=== PATIENT | female | born 1940 | race Hispanic/Latino ===

== ENCOUNTER 2019-07-12 15:09 | Inpatient (IN) | payer MEDICARE ==
[~2019-07-12] VITALS: Ht 157.5 cm; Wt 78.9 kg
--- NOTE | 2019-07-12 16:00 | NUR ---
RECIEVED PT TO ROOM 215 VIA WHEELCHAIR. PT IS A DIRECT ADMIT FROM DR. Joleen GRIJALVA OFFICE. PT AAO X 3. SPEAKS [facility] BUT PREFERS [facility]. AMBULATORY WITHOUT ANY ASSISTIVE DEVICE. VSS. NO SKIN BREAKDOWN. ORIENT TO SURROUNDINGS. ASSESSMENT DONE. BED IN LOW POSITION, SR UP X 2, CALL ORELLANA WITHIN REACH.
[2019-07-12 16:13] VITALS: BP 112/77
[2019-07-12 16:19] VITALS: BP 112/77
[2019-07-12 16:27] VITALS: BP 112/77
[2019-07-12] MEDS ORDERED: LASIX40 MG PO (16:29)
--- NOTE | 2019-07-12 16:30 | NUR ---
LAB WORK DONE BY TRAVEL REGISTERED NURSE NICU AT BEDSIDE.
[2019-07-12] MEDS ORDERED: AZELASTINE137 MCG/0. (16:31)
[2019-07-12] MEDS ORDERED: PRAZOSIN HCL5 MG PO (16:33)
[2019-07-12] MEDS ORDERED: FLUTICASONE (16:33)
[2019-07-12] MEDS ORDERED: HYDRALAZINE HCL25 MG PO (16:34)
[2019-07-12] MEDS ORDERED: CEFDINIR PEG (16:36)
[2019-07-12] MEDS ORDERED: LISINOPRIL10 MG PO (16:39)
[2019-07-12] MEDS ORDERED: ZOFRAN4 MG PO (16:39)
[2019-07-12] MEDS ORDERED: GLIPIZIDE5 MG PO (16:39)
[2019-07-12] MEDS ORDERED: NIFEDIPINE ER30 M1 PO (16:39)
[2019-07-12] MEDS ORDERED: PRAVASTATIN SOD20 MG PO (16:40)
[2019-07-12] MEDS ORDERED: ALBUTERAL INHALER INH (16:43)
[2019-07-12 17:14] LABS: BASOPHILS % 0.1 % (0.0-1.0); EOSINOPHILS # (AUTO) 0.3 (0.0-0.4); EOSINOPHILS % 3.6 % (0.0-6.0); HEMOGLOBIN 8.8 g/dL (12.0-16.0); LYMPHOCYTES # (AUTO) 0.9 (1.0-3.2); LYMPHOCYTES % 12.4 % (18.0-39.1); MEAN CORPUSCULAR HEMOGLOBIN 30.7 pg (28-32); MEAN CORPUSCULAR HGB CONC 32.6 g/dL (31-35); MEAN CORPUSCULAR VOLUME 94.1 fL (81-99); MONOCYTES # (AUTO) 0.6 (0.2-0.8); MONOCYTES % 8.2 % (4.4-11.3); NEUTROPHILS # (AUTO) 5.4 (2.1-6.9); NEUTROPHILS % 75.1 % (38.7-80.0); PLATELET COUNT 191 x10e3/uL (140-360); RED BLOOD COUNT 2.87 x10e6/uL (3.6-5.1)
--- NOTE | 2019-07-12 17:30 | NUR ---
PT ATE 100% INTAKE OF CARDIAC DIET.
[2019-07-12 17:31] LABS: ALBUMIN 3.2 g/dL (3.5-5.0); ALBUMIN/GLOBULIN RATIO 1.3 (0.8-2.0); ANION GAP 13.7 mmol/L (8-16); CALCIUM 8.6 mg/dL (8.4-10.2); CREATININE, SERUM 2.17 mg/dL (0.57-1.11); POTASSIUM 4.7 mmol/L (3.5-5.1)
[2019-07-12] MEDS ORDERED: FUROSEMIDE INJ 10 MG/ML 4 ML VIAL IV ONE (17:45)
--- NOTE | 2019-07-12 18:00 | NUR ---
PT TO XRAY DEPT FOR 2VIEW CXR VIA WC
[2019-07-12] MEDS: METHYLPREDNISOLONE SOD SUCC 125 MG/2ML VIAL IV SCH (18:02)
[2019-07-12 20:00] VITALS: BP 121/46
[2019-07-12 20:05] LABS: CLARITY,URINE SL CLOUDY (CLEAR); COLOR,URINE YELLOW (YELLOW); LEUKOCYTE ESTERASE ,URINE NEGATIVE (NEGATIVE); NITRITE,URINE NEGATIVE (NEGATIVE); PROTEIN,URINE DIPSTICK NEGATIVE (NEGATIVE)
[2019-07-12 20:06] LABS: BILIRUBIN,URINE NEGATIVE (NEGATIVE); KETONES,URINE NEGATIVE (NEGATIVE); URINE UROBILINOGEN 0.2 mg/dL (0.2 - 1)
[2019-07-12 20:15] LABS: EPITHELIAL CELLS,URINE FEW /LPF
[2019-07-12 21:00] VITALS: BP 121/46
[2019-07-12] MEDS ORDERED: ACETAMINOPHEN 325 MG TAB PO PRN (21:30)
[2019-07-12] MEDS ORDERED: HYDROCODONE/APAP 5MG-325MG TAB PO PRN (21:30)
[2019-07-12] MEDS: DOXYCYCLINE HYCLATE 100 MG in SODIUM CHLORIDE 0.9% 100 ML 100 ML IV SCH (21:30)
[2019-07-12] MEDS ORDERED: DEXTROSE 50% SYRINGE 50 ML IV PRN (21:30)
[2019-07-12] MEDS ORDERED: ONDANSETRON HCL INJ 2MG/ML 2ML 2 MG/ML VIAL IV PRN (22:00)
--- NOTE | 2019-07-12 22:19 | History and Physical ---
CHIEF COMPLAINT: Shortness of breath and wheezing. HISTORY OF PRESENT ILLNESS: This is a 78-year-old female, morbidly obese, very poor historian, history of hypertension, type 2 diabetes, hyperlipidemia, who presented as a direct admission from the Pulmonary Clinic due to underlying wheezing, shortness of breath, ongoing for the last 1-2 weeks. The patient has a known history of COPD as well as heart failure. The patient has significant lower extremity edema. She reports having some cough. No fever. No recent travel. No sick contacts at home. She has been at home for the last several weeks with her . Her is not sick at this time. Due to worsening shortness of breath and wheezing, she came in to be evaluated by the human performance consultant and sent here for direct admission. The patient is seen and evaluated at bedside on the medical floor. She is currently doing well with no other issues at this time. REVIEW OF SYSTEMS: Pertinent positives; shortness of breath, wheezing, cough, congestion. The rest of 14-point review of systems have been reviewed with the patient and are negative. ALLERGIES: NO KNOWN DRUG ALLERGIES. HOME MEDICATIONS: Hydralazine 25 mg p.o. b.i.d., nifedipine 30 mg extended release 1 tablet p.o. daily, pravastatin 20 mg daily, prazosin, lisinopril, glipizide, furosemide. PAST MEDICAL HISTORY: She has a history of heart failure, diabetes, hypertension, COPD, morbidly obese. PAST SURGICAL HISTORY: None. FAMILY HISTORY: Hypertension and diabetes. SOCIAL HISTORY: No drugs. No alcohol. Does not smoke. Good social support. PHYSICAL EXAMINATION: VITAL SIGNS: Temperature is 99.3, pulse 54, respiratory rate is 18, blood pressure is 112/77, pulse ox 95% on room air. GENERAL: No acute distress. Alert and oriented x3. Cooperative on examination. HEENT: Head is normocephalic and atraumatic. Eyes; pupils are equal, round, and reactive to light bilaterally. Extraocular movements are intact bilaterally. Throat, no evidence of erythema or exudates in the posterior pharynx. She has poor dentition. NECK: Supple. Good range motion. PULMONARY: She has expiratory wheezing appreciated. There are positive rales. Good inspiratory effort and expiratory effort. CARDIOVASCULAR: Positive S1 and S2. No murmurs, rubs, or gallops appreciated. ABDOMEN: Soft, nondistended, and nontender to palpation. Bowel sounds present. MUSCULOSKELETAL: Strength is 5/5 throughout. No evidence of any muscle deficits on examination. No weakness appreciated. NEUROLOGIC: Cranial nerves 2 thorough 12 grossly intact. No evidence of any neurological deficits on exam. SKIN: Intact. Warm to touch. Good cap refill. PSYCHIATRIC: Normal affect and mood. EXTREMITIES: She does have 1+ pedal edema in bilateral lower extremities. LABORATORY DATA: Labs show white count 7.1, hemoglobin 8.8, hematocrit 27.0, and platelets of 191. Chemistry; sodium 136, potassium 4.7, chloride 108, bicarb 19, anion gap of 13, BUN is 98, creatinine is 2.17, szmoq-ho-uwer glucose 159, calcium 8.6, total bilirubin is 0.3, AST 10, ALT 13, alkaline phosphatase 68. BNP 1110. Total protein 5.7, albumin 3.2. Urinalysis negative. MICROBIOLOGY: None. IMAGING STUDIES: Chest x-ray pending. IMPRESSION: 1. Acute exacerbation of chronic obstructive pulmonary disease. 2. Acute exacerbation of congestive heart failure, unknown dysfunction. 3. Type 2 diabetes. 4. Hypertension. 5. Anemia. 6. Chronic kidney disease stage 4. PLAN: At this time, the patient has been started on IV steroids by Pulmonary and also IV antibiotics as well as Xopenex as needed. Pulmonary has been consulted. As for her CHF, she is on IV diuretics, electrolyte replacement. Cardiology consultation. We will put on aspirin as well as she is already on oral pravastatin. As for her diabetes, we are going to put her on a sliding scale, get a hemoglobin A1c, lipid found, TSH. Her hemoglobin is stable. We will monitor that very closely. As for her renal function, I do not know her baseline, but she [place]. We will continue to monitor this very closely. There is no indication for renal replacement therapy at this time. Put on Lovenox for DVT prophylaxis. Put PT and OT evaluation. MD MINA Brooks/CASTILLO /[id number]
[2019-07-12] MEDS ORDERED: SODIUM CHLORIDE 0.9% 250ML 250 ML ONE (22:27)
[2019-07-13] VITALS: BP 133/72
[2019-07-13] MEDS: FUROSEMIDE INJ 10 MG/ML 4 ML VIAL IV SCH ×4 (00:13→17:12)
[2019-07-13] MEDS: HYDRALAZINE HCL 100 MG TABLET PO SCH (00:36)
[2019-07-13 04:00] VITALS: BP 176/74
[2019-07-13] MEDS: METHYLPREDNISOLONE SOD SUCC 125 MG/2ML VIAL IV SCH (05:45)
--- NOTE | 2019-07-13 05:47 | Diagnostic Imaging Report ---
EXAMINATION: CHEST 2 VIEWS INDICATION: Shortness of breath. COMPARISON: None. FINDINGS: TUBES and LINES: None. LUNGS: Mildly hyperinflated lungs. There are patchy opacities at the bilateral lung bases. No evidence of pulmonary edema. PLEURA: No pleural effusion or pneumothorax. HEART AND MEDIASTINUM: The cardiomediastinal silhouette is mildly enlarged. There are atherosclerotic calcifications within the aorta. BONES AND SOFT TISSUES: No acute osseous lesion. Soft tissues are unremarkable. UPPER ABDOMEN: No free air under the diaphragm. IMPRESSION: Patchy bibasilar opacities, which may represent atelectasis or pneumonia in the appropriate clinical setting. Signed by: Dr. Yusuf Jose MD on 07/13/2019 5:44 AM
--- NOTE | 2019-07-13 05:48 | Diagnostic Imaging Report ---
EXAMINATION: CHEST SINGLE (PORTABLE) INDICATION: Cough, SOB, COPD. COMPARISON: Chest radiograph 07/12/2019. FINDINGS: TUBES and LINES: None. LUNGS: Lungs are well inflated. There are patchy opacities at the bilateral lung bases. No evidence of pulmonary edema. PLEURA: No pleural effusion or pneumothorax. HEART AND MEDIASTINUM: The cardiomediastinal silhouette is unremarkable. There are atherosclerotic calcifications within the aorta. BONES AND SOFT TISSUES: No acute osseous lesion. Soft tissues are unremarkable. UPPER ABDOMEN: No free air under the diaphragm. IMPRESSION: Patchy bibasilar opacities, which may represent atelectasis or pneumonia in the appropriate clinical setting. Signed by: Dr. Yusuf Jose MD on 07/13/2019 5:45 AM
[2019-07-13 05:53] LABS: BASOPHILS % 0.2 % (0.0-1.0); HEMATOCRIT 28.9 % (34.2-44.1); HEMOGLOBIN 9.2 g/dL (12.0-16.0); LYMPHOCYTES # (AUTO) 0.5 (1.0-3.2); LYMPHOCYTES % 8.4 % (18.0-39.1); MEAN CORPUSCULAR HEMOGLOBIN 30.4 pg (28-32); MEAN CORPUSCULAR HGB CONC 31.8 g/dL (31-35); MEAN CORPUSCULAR VOLUME 95.4 fL (81-99); MONOCYTES # (AUTO) 0.1 (0.2-0.8); MONOCYTES % 1.3 % (4.4-11.3); NEUTROPHILS # (AUTO) 5.3 (2.1-6.9); NEUTROPHILS % 88.9 % (38.7-80.0); PLATELET COUNT 204 x10e3/uL (140-360); RED BLOOD COUNT 3.03 x10e6/uL (3.6-5.1); RED CELL DISTRIBUTION WIDTH 16.2 % (11.7-14.4)
[2019-07-13 06:39] LABS: ANION GAP 17.8 mmol/L (8-16); CALCIUM 8.5 mg/dL (8.4-10.2); CHOL/HDL RATIO 2.7 (3.0-3.6); CREATININE, SERUM 2.47 mg/dL (0.57-1.11); POTASSIUM 4.8 mmol/L (3.5-5.1)
[2019-07-13 06:59] LABS: THYROID STIMULATING HORMONE 2.423 uIU/mL (0.350-4.940)
[2019-07-13] MEDS: LEVALBUTEROL HCL SOLN NEBU 0.63 MG/3 ML NEB INH PRN ×5 (07:45→19:45)
[2019-07-13 08:20] VITALS: BP 182/75
[2019-07-13] MEDS ORDERED: GLIPIZIDE 5 MG TAB PO SCH (09:00)
[2019-07-13] MEDS ORDERED: NIFEDIPINE CR 30 MG TAB PO SCH (09:00)
[2019-07-13] MEDS ORDERED: LISINOPRIL 10 MG TAB PO SCH (09:00)
--- NOTE | 2019-07-13 09:05 | Consultation ---
DATE OF CONSULTATION: Pulmonary Critical Care Consultation HISTORY OF PRESENT ILLNESS: The patient is a 78-year-old woman. She has a history of chronic renal insufficiency as well as hypertension, diabetes, and COPD. She reports worsening dyspnea over several weeks. She received Solu-Medrol in the office as well as bronchodilators and antibiotics with no improvement. She continues to have congestion and cough. She also complains of leg swelling. She denies chest pain or fevers. PAST MEDICAL HISTORY: 1. Diabetes. 2. COPD. 3. Hypertension. 4. Chronic renal insufficiency. 5. Heart disease of unclear extent. PAST SURGICAL HISTORY: Noncontributory. FAMILY HISTORY: Diabetes and hypertension. ALLERGIES: NO KNOWN DRUG ALLERGIES. SOCIAL HISTORY: The patient is not an active smoker or drinker. REVIEW OF SYSTEMS: The patient denies headache. She is not having any fever. She has no neck pain. She is not having any chest pain. She does have some wheezing and cough. She has no abdominal pain. She has no nausea or vomiting. She does have 2+ leg edema bilaterally. She denies any focal neurological problems. PHYSICAL EXAMINATION: VITAL SIGNS: The patient is afebrile. The blood pressure is 176/74 and saturation is 97%. HEENT: Shows no facial swelling or erythema. Oropharynx is normal. LYMPHATIC: Shows no submandibular, cervical, or supraclavicular adenopathy. CARDIAC: Reveals regular rate and rhythm with normal S1 and S2. LUNGS: Auscultation of lungs reveal rhonchorous breath sounds bilaterally. There is no wheezing. ABDOMEN: Soft and nontender. There is no rebound or guarding. EXTREMITIES: Show 1 to 2+ ankle edema. NEUROLOGICAL: Shows no focal abnormalities. LABORATORY DATA: BUN to creatinine ratio is 99 to 2.47. The other electrolytes are within normal limits. The white blood cell count is 5.9, hemoglobin is 9.2, and the platelet count is 224. RADIOGRAPHIC DATA: Chest x-ray shows patchy bibasilar infiltrates. IMPRESSION: 1. Acute on chronic heart failure, unspecified. 2. Acute on chronic exacerbation of chronic obstructive pulmonary disease. 3. Diabetes. 4. Chronic renal failure, stage 4. 5. Hypertension. 6. Anemia. PLAN: 1. Continue diuretics. 2. Decrease Solu-Medrol. 3. Adjust insulin to control blood sugar. 4. Continue to monitor renal function. 5. Await echocardiogram and completion of Cardiology evaluation. MD ZACH Lewis/CASTILLO /[id number]
[2019-07-13] MEDS: AZELASTINE HCL 137 MCG NASAL SPRAY NS SCH ×2 (10:02→17:12)
[2019-07-13] MEDS: PRAVASTATIN 20 MG TAB PO SCH (10:03)
[2019-07-13] MEDS: DOXYCYCLINE HYCLATE 100 MG in SODIUM CHLORIDE 0.9% 100 ML 100 ML IV SCH ×2 (10:03→21:32)
[2019-07-13] MEDS: HYDRALAZINE HCL 25 MG TAB PO SCH ×2 (10:03→17:11)
[2019-07-13] MEDS ORDERED: DEXTROSE 50% SYRINGE 50 ML IV PRN (12:00)
[2019-07-13 12:06] VITALS: BP 212/84
[2019-07-13 16:24] VITALS: BP 213/85
[2019-07-13] MEDS ORDERED: ENOXAPARIN SOD INJ 40 MG/0.4 ML SYR SC SCH (17:00)
[2019-07-13] MEDS: ENOXAPARIN SOD INJ 40 MG/0.4 ML SYR SC SCH (17:11)
[2019-07-13] MEDS: INSULIN REGULAR, HUMAN 100 UNIT/1 ML 3ML VIAL SQ SCH ×2 (17:11→21:00)
[2019-07-13] MEDS: METHYLPREDNISOLONE SOD SUCC 40 MG/ML VIAL 1ML IV SCH (17:14)
[2019-07-13] MEDS ORDERED: ONDANSETRON HCL 4 MG ORAL DISINTEGRATING TAB PO PRN (19:15)
--- NOTE | 2019-07-13 19:44 | NUR ---
walking rounds complete. report handed to oncoming nurse.
--- NOTE | 2019-07-13 21:27 | Consultation ---
DATE OF CONSULTATION: 07/13/2019 Cardiology Consult Note REASON FOR CONSULTATION: Uncontrolled hypertension, shortness of breath, and chest pain. CHIEF COMPLAINT: Cough and shortness of breath. HISTORY OF PRESENT ILLNESS: This 78-year-old female with history of obesity, hypertension, diabetes, hyperlipidemia, was admitted from Pulmonary Clinic for COPD exacerbation, per the chart, she also has a history of CHF. The patient herself is a poor historian and does not quite remember all of her cardiac issues. Denies having had any ND, cath, or bypass surgery in the past. She has been getting worsening lower extremity edema for the past several weeks. Also reports productive cough. Denies any fevers or chills. REVIEW OF SYSTEMS: As per HPI, otherwise negative. PAST MEDICAL HISTORY: As described in HPI. FAMILY HISTORY: Noncontributory. SOCIAL HISTORY: She does not smoke, drink, or abuse drugs. PHYSICAL EXAMINATION: VITAL SIGNS: Temperature afebrile, pulse 80, respiratory rate 20, blood pressure 212/84, saturating 99% on nasal cannula. GENERAL: An elderly female, in no acute distress. CARDIOVASCULAR: Regular rate and rhythm. No murmurs, rubs, or gallops. LUNGS: Bilateral wheezes. ABDOMEN: Obese, soft, nontender, nondistended. NEURO AND PSYCH: Alert and oriented to person, place, and time. Normal affect. EXTREMITIES: 2+ pitting edema. INPATIENT MEDICATIONS: Reviewed. LABORATORY DATA: Reviewed, notable for creatinine 2.47, BUN of 99. Troponin is negative. BNP 1100. Hemoglobin 9.2. TELEMETRY DATA: Reviewed, shows normal sinus rhythm. IMAGING DATA: Chest x-ray reviewed, shows patchy bibasilar opacities, atelectasis versus pneumonia. ASSESSMENT AND PLAN: 1. Uncontrolled hypertension. 2. Shortness of breath. 3. Kpxzc-zd-hpddkic congestive heart failure exacerbation. 4. Chronic obstructive pulmonary disease exacerbation. 5. Gbsel-hw-xalhsqh renal failure. PLAN: We will stop lisinopril given renal failure and significantly elevated BUN. We will add hydralazine 100 mg t.i.d. as well as IV and oral labetalol. Management of NILES per Nephrology. Echocardiogram is pending. We will defer volume management to Nephrology as well given severe renal dysfunction, has been ruled out for acute ND with serial cardiac enzymes. Thank you for this consult. We will continue to follow. MD MICHAEL Sanchez/CASTILLO /[id number]
[2019-07-13] MEDS: NIFEDIPINE CR 30 MG TAB PO SCH (21:30)
[2019-07-13] MEDS: LABETALOL HCL 200 MG TAB PO SCH (21:32)
--- NOTE | 2019-07-13 22:12 | Progress Note ---
DATE: 07/13/2019 Medicine Progress Note SUBJECTIVE: The patient reports feeling much better and breathing much better today. She has been on steroids, neb treatments, and IV diuretics. PHYSICAL EXAMINATION: VITAL SIGNS: Temperature is 98.1, pulse 80, respiratory rate is 20, blood pressure last recorded is 213/85, pulse ox 96% on room air. I was not called on elevated blood pressure readings, which I will currently address. GENERAL: Not in acute distress. Alert and oriented x3. Cooperative on examination. HEENT: Head; normocephalic, atraumatic. Eyes; pupils are equal, round, and reactive to light bilaterally. Extraocular movements intact bilaterally. Throat; no evidence of erythema or exudates in the posterior pharynx. Has poor dentition. NECK: Supple. Good range of motion. PULMONARY: Clear to auscultation bilaterally. No wheezing, no rales, no rhonchi, no crackles appreciated. CARDIOVASCULAR: Positive S1 and S2. No murmurs, rubs, or gallops appreciated. ABDOMEN: Soft, nondistended, and nontender to palpation. Bowel sounds present. MUSCULOSKELETAL: Strength is 5/5 throughout. No evidence of any muscle deficits on examination. No weakness appreciated. NEUROLOGIC: Cranial nerve II through XII grossly intact. No evidence of any neurological deficits on exam. SKIN: Intact. Warm to touch. Good cap refill. PSYCHIATRIC: Normal affect and mood. EXTREMITIES: No edema. Good range of motion throughout. LABORATORY DATA: White count 5.9, hemoglobin 9.2, hematocrit is 28.9, platelets of 204. Chemistry; sodium 137, potassium 4.8, chloride 107, bicarb 17, anion gap of 17, BUN is 99, creatinine is 2.47, glucose is 221. Hemoglobin A1c 7.2, calcium 8.5. Troponins are all within normal range. TSH is 2.4. LDL was 113. Urinalysis was negative. MICROBIOLOGY: None. IMAGING STUDIES: Chest x-ray shows patchy bibasilar opacities, may represent atelectasis or pneumonia in appropriate clinical setting. IMPRESSION: 1. Acute exacerbation of chronic obstructive pulmonary disease. 2. Acute exacerbation of congestive heart failure. 3. Type 2 diabetes. 4. Hypertension. 5. Anemia. 6. Chronic kidney disease, stage 4. PLAN: At this time, the patient is breathing much better. Continue with steroids, neb treatments, and antibiotics. Pulmonary has been is consulted and following. As for CHF, continue with diuretics, electrolyte replacements, in which Cardiology has been consulted. We did hold her lisinopril. I did adjust her antihypertensive medications and we will add nifedipine XL 30 mg daily as well. As for her diabetes, continue with the sliding scale. Her A1c noted to be 7.2, in which glipizide should be held due to her underlying renal failure, which is contraindicated and CKD 5. Continue with sliding scale. There is no indication for renal replacement therapy at this time. She is on Lovenox for DVT prophylaxis. Work with PT and OT. Get a.m. labs. MD MINA Brooks/CASTILLO /[id number]
[2019-07-13] MEDS: LABETALOL HCL 5 MG/ML 20ML VIAL IV PRN (23:37)
[2019-07-14] VITALS (11 sets, daily range): BP systolic 146–195; BP diastolic 60–84
[2019-07-14] MEDS: HYDRALAZINE HCL 100 MG TABLET PO SCH ×4 (00:36→21:00)
--- NOTE | 2019-07-14 00:40 | NUR ---
Patient's BP elevated (200/84) with a HR of 74. Dr. Edilson yeh. Dr. Joleen Galvez (covering for Dr. Waggoner) notified of Nifedipine 30 mg HS and Hydralazine 100 mg TID . Order received to give Hydralazine 100 mg and give Labetalol 5 mg Q4H PRN (as scheduled in eMAR).
[2019-07-14] MEDS: MELATONIN 5 MG TABLET PO PRN (02:30)
--- NOTE | 2019-07-14 03:40 | NUR ---
Patient's BP elevated (206/83) with a HR of 72. Labetalol 5 mg IV administered per eMAR. Dr. Edy Galvez paged . Awaiting call back.
[2019-07-14] MEDS: METHYLPREDNISOLONE SOD SUCC 40 MG/ML VIAL 1ML IV SCH ×2 (05:56→16:56)
[2019-07-14 06:23] LABS: BASOPHILS % 0.1 % (0.0-1.0); HEMATOCRIT 27.1 % (34.2-44.1); HEMOGLOBIN 8.9 g/dL (12.0-16.0); LYMPHOCYTES # (AUTO) 0.7 (1.0-3.2); MEAN CORPUSCULAR HEMOGLOBIN 30.7 pg (28-32); MEAN CORPUSCULAR HGB CONC 32.8 g/dL (31-35); MEAN CORPUSCULAR VOLUME 93.4 fL (81-99); MONOCYTES # (AUTO) 0.6 (0.2-0.8); MONOCYTES % 7.3 % (4.4-11.3); NEUTROPHILS # (AUTO) 6.3 (2.1-6.9); NEUTROPHILS % 82.9 % (38.7-80.0); PLATELET COUNT 199 x10e3/uL (140-360); RED CELL DISTRIBUTION WIDTH 16.2 % (11.7-14.4)
[2019-07-14] MEDS: LEVALBUTEROL HCL SOLN NEBU 0.63 MG/3 ML NEB INH PRN ×4 (06:30→22:57)
[2019-07-14 06:58] LABS: ANION GAP 17.9 mmol/L (8-16); CALCIUM 8.5 mg/dL (8.4-10.2); CREATININE, SERUM 2.41 mg/dL (0.57-1.11); POTASSIUM 3.9 mmol/L (3.5-5.1)
[2019-07-14] MEDS: AZELASTINE HCL 137 MCG NASAL SPRAY NS SCH ×2 (09:00→16:19)
[2019-07-14] MEDS: PRAVASTATIN 20 MG TAB PO SCH (09:00)
[2019-07-14] MEDS: LABETALOL HCL 200 MG TAB PO SCH (09:17)
[2019-07-14] MEDS: DOXYCYCLINE HYCLATE 100 MG in SODIUM CHLORIDE 0.9% 100 ML 100 ML IV SCH ×2 (09:19→21:55)
[2019-07-14] MEDS: INSULIN REGULAR, HUMAN 100 UNIT/1 ML 3ML VIAL SQ SCH ×4 (11:30→21:00)
--- NOTE | 2019-07-14 14:25 | Progress Note ---
DATE: SUBJECTIVE: She has less wheezing and less dyspnea, but still has some cough. She reports difficulty sleeping last night. She is expressing concern about her blood pressure. Apparently, her blood pressure went up last night. She also expressed concern as to whether she is receiving her cholesterol medicine and her scheduled nose spray. PHYSICAL EXAMINATION: VITAL SIGNS: The blood pressure is 157/84, saturation is 95%. The pulse is 72, and the respiratory rate is 16. HEENT: Shows no facial swelling or erythema. The oropharynx is normal. LYMPHATIC: Shows no submandibular, cervical or supraclavicular adenopathy. CARDIAC: Reveals regular rate and rhythm with normal S1 and S2. There are no murmurs or rubs heard. LUNGS: Auscultation of lungs reveals few wheezes bilaterally. There is less congestion and less rhonchi. ABDOMEN: Soft and nontender. There is no rebound or guarding. EXTREMITIES: Show no leg edema or calf tenderness. There is no cyanosis or clubbing. LABORATORY DATA: BUN to creatinine ratio is 107-2.41 with an estimated GFR of 19. The carbon dioxide is 19 and glucose is 125. IMPRESSION: 1. Chronic obstructive pulmonary disease with acute exacerbation. 2. Congestive heart failure, unspecified. 3. Chronic renal failure stage 4. 4. Diabetes. 5. Hypertension. PLAN: 1. Continue Solu-Medrol 30 mg IV q.12. 2. Continue current antibiotics. 3. Await completion of Cardiology evaluation. 4. Continue current antihypertensive regimen as recommended by Dr. Moe. Amadou Deal MD [facility]/MODL /[id number]
--- NOTE | 2019-07-14 15:39 | NUR ---
Informed Dr. Moe that PT was recommending home health. He states he was fine with CM setting it up if pt agreeable. CM spoke to pt at bedside. Pt agreeable to home health with any company that takes her insurance. Choice letter signed for [facility]. Copy of choice letter given to pt. IMM letter discussed with pt. She verbalized understanding. Malay copy provided to pt. Signed choice letter and IMM placed in chart. Home health referral faxed to [facility] at [phone] / P [phone].
[2019-07-14] MEDS: PRAZOSIN HCL 1 MG CAP PO SCH (16:21)
[2019-07-14] MEDS: ENOXAPARIN SOD INJ 40 MG/0.4 ML SYR SC SCH (16:21)
[2019-07-14] MEDS ORDERED: PRAZOSIN HCL PO SCH (17:00)
[2019-07-14] MEDS ORDERED: FLUTICASONE 50 MCG SCH (17:00)
[2019-07-14] MEDS: FLUTICASONE PROPIONATE NASAL SPRAY NS SCH (17:09)
[2019-07-14] MEDS ORDERED: ZOLPIDEM TARTRATE 5 MG TAB PO SCH (21:00)
[2019-07-14] MEDS ORDERED: ZOLPIDEM TARTRATE 10 MG TAB PO SCH (21:00)
[2019-07-14] MEDS: NIFEDIPINE CR 30 MG TAB PO SCH (21:00)
[2019-07-14] MEDS ORDERED: ZOLPIDEM TARTRATE 5 MG TAB PO PRN (21:45)
--- NOTE | 2019-07-14 22:09 | Progress Note ---
DATE: 07/14/2019 Medicine Progress Note SUBJECTIVE: The patient reports that she is still short of breath, has some wheezing on examination. She reports she is not ready today to go home. She still complains of shortness of breath. Antihypertensive medications were adjusted accordingly. LABORATORY DATA: Labs show white count 7.6, hemoglobin 8.9, hematocrit 27, platelets of 199. Chemistry, sodium 139, potassium 3.9, chloride 106, bicarb 19, anion gap is 17. BUN is 107, her creatinine is 2.41, glucose is 125, and calcium is 8.5. Troponins were negative. Urinalysis negative. IMAGING STUDIES: None. PHYSICAL EXAMINATION: VITAL SIGNS: Temperature is 96, pulse 56, respiratory rate is 21, blood pressure 170/61 pulse ox 97% on 2 L nasal cannula. GENERAL: Not in acute distress. Alert and oriented x3. Cooperative on examination. HEENT: Head; normocephalic, atraumatic. Eyes; pupils are equal, round, and reactive to light bilaterally. Extraocular movements intact bilaterally. Throat; no evidence of erythema or exudates in the posterior pharynx. Has poor dentition. NECK: Supple. Good range of motion. PULMONARY: She does have some mild expiratory wheezing appreciated. No crackles. No rales. CARDIOVASCULAR: Positive S1 and S2. No murmurs, rubs, or gallops appreciated. ABDOMEN: Soft, nondistended, and nontender to palpation. Bowel sounds present. MUSCULOSKELETAL: Strength is 5/5 throughout. No evidence of any muscle deficits on examination. No weakness appreciated. NEUROLOGIC: Cranial nerve 2 through 12 grossly intact. No evidence of any neurological deficits on exam. SKIN: Intact. Warm to touch. Good cap refill. PSYCHIATRIC: Normal affect and mood. EXTREMITIES: No edema. Good range of motion throughout. IMPRESSION: 1. Acute exacerbation of chronic obstructive pulmonary disease. 2. Acute exacerbation of congestive heart failure. 3. Type 2 diabetes. 4. Hypertension. 5. Anemia. 6. Chronic kidney disease stage 4 at baseline. PLAN: At this time, she reports she is breathing better, but still has some shortness of breath and wheezing on exam. Continue with steroids at a lower dose, neb treatments, antibiotics. Pulmonary is following very closely. As for her CHF, she is on diuretics, electrolyte replacements, cardioprotective medications. Cardiology is following. Antihypertensive medications were adjusted accordingly with much improvement in her blood pressure, but we will monitor very closely. As for her diabetes, we will continue with glipizide. Continue with sliding scale. There is no indication for renal replacement therapy at this time. Lovenox for DVT prophylaxis. Work with PT/OT. Get morning labs. CONSULTANTS: Pulmonary and Cardiology. MD MINA Brooks/[facility] /[id number]
[2019-07-15] VITALS (9 sets, daily range): BP systolic 136–185; BP diastolic 55–77
[2019-07-15] MEDS: LEVALBUTEROL HCL SOLN NEBU 0.63 MG/3 ML NEB INH PRN ×4 (03:21→19:25)
[2019-07-15] MEDS: METHYLPREDNISOLONE SOD SUCC 40 MG/ML VIAL 1ML IV SCH ×2 (05:40→16:31)
[2019-07-15 05:43] LABS: HEMOGLOBIN 8.8 g/dL (12.0-16.0); LYMPHOCYTES # (AUTO) 0.7 (1.0-3.2); LYMPHOCYTES % 9.1 % (18.0-39.1); MEAN CORPUSCULAR HGB CONC 32.6 g/dL (31-35); MEAN CORPUSCULAR VOLUME 95.1 fL (81-99); MONOCYTES # (AUTO) 0.5 (0.2-0.8); MONOCYTES % 7.2 % (4.4-11.3); NEUTROPHILS % 82.9 % (38.7-80.0); PLATELET COUNT 198 x10e3/uL (140-360); RED BLOOD COUNT 2.84 x10e6/uL (3.6-5.1); RED CELL DISTRIBUTION WIDTH 16.5 % (11.7-14.4)
[2019-07-15 06:09] LABS: ANION GAP 13.9 mmol/L (8-16); CREATININE, SERUM 2.23 mg/dL (0.57-1.11); POTASSIUM 3.9 mmol/L (3.5-5.1)
[2019-07-15] MEDS: HYDRALAZINE HCL 100 MG TABLET PO SCH ×3 (08:13→22:04)
[2019-07-15] MEDS: FLUTICASONE PROPIONATE NASAL SPRAY NS SCH ×2 (08:13→16:31)
[2019-07-15] MEDS: DOXYCYCLINE HYCLATE 100 MG in SODIUM CHLORIDE 0.9% 100 ML 100 ML IV SCH ×2 (08:13→22:04)
[2019-07-15] MEDS: AZELASTINE HCL 137 MCG NASAL SPRAY NS SCH ×2 (08:13→16:31)
[2019-07-15] MEDS: PRAZOSIN HCL 1 MG CAP PO SCH ×2 (08:13→16:31)
[2019-07-15] MEDS: PRAVASTATIN 20 MG TAB PO SCH (09:00)
[2019-07-15] MEDS: INSULIN REGULAR, HUMAN 100 UNIT/1 ML 3ML VIAL SQ SCH ×4 (10:23→21:00)
--- NOTE | 2019-07-15 13:00 | Progress Note ---
DATE: SUBJECTIVE: The patient feels better. She has less wheezing. Her blood pressure was better controlled last night. She slept well. PHYSICAL EXAMINATION: VITAL SIGNS: The patient is afebrile. The blood pressure is 171/67, saturation is 97%. The pulse is 62. HEENT: Shows no facial swelling or erythema. CARDIAC: Reveals regular rate and rhythm with normal S1 and S2. LUNGS: Auscultation of lungs reveals rhonchorous breath sounds bilaterally. There is no wheezing. ABDOMEN: Soft, nontender. There is no rebound or guarding. EXTREMITIES: Show no leg edema or calf tenderness. There is no cyanosis or clubbing. SKIN: Shows no rashes. IMPRESSION: 1. Chronic obstructive pulmonary disease with acute exacerbation. 2. Chronic renal failure stage 4. 3. Diabetes. 4. Hypertension. PLAN: 1. Wean corticosteroids. 2. Complete cardiology evaluation. 3. Monitor blood pressure. 4. Probable discharge home tomorrow. MD ZACH Lewis/CASTILLO /[id number]
[2019-07-15] MEDS: ENOXAPARIN SOD INJ 40 MG/0.4 ML SYR SC SCH (16:31)
--- NOTE | 2019-07-15 22:33 | Progress Note ---
DATE: 07/15/2019 Medicine Progress Note SUBJECTIVE: The patient is breathing much better today with no issues. OBJECTIVE: VITAL SIGNS: Temperature is 96.2, pulse 60, respiratory rate is 15, blood pressure is still elevated at 185/77, pulse ox 95% on room air. GENERAL: No acute distress alert and oriented x3. Cooperative on examination. HEENT: Head is normocephalic and atraumatic. Eyes; pupils are equal, round, and reactive to light bilaterally. Extraocular movements intact bilaterally. Throat; no evidence of erythema or exudates in the posterior pharynx. She has poor dentition. NECK: Supple. Good range of motion. PULMONARY: Clear to auscultation bilaterally. No wheezing, rales, or rhonchi. No crackles appreciated. CARDIOVASCULAR: Positive S1 and S2. No murmurs, rubs, or gallops appreciated. ABDOMEN: Soft, nondistended, and nontender to palpation. Bowel sounds present. MUSCULOSKELETAL: Strength is 5/5 throughout. No evidence of any muscle deficits on examination. No weakness appreciated. NEUROLOGIC: No evidence of any neurological deficits on exam. SKIN: Intact. Warm to touch. Good cap refill. PSYCHIATRIC: Normal affect and mood. EXTREMITIES: No edema. Good range of motion throughout. LABORATORY FINDINGS: Show white count 7.2, hemoglobin 8.8, hematocrit 27, and platelets of 198. Chemistry; sodium 143, potassium 3.9, chloride 113, bicarb 20, anion gap of 13, BUN is 106, creatinine is 2.2, glucose is 190, calcium is 8. MICROBIOLOGY: None. IMAGING STUDIES: None. IMPRESSION: 1. Acute exacerbation of chronic obstructive pulmonary disease. 2. Acute exacerbation of congestive heart failure. 3. Type 2 diabetes. 4. Hypertension, uncontrolled. 5. Anemia. 6. Chronic kidney disease stage 4, at baseline. PLAN: At this time she is breathing much better. Continue with steroids, neb treatments, and antibiotics. Pulmonary is following very closely. As far her heart failure, continue with diuretics, electrolyte replacements, and cardioprotective medications, and Cardiology is following. Her blood pressure is still elevated. She is already maxed out on hydralazine. She is already on prazosin. We will go ahead and increase the nifedipine XL to 30 mg twice daily to simplify her medication regimen. I would rather use the medications that she is currently on, then add more new medications as the patient is very noncompliant and very confused with her medication regimen. We will monitor her blood pressure very closely. If she is stable, we will discharge home tomorrow. Continue with the sliding scale. Monitor glucose levels very closely. Lovenox for DVT prophylaxis. Continue with PT and OT. Consultants; Pulmonary and Cardiology. MD MINA Brooks/CASTILLO /[id number]
[2019-07-16] VITALS (8 sets, daily range): BP systolic 135–189; BP diastolic 45–91
--- NOTE | 2019-07-16 01:00 | NUR ---
Patient informed of upcoming medical procedure---ERCP and NPO status. Patient verbalized understanding and voluntarily signed "Disclosure and Consent" form.
--- NOTE | 2019-07-16 01:20 | NUR ---
IV on right arm infiltrated. Old IV removed with tip intact. New IV inserted in left FA 20G. Patient tolerated well.
[2019-07-16] MEDS: MELATONIN 5 MG TABLET PO PRN (01:35)
[2019-07-16] MEDS: LABETALOL HCL 5 MG/ML 20ML VIAL IV PRN (01:48)
[2019-07-16] MEDS: LEVALBUTEROL HCL SOLN NEBU 0.63 MG/3 ML NEB INH PRN ×4 (03:07→19:35)
[2019-07-16] MEDS: METHYLPREDNISOLONE SOD SUCC 40 MG/ML VIAL 1ML IV SCH ×2 (06:03→17:00)
[2019-07-16 06:05] LABS: EOSINOPHILS % 0.1 % (0.0-6.0); HEMATOCRIT 28.1 % (34.2-44.1); HEMOGLOBIN 8.7 g/dL (12.0-16.0); LYMPHOCYTES # (AUTO) 0.9 (1.0-3.2); LYMPHOCYTES % 11.2 % (18.0-39.1); MEAN CORPUSCULAR VOLUME 96.9 fL (81-99); MONOCYTES # (AUTO) 0.7 (0.2-0.8); MONOCYTES % 9.7 % (4.4-11.3); NEUTROPHILS # (AUTO) 5.9 (2.1-6.9); NEUTROPHILS % 77.7 % (38.7-80.0); PLATELET COUNT 195 x10e3/uL (140-360); RED CELL DISTRIBUTION WIDTH 16.8 % (11.7-14.4)
[2019-07-16 06:22] LABS: ANION GAP 11.9 mmol/L (8-16); CALCIUM 7.8 mg/dL (8.4-10.2); CREATININE, SERUM 2.05 mg/dL (0.57-1.11); POTASSIUM 3.9 mmol/L (3.5-5.1)
--- NOTE | 2019-07-16 07:00 | NUR ---
Patient resting comfortably. Bed-side report given to oncoming nurse.
[2019-07-16] MEDS: INSULIN REGULAR, HUMAN 100 UNIT/1 ML 3ML VIAL SQ SCH ×4 (08:26→21:00)
[2019-07-16] MEDS: FLUTICASONE PROPIONATE NASAL SPRAY NS SCH ×2 (08:26→17:00)
[2019-07-16] MEDS: NIFEDIPINE CR 30 MG TAB PO SCH ×2 (08:26→17:00)
[2019-07-16] MEDS: PRAVASTATIN 20 MG TAB PO SCH (08:26)
[2019-07-16] MEDS: DOXYCYCLINE HYCLATE 100 MG in SODIUM CHLORIDE 0.9% 100 ML 100 ML IV SCH ×2 (08:26→21:29)
[2019-07-16] MEDS: HYDRALAZINE HCL 100 MG TABLET PO SCH ×3 (08:26→21:29)
[2019-07-16] MEDS: PRAZOSIN HCL 1 MG CAP PO SCH ×2 (08:26→17:00)
[2019-07-16] MEDS: AZELASTINE HCL 137 MCG NASAL SPRAY NS SCH ×2 (08:26→17:00)
--- NOTE | 2019-07-16 10:35 | NUR ---
Pt. expressed no spiritual or emotional concerns at this time. Log Check Scaler provided hospitality and information on how to reach cut out press operator, if needed. No need to follow at this time. TERESA SEAY Log Check Scaler Spiritual Care Department O: [phone]
[2019-07-16] MEDS ORDERED: GUAIFENESIN/CODEINE 10 ML CUP PO PRN (13:15)
--- NOTE | 2019-07-16 14:30 | Progress Note ---
DATE: SUBJECTIVE: The patient had some coughing last night, but is not coughing now. She is not wheezing. She has less dyspnea. PHYSICAL EXAMINATION: VITAL SIGNS: The patient is afebrile. The blood pressure is 160/62. Saturation is 99% on room air. The pulse is 65. HEENT: Shows no facial swelling or erythema. CARDIAC: Reveals a rate and regular rate and rhythm with normal S1 and S2. LUNGS: Auscultation of lungs shows clear breath sounds bilaterally. There is no wheezing. ABDOMEN: Soft, nontender. EXTREMITIES: There is no leg edema. LABORATORY DATA: Hemoglobin is 8.7 and platelet count is 195. The white blood cell count is 7.5. The BUN to creatinine ratio is a 98 to 2.05. The blood sugar is 249. IMPRESSION: 1. Chronic obstructive pulmonary disease with acute exacerbation. 2. Chronic renal failure stage 4. 3. Diabetes. 4. Hypertension. PLAN: 1. The patient is okay for discharge. She can complete a steroid taper at home as well as finish a course of antibiotics. 2. Follow up in the office in 4 to 5 days. 3. Continue to monitor blood pressure. 4. Continue to monitor blood sugars. MD ZACH Lewis/CASTILLO /[id number]
--- NOTE | 2019-07-16 16:44 | NUR ---
EDSON called and spoke with Mariely with scheduling at [facility]. She said pt is good to go and that she has already reached out to pt's family. EDSON informed her of anticipated dc for tomorrow. Home health information was printed and given to pt. P [phone] Reminded pt of medicare rights. pt signed IMM letter. Turkmen copy provided to pt. Signed copy placed in chart.
[2019-07-16] MEDS: ENOXAPARIN SOD INJ 40 MG/0.4 ML SYR SC SCH (17:00)
--- NOTE | 2019-07-16 18:57 | NUR ---
Report given to oncoming nurse of patient's status. Resting in bed. No s/s of acute distress noted. Side rails upx2, call light within reach.
--- NOTE | 2019-07-16 19:38 | NUR ---
Patient received lying in bed. AAO x 3. No acute distress noted. Fall precautions implemented. Call light within reach.
--- NOTE | 2019-07-16 21:11 | Progress Note ---
DATE: 07/16/2019 Medicine Progress Note SUBJECTIVE: The patient is breathing much better today. She was sitting in a chair with no complaints. Her blood pressure was still elevated this morning. PHYSICAL EXAMINATION: VITAL SIGNS: Temperature 96.1, pulse 67, respiratory rate is 18, blood pressure is 151/66, pulse ox 96% on room air. GENERAL: No acute distress. Alert and oriented x3. Cooperative on exam. HEENT: Head is normocephalic and atraumatic. Eyes; pupils are equal, round, and reactive to light bilaterally. Extraocular movements intact bilaterally. Throat; no evidence of erythema or exudates in the posterior pharynx. She has poor dentition. NECK: Supple. Good range of motion. PULMONARY: Clear to auscultation bilaterally. No wheezing, rales, or rhonchi. No crackles appreciated. CARDIOVASCULAR: Positive S1 and S2. No murmurs, rubs, or gallops appreciated. ABDOMEN: Soft, nondistended, and nontender to palpation. Bowel sounds are present. MUSCULOSKELETAL: Strength is 5/5 throughout. No evidence of any muscle deficits on examination. No weakness appreciated. NEUROLOGIC: Cranial nerves II through XII grossly intact. No evidence of any neurological deficits on exam. SKIN: Intact. Warm to touch. Good cap refill. PSYCHIATRIC: Normal affect and mood. EXTREMITIES: No edema. Good range of motion throughout. LABORATORY DATA: Showed white count 7.5, hemoglobin 8.7, hematocrit 28.1, and platelets of 195. Her chemistry; sodium 142, potassium 3.9, chloride 114, bicarb is 21, anion gap of 11, BUN is 98, creatinine is 2.05, glucose is 174, calcium is 7.8. IMAGING STUDIES: None. IMPRESSION: 1. Acute exacerbation of chronic obstructive pulmonary disease. 2. Acute exacerbation of congestive heart failure. 3. Type 2 diabetes. 4. Hypertension, uncontrolled. 5. Anemia. 6. Chronic kidney disease stage 4 at baseline. PLAN: At this time, she is breathing much better. We will continue with low-dose steroids, neb treatments, and antibiotics and Pulmonary is following. She also will continue with diuretics, electrolyte replacements, and cardioprotective medications as per Cardiology. Blood pressure is much improved after I increased the nifedipine to twice daily. We will monitor the patient overnight. If her blood pressure is stable, she is good to go home tomorrow. Lovenox for DVT prophylaxis. Consultants; Pulmonary and Cardiology. MD MINA Brooks/CASTILLO /[id number]
--- NOTE | 2019-07-16 23:00 | NUR ---
DR. Edy Galvez paged regarding patient's cardiac rhythm----5 beats of V-Tach . Awaiting call back.
--- NOTE | 2019-07-16 23:15 | NUR ---
Dr. Edy Galvez called back. No new orders received.
[2019-07-17 00:20] VITALS: BP 157/70
[2019-07-17] MEDS: LEVALBUTEROL HCL SOLN NEBU 0.63 MG/3 ML NEB INH PRN ×2 (01:15→13:15)
[2019-07-17 06:37] LABS: ANION GAP 10.3 mmol/L (8-16); CALCIUM 7.8 mg/dL (8.4-10.2); CREATININE, SERUM 1.84 mg/dL (0.57-1.11); POTASSIUM 4.3 mmol/L (3.5-5.1)
[2019-07-17] MEDS: METHYLPREDNISOLONE SOD SUCC 40 MG/ML VIAL 1ML IV SCH (06:45)
--- NOTE | 2019-07-17 07:04 | NUR ---
Patient resting comfortably, Walking rounds done. Shift report given to oncoming nurse regarding patient's status.
[2019-07-17] MEDS: INSULIN REGULAR, HUMAN 100 UNIT/1 ML 3ML VIAL SQ SCH ×3 (07:53→16:49)
[2019-07-17 08:10] VITALS: BP 169/90
[2019-07-17 08:28] VITALS: BP 169/90
[2019-07-17] MEDS: PRAVASTATIN 20 MG TAB PO SCH (09:19)
[2019-07-17] MEDS: FLUTICASONE PROPIONATE NASAL SPRAY NS SCH ×2 (09:19→16:49)
[2019-07-17] MEDS: HYDRALAZINE HCL 100 MG TABLET PO SCH ×2 (09:19→14:31)
[2019-07-17] MEDS: AZELASTINE HCL 137 MCG NASAL SPRAY NS SCH ×2 (09:19→16:49)
[2019-07-17] MEDS: PRAZOSIN HCL 1 MG CAP PO SCH ×2 (09:19→16:49)
[2019-07-17] MEDS: DOXYCYCLINE HYCLATE 100 MG in SODIUM CHLORIDE 0.9% 100 ML 100 ML IV SCH (09:19)
[2019-07-17] MEDS: NIFEDIPINE CR 30 MG TAB PO SCH ×2 (09:20→16:49)
[2019-07-17 11:30] VITALS: BP 166/72
[2019-07-17 15:38] VITALS: BP 159/70
[2019-07-17] MEDS ORDERED: DOXYCYCLINE HY100 MG PO (15:42)
[2019-07-17] MEDS ORDERED: PREDNISONE5 MG (15:43)
[2019-07-17] MEDS ORDERED: HYDRALAZINE HCL25 MG PO (15:43)
[2019-07-17] MEDS ORDERED: PREDNISONE20 MG PO (15:43)
--- NOTE | 2019-07-17 16:15 | NUR ---
Discharge instructions and prescriptions were given to the patient. She verbalized understanding. IV to the left forearm was removed with tip intact. Family member was notified that she is discharging home
--- NOTE | 2019-07-17 20:46 | Discharge Summary ---
FINAL DISCHARGE DIAGNOSES: 1. Acute exacerbation of chronic obstructive pulmonary disease. 2. Acute exacerbation of congestive heart failure. 3. Type 2 diabetes. 4. Hypertension, uncontrolled. 5. Anemia. 6. Chronic kidney disease stage 4, at baseline. CONSULTANTS: Cardiology and Pulmonary. VITAL SIGNS: Temperature is 97.9, pulse 71, respiratory rate 20, blood pressure is 166/72, pulse ox 96% on room air. LABORATORY DATA: Labs show white count 7.5, hemoglobin 8.7, hematocrit 28.1, and platelets of 195. Chemistry; sodium 143, potassium 4.3, chloride 116, bicarbonate 21, anion gap of 10, BUN is 96, creatinine is 1.84, glucose 185, calcium is 7.8, [id number] glucose is 193, total bilirubin is 0.3, AST is 10, ALT is 13, alkaline phosphatase 68. Troponins were all negative. Albumin is 3.2. LDL was 113, triglycerides 52, HDL 74, TSH is 2.42. Urinalysis negative. MICROBIOLOGY: None. IMAGING STUDIES: Chest x-ray shows patchy bibasilar opacities, which may represent atelectasis or pneumonia in the appropriate clinical setting. HOSPITAL COURSE: This is a 78-year-old female, came into the ED with underlying shortness of breath, cough, congestion, and wheezing. The patient was admitted for further evaluation and management. The patient was treated for underlying acute exacerbation of COPD with Pulmonary was consulted. The patient was on steroids, neb treatments, and antibiotics. The patient improved in terms of her wheezing throughout the hospital course. She was cleared for discharge by Pulmonary. The patient had also underlying acute exacerbation of CHF with an echo that shows 45% to 49%. It was felt the patient likely has diastolic dysfunction. She was on IV diuretics as well as cardioprotective medications with much improvement. She did have some lower extremity edema, which improved throughout the hospital course. The patient was breathing much better, back to normal baseline with no complaints. She does have stage 4 CKD at baseline. Her blood pressure was uncontrolled, but medications were adjusted accordingly while here in the hospital with much improvement prior to being discharged home. The patient has been cleared for discharge by all consultants. The patient's breathing much better, back to normal baseline. On the day of discharge, vital signs were stable. Labs reviewed and stable. The patient is seen and evaluated and examined thoroughly on the day of discharge with no other complaints. The patient verbalized understanding and agrees to plan of care to follow up as an outpatient with primary care physician in 1 week and Pulmonary, Cardiology, and her environmental health specialist in 2 weeks' time. MEDICATIONS: See med reconciliation form. DISPOSITION: Home. CONDITION: Stable. DIET: Heart healthy. In the event of worsening symptoms, the patient was advised to come back to the ED for further evaluation. Discharge summary took greater than 35 minutes. MD MINA Brooks/MODL /[id number]
== END 2019-07-17 17:03 | disposition home health service (06) | DRG 291 ==
LOC: MED/SURG2 15:21 → OBSVTOIN 07-14 14:17
PROVIDERS: ADMIT Internal Medicine; ATTEND Internal Medicine
DX: I13.0 Hypertensive heart and chronic kidney disease with heart failure and stage 1 through stage 4 chronic kidney disease, or unspecified chronic kidney disease (principal); I50.33 Acute on chronic diastolic (congestive) heart failure; J44.1 Chronic obstructive pulmonary disease with (acute) exacerbation; N18.4 Chronic kidney disease, stage 4 (severe); N17.9 Acute kidney failure, unspecified; D64.9 Anemia, unspecified; E66.01 Morbid (severe) obesity due to excess calories; E78.5 Hyperlipidemia, unspecified; E11.22 Type 2 diabetes mellitus with diabetic chronic kidney disease; Z83.3 Family history of diabetes mellitus; Z82.49 Family history of ischemic heart disease and other diseases of the circulatory system; Z68.31 Body mass index [BMI] 31.0-31.9, adult; Z79.84 Long term (current) use of oral hypoglycemic drugs
CPT/HCPCS: 36415; 71045; 71046; 80048; 80053; 80061; 81001; 82948; 83036; 83880; 84443; 84484; 85025; 93005; 93306; 94640; 96372; 97139; G0378; J1650; J1940; J2920; J2930; J7050

== ENCOUNTER 2019-08-13 11:39 | Inpatient (IN) | payer MEDICARE, OTHER ==
[~2019-08-13] VITALS: Ht 157.5 cm; Wt 72.2 kg
[~2019-08-13 11:39] MED LIST: ALBUTERAL INHALER INH; AZELASTINE137 MCG/0.; CEFDINIR PEG; DOXYCYCLINE HY100 MG PO; FLUTICASONE; GLIPIZIDE5 MG PO; HYDRALAZINE HCL25 MG PO; LASIX40 MG PO; LISINOPRIL10 MG PO; NIFEDIPINE ER30 M1 PO; PRAVASTATIN SOD20 MG PO; PRAZOSIN HCL5 MG PO; PREDNISONE20 MG PO; PREDNISONE5 MG; ZOFRAN4 MG PO
[2019-08-13] MEDS ORDERED: ASPIRIN 81 MG CHEW TAB PO ONE (12:00)
[2019-08-13] MEDS: CEFTRIAXONE SOD 1 GM/NS 50 ML 50 ML IV SCH (13:51)
[2019-08-13] MEDS ORDERED: ACETAMINOPHEN/CODEINE ELIX 120-12 MG/5 ML UDC PO ONE (14:00)
[2019-08-13 14:11] LABS: BASOPHILS % 0.2 % (0.0-1.0); EOSINOPHILS # (AUTO) 0.1 (0.0-0.4); EOSINOPHILS % 1.4 % (0.0-6.0); HEMATOCRIT 27.6 % (34.2-44.1); LYMPHOCYTES # (AUTO) 1.8 (1.0-3.2); LYMPHOCYTES % 20.3 % (18.0-39.1); MEAN CORPUSCULAR HEMOGLOBIN 30.2 pg (28-32); MEAN CORPUSCULAR HGB CONC 32.6 g/dL (31-35); MEAN CORPUSCULAR VOLUME 92.6 fL (81-99); MONOCYTES # (AUTO) 0.9 (0.2-0.8); MONOCYTES % 9.5 % (4.4-11.3); NEUTROPHILS % 67.2 % (38.7-80.0); PLATELET COUNT 356 x10e3/uL (140-360); RED BLOOD COUNT 2.98 x10e6/uL (3.6-5.1); RED CELL DISTRIBUTION WIDTH 16.2 % (11.7-14.4)
[2019-08-13 14:21] LABS: INR 0.85; PROTHROMBIN TIME 12.1 seconds (11.9-14.5)
[2019-08-13 14:22] LABS: PARTIAL THROMBOPLASTIN TIME 20.7 seconds (23.8-35.5)
[2019-08-13] MEDS: AZITHROMYCIN 500MG/NS 250 ML 250 ML IV SCH (14:24)
[2019-08-13 14:33] LABS: ALBUMIN 3.4 g/dL (3.5-5.0); ANION GAP 17.2 mmol/L (8-16); CALCIUM 9.3 mg/dL (8.4-10.2); CREATININE, SERUM 1.94 mg/dL (0.57-1.11); MAGNESIUM 1.9 MG/DL (1.3-2.1); POTASSIUM 3.2 mmol/L (3.5-5.1)
[2019-08-13 14:39] LABS: CREATINE KINASE MB 1.5 ng/mL (0-5.0)
[2019-08-13] MEDS: ALBUTEROL SULFATE HFA 8GM INHALATION AEROSOL INH PRN ×2 (14:40→22:22)
--- NOTE | 2019-08-13 16:01 | Diagnostic Imaging Report ---
X-ray chest AP upright Comparison: 07/13/2019 History: Chest pain, cough, shortness of breath Findings: Central airways unremarkable. Apparent cardiomegaly. Atherosclerotic aorta. Left hemidiaphragm is not visualized raising the possibility of a left lower lobe atelectasis and/or pneumonia. Right lung is unremarkable. The remainder of the left lung is unremarkable. There is no definite pleural effusion. There is no pneumothorax. Visualized skeleton shows no significant acute abnormality. Upper abdomen is not well-visualized. Impression: Possible left lower lobe atelectasis and/or pneumonia. Signed by: Sameer Hensley MD on 08/13/2019 3:57 PM
[2019-08-13] MEDS ORDERED: METHYLPREDNISOLONE SOD SUCC 125 MG/2ML VIAL IV STA (16:04)
[2019-08-13] MEDS ORDERED: ONDANSETRON HCL INJ 2MG/ML 2ML 2 MG/ML VIAL IV PRN (16:30)
[2019-08-13] MEDS ORDERED: NITROGLYCERIN 0.4 MG SUBL SL PRN (16:30)
--- OUTSIDE RECORDS SUMMARY | 2019-08-13 16:50 | XMS REPORT ---
Author Author [facility] t Organization [facility] Address Unknown Phone Unavailable Care Team Providers Care Bareback Rider Name Role Phone NO, PCP PP Unavailable Vicente QUIROZ LAIANTONIO Unavailable Unavailable Be GUIDRY Unavailable Unavailable Payers Payer Name Policy Type Policy Number Effective Date Expiration D ate Problems This patient has no known problems. Allergies, Adverse Reactions, Alerts Allergy Name Allergy Type Status Severity Reaction(s) Onset Date Inacti ve Date Treating Clinician Comments No Known Allergies DA Active U 2019-03-15 00:00:00 No Known Allergies DA Active U 2018-09-13 00:00:00 No Known Allergies DA Active U 2017-08-01 00:00:00 Medications Ordered Medication Name Filled Medication Name Start Date Stop Da te Current Medication? Ordering Clinician Indication Dosage Frequency Signature (SIG) Comments Components Albuteral Inhaler Albuteral Inhaler Yes 1 Four Times Daily as needed for Prn Azelastine Hcl 137 Mcg/0.137 Ml Mikana.pump Azelastine Hcl 137 Mcg/0.137 Ml Mikana.pump Yes 1 Twice A Day Doxycycline Hyclate 100 Mg Capsule Doxycycline Hyclate 100 Mg Capsule Yes 100 Twice A Day Fluticasone Fluticasone Yes 50 Twice A Day Furosemide (Lasix) 40 Mg Tablet Furosemide (Lasix) 40 Mg Tablet Yes 40 Daily Glipizide 5 Mg Tablet Glipizide 5 Mg Tablet Yes 5 Twice A Day Hydralazine Hcl 25 Mg Tab Hydralazine Hcl 25 Mg Tab Yes 25 Every 8 Hours Nifedipine (Nifedipine Er) 30 Mg Tab.er.24 Nifedipine (Nifedipine Er) 30 Mg Tab.er.24 Yes 1 Every 12 Hours Ondansetron Hcl (Zofran*) 4 Mg Tablet Ondansetron Hcl (Zofran*) 4 M g Tablet Yes 4 Three Times A Day as needed fo r Prn Pravastatin Sodium 20 Mg Tablet Pravastatin Sodium 20 Mg Tablet Yes 20 Daily Prazosin Hcl 5 Mg Capsule Prazosin Hcl 5 Mg Capsule Yes 1 Twice A Day Prednisone 5 Mg Tablet Prednisone 5 Mg Tablet Yes Prednisone 20 Mg Tab Prednisone 20 Mg Tab Yes 20 Daily Cefdinir , 300 Mg Peg Tube Cefdinir , 300 Mg Peg Tube 2019 00:00:00 No 300 Twice A Day Hydralazine Hcl 25 Mg Tab, 25 Mg Oral Hydralazine Hcl 25 Mg Tab, 25 Mg Oral 2019-07-17 00:00:00 No 25 Twice A Day Lisinopril 10 Mg Tablet, 20 Mg Oral Lisinopril 10 Mg Tablet, 20 Mg Oral 2019-07-17 00:00:00 No 20 Twice A Day Procedures and Interventions Procedure Date / Time Performed Performing Clinici an X-ray of chest, two views 2019-07-12 00:00:00 MINH GRIJALVA Encounters Start Date/Time End Date/Time Encounter Type Admission Type Attendi [facility] Care Department Encounter ID 2019-07-14 14:17:00 2019-07-17 17:03:00 Discharged Inpatient 2 TAL GUIDRY [facility] [id number] Results Test Description Test Time Test Comments Text Results Atomic Results Result Comments CHEST SINGLE (PORTABLE) 2019-08-13 15:55:00 [place] [address] Patient Name: EL MEDINA MR #: [id number] : 1940 Age/Sex: 78/F Req #: [id number] Adm Physician: Ordered by: VANIA QUIROZ MD Report #: [id number] Location: ER Room/Bed: Procedure: [id number] DX/CHEST SINGLE (PORTABLE) Exam Date: 08/13/19 Exam Time: 1515 REPORT STATUS: Signed X-ray chest AP upright Comparison: 07/13/2019 History: Chest pain, cough, shortness of breath Findings: Central airways unremarkable. Apparent cardiomegaly. Atherosclerotic aorta. Left hemidiaphragm is not visualized raising the possibility of a left lower lobe atelectasis and/or pneumonia. Right lung is unremarkable. The remainder of the left lung is unremarkable. There is no definite pleural effusion. There is no pneumothorax. Visualized skeleton shows no significant acute abnormality. Upper abdomen is not well-visualized. Impression: Possible left lower lobe atelectasis and/or pneumonia. Signed by: Sameer Huff MD on 08/13/2019 3:57 PM Dictated By: SAMEER HUFF MD 56 Transcribed By: LEX on 08/13/191556 COPY TO: VANIA QUIROZ MD Bedside Glucose 2019-07-17 15:20:00 Bedside Glucose (test code = 59632-4) 258 70-120 Meter ID: [id number] Bqwkz8893-28-17 06:46:00* Test Item Value Reference Range Comments Sodium Level (test code = 2951-2) 143 136-145 Potassium Pcocs5166-61-24 06:46:00* Test Item Value Reference Range Comments Potassium Level (test code = 2823-3) 4.3 3.5-5.1 Chloride Akdbo8702-73-15 06:46:00* Test Item Value Reference Range Comments Chloride Level (test code = 2075-0) 116 98-107 Carbon Dioxide Eqaxg3332-12-32 06:46:00* Test Item Value Reference Range Comments Carbon Dioxide Level (test code = 2028-9) 21 22-29 Anion Guq7899-79-09 06:46:00* Test Item Value Reference Range Comments Anion Gap (test code = 77379-7) 10.3 8-16 Blood Urea Dejmirbd3284-15-82 06:46:00* Test Item Value Reference Range Comments Blood Urea Nitrogen (test code = 3094-0) 96 7-26 Abidmwzykn7917-87-10 06:46:00* Test Item Value Reference Range Comments Creatinine (test code = 2160-0) 1.84 0.57-1.11 BUN/Creatinine Jerxk1147-00-14 06:46:00* Test Item Value Reference Range Comments BUN/Creatinine Ratio (test code = 3097-3) 52 6-25 Estimat Glomerular Filtration Cnfi7343-62-61 06:46:00* Test Item Value Reference Range Comments Estimat Glomerular Filtration Rate (test code = 427773539) 26 >60 Ranges were taken from the National Kidney Disease Education Program and the [facility] literature.Reference ranges:60 or greater: Trzxev46-04 ( for 3 consecutive months): Chronic kidney disease 15 or less: Kidney failure Glucose Zciyx3830-48-45 06:46:00* Test Item Value Reference Range Comments Glucose Level (test code = XHI0053) 185 74-118 Calcium Cdzdx3922-08-88 06:46:00* Test Item Value Reference Range Comments Calcium Level (test code = 48231-1) 7.8 8.4-10.2 White Blood Ettrn8892-02-02 06:13:00* Test Item Value Reference Range Comments White Blood Count (test code = 6690-2) 7.56 4.8-10.8 Red Blood Vycop1010-57-87 06:13:00* Test Item Value Reference Range Comments Red Blood Count (test code = 789-8) 2.90 3.6-5.1 Xracitbbfn4306-73-83 06:13:00* Test Item Value Reference Range Comments Hemoglobin (test code = 00351-0) 8.7 12.0-16.0 Rdlmyaelvp9972-66-45 06:13:00* Test Item Value Reference Range Comments Hematocrit (test code = 4544-3) 28.1 34.2-44.1 Mean Corpuscular Yiljpm0558-94-89 06:13:00* Test Item Value Reference Range Comments Mean Corpuscular Volume (test code = 787-2) 96.9 81-9 9 Mean Corpuscular Cyuuhxftdz5762-05-90 06:13:00* Test Item Value Reference Range Comments Mean Corpuscular Hemoglobin (test code = 785-6) 30.0 28-32 Mean Corpuscular Hemoglobin Mtnjjdn0379-86-38 06:13:00* Test Item Value Reference Range Comments Mean Corpuscular Hemoglobin Concent (test code = 786-4) 31.0 31-35 Red Cell Distribution Dkban8270-88-94 06:13:00* Test Item Value Reference Range Comments Red Cell Distribution Width (test code = 30183-5) 16.8 11.7-14.4 Platelet Vpnrh3436-65-17 06:13:00* Test Item Value Reference Range Comments Platelet Count (test code = 777-3) 195 140-360 Neutrophils (%) (Auto)2019-07-16 06:13:00* Test Item Value Reference Range Comments Neutrophils (%) (Auto) (test code = 88421-9) 77.7 38. 7-80.0 Lymphocytes (%) (Auto)2019-07-16 06:13:00* Test Item Value Reference Range Comments Lymphocytes (%) (Auto) (test code = 736-9) 11.2 18.0- 39.1 Monocytes (%) (Auto)2019-07-16 06:13:00* Test Item Value Reference Range Comments Monocytes (%) (Auto) (test code = 5905-5) 9.7 4.4-11 .3 Eosinophils (%) (Auto)2019-07-16 06:13:00* Test Item Value Reference Range Comments Eosinophils (%) (Auto) (test code = 713-8) 0.1 0.0-6 .0 Basophils (%) (Auto)2019-07-16 06:13:00* Test Item Value Reference Range Comments Basophils (%) (Auto) (test code = 706-2) 0.0 0.0-1.0 IM GRANULOCYTES %2019-07-16 06:13:00* Test Item Value Reference Range Comments IM GRANULOCYTES % (test code = IM GRANULOCYTES %) 1.3 0.0-1.0 Neutrophils # (Auto)2019-07-16 06:13:00* Test Item Value Reference Range Comments Neutrophils # (Auto) (test code = 751-8) 5.9 2.1-6.9 Lymphocytes # (Auto)2019-07-16 06:13:00* Test Item Value Reference Range Comments Lymphocytes # (Auto) (test code = 26776-2) 0.9 1.0-3 .2 Monocytes # (Auto)2019-07-16 06:13:00* Test Item Value Reference Range Comments Monocytes # (Auto) (test code = 742-7) 0.7 0.2-0.8 Eosinophils # (Auto)2019-07-16 06:13:00* Test Item Value Reference Range Comments Eosinophils # (Auto) (test code = 711-2) 0.0 0.0-0.4 Basophils # (Auto)2019-07-16 06:13:00* Test Item Value Reference Range Comments Basophils # (Auto) (test code = 704-7) 0.0 0.0-0.1 Absolute Immature Granulocyte (kuhd2207-26-03 06:13:00* Test Item Value Reference Range Comments Absolute Immature Granulocyte (auto (lornea t code = Absolute Immature Granulocyte (auto) 0.10 0-0.1 Troponin E7020-48-22 14:13:00* Test Item Value Reference Range Comments Troponin I (test code = 27357-6) 0.021 0-0.300 Hemoglobin A1c Idhaeul9813-13-75 07:21:00* Test Item Value Reference Range Comments Hemoglobin A1c Percent (test code = Hemoglobin A1c Percent) 7.2 4.0-7.0 Thyroid Stimulating Hormone (TSH)2019-07-13 07:21:00* Test Item Value Reference Range Comments Thyroid Stimulating Hormone (TSH) (test code = 02138-0) 2.423 0.350-4.940 Triglycerides Hdsgz1416-62-35 06:43:00* Test Item Value Reference Range Comments Triglycerides Level (test code = 2571-8) 52 0-149 Cholesterol Ffdxf2213-57-92 06:43:00* Test Item Value Reference Range Comments Cholesterol Level (test code = 2093-3) 197 0-199 Less than 200 mg/dL Low Jcoh738 - 239 mg/dL Borderline Vjff625 m g/dl and greater High Risk LDL Rhuwbdokotp2215-81-68 06:43:00* Test Item Value Reference Range Comments LDL Cholesterol (test code = 2089-1) 113 60-130 HDL Ydvkoishjog5058-39-47 06:43:00* Test Item Value Reference Range Comments HDL Cholesterol (test code = 2085-9) 74 40-60 Cholesterol/HDL Ylmpv5969-24-98 06:43:00* Test Item Value Reference Range Comments Cholesterol/HDL Ratio (test code = 9830-1) 2.7 3.0-3 .6 CHEST 2 JUOJH0313-69-80 05:43:00 [place] [address] Patient Name: EL MEDINA MR #: [id number] : 1940 Age/Sex: 78/F Req #: [id number] Adm Physician: TAL GUIDRY MD Ordered by: MINH GRIJALVA MD Report #: [id number] Location: MED/SURG2 Room/Bed: [facility] Procedure: [id number] DX/C HEST 2 VIEWS Exam Date: 07/12/19 Exam Time: 1746 REPORT STATUS: Signed EXAMINATION: CHEST 2 VIEWS INDICATION: Shortness of breath. COMPARISON: None. FINDINGS: TUBES and LINES: None. LUNGS: Mildly hyperinflated lungs. There are patchy opacities at the bilateral lung bases. No evidence of pulmonary edema. PLEURA: No pleural effusion or pneumothorax. HEART AND MEDIASTINUM: The cardiomediastinal silhouette is mildly enlarged. There a re atherosclerotic calcifications within the aorta. BONES AND SOFT TISSUES: No acute osseous lesion. Soft tissues are unremarkable. UPPER ABDOMEN: No free air under the diaphragm. IMPRESSION: Patchy bibasilar opaci ties, which may represent atelectasis or pneumonia in the appropriate clinical setting. Signed by: Dr. Luis Alfredo Freeman MD on 07/13/2019 5:44 AM Dictated By: LUIS ALFREDO FREEMAN MD 0544 Tr anscribed By: LEX on 07/13/1944 COPY TO: MINH GRIJALVA MD CHEST SINGLE (PORTABLE)2019-07-13 05:42:00 [place] [address] Patient Name: EL MEDINA MR #: [id number] : 1940 Age/Sex: 78/F Req #: [id number] Adm Physician: TAL GUIDRY MD Ordered by: TAL GUIDRY MD Report #: [id number] Location: MED/SURG2 Room/Bed: [facility] Procedure: [id number] DX /CHEST SINGLE (PORTABLE) Exam Date: 07/13/19 Exam Ti me: 0525 REPORT STATUS: Signed E XAMINATION: CHEST SINGLE (PORTABLE) INDICATION: Cough, SOB, COPD. COMPARISON: Chest radiograph 07/12/2019. FINDINGS: TUBES and LINES: None. LUNGS: Lungs are well inflated. There are patchy opacities at the b ilateral lung bases. No evidence of pulmonary edema. PLEURA: No pleural effusion or pneumothorax. HEART AND MEDIASTINUM: The cardiomediastinal si lhouette is unremarkable. There are atherosclerotic calcifications within the aorta. BONES AND SOFT TISSUES: No acute osseous lesion. Soft tissues are unremarkable. UPPER ABDOMEN: No free air under the diaphragm. IM PRESSION: Patchy bibasilar opacities, which may represent atelectasis or pneu monia in the appropriate clinical setting. Signed by: Dr. Luis Alfredo Freeman MD on 07/13/2019 5:45 AM Dictated By: LUIS ALFREDO FREEMAN MD 4 Transcribed By: LEX on 07/13/19544 COPY TO: TAL GUIDRY MD Urine CHV5681-80-24 20:15:00* Test Item Value Reference Range Comments Urine WBC (test code = 5821-4) NONE 0-5 Urine TXZ3144-87-00 20:15:00* Test Item Value Reference Range Comments Urine RBC (test code = 13812-5) NONE 0-5 Urine Tsoghvwn7310-10-71 20:15:00* Test Item Value Reference Range Comments Urine Bacteria (test code = 38130-7) NONE NONE Urine Epithelial Cmbgl9132-81-22 20:15:00* Test Item Value Reference Range Comments Urine Epithelial Cells (test code = 34460-9) FEW NON E Urine Coarse Granular Ggvnk5666-94-36 20:15:00* Test Item Value Reference Range Comments Urine Coarse Granular Casts (test code = 09209-8) 1-5 >0 Urine Ozvmh8159-90-78 20:06:00* Test Item Value Reference Range Comments Urine Color (test code = 5778-6) YELLOW YELLOW Urine Kwbwyny9791-74-48 20:06:00* Test Item Value Reference Range Comments Urine Clarity (test code = 23900-2) SL CLOUDY CLEAR Urine Specific Shhvunp0590-83-88 20:06:00* Test Item Value Reference Range Comments Urine Specific [place] (test code = 5811-5) 1.025 1.01 0-1.025 Urine vH5960-91-32 20:06:00* Test Item Value Reference Range Comments Urine pH (test code = 83895-7) 5.5 5-7 Urine Leukocyte Ciobuaxb3169-98-10 20:06:00* Test Item Value Reference Range Comments Urine Leukocyte Esterase (test code = 5799-2) NEGATIVE NE GATIVE Urine Buhsscb3590-14-76 20:06:00* Test Item Value Reference Range Comments Urine Nitrite (test code = 53369-7) NEGATIVE NEGATIVE Urine Warvjgj7118-27-39 20:06:00* Test Item Value Reference Range Comments Urine Protein (test code = 5804-0) NEGATIVE NEGATIVE Urine Glucose (UA)2019-07-12 20:06:00* Test Item Value Reference Range Comments Urine Glucose (UA) (test code = 2349-9) NEGATIVE NEGATIVE Urine Xyhbgkv9747-11-92 20:06:00* Test Item Value Reference Range Comments Urine Ketones (test code = 73645-9) NEGATIVE NEGATIVE Urine Efrhlimylvpt2590-59-67 20:06:00* Test Item Value Reference Range Comments Urine Urobilinogen (test code = 22816-8) 0.2 0.2-1 Urine Bscfeppnw3362-15-23 20:06:00* Test Item Value Reference Range Comments Urine Bilirubin (test code = 1978-6) NEGATIVE NEGATIVE Urine Lywtj8468-40-38 20:06:00* Test Item Value Reference Range Comments Urine Blood (test code = 87163-4) NEGATIVE NEGATIVE B-Type Natriuretic Xeulsbe9347-68-25 17:40:00* Test Item Value Reference Range Comments B-Type Natriuretic Peptide (test code = 62426-6) 1110.7 0-100 Total Zkwqdldnc0229-18-64 17:33:00* Test Item Value Reference Range Comments Total Bilirubin (test code = 1975-2) 0.3 0.2-1.2 Aspartate Amino Transf (AST/SGOT)2019-07-12 17:33:00* Test Item Value Reference Range Comments Aspartate Amino Transf (AST/SGOT) (test code = Aspartate Amino Transf (AST/SGOT)) 10 5-34 Alanine Aminotransferase (ALT/SGPT)2019-07-12 17:33:00* Test Item Value Reference Range Comments Alanine Aminotransferase (ALT/SGPT) (test code = 1742-6) 13 0-55 Total Cootcpm9001-39-66 17:33:00* Test Item Value Reference Range Comments Total Protein (test code = 2885-2) 5.7 6.5-8.1 Ycwikbq2010-58-61 17:33:00* Test Item Value Reference Range Comments Albumin (test code = 1751-7) 3.2 3.5-5.0 Ykpzaofz6737-55-71 17:33:00* Test Item Value Reference Range Comments Globulin (test code = 06181-9) 2.5 2.3-3.5 Albumin/Globulin Bfxlg4477-23-67 17:33:00* Test Item Value Reference Range Comments Albumin/Globulin Ratio (test code = 1759-0) 1.3 0.8- 2.0 Alkaline Ixtwkbdshky0709-43-69 17:33:00* Test Item Value Reference Range Comments Alkaline Phosphatase (test code = 6768-6) 68 40-150 - NM LUNG V/Q VENT/EQMZ1401-73-35 12:26:00 FAX: Kary Harris MD [phone] [place]: St: REG Name: EL MALAVE [facility] : [birth year] Age/S: 78/F [address] [facility] Unit #: [id number] Loc: [place] [address] Phys: Kary Yang MD Acct: [id number] Dis Date: Status: REG CLI PHONE #: [phone] Exam Date: 05/17/2019 1110 FAX #: [phone] Reason: R06.02 EXAMS: CPT CODE: [id number] NM LUNG V/Q VENT/PERF 23180 HISTORY: Shortness of breath. COMPARISON: Chest x-ray from same day. Location: [facility]. VQ scan: 9.3 mCi of xenon-133 gas and 4.3 mCi of technetium 99m MAA. Ventilation examination: Good wash in and good washout. No retention. Perfusion exam: No segmental or subsegmental defects. IMPRESSION: FINDINGS suggest low probability for pulmonary embolism. at 1226 Reported and signed by: Bennett Lewis M.D. CC: Kary Yang MD Technologist: Glenda Daniels RT(N) Trnscrd Date/Time/By: 05/17/2019 (6310) : By: [email or web address] Orig Print D/T: S: (0280) PAGE 1 Signed Rep ort - XR CHEST 2 P5593-04-16 10:53:00 FAX: Kary Harris MD [phone] [place]: O St: REG Name: EL MALAVE [facility] : [birth year] Age/S: 78/F [address] [facility] Unit #: [id number] Loc: [place] [address] Phys: Kary Yang MD Acct: [id number] Dis Date: Status: REG CLI PHONE #: [phone] Exam Date: 05/17/2019 1002 FAX #: [phone] Reason: R06.02 EXAMS: CPT CODE: [id number] XR CHEST 2 V 18816 HISTORY: R06.02. COM PARISON: September 16, 2018. Location: [facility]. AP and latera l view of the chest: No acute infiltrates, effusion or congestion. Cardiac silhouette is mildly enlarged. IMPRESSION: No acute infiltrates, effusion or congestion. Electronic ally Signed by Luiz Lewis on 05/17/2019 at 1053 R eported and signed by: Bennett Lewis M.D. CC: Richa Yang MD Technologist: RT Nikki (R) Trnscantonio Date/Time/By: 05/17/2019 (2843) : By : [email or web address] Orig Print D/T: S: 05/17/2019 (0285) PAGE 1 Signed Report BASIC METABOLIC [id number] 11:03:00* Test Item Value Reference Range Comments SODIUM (test code = NA) 144 mmol/L 136-145 POTASSIUM (test code = K) 4.0 mmol/L 3.5-5.1 CHLORIDE (test code = CL) 116.0 mmol/L 98-107 CARBON DIOXIDE (test code = CO2) 22.0 mmol/L 21-32 ANION GAP (test code = GAP) 10.0 10-20 GLUCOSE (test code = GLU) 167 mg/dL 74-106 BLOOD UREA NITROGEN (test code = BUN) 33 mg/dL 7-18 GLOMERULAR FILTRATION RATE (test code = GFR) 33 mL/min >=6 0 Estimated GFR by using Modified MDRD formula.Chronic kidney disease is defined as either kidney damageor GFR <60 mL/min/1.73 m2 for >3 months. CREATININE (test code = CREAT) 1.50 mg/dL 0.55-1.02 * *Note change in reference range due to change in reagent. BUN/CREATININE RATIO (test code = BUN/CREA) 21.7 10-2 0 CALCIUM (test code = CA) 8.0 mg/dL 8.5-10.1 BASIC METABOLIC MUVMS5292-15-30 11:01:00* Test Item Value Reference Range Comments SODIUM (test code = NA) 144 mmol/L 136-145 POTASSIUM (test code = K) 4.0 mmol/L 3.5-5.1 CHLORIDE (test code = CL) 116.0 mmol/L 98-107 CARBON DIOXIDE (test code = CO2) mmol/L 21-32 ANION GAP (test code = GAP) 10-20 GLUCOSE (test code = GLU) mg/dL 74-106 BLOOD UREA NITROGEN (test code = BUN) mg/dL 7-18 GLOMERULAR FILTRATION RATE (test code = GFR) mL/min >=6 0 CREATININE (test code = CREAT) mg/dL 0.55-1.02 BUN/CREATININE RATIO (test code = BUN/CREA) 10-2 0 CALCIUM (test code = CA) mg/dL 8.5-10.1 CBC W/AUTO WMCG6042-24-56 10:20:00* Test Item Value Reference Range Comments WHITE BLOOD CELL (test code = WBC) 8.3 K/mm3 4.5-12.5 RED BLOOD CELL (test code = RBC) 2.63 mill/mm3 3.7-5.2 HEMOGLOBIN (test code = HGB) 7.7 gram/dL 11.5-15.5 HEMATOCRIT (test code = HCT) 25.0 % 36.0-46.0 MEAN CELL VOLUME (test code = MCV) 95.1 fL 80-98 MEAN CELL HGB (test code = MCH) 29.3 picogram 27.0-33.0 MEAN CELL HGB CONCETRATION (test code = MCHC) 30.8 gram/dL 33 .0-36.0 RED CELL DISTRIBUTION WIDTH (test code = RDW) 17.0 % 11 .6-16.2 RED CELL DISTRIBUTION WIDTH SD (test code = RDW-SD) 58.8 fL 37.0-51.0 PLATELET COUNT (test code = PLT) 222 K/mm3 150-450 MEAN PLATELET VOLUME (test code = MPV) 10.0 fL 6.7-11.0 NEUTROPHIL % (test code = NT%) 77.8 % 39.0-69.0 IMMATURE GRANULOCYTE % (test code = IG%) 0.5 % 0.0-5.0 LYMPHOCYTE % (test code = LY%) 10.8 % 25.0-55.0 MONOCYTE % (test code = MO%) 8.8 % 0.0-10.0 EOSINOPHIL % (test code = EO%) 1.9 % 0.0-5.0 BASOPHIL % (test code = BA%) 0.2 % 0.0-1.0 NUCLEATED RBC % (test code = NRBC%) 0.0 % 0-0 NEUTROPHIL # (test code = NT#) 6.46 K/mm3 1.8-7.7 IMMATURE GRANULOCYTE # (test code = IG#) 0.04 x10 3/uL 0-0.03 LYMPHOCYTE # (test code = LY#) 0.90 K/mm3 1.0-5.0 MONOCYTE # (test code = MO#) 0.73 K/mm3 0-0.8 EOSINOPHIL # (test code = EO#) 0.16 K/mm3 0.0-0.5 BASOPHIL # (test code = BA#) 0.02 K/mm3 0.0-0.2 NUCLEATED RBC # (test code = NRBC#) 0.00 K/mm3 0.0-0.1 MANUAL DIFF REQUIRED (test code = MDIFF) NO YWXCQBRE-P9526-05-10 03:08:00* Test Item Value Reference Range Comments TROPONIN-I (test code = TROPI) 0.069 ng/mL 0-0.045 COMMENTS TO ASSOCIATE PROFESSOR OF HISTORY: COLLECT 3 HOURS AFTER PREVIOUS CNCBMMZPLNTTFI-[id number] 00:49:00* Test Item Value Reference Range Comments TROPONIN-I (test code = TROPI) 0.067 ng/mL 0-0.045 COMMENTS TO ASSOCIATE PROFESSOR OF HISTORY: COLLECT 3 HOURS AFTER PREVIOUS SOKSAYVQYLRKAE-H0060-38-09 16:53:00* Test Item Value Reference Range Comments TROPONIN-I (test code = TROPI) 0.071 ng/mL 0-0.045 R esults called to by [employer]PR 03/15/19 1653Critical results verified and read back by Nurse? Y BASIC METABOLIC [id number] 14:13:00* Test Item Value Reference Range Comments SODIUM (test code = NA) 142 mmol/L 136-145 POTASSIUM (test code = K) 4.2 mmol/L 3.5-5.1 CHLORIDE (test code = CL) 113.0 mmol/L 98-107 CARBON DIOXIDE (test code = CO2) 21.0 mmol/L 21-32 ANION GAP (test code = GAP) 12.2 10-20 GLUCOSE (test code = GLU) 169 mg/dL 74-106 BLOOD UREA NITROGEN (test code = BUN) 37 mg/dL 7-18 GLOMERULAR FILTRATION RATE (test code = GFR) 31 mL/min >=6 0 Estimated GFR by using Modified MDRD formula.Chronic kidney disease is defined as either kidney damageor GFR <60 mL/min/1.73 m2 for >3 months. CREATININE (test code = CREAT) 1.60 mg/dL 0.55-1.02 * *Note change in reference range due to change in reagent. BUN/CREATININE RATIO (test code = BUN/CREA) 23.0 10-2 0 CALCIUM (test code = CA) 8.0 mg/dL 8.5-10.1 BASIC METABOLIC [id number] 14:09:00* Test Item Value Reference Range Comments SODIUM (test code = NA) 142 mmol/L 136-145 POTASSIUM (test code = K) 4.2 mmol/L 3.5-5.1 CHLORIDE (test code = CL) 113.0 mmol/L 98-107 CARBON DIOXIDE (test code = CO2) mmol/L 21-32 ANION GAP (test code = GAP) 10-20 GLUCOSE (test code = GLU) mg/dL 74-106 BLOOD UREA NITROGEN (test code = BUN) mg/dL 7-18 GLOMERULAR FILTRATION RATE (test code = GFR) mL/min >=6 0 CREATININE (test code = CREAT) mg/dL 0.55-1.02 BUN/CREATININE RATIO (test code = BUN/CREA) 10-2 0 CALCIUM (test code = CA) mg/dL 8.5-10.1 - XR CHEST 2 [id number] 13:59:00 FAX: Bc Valverde NP [phone] [place]: St: REG Name: EL MALAVE [facility] : [birth year] Age/S: 78/F [address] [facility] Unit #: [id number] Loc: [place] [address] Phys: Bc Valverde NP Acct: [id number] Dis Date: Status: REG ER PHONE #: [phone] Exam Date: 03/15/2019 1328 FAX #: [phone] Reason: SEND BY PCP TO R/O PNEUMONIA EXAMS: CPT CODE: [id number] XR CHEST 2 V 58485 REASON FOR EXAM: SEND BY PCP TO R/O PNEUMONIA Exam Order Date: 03/15/2019 12:55 PM Ordering M.DWeston: Bc Valverde NP PROCEDURE: - XR CHEST 2 V COMPARISON: None FINDINGS: The lungs are clear. There is no pleural effusion or pneumothorax. Pulmonary vascularity is within normal limits. Cardiomediastinal silhouette is enlarged. Atherosclerotic plaques are scattered throughout the thoracic aorta. Degenerative changes are present in the spine and bilateral acrom ioclavicular joints. The visualized upper abdomen is within normal limits. IMPRESSION: Cardiac megaly. The lungs are clear. Location: [facility] Electronically Sig carson by Baron Calderón MD on 03/15/2019 at 1359 Reported and signed by: Baron Calderón MD CC: Bc Valverde NP Technologist: Herlinda Gordon RT(R); MONROE HUFF RT(R) Trnscrd Date/Time/By: 03/15/2019 (4722) : By: [email or web address] Orig Print D/T: S: 03/15/2019 (4038) PAGE 1 Signed Report CBC W/AUTO [id number] 13:32:00* Test Item Value Reference Range Comments WHITE BLOOD CELL (test code = WBC) 8.5 K/mm3 4.5-12.5 RED BLOOD CELL (test code = RBC) 2.72 mill/mm3 3.7-5.2 HEMOGLOBIN (test code = HGB) 8.1 gram/dL 11.5-15.5 HEMATOCRIT (test code = HCT) 25.4 % 36.0-46.0 MEAN CELL VOLUME (test code = MCV) 93.4 fL 80-98 MEAN CELL HGB (test code = MCH) 29.8 picogram 27.0-33.0 MEAN CELL HGB CONCETRATION (test code = MCHC) 31.9 gram/dL 33 .0-36.0 RED CELL DISTRIBUTION WIDTH (test code = RDW) 17.2 % 11 .6-16.2 RED CELL DISTRIBUTION WIDTH SD (test code = RDW-SD) 57.5 fL 37.0-51.0 PLATELET COUNT (test code = PLT) 230 K/mm3 150-450 MEAN PLATELET VOLUME (test code = MPV) 10.6 fL 6.7-11.0 NEUTROPHIL % (test code = NT%) 77.4 % 39.0-69.0 IMMATURE GRANULOCYTE % (test code = IG%) 0.4 % 0.0-5.0 LYMPHOCYTE % (test code = LY%) 12.3 % 25.0-55.0 MONOCYTE % (test code = MO%) 8.3 % 0.0-10.0 EOSINOPHIL % (test code = EO%) 1.4 % 0.0-5.0 BASOPHIL % (test code = BA%) 0.2 % 0.0-1.0 NUCLEATED RBC % (test code = NRBC%) 0.0 % 0-0 NEUTROPHIL # (test code = NT#) 6.57 K/mm3 1.8-7.7 IMMATURE GRANULOCYTE # (test code = IG#) 0.03 x10 3/uL 0-0.03 LYMPHOCYTE # (test code = LY#) 1.04 K/mm3 1.0-5.0 MONOCYTE # (test code = MO#) 0.70 K/mm3 0-0.8 EOSINOPHIL # (test code = EO#) 0.12 K/mm3 0.0-0.5 BASOPHIL # (test code = BA#) 0.02 K/mm3 0.0-0.2 NUCLEATED RBC # (test code = NRBC#) 0.00 K/mm3 0.0-0.1 UR MICROALBUMIN/CREAT [id number] 16:09:00* Test Item Value Reference Range Comments UR CREATININE RANDOM-NON REPRT (test code = CREATUT) 45.6 mg/dL Not Estab. UR MICROALBUMIN QUANT (test code = MICALB) 963.4 ug/mL Not E stab. Results confirmed ondilution. UR MICROALB/CREAT RATIO (test code = MICALB:CRE) 2112.7 0.0-30.0 INFCE Result Units: mg/g creat Normal: 0.0 - 30.0 Albuminuria: 31.0 - 300.0 Clinical albuminuria: >300.0Performed At: [facility] [address] [id number] Aleksandr Ferris MD Ph:[phone] [id number] 12:14:00* Test Item Value Reference Range Comments GLUBED (test code = GLUBED) 191 mg/dL 74-106 Perf ormed by certified cyber operator at [facility] [id number] 10:23:00* Test Item Value Reference Range Comments GLUBED (test code = GLUBED) 170 mg/dL 74-106 Perf ormed by certified cyber operator at [facility] [id number] 08:34:00* Test Item Value Reference Range Comments GLUBED (test code = GLUBED) 49 mg/dL 74-106 [facility]~ COMPREHENSIVE METABOLIC [id number] 05:49:00* Test Item Value Reference Range Comments SODIUM (test code = NA) 143 mmol/L 136-145 POTASSIUM (test code = K) 4.6 mmol/L 3.5-5.1 CHLORIDE (test code = CL) 112.0 mmol/L 98-107 CARBON DIOXIDE (test code = CO2) 25.0 mmol/L 21-32 ANION GAP (test code = GAP) 10.6 10-20 GLUCOSE (test code = GLU) 53 mg/dL 74-106 BLOOD UREA NITROGEN (test code = BUN) 70 mg/dL 7-18 GLOMERULAR FILTRATION RATE (test code = GFR) 36 mL/min >=6 0 Estimated GFR by using Modified MDRD formula.Chronic kidney disease is defined as either kidney damageor GFR <60 mL/min/1.73 m2 for >3 months. CREATININE (test code = CREAT) 1.40 mg/dL 0.55-1.02 * *Note change in reference range due to change in reagent. BUN/CREATININE RATIO (test code = BUN/CREA) 50.0 10-2 0 TOTAL PROTEIN (test code = PROT) 5.5 gram/dL 6.4-8.2 ALBUMIN (test code = ALB) 2.6 g/dL 3.4-5.0 GLOBULIN (test code = GLOB) 2.9 gram/dL 2.7-4.2 ALBUMIN/GLOBULIN RATIO (test code = A/G) 0.9 0.75-1. 50 CALCIUM (test code = CA) 8.3 mg/dL 8.5-10.1 BILIRUBIN TOTAL (test code = BILT) 0.10 mg/dL 0.0-1.0 SGOT/AST (test code = AST) 40 IUnit/L 15-37 SGPT/ALT (test code = ALT) 58 IUnit/L 12-78 ALKALINE PHOSPHATASE TOTAL (test code = ALKP) 63 IUnit/L 45 -117 Note change in reference range due to change in reagent. COMPREHENSIVE METABOLIC [id number] 05:36:00* Test Item Value Reference Range Comments SODIUM (test code = NA) 143 mmol/L 136-145 POTASSIUM (test code = K) 4.6 mmol/L 3.5-5.1 CHLORIDE (test code = CL) 112.0 mmol/L 98-107 CARBON DIOXIDE (test code = CO2) mmol/L 21-32 ANION GAP (test code = GAP) 10-20 GLUCOSE (test code = GLU) mg/dL 74-106 BLOOD UREA NITROGEN (test code = BUN) mg/dL 7-18 GLOMERULAR FILTRATION RATE (test code = GFR) mL/min >=6 0 CREATININE (test code = CREAT) mg/dL 0.55-1.02 BUN/CREATININE RATIO (test code = BUN/CREA) 10-2 0 TOTAL PROTEIN (test code = PROT) gram/dL 6.4-8.2 ALBUMIN (test code = ALB) g/dL 3.4-5.0 GLOBULIN (test code = GLOB) gram/dL 2.7-4.2 ALBUMIN/GLOBULIN RATIO (test code = A/G) 0.75-1. 50 CALCIUM (test code = CA) mg/dL 8.5-10.1 BILIRUBIN TOTAL (test code = BILT) mg/dL 0.0-1.0 SGOT/AST (test code = AST) IUnit/L 15-37 SGPT/ALT (test code = ALT) IUnit/L 12-78 ALKALINE PHOSPHATASE TOTAL (test code = ALKP) IUnit/L 45 -117 CBC W/AUTO [id number] 05:11:00* Test Item Value Reference Range Comments WHITE BLOOD CELL (test code = WBC) 7.1 K/mm3 4.5-12.5 RED BLOOD CELL (test code = RBC) 2.53 mill/mm3 3.7-5.2 HEMOGLOBIN (test code = HGB) 7.4 gram/dL 11.5-15.5 HEMATOCRIT (test code = HCT) 22.7 % 36.0-46.0 MEAN CELL VOLUME (test code = MCV) 89.7 fL 80-98 MEAN CELL HGB (test code = MCH) 29.2 picogram 27.0-33.0 MEAN CELL HGB CONCETRATION (test code = MCHC) 32.6 gram/dL 33 .0-36.0 RED CELL DISTRIBUTION WIDTH (test code = RDW) 15.8 % 11 .6-16.2 RED CELL DISTRIBUTION WIDTH SD (test code = RDW-SD) 51.4 fL 37.0-51.0 PLATELET COUNT (test code = PLT) 239 K/mm3 150-450 MEAN PLATELET VOLUME (test code = MPV) 11.0 fL 6.7-11.0 NEUTROPHIL % (test code = NT%) 67.7 % 39.0-69.0 IMMATURE GRANULOCYTE % (test code = IG%) 1.1 % 0.0-5.0 LYMPHOCYTE % (test code = LY%) 19.3 % 25.0-55.0 MONOCYTE % (test code = MO%) 8.9 % 0.0-10.0 EOSINOPHIL % (test code = EO%) 3.0 % 0.0-5.0 BASOPHIL % (test code = BA%) 0.0 % 0.0-1.0 NUCLEATED RBC % (test code = NRBC%) 0.0 % 0-0 NEUTROPHIL # (test code = NT#) 4.82 K/mm3 1.8-7.7 IMMATURE GRANULOCYTE # (test code = IG#) 0.08 x10 3/uL 0-0.03 LYMPHOCYTE # (test code = LY#) 1.37 K/mm3 1.0-5.0 MONOCYTE # (test code = MO#) 0.63 K/mm3 0-0.8 EOSINOPHIL # (test code = EO#) 0.21 K/mm3 0.0-0.5 BASOPHIL # (test code = BA#) 0.00 K/mm3 0.0-0.2 NUCLEATED RBC # (test code = NRBC#) 0.00 K/mm3 0.0-0.1 MANUAL DIFF REQUIRED (test code = MDIFF) NO UR SMEAR EOSINOPHIL [id number] 23:10:00* Test Item Value Reference Range Comments UR SMEAR EOSINOPHIL COUNT (test code = EOSCTU) NONE SEEN per HPF NONE SEEN UR NA,[id number] 23:10:00* Test Item Value Reference Range Comments UR NA,RANDOM (test code = TERRI) 49 mmol/L 20-110 UR CHLORIDE [id number] 23:10:00* Test Item Value Reference Range Comments UR CHLORIDE RANDOM (test code = CLU) 42 mEq/L UR PROTEIN/CREATININE [id number] 23:10:00* Test Item Value Reference Range Comments UR PROTEIN RANDOM (test code = PROTU) 143.4 mg/dL 0.0-11.9 Protein levels may be falsely elevated in patients withelevated level of aminoglycoside antibiotics in CSF and inhighly concentrated urine specimens. If false elevation issuspected, contact lab for alternated testing technique. UR CREATININE RANDOM (test code = CREATU) 51.0 mg/dL 30-125 PROTEIN/CREATININE RATIO (test code = P/CRATIO) 2.81 RATIO 0.0-0.20 UR SMEAR EOSINOPHIL [id number] 21:36:00* Test Item Value Reference Range Comments UR SMEAR EOSINOPHIL COUNT (test code = EOSCTU) per HPF N ONE SEEN UR NA,[id number] 21:36:00* Test Item Value Reference Range Comments UR NA,RANDOM (test code = TERRI) 49 mmol/L 20-110 UR CHLORIDE [id number] 21:36:00* Test Item Value Reference Range Comments UR CHLORIDE RANDOM (test code = CLU) 42 mEq/L UR PROTEIN/CREATININE [id number] 21:36:00* Test Item Value Reference Range Comments UR PROTEIN RANDOM (test code = PROTU) 143.4 mg/dL 0.0-11.9 Protein levels may be falsely elevated in patients withelevated level of aminoglycoside antibiotics in CSF and inhighly concentrated urine specimens. If false elevation issuspected, contact lab for alternated testing technique. UR CREATININE RANDOM (test code = CREATU) 51.0 mg/dL 30-125 PROTEIN/CREATININE RATIO (test code = P/CRATIO) 2.81 RATIO 0.0-0.20 UR SMEAR EOSINOPHIL [id number] 21:21:00* Test Item Value Reference Range Comments UR SMEAR EOSINOPHIL COUNT (test code = EOSCTU) per HPF N ONE SEEN UR NA,[id number] 21:21:00* Test Item Value Reference Range Comments UR NA,RANDOM (test code = TERRI) 49 mmol/L 20-110 UR CHLORIDE [id number] 21:21:00* Test Item Value Reference Range Comments UR CHLORIDE RANDOM (test code = CLU) 42 mEq/L UR PROTEIN/CREATININE [id number] 21:21:00* Test Item Value Reference Range Comments UR PROTEIN RANDOM (test code = PROTU) mg/dL 0.0-11.9 UR CREATININE RANDOM (test code = CREATU) mg/dL 30-125 PROTEIN/CREATININE RATIO (test code = P/CRATIO) RATIO 0.0-0.20 [id number] 20:18:00* Test Item Value Reference Range Comments GLUBED (test code = GLUBED) 220 mg/dL 74-106 Perf ormed by certified cyber operator at [facility] [id number] 16:14:00* Test Item Value Reference Range Comments GLUBED (test code = GLUBED) 279 mg/dL 74-106 Perf ormed by certified cyber operator at [facility] COMPREHENSIVE METABOLIC [id number] 14:11:00* Test Item Value Reference Range Comments SODIUM (test code = NA) 139 mmol/L 136-145 POTASSIUM (test code = K) 4.8 mmol/L 3.5-5.1 CHLORIDE (test code = CL) 108.0 mmol/L 98-107 CARBON DIOXIDE (test code = CO2) 21.0 mmol/L 21-32 ANION GAP (test code = GAP) 14.8 10-20 GLUCOSE (test code = GLU) 206 mg/dL 74-106 BLOOD UREA NITROGEN (test code = BUN) 78 mg/dL 7-18 GLOMERULAR FILTRATION RATE (test code = GFR) 27 mL/min >=6 0 Estimated GFR by using Modified MDRD formula.Chronic kidney disease is defined as either kidney damageor GFR <60 mL/min/1.73 m2 for >3 months. CREATININE (test code = CREAT) 1.80 mg/dL 0.55-1.02 * *Note change in reference range due to change in reagent. BUN/CREATININE RATIO (test code = BUN/CREA) 43.3 10-2 0 TOTAL PROTEIN (test code = PROT) 5.6 gram/dL 6.4-8.2 ALBUMIN (test code = ALB) 2.9 g/dL 3.4-5.0 GLOBULIN (test code = GLOB) 2.7 gram/dL 2.7-4.2 ALBUMIN/GLOBULIN RATIO (test code = A/G) 1.1 0.75-1. 50 CALCIUM (test code = CA) 8.5 mg/dL 8.5-10.1 BILIRUBIN TOTAL (test code = BILT) 0.20 mg/dL 0.0-1.0 SGOT/AST (test code = AST) 34 IUnit/L 15-37 SGPT/ALT (test code = ALT) 53 IUnit/L 12-78 ALKALINE PHOSPHATASE TOTAL (test code = ALKP) 67 IUnit/L 45 -117 Note change in reference range due to change in reagent. COMPREHENSIVE METABOLIC [id number] 14:01:00* Test Item Value Reference Range Comments SODIUM (test code = NA) 139 mmol/L 136-145 POTASSIUM (test code = K) 4.8 mmol/L 3.5-5.1 CHLORIDE (test code = CL) 108.0 mmol/L 98-107 CARBON DIOXIDE (test code = CO2) mmol/L 21-32 ANION GAP (test code = GAP) 10-20 GLUCOSE (test code = GLU) mg/dL 74-106 BLOOD UREA NITROGEN (test code = BUN) mg/dL 7-18 GLOMERULAR FILTRATION RATE (test code = GFR) mL/min >=6 0 CREATININE (test code = CREAT) mg/dL 0.55-1.02 BUN/CREATININE RATIO (test code = BUN/CREA) 10-2 0 TOTAL PROTEIN (test code = PROT) gram/dL 6.4-8.2 ALBUMIN (test code = ALB) g/dL 3.4-5.0 GLOBULIN (test code = GLOB) gram/dL 2.7-4.2 ALBUMIN/GLOBULIN RATIO (test code = A/G) 0.75-1. 50 CALCIUM (test code = CA) mg/dL 8.5-10.1 BILIRUBIN TOTAL (test code = BILT) mg/dL 0.0-1.0 SGOT/AST (test code = AST) IUnit/L 15-37 SGPT/ALT (test code = ALT) IUnit/L 12-78 ALKALINE PHOSPHATASE TOTAL (test code = ALKP) IUnit/L 45 -117 CBC W/AUTO [id number] 13:24:00* Test Item Value Reference Range Comments WHITE BLOOD CELL (test code = WBC) 11.5 K/mm3 4.5-12.5 RED BLOOD CELL (test code = RBC) 2.90 mill/mm3 3.7-5.2 HEMOGLOBIN (test code = HGB) 8.4 gram/dL 11.5-15.5 HEMATOCRIT (test code = HCT) 26.1 % 36.0-46.0 MEAN CELL VOLUME (test code = MCV) 90.0 fL 80-98 MEAN CELL HGB (test code = MCH) 29.0 picogram 27.0-33.0 MEAN CELL HGB CONCETRATION (test code = MCHC) 32.2 gram/dL 33 .0-36.0 RED CELL DISTRIBUTION WIDTH (test code = RDW) 15.8 % 11 .6-16.2 RED CELL DISTRIBUTION WIDTH SD (test code = RDW-SD) 51.5 fL 37.0-51.0 PLATELET COUNT (test code = PLT) 262 K/mm3 150-450 MEAN PLATELET VOLUME (test code = MPV) 10.8 fL 6.7-11.0 NEUTROPHIL % (test code = NT%) 87.3 % 39.0-69.0 IMMATURE GRANULOCYTE % (test code = IG%) 0.9 % 0.0-5.0 LYMPHOCYTE % (test code = LY%) 6.9 % 25.0-55.0 MONOCYTE % (test code = MO%) 3.6 % 0.0-10.0 EOSINOPHIL % (test code = EO%) 1.2 % 0.0-5.0 BASOPHIL % (test code = BA%) 0.1 % 0.0-1.0 NUCLEATED RBC % (test code = NRBC%) 0.0 % 0-0 NEUTROPHIL # (test code = NT#) 10.06 K/mm3 1.8-7.7 IMMATURE GRANULOCYTE # (test code = IG#) 0.10 x10 3/uL 0-0.03 LYMPHOCYTE # (test code = LY#) 0.79 K/mm3 1.0-5.0 MONOCYTE # (test code = MO#) 0.42 K/mm3 0-0.8 EOSINOPHIL # (test code = EO#) 0.14 K/mm3 0.0-0.5 BASOPHIL # (test code = BA#) 0.01 K/mm3 0.0-0.2 NUCLEATED RBC # (test code = NRBC#) 0.00 K/mm3 0.0-0.1 MANUAL DIFF REQUIRED (test code = MDIFF) NO [id number] 11:53:00* Test Item Value Reference Range Comments GLUBED (test code = GLUBED) 197 mg/dL 74-106 Perf ormed by certified cyber operator at [facility] [id number] 08:17:00* Test Item Value Reference Range Comments GLUBED (test code = GLUBED) 76 mg/dL 74-106 Perf ormed by certified cyber operator at [facility] [id number] 21:27:00* Test Item Value Reference Range Comments GLUBED (test code = GLUBED) 218 mg/dL 74-106 Perf ormed by certified cyber operator at [facility] [id number] 16:46:00* Test Item Value Reference Range Comments GLUBED (test code = GLUBED) 182 mg/dL 74-106 [facility]~ - US RETRO [id number] 12:32:00 Name: EL MEDINA [facility] : 1940 Age/S: 78 / F [address] Unit #: [id number] Loc: [place] [address] Phys: Tal Guidry MD Acct: [id number] Dis Date: Status: ADM IN PHONE #: [phone] Exam Date: 09/27/2018 1150 FAX #: [phone] Reason: NILES EXAMS: CPT CODE: [id number] US RETRO LTD [id number] REASON FOR EXAM: NILES EXAM ORDER DATE: 09/27/2018 10:37 AM Attending MLaura: Tal Guidry MD PROCEDURE: - US RETRO LTD FINDINGS: The right kidney measures 10.2 x 4.1 cm. The cross-sectional thickness of the right renal cortex measured 1 cm. The left kidney measures 11.2 x 4.4 cm. The cross-sectional thickness of the left renal cortex measured 1.5 cm. There is no evidence of hydronephrosis. There is no evidence of nephrolithiasis. The urinary bladder is contracted IMPRESSION: 2 cm right renal cyst. at 1232 Reported and signed by: Kyle Elizabeth M.D. CC: Solo Patrick; Tal Guidry MD Technologist: FRANKIE LORENZO RT(R),RDMS Trnscb Date/Time: 09/27/2018 (2262) t.SDR.VTL Orig Print D/T: S: 09/27/2018 ([id number]) Probe: PAGE 1 Signed Report [id number] 12:10:00* Test Item Value Reference Range Comments GLUBED (test code = GLUBED) 225 mg/dL 74-106 [facility] [id number] 12:10:00* Test Item Value Reference Range Comments GLUBED (test code = GLUBED) 112 mg/dL 74-106 [facility] COMPREHENSIVE METABOLIC [id number] 07:10:00* Test Item Value Reference Range Comments SODIUM (test code = NA) 138 mmol/L 136-145 POTASSIUM (test code = K) 4.6 mmol/L 3.5-5.1 CHLORIDE (test code = CL) 108.0 mmol/L 98-107 CARBON DIOXIDE (test code = CO2) 22.0 mmol/L 21-32 ANION GAP (test code = GAP) 12.6 10-20 GLUCOSE (test code = GLU) 130 mg/dL 74-106 BLOOD UREA NITROGEN (test code = BUN) 111 mg/dL 7-18 GLOMERULAR FILTRATION RATE (test code = GFR) 22 mL/min >=6 0 Estimated GFR by using Modified MDRD formula.Chronic kidney disease is defined as either kidney damageor GFR <60 mL/min/1.73 m2 for >3 months. CREATININE (test code = CREAT) 2.20 mg/dL 0.55-1.02 * *Note change in reference range due to change in reagent. BUN/CREATININE RATIO (test code = BUN/CREA) 50.5 10-2 0 TOTAL PROTEIN (test code = PROT) 5.6 gram/dL 6.4-8.2 ALBUMIN (test code = ALB) 2.7 g/dL 3.4-5.0 GLOBULIN (test code = GLOB) 2.9 gram/dL 2.7-4.2 ALBUMIN/GLOBULIN RATIO (test code = A/G) 0.9 0.75-1. 50 CALCIUM (test code = CA) 8.1 mg/dL 8.5-10.1 BILIRUBIN TOTAL (test code = BILT) 0.30 mg/dL 0.0-1.0 SGOT/AST (test code = AST) 25 IUnit/L 15-37 SGPT/ALT (test code = ALT) 37 IUnit/L 12-78 ALKALINE PHOSPHATASE TOTAL (test code = ALKP) 63 IUnit/L 45 -117 Note change in reference range due to change in reagent. COMPREHENSIVE METABOLIC [id number] 06:52:00* Test Item Value Reference Range Comments SODIUM (test code = NA) 138 mmol/L 136-145 POTASSIUM (test code = K) 4.6 mmol/L 3.5-5.1 CHLORIDE (test code = CL) 108.0 mmol/L 98-107 CARBON DIOXIDE (test code = CO2) mmol/L 21-32 ANION GAP (test code = GAP) 10-20 GLUCOSE (test code = GLU) mg/dL 74-106 BLOOD UREA NITROGEN (test code = BUN) mg/dL 7-18 GLOMERULAR FILTRATION RATE (test code = GFR) mL/min >=6 0 CREATININE (test code = CREAT) mg/dL 0.55-1.02 BUN/CREATININE RATIO (test code = BUN/CREA) 10-2 0 TOTAL PROTEIN (test code = PROT) gram/dL 6.4-8.2 ALBUMIN (test code = ALB) g/dL 3.4-5.0 GLOBULIN (test code = GLOB) gram/dL 2.7-4.2 ALBUMIN/GLOBULIN RATIO (test code = A/G) 0.75-1. 50 CALCIUM (test code = CA) mg/dL 8.5-10.1 BILIRUBIN TOTAL (test code = BILT) mg/dL 0.0-1.0 SGOT/AST (test code = AST) IUnit/L 15-37 SGPT/ALT (test code = ALT) IUnit/L 12-78 ALKALINE PHOSPHATASE TOTAL (test code = ALKP) IUnit/L 45 -117 CBC W/AUTO [id number] 06:39:00* Test Item Value Reference Range Comments WHITE BLOOD CELL (test code = WBC) 8.1 K/mm3 4.5-12.5 RED BLOOD CELL (test code = RBC) 2.75 mill/mm3 3.7-5.2 HEMOGLOBIN (test code = HGB) 8.1 gram/dL 11.5-15.5 HEMATOCRIT (test code = HCT) 24.5 % 36.0-46.0 MEAN CELL VOLUME (test code = MCV) 89.1 fL 80-98 MEAN CELL HGB (test code = MCH) 29.5 picogram 27.0-33.0 MEAN CELL HGB CONCETRATION (test code = MCHC) 33.1 gram/dL 33 .0-36.0 RED CELL DISTRIBUTION WIDTH (test code = RDW) 15.6 % 11 .6-16.2 RED CELL DISTRIBUTION WIDTH SD (test code = RDW-SD) 49.5 fL 37.0-51.0 PLATELET COUNT (test code = PLT) 257 K/mm3 150-450 MEAN PLATELET VOLUME (test code = MPV) 11.7 fL 6.7-11.0 NEUTROPHIL % (test code = NT%) 69.3 % 39.0-69.0 IMMATURE GRANULOCYTE % (test code = IG%) 1.2 % 0.0-5.0 LYMPHOCYTE % (test code = LY%) 20.3 % 25.0-55.0 MONOCYTE % (test code = MO%) 6.8 % 0.0-10.0 EOSINOPHIL % (test code = EO%) 2.3 % 0.0-5.0 BASOPHIL % (test code = BA%) 0.1 % 0.0-1.0 NUCLEATED RBC % (test code = NRBC%) 0.0 % 0-0 NEUTROPHIL # (test code = NT#) 5.64 K/mm3 1.8-7.7 IMMATURE GRANULOCYTE # (test code = IG#) 0.10 x10 3/uL 0-0.03 LYMPHOCYTE # (test code = LY#) 1.65 K/mm3 1.0-5.0 MONOCYTE # (test code = MO#) 0.55 K/mm3 0-0.8 EOSINOPHIL # (test code = EO#) 0.19 K/mm3 0.0-0.5 BASOPHIL # (test code = BA#) 0.01 K/mm3 0.0-0.2 NUCLEATED RBC # (test code = NRBC#) 0.00 K/mm3 0.0-0.1 MANUAL DIFF REQUIRED (test code = MDIFF) NO [id number] 20:56:00* Test Item Value Reference Range Comments GLUBED (test code = GLUBED) 232 mg/dL 74-106 Perf ormed by certified cyber operator at [facility] [id number] 18:45:00* Test Item Value Reference Range Comments GLUBED (test code = GLUBED) 172 mg/dL 74-106 [facility]~ [id number] 12:19:00* Test Item Value Reference Range Comments GLUBED (test code = GLUBED) 232 mg/dL 74-106 [facility]~ COMPREHENSIVE METABOLIC [id number] 11:57:00* Test Item Value Reference Range Comments SODIUM (test code = NA) 139 mmol/L 136-145 POTASSIUM (test code = K) 4.3 mmol/L 3.5-5.1 CHLORIDE (test code = CL) 106.0 mmol/L 98-107 CARBON DIOXIDE (test code = CO2) 22.0 mmol/L 21-32 ANION GAP (test code = GAP) 15.3 10-20 GLUCOSE (test code = GLU) 224 mg/dL 74-106 BLOOD UREA NITROGEN (test code = BUN) 106 mg/dL 7-18 GLOMERULAR FILTRATION RATE (test code = GFR) 24 mL/min >=6 0 Estimated GFR by using Modified MDRD formula.Chronic kidney disease is defined as either kidney damageor GFR <60 mL/min/1.73 m2 for >3 months. CREATININE (test code = CREAT) 2.00 mg/dL 0.55-1.02 * *Note change in reference range due to change in reagent. BUN/CREATININE RATIO (test code = BUN/CREA) 53.0 10-2 0 TOTAL PROTEIN (test code = PROT) 5.3 gram/dL 6.4-8.2 ALBUMIN (test code = ALB) 2.7 g/dL 3.4-5.0 GLOBULIN (test code = GLOB) 2.6 gram/dL 2.7-4.2 ALBUMIN/GLOBULIN RATIO (test code = A/G) 1.0 0.75-1. 50 CALCIUM (test code = CA) 8.0 mg/dL 8.5-10.1 BILIRUBIN TOTAL (test code = BILT) 0.20 mg/dL 0.0-1.0 SGOT/AST (test code = AST) 16 IUnit/L 15-37 SGPT/ALT (test code = ALT) 25 IUnit/L 12-78 ALKALINE PHOSPHATASE TOTAL (test code = ALKP) 62 IUnit/L 45 -117 Note change in reference range due to change in reagent. COMPREHENSIVE METABOLIC [id number] 11:18:00* Test Item Value Reference Range Comments SODIUM (test code = NA) 139 mmol/L 136-145 POTASSIUM (test code = K) 4.3 mmol/L 3.5-5.1 CHLORIDE (test code = CL) 106.0 mmol/L 98-107 CARBON DIOXIDE (test code = CO2) mmol/L 21-32 ANION GAP (test code = GAP) 10-20 GLUCOSE (test code = GLU) mg/dL 74-106 BLOOD UREA NITROGEN (test code = BUN) mg/dL 7-18 GLOMERULAR FILTRATION RATE (test code = GFR) mL/min >=6 0 CREATININE (test code = CREAT) mg/dL 0.55-1.02 BUN/CREATININE RATIO (test code = BUN/CREA) 10-2 0 TOTAL PROTEIN (test code = PROT) gram/dL 6.4-8.2 ALBUMIN (test code = ALB) g/dL 3.4-5.0 GLOBULIN (test code = GLOB) gram/dL 2.7-4.2 ALBUMIN/GLOBULIN RATIO (test code = A/G) 0.75-1. 50 CALCIUM (test code = CA) mg/dL 8.5-10.1 BILIRUBIN TOTAL (test code = BILT) mg/dL 0.0-1.0 SGOT/AST (test code = AST) IUnit/L 15-37 SGPT/ALT (test code = ALT) IUnit/L 12-78 ALKALINE PHOSPHATASE TOTAL (test code = ALKP) IUnit/L 45 -117 [id number] 08:36:00* Test Item Value Reference Range Comments GLUBED (test code = GLUBED) 125 mg/dL 74-106 [facility] [id number] 21:09:00* Test Item Value Reference Range Comments GLUBED (test code = GLUBED) 172 mg/dL 74-106 Perf ormed by certified cyber operator at [facility] [id number] 17:01:00* Test Item Value Reference Range Comments GLUBED (test code = GLUBED) 253 mg/dL 74-106 [facility] [id number] 11:59:00* Test Item Value Reference Range Comments GLUBED (test code = GLUBED) 217 mg/dL 74-106 [facility] [id number] 08:26:00* Test Item Value Reference Range Comments GLUBED (test code = GLUBED) 150 mg/dL 74-106 [facility] [id number] 20:21:00* Test Item Value Reference Range Comments GLUBED (test code = GLUBED) 347 mg/dL 74-106 Perf ormed by certified cyber operator at [facility] [id number] 20:17:00* Test Item Value Reference Range Comments GLUBED (test code = GLUBED) 360 mg/dL 74-106 Perf ormed by certified cyber operator at [facility] [id number] 17:28:00* Test Item Value Reference Range Comments GLUBED (test code = GLUBED) 239 mg/dL 74-106 [facility] [id number] 13:18:00* Test Item Value Reference Range Comments GLUBED (test code = GLUBED) 382 mg/dL 74-106 [facility] [id number] 09:18:00* Test Item Value Reference Range Comments GLUBED (test code = GLUBED) 207 mg/dL 74-106 [facility] B-TYPE NATRIURETIC [id number] 05:58:00* Test Item Value Reference Range Comments B-TYPE NATRIURETIC PEPTIDE (test code = BNP) 50.60 pgram/mL 0-1 00 BASIC METABOLIC [id number] 05:57:00* Test Item Value Reference Range Comments SODIUM (test code = NA) 139 mmol/L 136-145 POTASSIUM (test code = K) 4.5 mmol/L 3.5-5.1 CHLORIDE (test code = CL) 106.0 mmol/L 98-107 CARBON DIOXIDE (test code = CO2) 23.0 mmol/L 21-32 ANION GAP (test code = GAP) 14.5 10-20 GLUCOSE (test code = GLU) 123 mg/dL 74-106 BLOOD UREA NITROGEN (test code = BUN) 128 mg/dL 7-18 GLOMERULAR FILTRATION RATE (test code = GFR) 23 mL/min >=6 0 Estimated GFR by using Modified MDRD formula.Chronic kidney disease is defined as either kidney damageor GFR <60 mL/min/1.73 m2 for >3 months. CREATININE (test code = CREAT) 2.10 mg/dL 0.55-1.02 * *Note change in reference range due to change in reagent. BUN/CREATININE RATIO (test code = BUN/CREA) 61.0 10-2 0 CALCIUM (test code = CA) 8.4 mg/dL 8.5-10.1 BASIC METABOLIC [id number] 05:46:00* Test Item Value Reference Range Comments SODIUM (test code = NA) 139 mmol/L 136-145 POTASSIUM (test code = K) 4.5 mmol/L 3.5-5.1 CHLORIDE (test code = CL) 106.0 mmol/L 98-107 CARBON DIOXIDE (test code = CO2) mmol/L 21-32 ANION GAP (test code = GAP) 10-20 GLUCOSE (test code = GLU) mg/dL 74-106 BLOOD UREA NITROGEN (test code = BUN) mg/dL 7-18 GLOMERULAR FILTRATION RATE (test code = GFR) mL/min >=6 0 CREATININE (test code = CREAT) mg/dL 0.55-1.02 BUN/CREATININE RATIO (test code = BUN/CREA) 10-2 0 CALCIUM (test code = CA) mg/dL 8.5-10.1 [id number] 20:34:00* Test Item Value Reference Range Comments GLUBED (test code = GLUBED) 358 mg/dL 74-106 [facility] [id number] 16:20:00* Test Item Value Reference Range Comments GLUBED (test code = GLUBED) 358 mg/dL 74-106 [facility] [id number] 11:53:00* Test Item Value Reference Range Comments GLUBED (test code = GLUBED) 186 mg/dL 74-106 Perf ormed by certified cyber operator at [facility] [id number] 08:21:00* Test Item Value Reference Range Comments GLUBED (test code = GLUBED) 153 mg/dL 74-106 Perf ormed by certified cyber operator at [facility] BASIC METABOLIC [id number] 06:42:00* Test Item Value Reference Range Comments SODIUM (test code = NA) 135 mmol/L 136-145 POTASSIUM (test code = K) 4.2 mmol/L 3.5-5.1 CHLORIDE (test code = CL) 100.0 mmol/L 98-107 CARBON DIOXIDE (test code = CO2) 25.0 mmol/L 21-32 ANION GAP (test code = GAP) 14.2 10-20 GLUCOSE (test code = GLU) 150 mg/dL 74-106 BLOOD UREA NITROGEN (test code = BUN) 141 mg/dL 7-18 GLOMERULAR FILTRATION RATE (test code = GFR) 24 mL/min >=6 0 Estimated GFR by using Modified MDRD formula.Chronic kidney disease is defined as either kidney damageor GFR <60 mL/min/1.73 m2 for >3 months. CREATININE (test code = CREAT) 2.00 mg/dL 0.55-1.02 * *Note change in reference range due to change in reagent. BUN/CREATININE RATIO (test code = BUN/CREA) 70.5 10-2 0 CALCIUM (test code = CA) 8.9 mg/dL 8.5-10.1 BASIC METABOLIC [id number] 06:34:00* Test Item Value Reference Range Comments SODIUM (test code = NA) 135 mmol/L 136-145 POTASSIUM (test code = K) 4.2 mmol/L 3.5-5.1 CHLORIDE (test code = CL) 100.0 mmol/L 98-107 CARBON DIOXIDE (test code = CO2) mmol/L 21-32 ANION GAP (test code = GAP) 10-20 GLUCOSE (test code = GLU) mg/dL 74-106 BLOOD UREA NITROGEN (test code = BUN) mg/dL 7-18 GLOMERULAR FILTRATION RATE (test code = GFR) mL/min >=6 0 CREATININE (test code = CREAT) mg/dL 0.55-1.02 BUN/CREATININE RATIO (test code = BUN/CREA) 10-2 0 CALCIUM (test code = CA) mg/dL 8.5-10.1 [id number] 21:34:00* Test Item Value Reference Range Comments GLUBED (test code = GLUBED) 318 mg/dL 74-106 Perf ormed by certified cyber operator at [facility] [id number] 19:50:00* Test Item Value Reference Range Comments GLUBED (test code = GLUBED) 285 mg/dL 74-106 Perf ormed by certified cyber operator at [facility] [id number] 19:50:00* Test Item Value Reference Range Comments GLUBED (test code = GLUBED) 336 mg/dL 74-106 Perf ormed by certified cyber operator at [facility] [id number] 16:33:00* Test Item Value Reference Range Comments GLUBED (test code = GLUBED) 270 mg/dL 74-106 Perf ormed by certified cyber operator at [facility] B-TYPE NATRIURETIC [id number] 09:42:00* Test Item Value Reference Range Comments B-TYPE NATRIURETIC PEPTIDE (test code = BNP) 62.91 pgram/mL 0-1 00 HARD STICK CS 0650 CHANEL PALOMO ([id number]) IS AWARE V.LAB. 0728BASIC METABOLIC [id number] 09:13:00* Test Item Value Reference Range Comments SODIUM (test code = NA) 132 mmol/L 136-145 POTASSIUM (test code = K) 4.5 mmol/L 3.5-5.1 CHLORIDE (test code = CL) 96.0 mmol/L 98-107 CARBON DIOXIDE (test code = CO2) 26.0 mmol/L 21-32 ANION GAP (test code = GAP) 14.5 10-20 GLUCOSE (test code = GLU) 326 mg/dL 74-106 BLOOD UREA NITROGEN (test code = BUN) 136 mg/dL 7-18 GLOMERULAR FILTRATION RATE (test code = GFR) 19 mL/min >=6 0 Estimated GFR by using Modified MDRD formula.Chronic kidney disease is defined as either kidney damageor GFR <60 mL/min/1.73 m2 for >3 months. CREATININE (test code = CREAT) 2.50 mg/dL 0.55-1.02 * *Note change in reference range due to change in reagent. BUN/CREATININE RATIO (test code = BUN/CREA) 54.4 10-2 0 CALCIUM (test code = CA) 9.0 mg/dL 8.5-10.1 HARD STICK CS 0650 CHANEL PALOMO ([id number]) IS AWARE V.LAB. 0728BASIC METABOLIC [id number] 09:10:00* Test Item Value Reference Range Comments SODIUM (test code = NA) 132 mmol/L 136-145 POTASSIUM (test code = K) 4.5 mmol/L 3.5-5.1 CHLORIDE (test code = CL) 96.0 mmol/L 98-107 CARBON DIOXIDE (test code = CO2) mmol/L 21-32 ANION GAP (test code = GAP) 10-20 GLUCOSE (test code = GLU) mg/dL 74-106 BLOOD UREA NITROGEN (test code = BUN) mg/dL 7-18 GLOMERULAR FILTRATION RATE (test code = GFR) mL/min >=6 0 CREATININE (test code = CREAT) mg/dL 0.55-1.02 BUN/CREATININE RATIO (test code = BUN/CREA) 10-2 0 CALCIUM (test code = CA) mg/dL 8.5-10.1 HARD STICK CS 0650 CHANEL PALOMO ([id number]) IS AWARE V.LAB. 0728HEMOGLOBIN 2018-09-22 08:44:00* Test Item Value Reference Range Comments HEMOGLOBIN (test code = HGB) 10.4 gram/dL 11.5-15.5 HARD STICK CS 0650 CHANEL PALOMO ([id number]) IS AWARE V.LAB. 0729PLATELET [id number] 08:44:00* Test Item Value Reference Range Comments PLATELET COUNT (test code = PLT) 358 K/mm3 150-450 HARD STICK CS 0650 CHANEL PALOMO ([id number]) IS AWARE V.LAB. 0729GLUBED 2018-09-22 07:20:00* Test Item Value Reference Range Comments GLUBED (test code = GLUBED) 338 mg/dL 74-106 [facility] [id number] 20:33:00* Test Item Value Reference Range Comments GLUBED (test code = GLUBED) 371 mg/dL 74-106 [facility] - CT MAXIFAC W/O [id number] 19:07:00 Name: EL MEDINA [facility] : 1940 Age/S: 78 / F [address] Unit #: [id number] Loc: [place] [address] Phys: Tremayne Pagan MD Acct: [id number] Dis Date: Status: ADM IN PHONE #: [phone] Exam Date: 09/21/2018 1830 FAX #: [phone] Reason: frontal sinus pain/ headachy EXAMS: CPT CODE: [id number] [place] MAXIFAC [place] [address] REASON FOR EXAM: frontal sinus pain/ headachy EXAM ORDER DATE: 09/21/2018 3:50 PM Ordering M.D.: Tremayne Pagan MD PROCEDURE: - CT MAXIFAC W/O CNT FINDINGS: CT images of the face were obtained without IV contrast at 2.5 mm thickness. Dose modulation, iterative reconstruction, and/or weight based adjustment of the MA/KV was utilized to reduce the radiation dose to as low as reasonably achievable. The globes are intact. The orbital elam are unremarkable. The nasal bone is unremarkable. The mandibles are within normal limits. No evidence of facial fracture Mild obstruction to bilateral ethmoid sinuses. Moderate obstruction to the left maxillary sinus. Bilateral ostiomeatal complexes are obstructed. A subcentimeter right ileana bullosa noted. Minimal mucosal thickening of the floor of the right maxillary sinus. Minimal obstruction to bilateral frontal sinuses slightly more pronounced on the left. IMPRESSION: Avila paranasal sinusitis more pronounced on the left with obstruction of bilateral ostiomeatal complexes at 1907 Reported and sig carson by: Kyle Elizabeth M.D. CC: Solo Patrick; Tremayne Pagan MD Technologist:Silvina Veloz RT(R) CTDI: DLP: Trnscb Date/Time: 09/21/2018 (1906) t.SDR.VTL Orig P rint D/T: S: 09/21/2018 (1909) PAGE 1 Signed Report [id number] 15:21:00* Test Item Value Reference Range Comments GLUBED (test code = GLUBED) 296 mg/dL 74-106 Perf ormed by certified cyber operator at [facility] [id number] 12:02:00* Test Item Value Reference Range Comments GLUBED (test code = GLUBED) 196 mg/dL 74-106 Perf ormed by certified cyber operator at [facility] [id number] 07:40:00* Test Item Value Reference Range Comments GLUBED (test code = GLUBED) 273 mg/dL 74-106 Perf ormed by certified cyber operator at [facility] RESPIRATORY VIRUS PANEL [id number] 23:06:00* Test Item Value Reference Range Comments RSV A PCR (test code = RSV A) Negative Negative RSV B PCR (test code = RSV B) Negative Negative INFLUENZA A PCR (test code = FLUAPCR) Negative Negative INFLUENZA B PCR (test code = FLUBPCR) Negative Negative PARAINFLUENZA TYPE 1 PCR (test code = PIF1) Negative Nega tive PARAINFLUENZA TYPE 2 PCR (test code = PIF2) Negative Nega tive PARAINFLUENZA TYPE 3 PCR (test code = PIF3) Negative Nega tive RHINOVIRUS PCR (test code = RHINO) Negative Negative METAPNEUMOVIRUS PCR (test code = METAPNEU) Negative Negat dionte ADENOVIRUS PCR (test code = ADENOPCR) Negative Negative Performed At: [address] [id number] Gallegos MD Ph:[phone] [id number] 20:43:00* Test Item Value Reference Range Comments GLUBED (test code = GLUBED) 341 mg/dL 74-106 Perf ormed by certified cyber operator at [facility] [id number] 16:21:00* Test Item Value Reference Range Comments GLUBED (test code = GLUBED) 301 mg/dL 74-106 [facility] IMMUNOGLOBULIN [id number] 16:07:00* Test Item Value Reference Range Comments IMMUNOGLOBULIN E (test code = IGE) 95 IU/mL 6-495 Performed At: [address] [id number] Sanjai MD Ph:[phone] [id number] 12:49:00* Test Item Value Reference Range Comments GLUBED (test code = GLUBED) 338 mg/dL 74-106 [facility] [id number] 08:51:00* Test Item Value Reference Range Comments GLUBED (test code = GLUBED) 152 mg/dL 74-106 Perf ormed by certified cyber operator at [facility] [id number] 20:54:00* Test Item Value Reference Range Comments GLUBED (test code = GLUBED) 378 mg/dL 74-106 Perf ormed by certified cyber operator at [facility] [id number] 20:54:00* Test Item Value Reference Range Comments GLUBED (test code = GLUBED) 206 mg/dL 74-106 Perf ormed by certified cyber operator at [facility] [id number] 11:47:00* Test Item Value Reference Range Comments GLUBED (test code = GLUBED) 400 mg/dL 74-106 Perf ormed by certified cyber operator at [facility] [id number] 08:30:00* Test Item Value Reference Range Comments GLUBED (test code = GLUBED) 340 mg/dL 74-106 Perf ormed by certified cyber operator at [facility] [id number] 20:48:00* Test Item Value Reference Range Comments GLUBED (test code = GLUBED) 272 mg/dL 74-106 Perf ormed by certified cyber operator at [facility] [id number] 15:49:00* Test Item Value Reference Range Comments GLUBED (test code = GLUBED) 288 mg/dL 74-106 Perf ormed by certified cyber operator at [facility] [id number] 12:08:00* Test Item Value Reference Range Comments GLUBED (test code = GLUBED) 479 mg/dL 74-106 Perf ormed by certified cyber operator at [facility] [id number] 08:40:00* Test Item Value Reference Range Comments GLUBED (test code = GLUBED) 319 mg/dL 74-106 Perf ormed by certified cyber operator at [facility] [id number] 21:15:00* Test Item Value Reference Range Comments GLUBED (test code = GLUBED) 381 mg/dL 74-106 [facility] [id number] 16:13:00* Test Item Value Reference Range Comments GLUBED (test code = GLUBED) 181 mg/dL 74-106 Perf ormed by certified cyber operator at [facility] [id number] 12:05:00* Test Item Value Reference Range Comments GLUBED (test code = GLUBED) 272 mg/dL 74-106 Perf ormed by certified cyber operator at [facility] [id number] 08:10:00* Test Item Value Reference Range Comments GLUBED (test code = GLUBED) 274 mg/dL 74-106 Perf ormed by certified cyber operator at [facility] [id number] 21:16:00* Test Item Value Reference Range Comments GLUBED (test code = GLUBED) 325 mg/dL 74-106 [facility]med [facility] certified [facility] - XR C-SPINE 2-3 [id number] 17:41:00 FAX: Bala Palm [phone] [place]: B St: ADM FAX: Solo Davidson [phone] Name: EL MEDINA [facility] : 1940 Age/S: 78/F [address] Unit #: [id number] Loc: V.4032 [facility] [place] [address] Phys: Bala Jaramillo MD Acct: [id number] Dis Date: Status: ADM IN PHONE #: [phone] Exam Date: 09/16/2018 1725 FAX #: [phone] Reason: BACK PAIN EXAMS: CPT CODE: [id number] XR C-SPINE 2-3 VIEWS 43013 REASON FOR EXAM: BACK PAIN EXAM ORDER DATE: 09/16/2018 12:00 AM Ordering Luiz: Bala gutierrez MD PROCEDURE: - XR C-SPINE 2-3 VIEWS FINDIN GS: 3 views of the cervical spine were obtained including odontoid view. The osseous structures are unremarkable in size and shape, size from anter ior anterior osteophytes at C4-C6. Minimal narrowing of C4-5 disc space. N o evidence of fracture. IMPRESSION: Minimal degenerative changes at C4-C6 at 1741 Reported and signed by: Kyle Elizabeth M.D. CC: Bala Jaramillo MD; Solo Patrick Technologist: NICHOL Mcguiremtantonio Date/Time/By: 09/05 (7043) : By: BlakeVTL Orig Print D/T: S: 09/16/2018 (6184) PAGE 1 Signed Report - XR T-SPINE 3 [id number] 17:39:00 FAX: Bala Palm [phone] [place]: St: [facility] FAX: Solo Davidson [phone] Name: EL MEDINA [facility] : 1940 Age/S: 78/F Ike Yostncer [facility] Unit #: [id number] Loc: V.[address] [place] [address] Phys: Bala Jaramillo MD Acct: [id number] Dis Date: Status: ADM IN PHONE #: [phone] Exam Date: 09/16/2018 1725 FAX #: [phone] Reason: BACK PAIN EXAMS: CPT CODE: [id number] XR T-SPINE 3 VIEWS 45382 REASON FOR EXAM: BACK PAIN EXAM ORDER DATE: 09/16/2018 12:00 AM Ordering Luiz: Bala gutierrez MD PROCEDURE: - XR T-SPINE 3 VIEWS FINDINGS : 3 views of the thoracic spine were obtained. There is normal alignment of the thoracic spine. The vertebral bodies are unremarkable in size and shape, size from anterior osteophytes in the midthoracic spine. The disc spaces are maintained. No evidence of fracture. IMPRESSI ON: No acute osseous abnormality at 2224 Reported and signed by: Kyle Elizabeth M.D. CC: Bala Jaramillo MD; Solo Patrick Technologist: NICHOL SANCHEZ [facility] crd Date/Time/By: 09/16/2018 (2572) : By: GarethL Orig Print D/T: S: 09/16/2018 (1026) PAGE 1 Signed Report - XR L-SPINE 2/3 [id number] 17:38:00 FAX: Bala Palm [phone] [place]: St: [facility] FAX: Solo Davidson [phone] Name: EL MEDINA [facility] : 1940 Age/S: 78/F [address] Unit #: [id number] Loc: V.4032 [place] [address] Phys: Bala Jaramillo MD Acct: [id number] Dis Date: Status: ADM IN PHONE #: [phone] Exam Date: 09/16/2018 1725 FAX #: [phone] Reason: BACK PAIN EXAMS: CPT CODE: [id number] XR L-SPINE 2/3 VIEWS 58232 REASON FOR EXAM: BACK PAIN EXAM ORDER DATE: 09/16/2018 12:00 AM Ordering Luiz: Bala gutierrez MD PROCEDURE: - XR L-SPINE 2/3 VIEWS FINDIN GS: 3 views of the lumbar spine were obtained. There is normal alignment of the lumbar spine. The vertebral bodies are unremarkable in size and sh ape. Mild narrowing of L4-5 disc space. No evidence of fracture. 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 No evidence of compression fracture at 6239 Reported and signed by: Kyle Elizabeth M.D. CC: Bala Villanueva MD; Solo Patrick Technologist: NICHOL LITTLEJOHN Trnscrd Date/Time/By: 09/16/2018 (70 31) : By: BlakeVTL Orig Print D/T: S: 09/16/2018 (7232) PAGE 1 Signed Report - XR CHEST 2 [id number] 17:36:00 FAX: Bala Palm [phone] [place]: St: [facility] FAX: Solo Davidson [phone] Name: EL MEDINA [facility] : 1940 Age/S: 78/F [address] [facility] Unit #: [id number] Loc: V.4032 [place] [address] Phys: Bala Jaramillo MD Acct: [id number] Dis Date: Status: ADM IN PHONE #: [phone] Exam Date: 09/16/2018 1725 FAX #: [phone] Reason: BACK PAIN EXAMS: CPT CODE: [id number] XR CHEST 2 V 30389 REASON FOR EXAM: BACK PAIN Exam Order Date: 09/16/2018 12:00 AM Ordering Luiz: Bala Jaramillo MD PROCEDURE: - XR CHEST 2 V COMPARISON: 09/15/2018 FINDINGS: PA and lateral views of the chest show patchy opacity at the left base. The heart size is minimally enlarged. Pulmonary vasculatures are unremarkable. The osseous structures are grossly intact. IMPRESSION: Patchy atelectasis at the left base with a small left pl eural effusion a t 1736 Reported and signed by: Kyle Elizabeth M.D. CC: Bala Jaramillo MD; Solo Patrick Technologist: NICHOL SANCHEZ Trnmtrd Date/Time/By: 09/16/2018 (6168) : By: GarethL Orig Print D/T: S: 09/16/2018 (1075) PAGE 1 Signed Report - CT CHEST W/O [id number] 17:13:00 Name: EL MEDINA [facility] : 1940 Age/S: 78 / F [address] [facility] Unit #: [id number] Loc: [place] [address] Phys: Bala Jaramillo MD Acct: [id number] Dis Date: Status: ADM IN PHONE #: [phone] Exam Date: 09/16/2018 1652 FAX #: [phone] Reason: soa pna EXAMS: CPT CODE: [id number] CT CHEST W/O CONTRAST 30106 REASON FOR EXAM: soa pna EXAM ORDER DATE: 09/16/2018 4:21 PM Ordering Luiz: Bala Jaramillo MD PROCEDURE: - CT CHEST W/O CONTRAST FINDINGS: CT images of the chest were obtained without IV contrast. Reconstructed sagittal and coronal images of the chest were provided for interpretation. Dose modulation, iterative reconstruction, and/or weight based adjustment of the MA/KV was utilized to reduce the radiation dose to as low as reasonably achievable. The heart size is minimally enlarged. Minimal thickening of the pericardial lining The thoracic aorta is aorta is unremarkable. No evidence of mediastinal or hilar adenopathy. The lungs are clear. No evidence of pleural effusion. IMPRESSION: 1. Probable 2.5 cm right breast mass in the outer quadran ts. Recommend additional correlation with ultrasound and mammogram. 2. Minimal cardiomegaly and atelectasis of the left base. Probable noncalcified granuloma in the anterior basal segment of the left lower lobe. at 1713 Reported and signed by: Kyle Elizabeth M.D. CC: Bala Avery MD; Solo Patrick Technologist:Silvina Veloz RT(R); Klaudia Soto CTDI: DLP: Trnscb Date/Time: 09/16/2018 (1712) t ALFREDOL Orig Print D/T: S: 09/16/2018 (0113) PAGE 1 Signed Report GLUBED 2018-09-16 15:34:00* Test Item Value Reference Range Comments GLUBED (test code = GLUBED) 209 mg/dL 74-106 Perf ormed by certified cyber operator at [facility] [id number] 11:22:00* Test Item Value Reference Range Comments GLUBED (test code = GLUBED) 323 mg/dL 74-106 Perf ormed by certified cyber operator at [facility] B-TYPE NATRIURETIC [id number] 09:01:00* Test Item Value Reference Range Comments B-TYPE NATRIURETIC PEPTIDE (test code = BNP) 310.40 pgram/mL 0-1 00 BASIC METABOLIC [id number] 08:39:00* Test Item Value Reference Range Comments SODIUM (test code = NA) 138 mmol/L 136-145 POTASSIUM (test code = K) 3.2 mmol/L 3.5-5.1 CHLORIDE (test code = CL) 98.0 mmol/L 98-107 CARBON DIOXIDE (test code = CO2) 27.0 mmol/L 21-32 ANION GAP (test code = GAP) 16.2 10-20 GLUCOSE (test code = GLU) 361 mg/dL 74-106 BLOOD UREA NITROGEN (test code = BUN) 68 mg/dL 7-18 GLOMERULAR FILTRATION RATE (test code = GFR) 27 mL/min >=6 0 Estimated GFR by using Modified MDRD formula.Chronic kidney disease is defined as either kidney damageor GFR <60 mL/min/1.73 m2 for >3 months. CREATININE (test code = CREAT) 1.80 mg/dL 0.55-1.02 * *Note change in reference range due to change in reagent. BUN/CREATININE RATIO (test code = BUN/CREA) 37.8 10-2 0 CALCIUM (test code = CA) 8.7 mg/dL 8.5-10.1 BASIC METABOLIC [id number] 08:31:00* Test Item Value Reference Range Comments SODIUM (test code = NA) 138 mmol/L 136-145 POTASSIUM (test code = K) 3.2 mmol/L 3.5-5.1 CHLORIDE (test code = CL) 98.0 mmol/L 98-107 CARBON DIOXIDE (test code = CO2) mmol/L 21-32 ANION GAP (test code = GAP) 10-20 GLUCOSE (test code = GLU) mg/dL 74-106 BLOOD UREA NITROGEN (test code = BUN) mg/dL 7-18 GLOMERULAR FILTRATION RATE (test code = GFR) mL/min >=6 0 CREATININE (test code = CREAT) mg/dL 0.55-1.02 BUN/CREATININE RATIO (test code = BUN/CREA) 10-2 0 CALCIUM (test code = CA) mg/dL 8.5-10.1 [id number] 07:46:00* Test Item Value Reference Range Comments GLUBED (test code = GLUBED) 357 mg/dL 74-106 Perf ormed by certified cyber operator at [facility] - XR CHEST 2 [id number] 21:59:00 FAX: Solo Davidson [phone] [place]: B St: ADM FAX: Tremayne Glass MD [phone] Name: EL MEDINA [facility] : 1940 Age/S: 78/F Ike Vu Unit #: [id number] Loc: V.4032 [place], [place] [address] Phys: Tremayne Pagan MD Acct: [id number] Dis Date: Status: ADM IN PHONE #: [phone] Exam Date: 09/15/20182149 FAX #: [phone] Reason: chf EXAMS: CPT CODE: [id number] XR CHEST 2 V 88688 REASON FOR EXAM: chf Exam Order Date: 09/15/2018 12:00 AM Ordering M.D.: Tremayne Pagan MD PROCEDURE: - XR CHEST 2 V COMPARISON: 09/13/2018 FINDINGS: PA and lateral views of the chest show clear lungs without evidence of consolidation. No evidence of effusion. The heart size is minimally enlarged. Pulmonary vasculatures are unremarkable. The osseous structures are grossly intact. IMPRESSION: Interval resolution of the congestive heart failure and pulmonary edema. Persistent minimal cardiomegaly at 2159 Reported and signed by: Kyle Elizabeth M.D. CC: Solo Patrick; Tremayne Pagan MD Technologist: GERALD ScottR Trnscrd Date/Time/By: 09/15/2018 (2158) : By: BlakeVTL Orig Print D/T: S: 09/15/2018 (2201) PAGE 1 Signed Report [id number] 21:21:00* Test Item Value Reference Range Comments GLUBED (test code = GLUBED) 300 mg/dL 74-106 [facility] [id number] 15:38:00* Test Item Value Reference Range Comments GLUBED (test code = GLUBED) 240 mg/dL 74-106 Perf ormed by certified cyber operator at [facility] [id number] 12:01:00* Test Item Value Reference Range Comments GLUBED (test code = GLUBED) 185 mg/dL 74-106 Perf ormed by certified cyber operator at [facility] [id number] 07:53:00* Test Item Value Reference Range Comments GLUBED (test code = GLUBED) 149 mg/dL 74-106 Perf ormed by certified cyber operator at [facility] [id number] 21:48:00* Test Item Value Reference Range Comments GLUBED (test code = GLUBED) 170 mg/dL 74-106 Perf ormed by certified cyber operator at [facility] [id number] 16:00:00* Test Item Value Reference Range Comments GLUBED (test code = GLUBED) 181 mg/dL 74-106 Perf ormed by certified cyber operator at [facility] [id number] 12:37:00* Test Item Value Reference Range Comments GLUBED (test code = GLUBED) 155 mg/dL 74-106 Perf ormed by certified cyber operator at [facility] [id number] 08:16:00* Test Item Value Reference Range Comments GLUBED (test code = GLUBED) 116 mg/dL 74-106 Perf ormed by certified cyber operator at [facility] [id number] 00:19:00* Test Item Value Reference Range Comments GLUBED (test code = GLUBED) 145 mg/dL 74-106 [facility]~ B-TYPE NATRIURETIC [id number] 22:37:00* Test Item Value Reference Range Comments B-TYPE NATRIURETIC PEPTIDE (test code = BNP) 1294.07 pgram/mL 0- 100 BASIC METABOLIC [id number] 20:55:00* Test Item Value Reference Range Comments SODIUM (test code = NA) 139 mmol/L 136-145 POTASSIUM (test code = K) 4.1 mmol/L 3.5-5.1 CHLORIDE (test code = CL) 108.0 mmol/L 98-107 CARBON DIOXIDE (test code = CO2) 22.0 mmol/L 21-32 ANION GAP (test code = GAP) 13.1 10-20 GLUCOSE (test code = GLU) 136 mg/dL 74-106 BLOOD UREA NITROGEN (test code = BUN) 44 mg/dL 7-18 GLOMERULAR FILTRATION RATE (test code = GFR) 38 mL/min >=6 0 Estimated GFR by using Modified MDRD formula.Chronic kidney disease is defined as either kidney damageor GFR <60 mL/min/1.73 m2 for >3 months. CREATININE (test code = CREAT) 1.33 mg/dL 0.55-1.02 * *Note change in reference range due to change in reagent. BUN/CREATININE RATIO (test code = BUN/CREA) 33.1 10-2 0 CALCIUM (test code = CA) 8.1 mg/dL 8.5-10.1 [id number] 20:55:00* Test Item Value Reference Range Comments TROPONIN-I (test code = TROPI) 0.099 ng/mL 0-0.045 0 09/13/182054 CBC W/O [id number] 19:41:00* Test Item Value Reference Range Comments WHITE BLOOD CELL (test code = WBC) 9.3 K/mm3 4.5-12.5 RED BLOOD CELL (test code = RBC) 3.04 mill/mm3 3.7-5.2 HEMOGLOBIN (test code = HGB) 8.8 gram/dL 11.5-15.5 HEMATOCRIT (test code = HCT) 27.6 % 36.0-46.0 MEAN CELL VOLUME (test code = MCV) 90.8 fL 80-98 MEAN CELL HGB (test code = MCH) 28.9 picogram 27.0-33.0 MEAN CELL HGB CONCETRATION (test code = MCHC) 31.9 gram/dL 33 .0-36.0 RED CELL DISTRIBUTION WIDTH (test code = RDW) 14.8 % 11 .6-16.2 PLATELET COUNT (test code = PLT) 303 K/mm3 150-450 MEAN PLATELET VOLUME (test code = MPV) 10.8 fL 6.7-11.0 - XR CHEST 1 [id number] 18:55:00 FAX: Donovan Godwin DO Newell: B St: REG Name: [facility] : 09/11/18 40 Age/S: 78/F [address] [facility] Unit #: [id number] Loc: [place] [address] Phys: Donovan Godwin DO Acct: [id number] Dis Date: Status: REG ER PHONE #: [phone] Exam Date: 09/13/2018 1534 FAX #: [phone] Reason: Shortness of Breath EXAMS: CPT CODE: [id number] XR CHEST 1 V 87812 REASON FOR EXAM: Shortness of Breath Exam Order Date: 09/13/2018 3:17 PM Ordering MLaura: Donovan Godwin DO PROCEDURE: - XR CHEST 1 V COMPARISON: September 09, 2018. FINDINGS: The cardiac silhouette is enlarged and stable. There is stable bilateral perihilar congestion. 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 Atherosclerotic ossifications are again seen in the aortic arch. Th e trachea is in midline. The regional bones and the visualized upper abdom en are unchanged. IMPRESSION: Stable findings of enlarged cardiac silhouette and perihilar vascular congestion. 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 at 1855 Reported and signed by: Pamela Fish M.D. CC: Donovan Godwin DO Technologist: Miladys Murray Trnscrd Date/Time/By: 09/13/2018 (1854) : By: Mk [id number] Orig Print D/T: S: 09/13/2018 (1857) PAG E 1 Signed Report GLUBED 2018-09-11 16:31:00* Test Item Value Reference Range Comments GLUBED (test code = GLUBED) 130 mg/dL 74-106 Perf ormed by certified cyber operator at [facility] BLOOD UREA [id number] 11:58:00* Test Item Value Reference Range Comments BLOOD UREA NITROGEN (test code = BUN) 30 mg/dL 7-18 [id number] 11:58:00* Test Item Value Reference Range Comments CREATININE (test code = CREAT) 1.40 mg/dL 0.55-1.02 * *Note change in reference range due to change in reagent. [id number] 11:02:00* Test Item Value Reference Range Comments GLUBED (test code = GLUBED) 196 mg/dL 74-106 Perf ormed by certified cyber operator at [facility] [id number] 21:17:00* Test Item Value Reference Range Comments GLUBED (test code = GLUBED) 186 mg/dL 74-106 Perf ormed by certified cyber operator at [facility] [id number] 16:15:00* Test Item Value Reference Range Comments GLUBED (test code = GLUBED) 111 mg/dL 74-106 Perf ormed by certified cyber operator at [facility] [id number] 11:54:00* Test Item Value Reference Range Comments GLUBED (test code = GLUBED) 156 mg/dL 74-106 Perf ormed by certified cyber operator at [facility] [id number] 07:37:00* Test Item Value Reference Range Comments GLUBED (test code = GLUBED) 126 mg/dL 74-106 Perf ormed by certified cyber operator at [facility] [id number] 04:03:00* Test Item Value Reference Range Comments GLUBED (test code = GLUBED) 172 mg/dL 74-106 Perf ormed by certified cyber operator at [facility] [id number] 18:44:00* Test Item Value Reference Range Comments TROPONIN-I (test code = TROPI) 0.528 ng/mL 0-0.045 COMMENTS TO ASSOCIATE PROFESSOR OF HISTORY: COLLECT 3 HOURS AFTER PREVIOUS [id number] 16:31:00* Test Item Value Reference Range Comments TROPONIN-I (test code = TROPI) 0.557 ng/mL 0-0.045 COMMENTS TO ASSOCIATE PROFESSOR OF HISTORY: COLLECT 3 HOURS AFTER PREVIOUS [id number] 16:18:00* Test Item Value Reference Range Comments GLUBED (test code = GLUBED) 162 mg/dL 74-106 Perf ormed by certified cyber operator at [facility] B-TYPE NATRIURETIC [id number] 09:22:00* Test Item Value Reference Range Comments B-TYPE NATRIURETIC PEPTIDE (test code = BNP) 550 pg/mL 0-1 00 BASIC METABOLIC [id number] 09:16:00* Test Item Value Reference Range Comments SODIUM (test code = NA) 140 mmol/L 136-145 POTASSIUM (test code = K) 3.5 mmol/L 3.5-5.1 CHLORIDE (test code = CL) 111.0 mmol/L 98-107 CARBON DIOXIDE (test code = CO2) 21.0 mmol/L 21-32 ANION GAP (test code = GAP) 11.5 10-20 GLUCOSE (test code = GLU) 168 mg/dL 74-106 BLOOD UREA NITROGEN (test code = BUN) 24 mg/dL 7-18 GLOMERULAR FILTRATION RATE (test code = GFR) 36 mL/min >=6 0 Estimated GFR by using Modified MDRD formula.Chronic kidney disease is defined as either kidney damageor GFR <60 mL/min/1.73 m2 for >3 months. CREATININE (test code = CREAT) 1.40 mg/dL 0.55-1.02 * *Note change in reference range due to change in reagent. BUN/CREATININE RATIO (test code = BUN/CREA) 17.1 10-2 0 CALCIUM (test code = CA) 8.1 mg/dL 8.5-10.1 HEPATIC FUNCTION [id number] 09:16:00* Test Item Value Reference Range Comments TOTAL PROTEIN (test code = PROT) 6.7 gram/dL 6.4-8.2 ALBUMIN (test code = ALB) 3.0 g/dL 3.4-5.0 GLOBULIN (test code = GLOB) 3.7 gram/dL 2.7-4.2 ALBUMIN/GLOBULIN RATIO (test code = A/G) 0.8 0.75-1. 50 BILIRUBIN TOTAL (test code = BILT) 0.20 mg/dL 0.0-1.0 BILIRUBIN DIRECT (test code = BILD) 0.11 mg/dL 0.0-0.20 SGOT/AST (test code = AST) 15 IUnit/L 15-37 SGPT/ALT (test code = ALT) 32 IUnit/L 12-78 ALKALINE PHOSPHATASE TOTAL (test code = ALKP) 89 IUnit/L 45 -117 Note change in reference range due to change in reagent. [id number] 09:16:00* Test Item Value Reference Range Comments TROPONIN-I (test code = TROPI) 0.578 ng/mL 0-0.045 R esults called to [id number] by NAHED 09/09/18 0916Critical results verified and read back by Nurse? Y PROCALCITONIN (PCT)2018-09-09 09:12:00* Test Item Value Reference Range Comments PROCALCITONIN (PCT) (test code = PROCAL) 0.09 ng/ml Concentration Interpretation (ng/mL) <0.51 Sepsis is not likely. Local bacterial infection is possible. (LOW RISK for progression to Sepsis) 0.51 - 2.00 Sepsis is possible, but other conditions are known to elevate PCT as well. (MODERATE RISK for progression to Sepsis) > 2.00 Sepsis is likely, unless other causes are known. (HIGH RISK for progression to Severe Sepsis or Septic Shock) 10.00 High likelihood of Severe Sepsis or Septic or higher Shock. *Increased PCT levels may not always be related to systemic bacterial infection.*Low PCT levels do not automatically exclude the presence of bacterial infection.*All results should be interpreted taking into account the patients history. LACTIC [id number] 09:04:00* Test Item Value Reference Range Comments LACTIC ACID (test code = LACT) 1.1 mmol/L 0.4-1.9 CBC W/AUTO [id number] 08:55:00* Test Item Value Reference Range Comments WHITE BLOOD CELL (test code = WBC) 6.3 K/mm3 4.5-12.5 RED BLOOD CELL (test code = RBC) 3.17 mill/mm3 3.7-5.2 HEMOGLOBIN (test code = HGB) 9.3 gram/dL 11.5-15.5 HEMATOCRIT (test code = HCT) 28.6 % 36.0-46.0 MEAN CELL VOLUME (test code = MCV) 90.2 fL 80-98 MEAN CELL HGB (test code = MCH) 29.3 picogram 27.0-33.0 MEAN CELL HGB CONCETRATION (test code = MCHC) 32.5 gram/dL 33 .0-36.0 RED CELL DISTRIBUTION WIDTH (test code = RDW) 15.1 % 11 .6-16.2 RED CELL DISTRIBUTION WIDTH SD (test code = RDW-SD) 49.7 fL 37.0-51.0 PLATELET COUNT (test code = PLT) 241 K/mm3 150-450 MEAN PLATELET VOLUME (test code = MPV) 10.6 fL 6.7-11.0 NEUTROPHIL % (test code = NT%) 75.4 % 39.0-69.0 IMMATURE GRANULOCYTE % (test code = IG%) 0.6 % 0.0-5.0 LYMPHOCYTE % (test code = LY%) 13.4 % 25.0-55.0 MONOCYTE % (test code = MO%) 7.4 % 0.0-10.0 EOSINOPHIL % (test code = EO%) 3.0 % 0.0-5.0 BASOPHIL % (test code = BA%) 0.2 % 0.0-1.0 NUCLEATED RBC % (test code = NRBC%) 0.0 % 0-0 NEUTROPHIL # (test code = NT#) 4.77 K/mm3 1.8-7.7 IMMATURE GRANULOCYTE # (test code = IG#) 0.04 x10 3/uL 0-0.03 LYMPHOCYTE # (test code = LY#) 0.85 K/mm3 1.0-5.0 MONOCYTE # (test code = MO#) 0.47 K/mm3 0-0.8 EOSINOPHIL # (test code = EO#) 0.19 K/mm3 0.0-0.5 BASOPHIL # (test code = BA#) 0.01 K/mm3 0.0-0.2 NUCLEATED RBC # (test code = NRBC#) 0.00 K/mm3 0.0-0.1 BASIC METABOLIC [id number] 08:55:00* Test Item Value Reference Range Comments SODIUM (test code = NA) 140 mmol/L 136-145 POTASSIUM (test code = K) 3.5 mmol/L 3.5-5.1 CHLORIDE (test code = CL) 111.0 mmol/L 98-107 CARBON DIOXIDE (test code = CO2) mmol/L 21-32 ANION GAP (test code = GAP) 10-20 GLUCOSE (test code = GLU) mg/dL 74-106 BLOOD UREA NITROGEN (test code = BUN) mg/dL 7-18 GLOMERULAR FILTRATION RATE (test code = GFR) mL/min >=6 0 CREATININE (test code = CREAT) mg/dL 0.55-1.02 BUN/CREATININE RATIO (test code = BUN/CREA) 10-2 0 CALCIUM (test code = CA) mg/dL 8.5-10.1 HEPATIC FUNCTION [id number] 08:55:00* Test Item Value Reference Range Comments TOTAL PROTEIN (test code = PROT) gram/dL 6.4-8.2 ALBUMIN (test code = ALB) g/dL 3.4-5.0 GLOBULIN (test code = GLOB) gram/dL 2.7-4.2 ALBUMIN/GLOBULIN RATIO (test code = A/G) 0.75-1. 50 BILIRUBIN TOTAL (test code = BILT) mg/dL 0.0-1.0 BILIRUBIN DIRECT (test code = BILD) mg/dL 0.0-0.20 SGOT/AST (test code = AST) IUnit/L 15-37 SGPT/ALT (test code = ALT) IUnit/L 12-78 ALKALINE PHOSPHATASE TOTAL (test code = ALKP) IUnit/L 45 -117 [id number] 08:55:00* Test Item Value Reference Range Comments TROPONIN-I (test code = TROPI) ng/mL 0-0.045 - XR CHEST 1 [id number] 08:30:00 FAX: Scott Gomez [place]: B St: REG Name: [facility] : 09/11/18 39 Age/S: 77/F [address] [facility] Unit #: [id number] Loc: [place] [address] Phys: Scott Gomez MD Acct: [id number] Dis Date: Status: REG ER PHONE #: [phone] Exam Date: 09/09/2018 0805 FAX #: [phone] Reason: CODE SEPSIS EXAMS: CPT CODE: [id number] XR CHEST 1 V 46367 HISTORY: Sepsis. COM PARISON: August 06, 2017. Interstitial edema or infiltrate. No effusio n. Dependent changes. Cardiomegaly. IMPRESSION: Interstitial infiltrates and/or edema. Dependent changes. El ectronically Signed by Luiz Lewis on 09/09/2018 at 0830 Reported and signed by: Luiz Frias C: Scott Gomez MD Technologist: ALEJO REED RT(R) Trnscrd Date/Time/By: 09/09/2018 (829) : By: [email or web address] Orig Print D/T: S: 09/09/2018 (33) PAGE 1 Signed Report POC LACTIC [id number] 08:26:00* Test Item Value Reference Range Comments POC LACTIC ACID (test code = POCLAC) 0.88 MMOL/L 0.4-2.2
--- NOTE | 2019-08-13 18:34 | NUR ---
PATIENT ARRIVED TO UNIT AT APPROXIMATELY 1815. AAOX3. ACYANOTIC. NO DISTRESS NOTED. RESTING IN BED WATCHING TELEVISION. CALL LIGHT IN REACH. BED LOW. SIDE RAILS UP X2.
[2019-08-13] MEDS ORDERED: DEXTROSE 50% SYRINGE 50 ML IV PRN (19:00)
[2019-08-13] MEDS ORDERED: FUROSEMIDE INJ 10 MG/ML 4 ML VIAL IV ONE (19:30)
[2019-08-13] MEDS: NIFEDIPINE CR 30 MG TAB PO SCH (19:57)
[2019-08-13] MEDS: INSULIN REGULAR, HUMAN 100 UNIT/1 ML 3ML VIAL SQ SCH (19:58)
[2019-08-13 20:00] VITALS: BP 162/72
--- NOTE | 2019-08-13 20:04 | Consultation ---
DATE OF CONSULTATION: Pulmonary Critical Care Consultation. CHIEF COMPLAINT: Cough, wheezing and congestion. HISTORY OF PRESENT ILLNESS: The patient is a 78-year-old woman. She has a history of chronic renal insufficiency, hypertension, diabetes, and COPD. She was recently hospitalized at [facility] last month for COPD exacerbation and renal insufficiency. She also had a mildly decreased ejection fraction and some congestive heart failure at that time. She now complains of worsening swelling in her hands and her legs. She is very concerned about her cough. She coughs more at night. She hears wheezing at night. When she coughs she brings up some phlegm. She denies fevers. PAST SURGICAL HISTORY: Status post cholecystectomy. PAST MEDICAL HISTORY: 1. Diabetes. 2. Chronic obstructive pulmonary disease. 3. Chronic renal insufficiency. 4. Hypertension. 5. Diastolic heart failure. FAMILY HISTORY: Family history is significant for diabetes and hypertension. ALLERGIES: THERE ARE NO KNOWN DRUG ALLERGIES. SOCIAL HISTORY: The patient is not an active smoker or drinker. REVIEW OF SYSTEMS: She denies fever, headache. She is not having any neck pain. She denies any chest pain. She does note cough and congestion. She has some wheezing that is worsen at night. She has no abdominal pain. She has no nausea or vomiting. She has no leg edema. She does have some leg edema and some hand swelling. She has no neurological complaints. PHYSICAL EXAMINATION: VITAL SIGNS: The blood pressure is 127/57, saturation is 100% and the pulse is 81. HEENT: No facial swelling or erythema. CARDIAC: Regular rate and rhythm with normal S1, S2. LUNGS: Auscultation of lungs reveals rhonchorous breath sounds bilaterally. There is a prolonged expiratory phase. ABDOMEN: Soft, nontender. There is no rebound or guarding. EXTREMITIES: Examination of the extremities shows 1 to 2+ leg edema. NEUROLOGICAL: No focal abnormalities. LABORATORY DATA: White blood cell count is 8.9 and hemoglobin is 9. The platelet count is 356,000. BUN to creatinine ratio is 64 to 1.98. The blood sugar is 259 and the sodium is 133. Potassium is 3.2 and the BNP is 561.7. RADIOGRAPHIC DATA: Chest x-ray shows possible atelectasis in the left lower lobe. IMPRESSION: 1. Chronic obstructive pulmonary disease with acute exacerbation. 2. Acute on chronic diastolic heart failure. 3. Chronic renal failure, stage 4. 4. Diabetes. PLAN: 1. Continue Solu-Medrol along with bronchodilators. 2. Lasix x1 dose. 3. Antibiotics. 4. Cough suppressants. 5. Monitor renal function. 6. Monitor and control blood sugars. MD ZACH Lewis/MODL /[id number]
[2019-08-13] MEDS: GUAIFENESIN/CODEINE 10 ML CUP PO PRN (20:12)
[2019-08-13] MEDS ORDERED: HYDRALAZINE HC100 MG PO (20:17)
[2019-08-13] MEDS ORDERED: ALLOPURINOL100 MG PO (20:18)
[2019-08-13 20:28] LABS: CREATINE KINASE MB 1.4 ng/mL (0-5.0)
--- NOTE | 2019-08-13 20:31 | NUR ---
Patient currently awake and resting in bed, no s/s of distress or c/o pain. Assisted patient to restroom and back to bed, and provided walker. Bed locked and in low position, call light placed within reach. Patient instructed to call for assistance if needed, verbalized understanding. Negative for COVID per lab. All safety measures in place. Will continue to monitor.
[2019-08-13 20:32] VITALS: BP 162/72
[2019-08-13 20:39] VITALS: BP 162/72
[2019-08-13] MEDS ORDERED: ZOLPIDEM TARTRATE 5 MG TAB PO PRN (21:00)
[2019-08-14] VITALS (8 sets, daily range): BP systolic 127–164; BP diastolic 62–101
[2019-08-14] MEDS: GUAIFENESIN/CODEINE 10 ML CUP PO PRN ×4 (00:12→21:11)
[2019-08-14 01:01] LABS: CREATINE KINASE MB 1.4 ng/mL (0-5.0)
[2019-08-14 05:38] LABS: BASOPHILS % 0.1 % (0.0-1.0); HEMATOCRIT 27.4 % (34.2-44.1); HEMOGLOBIN 8.8 g/dL (12.0-16.0); LYMPHOCYTES # (AUTO) 0.8 (1.0-3.2); LYMPHOCYTES % 11.2 % (18.0-39.1); MEAN CORPUSCULAR HEMOGLOBIN 30.7 pg (28-32); MEAN CORPUSCULAR HGB CONC 32.1 g/dL (31-35); MEAN CORPUSCULAR VOLUME 95.5 fL (81-99); MONOCYTES # (AUTO) 0.1 (0.2-0.8); MONOCYTES % 1.9 % (4.4-11.3); NEUTROPHILS # (AUTO) 5.7 (2.1-6.9); NEUTROPHILS % 85.8 % (38.7-80.0); PLATELET COUNT 330 x10e3/uL (140-360); RED BLOOD COUNT 2.87 x10e6/uL (3.6-5.1); RED CELL DISTRIBUTION WIDTH 15.9 % (11.7-14.4)
[2019-08-14 06:04] LABS: ALBUMIN 2.9 g/dL (3.5-5.0); ALBUMIN/GLOBULIN RATIO 0.9 (0.8-2.0); ANION GAP 16.2 mmol/L (8-16); CALCIUM 8.7 mg/dL (8.4-10.2); POTASSIUM 4.2 mmol/L (3.5-5.1)
[2019-08-14 06:28] LABS: CREATINE KINASE MB 1.3 ng/mL (0-5.0)
[2019-08-14] MEDS ORDERED: GLIPIZIDE 5 MG TAB PO SCH (07:30)
[2019-08-14] MEDS: INSULIN REGULAR, HUMAN 100 UNIT/1 ML 3ML VIAL SQ SCH ×4 (07:30→20:57)
--- NOTE | 2019-08-14 07:30 | NUR ---
BEDSIDE REPORT RECEIVED PT IN STABLE CONDITION, DENIES PAIN AT THIS TIME, UPDATED ON POC VOICED UNDERSTANDING, CALL LIGHT IN REACH WILL CONTINUE TO MONITOR
[2019-08-14] MEDS: PRAVASTATIN 20 MG TAB PO SCH (08:25)
[2019-08-14] MEDS: ASPIRIN 81 MG ENTERIC COATED PO SCH (08:25)
[2019-08-14] MEDS: PREDNISONE 20 MG TAB PO SCH (08:26)
[2019-08-14] MEDS: NIFEDIPINE CR 30 MG TAB PO SCH ×2 (08:26→21:00)
--- NOTE | 2019-08-14 10:38 | NUR ---
H&P cc: sob/cp HPI: 78yoF, PCP ??. developed SOB for 2 days; no dizzness. Mild cough; no chest pain. 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 affect a&ox3; labs/meds revd A/P: 78yoF AECOPD- ceftraixone/azithromycin; add antitussives; O2 prn; nebs PRN; prednisone. 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
[2019-08-14 10:54] LABS: CHOL/HDL RATIO 3.2 (3.0-3.6)
[2019-08-14] MEDS: CEFTRIAXONE SOD 1 GM/NS 50 ML 50 ML IV SCH (11:45)
[2019-08-14] MEDS ORDERED: SODIUM CHLORIDE 0.9% 250ML 250 ML ONE (11:55)
[2019-08-14] MEDS: HYDRALAZINE HCL 100 MG TABLET PO SCH ×2 (13:42→21:01)
[2019-08-14] MEDS: AZITHROMYCIN 500MG/NS 250 ML 250 ML IV SCH (14:24)
[2019-08-14] MEDS: BENZONATATE 100 MG CAP PO SCH ×2 (14:53→21:00)
--- NOTE | 2019-08-14 15:32 | Progress Note ---
DATE: SUBJECTIVE: The patient is improved, but still has some coughing and wheezing. She is very concerned about going home without resolution of problems. Her bates virus testing is negative. PHYSICAL EXAMINATION: VITAL SIGNS: The blood pressure is 134/75, saturation is 95%, pulse is 75. HEENT: Shows no facial swelling or erythema. CARDIAC: Reveals regular rate and rhythm with normal S1, S2. LUNGS: Auscultation of lungs shows decreased breath sounds at the bases. There is no wheezing. ABDOMEN: Soft, nontender. There is no rebound or guarding. EXTREMITIES: Show no leg edema or calf tenderness. There is no cyanosis, clubbing. SKIN: Shows no rashes. LABORATORY DATA: Hemoglobin is 8.8 and white blood cell count is 6.7. The platelet count is 330. The blood sugar is 118. The BUN to creatinine ratio is 68:2. Other electrolytes within normal limits. IMPRESSION: 1. Chronic obstructive pulmonary disease with acute exacerbation. 2. Acute on chronic diastolic heart failure. 3. Diabetes. 4. Chronic renal failure stage 4. PLAN: 1. Continue low-dose steroids. 2. Continue bronchodilators. 3. Cough suppressants. 4. Continue to monitor and control blood sugars. 5. Continue to adjust antihypertensive regimen. Amadou Deal MD Tiago/CASTILLO /[id number]
--- NOTE | 2019-08-14 16:20 | NUR ---
report given to receiving nurse pt will transfer to rm 284 after dinner
[2019-08-14] MEDS: FAMOTIDINE 20 MG TAB PO SCH (16:31)
--- NOTE | 2019-08-14 17:37 | NUR ---
pt transferred to rm 284 with all belongings, pt left in stable condition.
--- NOTE | 2019-08-14 18:07 | NUR ---
patient arrived to room 284. all questions answered. no needs expressed at this time. wctm.
--- NOTE | 2019-08-14 18:32 | Consultation ---
DATE OF CONSULTATION: HISTORY OF PRESENT ILLNESS: Ms. Dorman is a very pleasant 78-year-old female with history of obesity, hypertension, diabetes mellitus, chronic kidney disease, COPD. [facility], renal insufficiency. She comes in with abdominal discomfort, right upper quadrant and not feeling well. She had also some cough and feeling feverish. The patient was admitted, started on antibiotic. She is currently feeling better today. PAST MEDICAL HISTORY: Cholecystectomy, IV access for dialysis. PAST SURGICAL HISTORY: As above. PAST MEDICAL HISTORY: Diabetes mellitus, neuropathy, obesity, COPD, renal insufficiency, diastolic congestive heart failure. FAMILY HISTORY: Diabetes mellitus and hypertension. SOCIAL HISTORY: There is no smoking, drug abuse or alcohol abuse. REVIEW OF SYSTEMS: Besides as mentioned above HEENT: Negative. PULMONARY: Negative. CARDIAC: Negative. : Negative. SKIN: There is no rash. LABORATORY DATA: White count 6.69 with hemoglobin 8.8, platelet of 330. Her COVID-19 is negative. PHYSICAL EXAMINATION: GENERAL: She is currently alert, oriented, does not seem in acute distress. There is no fever since admission. HEENT: Normocephalic, not icteric. NECK: Supple. CHEST: Clear bilateral. HEART: S1, S2. No S3, S4, or murmur. ABDOMEN: Soft. Bowel sounds present. EXTREMITIES: No edema. SKIN: No rash. LABORATORY DATA: Her chest x-ray showed left lower lobe atelectasis versus pneumonia. IMPRESSION: 1. Abdominal pain. We will obtain CT scan of abdomen and pelvis. Recheck CBC. Recheck Chem panel. 2. Pneumonia probably aspiration. 3. Obesity. 4. Coronary artery disease. 5. Diabetes mellitus. MEDICATIONS LIST: She is currently on prednisone 20 mg daily. Ceftriaxone and azithromycin were started and she said she is feeling better, so I am going to observe her. Further recommendations are depending on the finding of the CT scan and clinical progress. We will check amylase and lipase. MD SOPHIA Lucero/CASTILLO /[id number]
[2019-08-14] MEDS: HEPARIN SOD (PORCINE) 5,000 UNIT/ML VIAL SC SCH (20:58)
[2019-08-15] VITALS (8 sets, daily range): BP systolic 121–166; BP diastolic 51–84
--- NOTE | 2019-08-15 05:27 | NUR ---
IM- progress note O/N see below ROS: no f/c/s/N/V/D/SILVERIO/cp/dizziness/skin rash/focal limb weakness v/s revd PE tired appearing anicteric ns1s2 reduced BS soft nt nd no e/t skin dry n. affect a&ox3; labs/meds revd A/P: 78yoF AECOPD- ceftraixone/azithromycin; add antitussives; O2 prn; nebs PRN; prednisone. 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
[2019-08-15] MEDS: HYDRALAZINE HCL 100 MG TABLET PO SCH ×3 (06:15→21:00)
[2019-08-15 06:38] LABS: BASOPHILS % 0.4 % (0.0-1.0); EOSINOPHILS # (AUTO) 0.1 (0.0-0.4); EOSINOPHILS % 0.9 % (0.0-6.0); HEMATOCRIT 28.2 % (34.2-44.1); HEMOGLOBIN 8.9 g/dL (12.0-16.0); LYMPHOCYTES # (AUTO) 1.9 (1.0-3.2); MEAN CORPUSCULAR HEMOGLOBIN 29.9 pg (28-32); MEAN CORPUSCULAR HGB CONC 31.6 g/dL (31-35); MEAN CORPUSCULAR VOLUME 94.6 fL (81-99); MONOCYTES # (AUTO) 0.9 (0.2-0.8); MONOCYTES % 9.3 % (4.4-11.3); PLATELET COUNT 344 x10e3/uL (140-360); RED BLOOD COUNT 2.98 x10e6/uL (3.6-5.1); RED CELL DISTRIBUTION WIDTH 16.3 % (11.7-14.4)
[2019-08-15 07:03] LABS: ALBUMIN 2.9 g/dL (3.5-5.0); ANION GAP 13.9 mmol/L (8-16); CALCIUM 8.5 mg/dL (8.4-10.2); CREATININE, SERUM 1.52 mg/dL (0.57-1.11); POTASSIUM 3.9 mmol/L (3.5-5.1)
--- NOTE | 2019-08-15 07:05 | NUR ---
BEDSIDE SHIFT REPORT RECEIVED FROM PM NURSE. PT AWAKE, ALERT, ORIENTED, NO SIGNS OF DISTRESS.
[2019-08-15] MEDS: INSULIN REGULAR, HUMAN 100 UNIT/1 ML 3ML VIAL SQ SCH ×4 (07:30→20:59)
[2019-08-15] MEDS ORDERED: DIATRIZOATE MEGL/DIATRIZOA SOD 30 ML BTL PO ONE (07:54)
[2019-08-15] MEDS: BENZONATATE 100 MG CAP PO SCH (08:22)
[2019-08-15] MEDS: FAMOTIDINE 20 MG TAB PO SCH ×2 (08:22→17:32)
[2019-08-15] MEDS: ASPIRIN 81 MG ENTERIC COATED PO SCH (08:22)
[2019-08-15] MEDS: PRAVASTATIN 20 MG TAB PO SCH (08:23)
[2019-08-15] MEDS: PREDNISONE 20 MG TAB PO SCH (08:23)
[2019-08-15] MEDS: HEPARIN SOD (PORCINE) 5,000 UNIT/ML VIAL SC SCH ×2 (08:23→20:59)
[2019-08-15] MEDS: NIFEDIPINE CR 30 MG TAB PO SCH ×2 (08:24→20:58)
[2019-08-15] MEDS: ALLOPURINOL 100 MG TAB PO SCH (08:24)
--- NOTE | 2019-08-15 10:53 | Diagnostic Imaging Report ---
EXAMINATION: CT of the abdomen and pelvis without contrast. TECHNIQUE: Helical CT images of the abdomen and pelvis were performed from the lung bases to the lesser trochanters. No intravenous contrast was given. Enteric contrast administered. Coronal and sagittal reformatted images were obtained. Dose modulation, iterative reconstruction, and/or weight based adjustment of the mA/kV was utilized to reduce the radiation dose to as low as reasonably achievable. COMPARISON: None. CLINICAL HISTORY:Abdominal pain, right upper quadrant DISCUSSION: ABSENCE OF INTRAVENOUS CONTRAST DECREASES SENSITIVITY FOR DETECTION OF FOCAL LESIONS AND VASCULAR PATHOLOGY. ABDOMEN/PELVIS: LOWER THORAX: Unremarkable. HEPATOBILIARY:No focal hepatic lesions. Cholecystectomy. No biliary dilation. SPLEEN: No splenomegaly. PANCREAS: No focal masses or ductal dilatation. ADRENALS: No adrenal nodules. KIDNEYS/URETERS: Right renal anterior exophytic cyst. Cortical thinning. No calculus or hydronephrosis. PELVIC ORGANS/BLADDER: The bladder is decompressed. Patient has undergone hysterectomy. PERITONEUM/RETROPERITONEUM: No free air or fluid. LYMPH NODES: No intra-abdominal,retroperitoneal, pelvic or inguinal lymphadenopathy. VESSELS: Limited evaluation. Vascular calcifications. GI TRACT: No distention or wall thickening. Postsurgical change to the sigmoid colon. BONES AND SOFT TISSUES: No bony destructive lesions. No soft tissue abnormalities. IMPRESSION: No acute CT finding. Signed by: Dr. Juan Ramon Carmichael M.D. on 08/15/2019 10:50 AM
[2019-08-15] MEDS: GUAIFENESIN/CODEINE 10 ML CUP PO SCH ×2 (13:02→20:58)
[2019-08-15] MEDS ORDERED: SODIUM CHLORIDE 0.9% 250ML 250 ML ONE (13:10)
[2019-08-15] MEDS: CEFTRIAXONE SOD 1 GM/NS 50 ML 50 ML IV SCH (13:12)
--- NOTE | 2019-08-15 14:20 | Progress Note ---
DATE: SUBJECTIVE: The patient had some abdominal pain this morning. She went for a CT scan that showed no acute pathology. She has improved, but still complains of some cough. She also has some wheezing. She does not think the cough is worse after eating. PHYSICAL EXAMINATION: VITAL SIGNS: The patient is afebrile. Blood pressure is 121/51, saturation is 96%. HEENT: No facial swelling or erythema. CARDIAC: Regular rate and rhythm with normal S1 and S2. There are no murmurs or rubs heard. LUNGS: Auscultation of the lungs reveals rhonchorous breath sounds bilaterally. There is no wheezing. ABDOMEN: Soft and nontender. There is no rebound or guarding. EXTREMITIES: No leg edema or calf tenderness. There is no cyanosis or clubbing. SKIN: No rashes. NEUROLOGICAL: No focal abnormalities. IMPRESSION: 1. Persistent cough and wheezing. 2. Chronic obstructive pulmonary disease with acute exacerbation. 3. Diabetes. 4. Chronic renal failure stage 5. PLAN: 1. Continue corticosteroids. 2. Bronchodilators. 3. Speech therapy to evaluate swallowing function. 4. Robitussin with codeine. 5. Continue antibiotics. MD ZACH Lewis/CASTILLO /[id number]
[2019-08-15] MEDS ORDERED: ONDANSETRON HCL 4 MG ORAL DISINTEGRATING TAB PO PRN (14:30)
[2019-08-15] MEDS: AZITHROMYCIN 500MG/NS 250 ML 250 ML IV SCH (14:46)
--- NOTE | 2019-08-15 19:00 | NUR ---
RECEIVED PATIENT IN BEDSIDE SHIFT REPORT. PATIENT SITTING IN CHAIR AT BEDSIDE WITH WALKER. NO PAIN REPORTED. NO S&S OF DISTRESS NOTED. BED LOCKED IN LOWEST POSITION, SIDE RAILS UPX2, CALL LIGHT IN REACH.
[2019-08-16] VITALS (9 sets, daily range): BP systolic 119–166; BP diastolic 46–69
--- NOTE | 2019-08-16 02:55 | NUR ---
PATIENT CALLED STATING SHE WAS SWEATING, BLOOD SUGAR AND VITALS CHECKED. VITALS STABLE. BLOOD SUGAR NOTED TO BE 57. ORANGE JUICE PROVIDED WELL PEANUT BUTTER AND ARJUN CRACKERS. WILL CONTINUE TO MONITOR.
--- NOTE | 2019-08-16 03:18 | NUR ---
BLOOD SUGAR 82, PROVIDED APPLE JUICE, PATIENT STATES SHE DOES NOT LIKE ORANGE JUICE.
[2019-08-16] MEDS: GUAIFENESIN/CODEINE 10 ML CUP PO SCH ×3 (05:00→21:28)
[2019-08-16] MEDS: HYDRALAZINE HCL 100 MG TABLET PO SCH ×3 (06:37→22:00)
[2019-08-16] MEDS: FAMOTIDINE 20 MG TAB PO SCH ×2 (06:38→16:00)
--- NOTE | 2019-08-16 07:00 | NUR ---
PATIENT IS AWAKE, ALERT, AND IN STABLE CONDITION WITH NO S/S OF RESPIRATORY DISTRESS. NO PAIN VOICED. TELEMETRY APPLIED. CALL LIGHT IS WITHIN REACH, PATIENT INSTRUCTED TO CALL FOR ASSISTANCE NEEDED.
[2019-08-16] MEDS: INSULIN REGULAR, HUMAN 100 UNIT/1 ML 3ML VIAL SQ SCH ×4 (07:30→21:00)
[2019-08-16] MEDS: ASPIRIN 81 MG ENTERIC COATED PO SCH (08:41)
[2019-08-16] MEDS: PRAVASTATIN 20 MG TAB PO SCH (08:41)
[2019-08-16] MEDS: ALLOPURINOL 100 MG TAB PO SCH (08:41)
[2019-08-16] MEDS: HEPARIN SOD (PORCINE) 5,000 UNIT/ML VIAL SC SCH ×2 (08:41→21:00)
[2019-08-16] MEDS: PREDNISONE 20 MG TAB PO SCH (08:42)
[2019-08-16] MEDS: NIFEDIPINE CR 30 MG TAB PO SCH ×2 (08:42→21:28)
--- NOTE | 2019-08-16 09:48 | Progress Note ---
DATE: Infectious Disease SUBJECTIVE: The patient is seen and evaluated with the staff in the room. No new complaints. REVIEW OF SYSTEMS: No nausea, vomiting, fever, chills, chest pain, or shortness of breath. Nasal congestion and body ache improved significantly. OBJECTIVE: VITAL SIGNS: Temperature 97.6, pulse 76, respirations 19, blood pressure 147/46. GENERAL: Alert and oriented, in no acute distress. CV: S1 and S2. CHEST: Equal expansion. Clear to auscultation. No acute distress. ABDOMEN: Soft, nontender. No distention. Obese. HEENT: Moist. No pallor. No JVD. EXTREMITIES: Weak. MEDICATIONS: Medication list reviewed. As far as Infectious Disease point of view, patient is on Rocephin and Zithromax. LABORATORY STUDIES: White count of 10.07, hemoglobin 8.9, and platelets 344, these are off on 08/15/2019. No new BMP from today. MICROBIOLOGY: On 08/13/2019, blood culture negative so far. RADIOLOGY STUDIES: On 08/15/2019, CT of abdomen and pelvis showed no acute findings. ASSESSMENT AND PLAN: 1. Possible aspiration pneumonia. 2. Abdominal pain-resolved. CT of abdomen and pelvis showed no acute finding. 3. Diabetes mellitus type 2. 4. Coronary artery disease. 5. Obesity. 6. Debility. 7. Remains on Rocephin and Zithromax. PLAN: We will follow with echo result, the final report, but preliminary showed small pericardial effusion about 0.87 cm with the left ventricular hypertrophy and ejection fraction over 65% to 70%. This case was discussed with Dr. Fried in details. Please refer to chart for more information. MD SOPHIA Lucero/MODL /[id number]
--- NOTE | 2019-08-16 10:00 | NUR ---
Received bedside shift report from nurse, patient is in stable condition. IV line patent. Call light within reach. Bed in the lowest position.
--- NOTE | 2019-08-16 10:59 | NUR ---
IM- progress note O/N see below ROS: no f/c/s/N/V/D/SILVERIO/cp/dizziness/skin rash/focal limb weakness v/s revd PE tired appearing anicteric ns1s2 reduced BS soft nt nd no e/t skin dry n. affect a&ox3; labs/meds revd A/P: 78yoF AECOPD- ceftraixone/azithromycin; add antitussives; O2 prn; nebs PRN; prednisone. 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
[2019-08-16] MEDS: CEFTRIAXONE SOD 1 GM/NS 50 ML 50 ML IV SCH (11:15)
[2019-08-16] MEDS: AZITHROMYCIN 500MG/NS 250 ML 250 ML IV SCH (12:30)
[2019-08-16 12:33] LABS: ANION GAP 14.9 mmol/L (8-16); CALCIUM 8.2 mg/dL (8.4-10.2); CREATININE, SERUM 1.41 mg/dL (0.57-1.11); POTASSIUM 3.9 mmol/L (3.5-5.1)
--- NOTE | 2019-08-16 12:41 | NUR ---
PT IS A [address] SANCHEZ REGARDING STATUS. HE ASKED IF DR. GRIJALVA WAS THE PULMONARY DOC AND WANTED TO REVIEW. WILL AWAIT CALL BACK.
--- NOTE | 2019-08-16 14:11 | NUR ---
DR. Barrington GRIJALVA ROUNDING ON PATIENT, HE GAVE CLEARANCE FOR DISCHARGE, PRESCRIPTIONS IN CHART.
--- NOTE | 2019-08-16 14:12 | NUR ---
PAGED DR. AHN AT THIS TIME TO FIND OUT IF HE WANTS TO GIVE PATIENT PRESCRIPTION FOR ABTS FOR DISCHARGE.
--- NOTE | 2019-08-16 15:05 | Progress Note ---
DATE: SUBJECTIVE: The patient still has some cough, although she is improved. She has less wheezing. PHYSICAL EXAMINATION: VITAL SIGNS: The patient is afebrile. The vital signs are stable. CARDIAC: Reveals regular rate and rhythm with normal S1 and S2. LUNGS: Auscultation of lungs reveals clear breath sounds bilaterally. There is no wheezing. ABDOMEN: Soft and nontender. There is no rebound or guarding. EXTREMITIES: Shows no leg edema or calf tenderness. LABORATORY DATA: BUN to creatinine ratio is 57 to 1.14. Other electrolytes are within normal limits. The CBC is within normal limits. IMPRESSION: 1. Acute bronchitis. 2. Chronic obstructive pulmonary disease with acute exacerbation. 3. Diabetes. 4. Chronic renal failure, stage 4. PLAN: 1. Complete antibiotics. 2. Continue prednisone at home for 5 days. 3. Cough syrup with codeine at home as needed. 4. Follow up with Dr. Deal in 10 days. Amadou Deal MD [facility]/EFRENL /[id number]
--- NOTE | 2019-08-16 15:14 | NUR ---
PER DR. AHN, PATIENT CAN BE DISCHARGED HOME WITHOUT PO ANTIBIOTICS.
--- NOTE | 2019-08-16 19:23 | NUR ---
BEDSIDE SHIFT REPORT GIVEN TO ONCOMING NURSE. PATIENT IS SITTING UP IN CHAIR. NO ACUTE DISTRESS NOTED. CALL LIGHT WITHIN REACH. BED IN THE LOWEST POSITION.
--- NOTE | 2019-08-16 19:38 | NUR ---
RECEIVED PATIENT IN BEDSIDE SHIFT REPORT. PATIENT SITTING IN CHAIR AT BEDSIDE. NO PAIN REPORTED. NO ACUTE DISTRESS NOTED NOTED. BED LOCKED IN LOWEST POSITION, SIDE RAILS UPX2, CALL LIGHT IN REACH.
[2019-08-17] VITALS (7 sets, daily range): BP systolic 137–166; BP diastolic 50–57
--- NOTE | 2019-08-17 04:54 | NUR ---
PT RESTED DURING THE NIGHT .DENIES PAIN .CALL LIGHT WITHIN REACH .CONTINUE TO MONITOR
[2019-08-17] MEDS: HYDRALAZINE HCL 100 MG TABLET PO SCH ×2 (05:25→15:18)
[2019-08-17] MEDS: GUAIFENESIN/CODEINE 10 ML CUP PO SCH ×2 (05:25→12:29)
--- NOTE | 2019-08-17 07:11 | NUR ---
BEDSIDE REPORT GIVEN TO THE ONCOMING NURSE.
--- NOTE | 2019-08-17 07:15 | NUR ---
Received bedside shift report from night nurse. Patient asleep at this time, no visible signs of distress noted. Call light within reach.
[2019-08-17] MEDS: INSULIN REGULAR, HUMAN 100 UNIT/1 ML 3ML VIAL SQ SCH ×2 (08:30→12:28)
--- NOTE | 2019-08-17 09:09 | NUR ---
OBS DAY 4. SENT TO R1. PT FOR POSSIBLE DC TODAY. CALL TO DR. SANCHEZ. AWAITING CALL BACK W PLAN.
--- NOTE | 2019-08-17 09:26 | NUR ---
RECEIVED CALL BACK FROM DR. SANCHEZ. STATES HE WANTED HER CHANGED TO INPT ON YESTERDAY. CHANGED PT TO INPT. STATES SHE WILL PROBABLY DC HOME TODAY.
[2019-08-17] MEDS: ASPIRIN 81 MG ENTERIC COATED PO SCH (09:42)
[2019-08-17] MEDS: PRAVASTATIN 20 MG TAB PO SCH (09:42)
[2019-08-17] MEDS: PREDNISONE 20 MG TAB PO SCH (09:43)
[2019-08-17] MEDS: ALLOPURINOL 100 MG TAB PO SCH (09:43)
[2019-08-17] MEDS: NIFEDIPINE CR 30 MG TAB PO SCH (09:43)
[2019-08-17] MEDS: FAMOTIDINE 20 MG TAB PO SCH (09:44)
--- NOTE | 2019-08-17 10:43 | Progress Note ---
DATE: SUBJECTIVE: The patient is seen and evaluated. Discussed with staff. Uneventful overnight. REVIEW OF SYSTEMS: Overall feels better, still with cough, but congestion has improved. No nausea, vomiting, fever, chills, chest pain, or shortness of breath. PHYSICAL EXAMINATION: VITAL SIGNS: Temperature is 97.5, pulse is 83, respirations 17, and blood pressure 166/54. GENERAL: Alert and oriented, no acute distress, sitting in a chair. Appetite is good. The patient is still coughing, but no acute distress. CV: S1 and S2. CHEST: Equal expansion. Clear to auscultation with decreased breath sounds. ABDOMEN: Soft, obese, and nontender. HEENT: Moist. No pallor. No JVD. EXTREMITIES: Weak, moves all. MEDICATIONS: Medication list reviewed and as far as Infectious Disease point of view, the patient is on Zithromax and Rocephin. LABORATORY STUDIES: No new CBC or BMP. MICROBIOLOGY STUDIES: No new microbiology studies. Blood culture from 08/13/2019, is negative after 72 hours. RADIOLOGY STUDIES: No new radiology studies available. ASSESSMENT AND PLAN: 1. Aspiration pneumonia. 2. Abdominal pain-CAT scan was negative for acute finding. 3. Coronary artery disease. 4. Diabetes. 5. Obesity. 6. Remains on antibiotics as mentioned above. Echo showed 65% to 70% ejection fraction. Clinically, no acute distress. Discussed with Dr. Fried in details. Please refer to chart for more information. Dictated by Kendrick Carreon PA-C (Al) Cosmo Fried MD /MODL /[id number]
[2019-08-17] MEDS: HEPARIN SOD (PORCINE) 5,000 UNIT/ML VIAL SC SCH (10:47)
--- NOTE | 2019-08-17 11:42 | NUR ---
D/C Summary Principal Dx: AECOPD- ceftraixone/azithromycin; add antitussives; O2 prn; nebs PRN; prednisone. Diastolic CHF- as above CKD4 due to DM2- hba1c/lipids; monitor renal fn Secondary Dx: Hypertensive heart ds- cont home meds Overweight- caloric restriction needed BMI 29.2- as above Prop: scd; ppi; heparin dispo: cont care; 5-10 cont care; f/u labs; coronavirus negative; 5-11 renal fn at baseline; cont COPD care; d/c home stable d/c>35mins f/u pcp 1 week and 1 week Donell Locke MD, PHD.
[2019-08-17] MEDS: CEFTRIAXONE SOD 1 GM/NS 50 ML 50 ML IV SCH (12:28)
[2019-08-17] MEDS: AZITHROMYCIN 500MG/NS 250 ML 250 ML IV SCH (13:13)
== END 2019-08-17 15:45 | disposition home or self-care (01) | DRG 177 ==
LOC: ER 11:39 → ERHOLD 16:19 → IMCU 18:33 → MED/SURG3 08-14 17:39 → OBSVTOIN 08-16 12:39
PROVIDERS: ADMIT Internal Medicine; ATTEND Internal Medicine
DX: J69.0 Pneumonitis due to inhalation of food and vomit (principal); I50.33 Acute on chronic diastolic (congestive) heart failure; J44.1 Chronic obstructive pulmonary disease with (acute) exacerbation; I13.0 Hypertensive heart and chronic kidney disease with heart failure and stage 1 through stage 4 chronic kidney disease, or unspecified chronic kidney disease; N18.4 Chronic kidney disease, stage 4 (severe); J44.0 Chronic obstructive pulmonary disease with (acute) lower respiratory infection; E11.22 Type 2 diabetes mellitus with diabetic chronic kidney disease; E66.9 Obesity, unspecified; Z82.49 Family history of ischemic heart disease and other diseases of the circulatory system; Z83.3 Family history of diabetes mellitus; Z68.29 Body mass index [BMI] 29.0-29.9, adult; Z11.59 Encounter for screening for other viral diseases; E11.42 Type 2 diabetes mellitus with diabetic polyneuropathy; I25.10 Atherosclerotic heart disease of native coronary artery without angina pectoris; R10.9 Unspecified abdominal pain; R53.81 Other malaise; J20.9 Acute bronchitis, unspecified; Z79.84 Long term (current) use of oral hypoglycemic drugs
CPT/HCPCS: 36415; 71045; 74176; 80048; 80053; 80061; 82550; 82553; 82948; 83036; 83735; 83880; 84484; 85025; 85610; 85730; 87040; 87635; 93005; 93306; 94664; 96372; 99284; G0378; J0456; J0696; J1644; J1817; J1940; J2405; J2930; J7050; J7512

== ENCOUNTER 2020-01-15 20:18 | Inpatient (IN) | payer MEDICARE ==
[~2020-01-15] VITALS: Ht 157.5 cm; Wt 72.1 kg
[~2020-01-15 20:18] MED LIST changes: +ALLOPURINOL100 MG PO; +HYDRALAZINE HC100 MG PO
--- NOTE | 2020-01-15 20:18 | NUR ---
PT ARRIVED TO ER AT 1941 AND TRIAGED AT 1944. CORRECTION MADE TO PT'S ACCOUNT NUMBER BY REGISTRATION.
[2020-01-15] MEDS ORDERED: ALBUTEROL/IPRATROPIUM 3 ML NEB NEB ONE (20:30)
[2020-01-15] MEDS ORDERED: ASPIRIN 81 MG CHEW TAB PO ONE (20:30)
--- NOTE | 2020-01-15 20:41 | Emergency Department Note ---
History of Present Illnes History of Present Illness Chief Complaint: Respiratory History of Present Illness This is a 79 year old female PRESENTS TO THE ER C/O SOB, CP AD BACK PAIN ONSET THIS AFTERNOON AROUND 1400; PER DAUGHTER, PT SAW HER PCP YESTERDAY AND WAS TOLD HER LUNGS WERE CLEAR AND PRESCRIBED A DIURETIC; PT REPORTS SHE HAS BEEN DEALING WITH INTERMITTENT SOB AND CHEST PAIN SINCE JUNE. . Historian: Patient, Family Member Arrival Mode: Car Onset (how long ago): month(s) (7) Location: CHEST Quality: SOB, CHEST PAIN Radiation: Reports non-radiation Severity: moderate Onset quality: sudden Duration (how long): month(s) (7) Timing of current episode: intermittent Progression: waxing and waning Chronicity: recurrent Context: Denies recent illness, Denies recent surgery, Denies recent travel, Denies trauma/injury Relieving factors: none Exacerbating factors: movement Associated symptoms: Reports chest pain, Reports shortness of breath Treatments prior to arrival: none Past Medical/Family History Physician Review I have reviewed the patient's past medical and family history. Any updates have been documented here. Past Medical History Recent Fever: No Clinical Suspicion of Infectio: Yes New/Unexplained Change in Ment: No Past Medical History: Hypertension, Diabetes, COPD, Hyperlipedemia Other Medical History: RENAL INSUFF. GOUT Past Surgical History: Hysterectomy Social History Smoking Cessation: Never Smoker (HOWEVER CUSTODIAL SECOND HAND SMOKE EXPOSURE OVER YEARS) Alcohol Use: None Any Illegal Drug Use: No Other Last Tetanus: UNKNOWN Review of Systems Review of Systems Constitutional: Reports no symptoms EENTM: Reports no symptoms Cardiovascular: Reports as per HPI Respiratory: Reports as per HPI Gastrointestinal: Reports no symptoms Genitourinary: Reports no symptoms Musculoskeletal: Reports no symptoms Integumentary: Reports no symptoms Neurological: Reports no symptoms Psychological: Reports no symptoms Endocrine: Reports no symptoms Hematological/Lymphatic: Reports no symptoms Physical Exam Related Data Allergies: Coded Allergies: No Known Allergies (Unverified , 07/12/19) Triage Vital Signs Vital Signs Date Time Temp Pulse Resp B/P (MAP) Pulse Ox O2 Delivery O2 Flow Rate FiO2 01/15/20 20:22 99.1 83 24 192/69 100 Room Air Vital signs reviewed: Yes Physical Exam CONSTITUTIONAL Constitutional: Present well-developed, Present well-nourished; Absent distressed HENT HENT: Present normocephalic, Present atraumatic, Present oropharynx clear/moist, Present nose normal HENT L/R: Present left ext ear normal, Present right ext ear normal EYES Eyes: Reports PERRL, Reports conjunctivae normal NECK Neck: Present ROM normal PULMONARY PT WITH RR OF 24,SIGNIFICANTLY DECREASED BREATH SOUNDS LOWER LOBES BILATERAL, I DO NOT APPRECIATE AND WHEEZING, RALES, OR RHONIC AT THIS TIME CARDIOVASCULAR Cardiovascular: Present regular rhythm, Present heart sounds normal, Present capillary refill normal, Present normal rate GASTROINTESTINAL Abdominal: Present soft, Present nontender, Present bowel sounds normal GENITOURINARY Genitourinary: Present exam deferred SKIN Skin: Present warm, Present dry MUSCULOSKELETAL Musculoskeletal: Present edema (MILD BILATERAL LOWER EXTREMITIES) NEUROLOGICAL Neurological: Present alert, Present oriented x 3, Present no gross motor or sensory deficits PSYCHOLOGICAL Psychological: Present mood/affect normal, Present judgement normal Results Laboratory Laboratory Laboratory Tests Test 01/15/20 21:41 01/15/20 20:49 01/15/20 20:29 Prothrombin Time 12.0 seconds (11.9-14.5) Prothromb Time International Ratio 0.85 Activated Partial Thromboplast Time 25.1 seconds (23.8-35.5) Urine Color Yellow (YELLOW) Urine Clarity Hazy (CLEAR) Urine pH 5.5 (5 - 7) Urine Specific Ebony 1.020 (1.010-1.025) Urine Protein >=300 (NEGATIVE) Urine Glucose (UA) Negative (NEGATIVE) Urine Ketones Trace (NEGATIVE) Urine Blood Negative (NEGATIVE) Urine Nitrite Negative (NEGATIVE) Urine Bilirubin Negative (NEGATIVE) Urine Urobilinogen 0.2 mg/dL (0.2 - 1) Urine Leukocyte Esterase Negative (NEGATIVE) Urine RBC 0-5 /HPF (0-5) Urine WBC 6-10 /HPF (0-5) Urine Epithelial Cells Few /LPF (NONE) Urine Amorphous Sediment Few (FEW) Urine Bacteria Few /HPF (NONE) Urine Coarse Granular Casts 1-5 (0) White Blood Count 8.88 x10e3/uL (4.8-10.8) Red Blood Count 2.85 x10e6/uL (3.6-5.1) Hemoglobin 8.9 g/dL (12.0-16.0) Hematocrit 27.5 % (34.2-44.1) Mean Corpuscular Volume 96.5 fL (81-99) Mean Corpuscular Hemoglobin 31.2 pg (28-32) Mean Corpuscular Hemoglobin Concent 32.4 g/dL (31-35) Red Cell Distribution Width 15.3 % (11.7-14.4) Platelet Count 299 x10e3/uL (140-360) Neutrophils (%) (Auto) 67.2 % (38.7-80.0) Lymphocytes (%) (Auto) 20.8 % (18.0-39.1) Monocytes (%) (Auto) 9.1 % (4.4-11.3) Eosinophils (%) (Auto) 2.0 % (0.0-6.0) Basophils (%) (Auto) 0.2 % (0.0-1.0) Neutrophils # (Auto) 6.0 (2.1-6.9) Lymphocytes # (Auto) 1.9 (1.0-3.2) Monocytes # (Auto) 0.8 (0.2-0.8) Eosinophils # (Auto) 0.2 (0.0-0.4) Basophils # (Auto) 0.0 (0.0-0.1) Absolute Immature Granulocyte (auto 0.06 x10e3/uL (0-0.1) Sodium Level 138 mmol/L (136-145) Potassium Level 3.5 mmol/L (3.5-5.1) Chloride Level 102 mmol/L (98-107) Carbon Dioxide Level 18 mmol/L (22-29) Anion Gap 21.5 mmol/L (8-16) Blood Urea Nitrogen 71 mg/dL (7-26) Creatinine 3.06 mg/dL (0.57-1.11) Estimat Glomerular Filtration Rate 15 ML/MIN (60-) BUN/Creatinine Ratio 23 (6-25) Glucose Level 276 mg/dL (74-118) Calcium Level 9.1 mg/dL (8.4-10.2) Total Bilirubin 0.3 mg/dL (0.2-1.2) Aspartate Amino Transf (AST/SGOT) 15 IU/L (5-34) Alanine Aminotransferase (ALT/SGPT) 14 IU/L (0-55) Alkaline Phosphatase 98 IU/L (40-150) Creatine Kinase 27 IU/L (29-168) Creatine Kinase MB 0.70 ng/mL (0-5.0) Troponin I 0.037 ng/mL (0-0.300) B-Type Natriuretic Peptide 87.9 pg/mL (0-100) Total Protein 7.1 g/dL (6.5-8.1) Albumin 3.8 g/dL (3.5-5.0) Globulin 3.3 g/dL (2.3-3.5) Albumin/Globulin Ratio 1.2 (0.8-2.0) Lab results reviewed: Yes Imaging Imaging results reviewed: Yes Impressions Procedure: [id number] CT/CT CHEST WO Exam Date: Exam Time: REPORT STATUS: Signed EXAM: CT Chest WITHOUT contrast INDICATION: ^SOB ^Y COMPARISON: CT dated 08/15/2019. TECHNIQUE: Chest was scanned utilizing a multidetector helical scanner from the lung apex through the level of the adrenal glands without administration of IV contrast. Absence of intravenous contrast decreases sensitivity for detection of lymphadenopathy and vascular pathology. Coronal and sagittal reformations were obtained. Routine protocol was performed. IV CONTRAST: None COMPLICATIONS: None FINDINGS: LUNGS AND AIRWAYS: Mild bibasilar subsegmental atelectasis. No consolidation. Central airways are patent. Improved aeration of left lung base. PLEURA: No pleural effusion. No pneumothorax. HEART AND MEDIASTINUM: The heart is moderately enlarged. No pericardial effusion. The thoracic aorta is not enlarged. Main pulmonary artery is nonenlarged. Multi vessel coronary artery calcifications and stents. No enlarged mediastinal lymph nodes. UPPER ABDOMEN: Cholecystectomy clips.. BONES: There are degenerative changes in the thoracic spine. IMPRESSION: Moderate cardiomegaly. No edema. No pneumonia. Signed by: Laura Dalton MD on 01/15/2020 9:49 PM Dictated By: LAURA DALTON MD 48 Transcribed By: LEX on 01/15/202148 COPY TO: CAL BOONE MD~ Procedures 12 Lead ECG Interpretation ECG Interpretation : ECG: ECG 1 Pearl Glue Operator: Interpreted by ED physician Date: Jan 15, 2020 Time: 19:50 Rhythm: sinus rhythm Ectopy: infrequent PVC's Rate: normal BPM: 99 QRS axis: normal ST segments normal: No (NON PSECIFIC CHANGES) T waves normal: Yes Other findings: LVH, prolonged QTc interval Clinical Impression: abnormal ECG Assessment & Plan Medical Decision Making MDM PT WITH H/O COPD WITH SOB AND CHEST PAIN WITH BREATHING SINCE 2PM TODAY CBC, CMP, EKG, CARDIAC ENZYMES, BNP, CXR ORDERED TO EVAL FOR MYOCARDIAL INFARCTION, PNEUMONIA, PULMONARY EDEMA, ELECTROLYTE ABNORMALITY DUONEB ORDERED I SPOKE WITH DR SANCHEZ, ADMIT Assessment & Plan Final Impression: (1) Acute on chronic renal insufficiency (2) Chest pain (3) COPD exacerbation Depart Disposition: ADMITTED Last Vital Signs Date Time Temp Pulse Resp B/P (MAP) Pulse Ox O2 Delivery O2 Flow Rate FiO2 01/15/20 20:32 94 22 148/70 100 Room Air 01/15/20 20:22 99.1 Home Meds Reported Medications Allopurinol (ALLOPURINOL) 100 Mg Tablet, 100 MG PO DAILY, #30 TAB 08/13/19 Hydralazine Hcl (HYDRALAZINE HCL) 100 Mg Tablet, 100 MG PO Q8H 08/13/19 Prednisone (PREDNISONE) 20 Mg Tab, 20 MG PO DAILY, TAB 07/17/19 [Albuteral Inhaler] No Conflict Check, 1 INH INH QID PRN for PRN 07/12/19 Pravastatin Sodium (PRAVASTATIN SODIUM) 20 Mg Tablet, 20 MG PO DAILY 07/12/19 Glipizide (GLIPIZIDE) 5 Mg Tablet, 5 MG PO BID, TAB 07/12/19 Nifedipine (NIFEDIPINE ER) 30 Mg Tab.er.24, 30 MG PO Q12H 07/12/19 [Fluticasone] No Conflict Check, 50 MCG NA BID 07/12/19 Furosemide (LASIX) 40 Mg Tablet, 40 MG PO DAILY, #30 TAB 07/12/19 Medications in the ED Aspirin 81 mg PRN ONCE PO ; Start 01/15/20 at 20:30; Stop 01/15/20 at 20:31; Status DC Albuterol/ Ipratropium 3 ml ONCE ONCE NEB ; Start 01/15/20 at 20:30; Stop 01/15/20 at 20:31; Status DC CAL BOONE MD Jan 15, 2020 20:41
[2020-01-15 20:42] LABS: BASOPHILS % 0.2 % (0.0-1.0); EOSINOPHILS # (AUTO) 0.2 (0.0-0.4); HEMATOCRIT 27.5 % (34.2-44.1); HEMOGLOBIN 8.9 g/dL (12.0-16.0); LYMPHOCYTES # (AUTO) 1.9 (1.0-3.2); LYMPHOCYTES % 20.8 % (18.0-39.1); MEAN CORPUSCULAR HEMOGLOBIN 31.2 pg (28-32); MEAN CORPUSCULAR HGB CONC 32.4 g/dL (31-35); MEAN CORPUSCULAR VOLUME 96.5 fL (81-99); MONOCYTES # (AUTO) 0.8 (0.2-0.8); MONOCYTES % 9.1 % (4.4-11.3); NEUTROPHILS % 67.2 % (38.7-80.0); PLATELET COUNT 299 x10e3/uL (140-360); RED BLOOD COUNT 2.85 x10e6/uL (3.6-5.1); RED CELL DISTRIBUTION WIDTH 15.3 % (11.7-14.4)
--- NOTE | 2020-01-15 20:43 | NUR ---
RT AT BEDSIDE FOR ADMINISTRATION OF DUONEB.
[2020-01-15 20:57] LABS: ALBUMIN 3.8 g/dL (3.5-5.0); ALBUMIN/GLOBULIN RATIO 1.2 (0.8-2.0); ANION GAP 21.5 mmol/L (8-16); CALCIUM 9.1 mg/dL (8.4-10.2); CREATININE, SERUM 3.06 mg/dL (0.57-1.11); POTASSIUM 3.5 mmol/L (3.5-5.1)
[2020-01-15 21:03] LABS: CREATINE KINASE MB 0.7 ng/mL (0-5.0)
[2020-01-15 21:20] LABS: CLARITY,URINE HAZY (CLEAR); COLOR,URINE YELLOW (YELLOW)
[2020-01-15 21:21] LABS: BILIRUBIN,URINE NEGATIVE (NEGATIVE); KETONES,URINE TRACE (NEGATIVE); LEUKOCYTE ESTERASE ,URINE NEGATIVE (NEGATIVE); NITRITE,URINE NEGATIVE (NEGATIVE); PROTEIN,URINE DIPSTICK >=300 (NEGATIVE); URINE UROBILINOGEN 0.2 mg/dL (0.2 - 1)
[2020-01-15 21:25] LABS: AMORPHOUS SEDIMENT,URINE FEW (FEW); BACTERIA,URINE FEW /HPF; EPITHELIAL CELLS,URINE FEW /LPF; RBC,URINE 0-5 /HPF (0-5)
--- NOTE | 2020-01-15 21:52 | Diagnostic Imaging Report ---
EXAM: CT Chest WITHOUT contrast INDICATION: ^SOB ^Y COMPARISON: CT dated 08/15/2019. TECHNIQUE: Chest was scanned utilizing a multidetector helical scanner from the lung apex through the level of the adrenal glands without administration of IV contrast. Absence of intravenous contrast decreases sensitivity for detection of lymphadenopathy and vascular pathology. Coronal and sagittal reformations were obtained. Routine protocol was performed. IV CONTRAST: None COMPLICATIONS: None FINDINGS: LUNGS AND AIRWAYS: Mild bibasilar subsegmental atelectasis. No consolidation. Central airways are patent. Improved aeration of left lung base. PLEURA: No pleural effusion. No pneumothorax. HEART AND MEDIASTINUM: The heart is moderately enlarged. No pericardial effusion. The thoracic aorta is not enlarged. Main pulmonary artery is nonenlarged. Multi vessel coronary artery calcifications and stents. No enlarged mediastinal lymph nodes. UPPER ABDOMEN: Cholecystectomy clips.. BONES: There are degenerative changes in the thoracic spine. IMPRESSION: Moderate cardiomegaly. No edema. No pneumonia. Signed by: Chucky Fisher MD on 01/15/2020 9:49 PM
--- OUTSIDE RECORDS SUMMARY | 2020-01-15 22:11 | XMS REPORT | Continuity of Care Document ---
Author Author [facility] t Organization [facility] Address [address] [place] [address] Phone Unavailable Care Team Providers Care Form Builder Helper Name Role Phone NO, PCP PCP Unavailable Barrington BOONE Attphys Unavailable JEFF SANCHEZ Attphys Unavailable DAHU, Be HERMOSILLO Attphys Unavailable JEFF SANCHEZ Admphys Unavailable DAHU, S JIRIES Admphys Unavailable Payers Payer Name Policy Type Policy Number Effective Date Expiration Date S ource Problems Condition Name Condition Details Condition Category Status Onset Date Resolution Date Last Treatment Date Treating Clinician Comments Source Acute exacerbation of chronic obstructive pulmonary disease Problem Active [facility] Chest pain Problem Active [facility] Bronchitis Problem Active [facility] Allergies, Adverse Reactions, Alerts Allergy Name Allergy Type Status Severity Reaction(s) Onset Date Inacti ve Date Treating Clinician Comments Source No Known Allergies DA Active U 2019-03-15 00:00:00 [facility] No Known Allergies DA Active U 2018-09-13 00:00:00 [facility] No Known Allergies DA Active U 2017-08-01 00:00:00 [facility] Social History Social Habit Start Date Stop Date Quantity Comments Source Sex Assigned At 1940 00:00:00 1940 00:00:00 Female [facility] Medications Ordered Medication Name Filled Medication Name Start Date Stop Da te Current Medication? Ordering Clinician Indication Dosage Frequency Signature (SIG) Comments Components Source Albuteral Inhaler Albuteral Inhaler Yes 1 Four Times Daily as needed for Prn [facility] Allopurinol Allopurinol Yes 100 Daily [facility] Fluticasone Fluticasone Yes 50 Twice A Day [facility] Furosemide (Lasix) 40 Mg TABLET Furosemide (Lasix) 40 Mg TABLET Yes 40 Daily [facility] Glipizide Glipizide Yes 5 Twice A Day [facility] Hydralazine Hcl Hydralazine Hcl Yes 100 Every 8 Hours [facility] Nifedipine (Nifedipine Er) 30 Mg TAB.ER.24 Nifedipine (Nifedipine Er) 30 Mg TAB.ER.24 Yes 30 Every 12 Hours C [facility] Pravastatin Sodium Pravastatin Sodium Yes 20 Da boyd [facility] Prednisone Prednisone Yes 20 Daily [facility] Prazosin Hcl Prazosin Hcl 2019-08-14 00:00:00 No 1 Twice A Day [facility] Azelastine Hcl Azelastine Hcl 2019-08-13 00:00:00 No 1 Twice A Day [facility] Doxycycline Hyclate Doxycycline Hyclate 2019-08-13 00:00:00 No 100 Twice A Day [facility] Hydralazine Hcl Hydralazine Hcl 2019-08-13 00:00:00 No 25 Every 8 Hours [facility] Ondansetron Hcl (Zofran*) 4 Mg TABLET Ondansetron Hcl (Zofran*) 4 Mg TABLET 2019-08-13 00:00:00 No 4 Three Times A Day as needed for Prn [facility] Prednisone Prednisone 2019-08-13 00:00:00 No [facility] Cefdinir Cefdinir 2019-07-17 00:00:00 No 300 Twice A Day [facility] Hydralazine Hcl Hydralazine Hcl 2019-07-17 00:00:00 No 25 Twice A Day [facility] Lisinopril Lisinopril 2019-07-17 00:00:00 No 20 Twi ce A Day [facility] Vital Signs Vital Name Observation Time Observation Value Comments Source Body Temperature 2019-08-17 12:00:00 97.6 [degF] [facility] Weight 2019-08-17 05:12:00 159.13 [lb_av] [facility] BMI (Body Mass Index) 2019-08-17 05:12:00 29.1 kg/m2 [facility] Procedures Procedure Date / Time Performed Performing Clinician Cedric vlad CT of abdomen and pelvis without contrast 2019-08-15 00:00:00 [facility] X-ray of chest, two views 2019-07-12 00:00:00 MINH GRIJALVA CH, I [facility] Plan of Care Planned Activity Planned Date Details Comments Source Instructions Bronchitis (Acute) - Adult C [facility] Instructions Chest Pain - Noncardiac [facility] Instructions COPD [facility] Encounters Start Date/Time End Date/Time [facility] Ad[facility] Encounter ID Source 2019-08-16 12:39:00 2019-08-13 16:19:00 Admitted Inpatient 1 JEFF SANCHEZ [facility] [id number] [facility] 2019-07-14 14:17:00 2019-07-17 17:03:00 Discharged Inpatient 2 TAL GUIDRY [facility] [id number] [facility] Results Test Description Test Time Test Comments Results Result Comments Source CT CHEST WO 2020-01-15 21:44:00 [facility] [address] [address] Patient Name: EL MEDINA MR #: [id number] : 1940 Age/Sex: 79/F Req #: [id number] Adm Physician: Ordered by: CAL BOONE MD Report #: [id number] Location: ER Room/Bed: Procedure: [id number] CT/CT CHEST WO Exam Date: Exam Time: REPORT STATUS: Signed EXAM: CT Chest WITHOUT contrast INDICATION: SOB Y COMPARISON: CT dated 08/15/2019. TECHNIQUE: Chest was scanned utilizing a multidetector helical scanner from the lung apex through the level of the adrenal glands without administration of IV contrast. Absence of intravenous contrast decreases sensitivity for detection of lymphadenopathy and vascular pathology. Coronal and sagittal reformations were obtained. Routine protocol was performed. IV CONTRAST: None COMPLICATIONS: None FINDINGS: LUNGS AND AIRWAYS: Mild bibasilar subsegmental atelectasis. No consolidation. Central airways are patent. Improved aeration of left lung base. PLEURA: No pleural effusion. No pneumothorax. HEART AND MEDIASTINUM: The heart is moderately enlarged. No pericardial effusion. The thoracic aorta is not enlarged. Main pulmonary artery is nonenlarged. Multi vessel coronary artery calcifications and stents. No enlarged mediastinal lymph nodes. UPPER ABDOMEN: Cholecystectomy clips.. BONES: There are degenerative changes in the thoracic spine. IMPRESSION: Moderate cardiomegaly. No edema. No pneumonia. Signed by: Laura Fisher MD on 01/15/2020 9:49 PM Dictated By: LAURA FISHER MD 48 Transcribed By: LEX on 01/15/202148 COPY TO: CAL BOONE MD Capillary blood glucose measurement by glucometer (mas s/volume) 2019-08-17 11:27:00 Test Item Bedside Glucose (test code = 52630-4) 195 70-120 Meter ID: [id number] [facility] sodium measurement (moles/volume)2019-08-16 11:25:00* Test Item Value Reference Range Interpretation Comments Sodium Level (test code = 2951-2) 139 136-145 [facility] potassium measurement (moles/volume)2019-08-16 11:25:00* Test Item Value Reference Range Interpretation Comments Potassium Level (test code = 2823-3) 3.9 3.5-5.1 [facility] chloride measurement (moles/volume)2019-08-16 11:25:00* Test Item Value Reference Range Interpretation Comments Chloride Level (test code = 2075-0) 107 98-107 [facility] plasma carbon dioxide, total measurement (moles/volume)2019-08-16 11:25:00* Test Item Value Reference Range Interpretation Comments Carbon Dioxide Level (test code = 2028-9) 21 22-29 [facility] plasma anion [id number] 11:25:00* Test Item Value Reference Range Interpretation Comments Anion Gap (test code = 07581-4) 14.9 8-16 [facility] plasma urea nitrogen measurement (mass/volume)2019-08-16 11:25:00* Test Item Value Reference Range Interpretation Comments Blood Urea Nitrogen (test code = 3094-0) 57 7-26 [facility] plasma creatinine measurement (mass/volume)2019-08-16 11:25:00* Test Item Value Reference Range Interpretation Comments Creatinine (test code = 2160-0) 1.41 0.57-1.11 [facility] plasma urea nitrogen/creatinine mass ofegp8661-88-14 11:25:00* Test Item Value Reference Range Interpretation Comments BUN/Creatinine Ratio (test code = 3097-3) 40 6-25 [facility] glomerular filtration rate (GFR) lusglslqxglsu9471-61-34 11:25:00* Test Item Value Reference Range Interpretation Comments Estimat Glomerular Filtration Rate (test code = 441253245) 36 >60 Ranges were taken from the National Kidney Disease Education Program and the [facility] literature.Reference ranges:60 or greater: Wvvbdu85-40 ( for 3 consecutive months): Chronic kidney disease 15 or less: Kidney failureCrescent Medical Center LancasterGlucose ueyujwhsyzw7653-98-95 11:25:00* Test Item Value Reference Range Interpretation Comments Glucose Level (test code = AUJ6323) 194 74-118 [facility] plasma calcium measurement (mass/volume)2019-08-16 11:25:00* Test Item Value Reference Range Interpretation Comments Calcium Level (test code = 72783-8) 8.2 8.4-10.2 [facility]/PELVIS MW2011-48-29 10:45:00 [facility] [address] [address] Patient Name: EL MEDINA MR #: [id number] : 1940 Age/Sex: 78/F Req #: [id number] Adm Physician: JEFF SANCHEZ MD Ordered by: LINDA DOWNEY Report #: [id number] Location: MED/SURG[address] [place] [address]/Bed: [facility] Procedure: [id number] CT/CT ABDOM EN/PELVIS WO Exam Date: 08/15/19 Exam Time: 1036 REPORT STATUS: Signed EXAMINATION: CT of the abdomen and pelvis without contrast. TECHNIQUE: Helical CT image s of the abdomen and pelvis were performed from the lung bases to the lesser t rochanters. No intravenous contrast was given. Enteric contrast administered. Coronal and sagittal reformatted images were obtained. Dose modulation, iter ative reconstruction, and/or weight based adjustment of the mA/kV was utilized to reduce the radiation dose to as low as reasonably achievable. COMPAR HARLEY: None. CLINICAL HISTORY:Abdominal pain, right upper quadrant DISCUSSION: ABSENCE OF INTRAVENOUS CONTRAST DECREASES SENSITIVITY FOR DETECTIO N OF FOCAL LESIONS AND VASCULAR PATHOLOGY. ABDOMEN/PELVIS: LOWER THO RAX: Unremarkable. HEPATOBILIARY:No focal hepatic lesions. Cholecystectomy . No biliary dilation. SPLEEN: No splenomegaly. PANCREAS: No focal mas ses or ductal dilatation. ADRENALS: No adrenal nodules. KIDNEYS/URETER S: Right renal anterior exophytic cyst. Cortical thinning. No calculus or hydr onephrosis. PELVIC ORGANS/BLADDER: The bladder is decompressed. Patient has undergone hysterectomy. PERITONEUM/RETROPERITONEUM: No free air or fluid . LYMPH NODES: No intra-abdominal,retroperitoneal, pelvic or inguinal lym phadenopathy. VESSELS: Limited evaluation. Vascular calcifications. GI TRACT: No distention or wall thickening. Postsurgical change to the sigmoid c olon. BONES AND SOFT TISSUES: No bony destructive lesions. No soft tissue abnormalities. IMPRESSION: No acute CT finding. Signed by: Jane Vides M.D. on 08/15/2019 10:50 AM Dictated By: HOLLY BRYAN CH, MD 1050 Transcrib ed By: LEX on 08/15/19 1050 COPY TO: LINDA DOWNEY Blood leukocytes automated count (number/volume)2019-08-15 05:50:00* Test Item Value Reference Range Interpretation Comments White Blood Count (test code = 6690-2) 10.07 4.8-10.8 [facility] erythrocytes automated count (number/volume)2019-08-15 05:50:00* Test Item Value Reference Range Interpretation Comments Red Blood Count (test code = 789-8) 2.98 3.6-5.1 [facility] LancasterBlood hemoglobin measurement (moles/volume)2019-08-15 05:50:00* Test Item Value Reference Range Interpretation Comments Hemoglobin (test code = 19072-6) 8.9 12.0-16.0 [facility] LancasterAutomated blood hematocrit (volume fraction)2019-08-15 05:50:00* Test Item Value Reference Range Interpretation Comments Hematocrit (test code = 4544-3) 28.2 34.2-44.1 [facility] LancasterAutomated erythrocyte mean corpuscular sbbfex9472-06-85 05:50:00* Test Item Value Reference Range Interpretation Comments Mean Corpuscular Volume (test code = 787-2) 94.6 81-99 [facility] LancasterAutomated erythrocyte mean corpuscular hemoglobin (mass per erythrocyte)2019-08-15 05:50:00* Test Item Value Reference Range Interpretation Comments Mean Corpuscular Hemoglobin (test code = 785-6) 29.9 28-32 [facility] LancasterAutomated erythrocyte mean corpuscular hemoglobin concentration measurement (mass/volume)2019-08-15 05:50:00* Test Item Value Reference Range Interpretation Comments Mean Corpuscular Hemoglobin Concent (test code = 786-4) 31.6 31-35 [facility] LancasterRDW YjbOw-Kqs3580-43-10 05:50:00* Test Item Value Reference Range Interpretation Comments Red Cell Distribution Width (test code = 29061-1) 16.3 11.7 -14.4 [facility] LancasterAutomated blood platelet count (count/volume)2019-08-15 05:50:00* Test Item Value Reference Range Interpretation Comments Platelet Count (test code = 777-3) 344 140-360 [facility] LancasterAutwatauga medical centered blood segmented neutrophil count as percentage of total mxxzetttxr8389-14-73 05:50:00* Test Item Value Reference Range Interpretation Comments Neutrophils (%) (Auto) (test code = 81534-7) 69.0 38.7-80.0 [facility] LancasterAutomated blood lymphocyte count as percentage ot total zmuliwlrlf3956-24-79 05:50:00* Test Item Value Reference Range Interpretation Comments Lymphocytes (%) (Auto) (test code = 736-9) 19.0 18.0-39.1 [facility] LancasterAutomated blood monocyte count as percentage of total vuwhtdplki4937-03-63 05:50:00* Test Item Value Reference Range Interpretation Comments Monocytes (%) (Auto) (test code = 5905-5) 9.3 4.4-11.3 [facility] LancasterAutomated blood eosinophil count as percentage of total ikfmsktzfl5785-68-17 05:50:00* Test Item Value Reference Range Interpretation Comments Eosinophils (%) (Auto) (test code = 713-8) 0.9 0.0-6.0 [facility] LancasterAutomated blood basophil count as percentage of total mgqyfhewhu1493-95-90 05:50:00* Test Item Value Reference Range Interpretation Comments Basophils (%) (Auto) (test code = 706-2) 0.4 0.0-1.0 [facility] LancasterFluoroscopic procedure less than one hour nclwwkgo1992-33-98 05:50:00* Test Item Value Reference Range Interpretation Comments IM GRANULOCYTES % (test code = IM GRANULOCYTES %) 1.4 0.0- 1.0 [facility] LancasterAutomated blood neutrophil count 2019-08-15 05:50:00* Test Item Value Reference Range Interpretation Comments Neutrophils # (Auto) (test code = 751-8) 7.0 2.1-6.9 [facility] LancasterBlood lymphocytes count (number/volume) 2019-08-15 05:50:00* Test Item Value Reference Range Interpretation Comments Lymphocytes # (Auto) (test code = 40359-7) 1.9 1.0-3.2 [facility] LancasterBll[facility] monocytes automated count (number/volume)2019-08-15 05:50:00* Test Item Value Reference Range Interpretation Comments Monocytes # (Auto) (test code = 742-7) 0.9 0.2-0.8 [facility] LancasterAutomated blood eosinophil count 2019-08-15 05:50:00* Test Item Value Reference Range Interpretation Comments Eosinophils # (Auto) (test code = 711-2) 0.1 0.0-0.4 [facility] LancasterAutomated blood basophil count (count/volume)2019-08-15 05:50:00* Test Item Value Reference Range Interpretation Comments Basophils # (Auto) (test code = 704-7) 0.0 0.0-0.1 [facility] LancasterFluoroscopic procedure less than one hour cmhtccnm8901-46-99 05:50:00* Test Item Value Reference Range Interpretation Comments Absolute Immature Granulocyte (auto (lorena t code = Absolute Immature Granulocyte (auto) 0.14 0-0.1 [facility] or plasma total bilirubin measurement (mass/volume)2019-08-15 05:50:00* Test Item Value Reference Range Interpretation Comments Total Bilirubin (test code = 1975-2) 0.2 0.2-1.2 [facility] LancasterFluoroscopic procedure less than one hour ypakxysu0587-95-18 05:50:00* Test Item Value Reference Range Interpretation Comments Aspartate Amino Transf (AST/SGOT) (test code = Aspartate Amino Transf (AST/SGOT)) 11 5-34 [facility] or plasma alanine aminotransferase measurement (enzymatic activity/volume)2019-08-15 05:50:00* Test Item Value Reference Range Interpretation Comments Alanine Aminotransferase (ALT/SGPT) (test code = 1742-6) 12 0-55 [facility] or plasma protein measurement (mass/volume)2019-08-15 05:50:00* Test Item Value Reference Range Interpretation Comments Total Protein (test code = 2885-2) 5.8 6.5-8.1 [facility] or plasma albumin measurement (mass/volume)2019-08-15 05:50:00* Test Item Value Reference Range Interpretation Comments Albumin (test code = 1751-7) 2.9 3.5-5.0 [facility] LancasterPlasma globulin measurement (mass/volume) 2019-08-15 05:50:00* Test Item Value Reference Range Interpretation Comments Globulin (test code = 45179-1) 2.9 2.3-3.5 [facility] or plasma albumin/globulin mass jizxo1466-49-14 05:50:00* Test Item Value Reference Range Interpretation Comments Albumin/Globulin Ratio (test code = 1759-0) 1.0 0.8-2.0 [facility] or plasma alkaline phosphatase measurement (enzymatic activity/volume)2019-08-15 05:50:00* Test Item Value Reference Range Interpretation Comments Alkaline Phosphatase (test code = 6768-6) 69 40-150 [facility] LancasterFluoroscopic procedure less than one hour smkekdyb4904-25-59 05:09:00* Test Item Value Reference Range Interpretation Comments Hemoglobin A1c Percent (test code = Hemoglobin A1c Percent) 7.7 4.0-7.0 [facility] or plasma triglyceride measurement (mass/volume)2019-08-14 05:09:00* Test Item Value Reference Range Interpretation Comments Triglycerides Level (test code = 2571-8) 89 0-149 [facility] or plasma cholesterol measurement (mass/volume)2019-08-14 05:09:00* Test Item Value Reference Range Interpretation Comments Cholesterol Level (test code = 2093-3) 221 0-199 Less than 200 mg/dL Low Zvsw501 - 239 mg/dL Borderline Kxme228 m g/dl and greater High Risk [facility] or plasma cholesterol in LDL measurement (mass/volume) 2019-08-14 05:09:00* Test Item Value Reference Range Interpretation Comments LDL Cholesterol (test code = 2089-1) 134 60-130 [facility] or plasma cholesterol in HDL measurement (mass/volume)2019-08-14 05:09:00* Test Item Value Reference Range Interpretation Comments HDL Cholesterol (test code = 2085-9) 69 40-60 [facility] or plasma total cholesterol/cholesterol in HDL mass jhyhu7013-99-27 05:09:00* Test Item Value Reference Range Interpretation Comments Cholesterol/HDL Ratio (test code = 9830-1) 3.2 3.0-3.6 [facility] or plasma creatine kinase measurement (enzymatic activity/volume)2019-08-14 05:09:00* Test Item Value Reference Range Interpretation Comments Creatine Kinase (test code = 2157-6) 34 29-168 [facility] or plasma creatine kinase MB measurement (mass/volume)2019-08-14 05:09:00* Test Item Value Reference Range Interpretation Comments Creatine Kinase MB (test code = 41744-1) 1.30 0-5.0 [facility] LancasterTroponin I measurement by highly sensitive enzyme cqmucrbtkxg9890-17-20 05:09:00* Test Item Value Reference Range Interpretation Comments Troponin I (test code = 66114-5) 0.231 0-0.300 [facility]2019-08-13 15:55:00 [facility] [address] [address] Patient Name: EL MEDINA MR #: [id number] : 1940 Age/Sex: 78/F Req #: [id number] Adm Physician: Ordered by: VANIA QUIROZ MD Report #: [id number] Location: ER Room/Bed: Procedure: [id number] DX/CHEST SINGL E (PORTABLE) Exam Date: 08/13/19 Exam Time: 1515 REPORT STATUS: Signed X-ray chest A P upright Comparison: 07/13/2019 History: Chest pain, cough, shortness o f breath Findings: Central airways unremarkable. Apparent cardiomegaly. Ath erosclerotic aorta. Left hemidiaphragm is not visualized raising the possibili ty of a left lower lobe atelectasis and/or pneumonia. Right lung is unremarkab le. The remainder of the left lung is unremarkable. There is no definite pleur al effusion. There is no pneumothorax. Visualized skeleton shows no significan t acute abnormality. Upper abdomen is not well-visualized. Impression: Po ssible left lower lobe atelectasis and/or pneumonia. Signed by: Sameer rolle MD on 08/13/2019 3:57 PM Dictated By: SAMEER HUFF MD Electronicall y Signed By: SAMEER HUFF MD on 08/13/19 501 Transcribed By: LEX on 11/24 COPY TO: VANIA QUIROZ MD Prothrombin time (PT) in platelet poor plasma by coagulation eehux9784-59-17 11:31:00* Test Item Value Reference Range Interpretation Comments Prothrombin Time (test code = 5902-2) 12.1 11.9-14.5 [facility] LancasterINR in Platelet poor plasma by Coagulation vgoiu6049-45-74 11:31:00* Test Item Value Reference Range Interpretation Comments Prothromb Time International Ratio (test code = 6301-6) 0.85 Oral Anticoagulant Therapy INR Values:1. Low Intensity Therapy 1.5 - 2.02 . Moderate Intensity Therapy 2.0 - 3.03. High Intensity Therapy(1) 2.5 - 3. 54. High Intensity Therapy(2) 3.0 - 4.05. Panic Value INR > 5.0 [facility] LancasterActivated partial thromboplastin time (aPTT) in platelet poor plasma by coagulation ombeu7265-13-58 11:31:00* Test Item Value Reference Range Interpretation Comments Activated Partial Thromboplast Time (test code = 15244-6) 20.7 23.8-35.5 [facility] or plasma magnesium measurement (mass/volume)2019-08-13 11:31:00* Test Item Value Reference Range Interpretation Comments Magnesium Level (test code = 36038-6) 1.9 1.3-2.1 [facility] LancasterBNP Ssr-hMjg5932-43-08 11:31:00* Test Item Value Reference Range Interpretation Comments B-Type Natriuretic Peptide (test code = 61026-4) 561.7 0-100 [facility] LancasterFluoroscopic procedure less than one hour kktysjvu6343-21-29 11:31:00* Test Item Value Reference Range Interpretation Comments Coronavirus (PCR) (test code = Coronavirus (PCR)) NOT DETECTED NOTD ETECTED SARS-COV2/RT-PCRNegative results do not preclude SARS-CoV-2 infection and should not be used as the sole basis for patient management decisions. Negative result s must be combined with clinical observations, patient history, and epidemiologi tyson information. A false negative result may occur if a specimen is improperly c ollected, transported or handled.The limit of detection for this assay is 250 co pies/mLThe SARS-CoV-2 test is a rapid, real-time RT-PCR test intended for the qu alitative detection of nucleic acid from SARS-CoV-2 in nasopharyngeal swab speci men collected from individuals suspected of COVID-19 by their healthcare provide r. This test has not been Food and Drug Administration (FDA) cleared or approved and has been authorized by FDA under an Emergency Use Authorization (EUA). This EUA will be effective until the declaration that circumstances exist justifying the authorization of the emergency use of in vitro diagnostic test for detectio n and or diagnosis of COVID-19 is terminated under section 564(b) of the Act, or the the EUA is revoked under 564(g) of the ACT.Testing performed by [address] [address]HGLCrescent [facility] Center LancasterBlood kovjixo3121-65-37 11:31:00* Test Item Value Reference Range Interpretation Comments Blood Culture (test code = 00886666) NO GROWTH AFTER 72 HOURS [facility] LancasterBedside Evoiovw8308-37-95 15:20:00* Test Item Value Reference Range Interpretation Comments Bedside Glucose (test code = 14683-1) 258 70-120 H Meter ID: [id number] Methodist [facility] Test Item Value Reference Range Interpretation Comments Sodium Level (test code = 2951-2) 143 136-145 [facility] LancasterPotassium Ekoic1094-76-23 06:46:00* Test Item Value Reference Range Interpretation Comments Potassium Level (test code = 2823-3) 4.3 3.5-5.1 [facility] LancasterChloride Mccnt6765-80-36 06:46:00* Test Item Value Reference Range Interpretation Comments Chloride Level (test code = 2075-0) 116 98-107 H [facility] LancasterCarbon Dioxide Mduew3153-19-96 06:46:00* Test Item Value Reference Range Interpretation Comments Carbon Dioxide Level (test code = 2028-9) 21 22-29 L [facility] LancasterAnion Len3907-36-05 06:46:00* Test Item Value Reference Range Interpretation Comments Anion Gap (test code = 59070-2) 10.3 8-16 [facility] LancasterBlood Urea Zuufdlmj4045-58-14 06:46:00* Test Item Value Reference Range Interpretation Comments Blood Urea Nitrogen (test code = 3094-0) 96 7-26 H [facility] LancasterCreatinine2020-04-11 06:46:00* Test Item Value Reference Range Interpretation Comments Creatinine (test code = 2160-0) 1.84 0.57-1.11 H [facility] LancasterBUN/Creatinine Anmfl1822-98-81 06:46:00* Test Item Value Reference Range Interpretation Comments BUN/Creatinine Ratio (test code = 3097-3) 52 6-25 H [facility] LancasterEstimat Glomerular Filtration Rate 2019-07-17 06:46:00* Test Item Value Reference Range Interpretation Comments Estimat Glomerular Filtration Rate (test code = 432301793) 26 >60 L Ranges were taken from the National Kidney Disease Education Program and the [facility] Kidney Foundation literature.Reference ranges:60 or greater: Qppjzo10-22 ( for 3 consecutive months): Chronic kidney disease 15 or less: Kidney failureCrescent Medical Center LancasterGlucose Zplah0627-98-04 06:46:00* Test Item Value Reference Range Interpretation Comments Glucose Level (test code = BNU7008) 185 74-118 H [facility] LancasterCalcium Tbbza6289-68-92 06:46:00* Test Item Value Reference Range Interpretation Comments Calcium Level (test code = 28658-4) 7.8 8.4-10.2 L [facility] LancasterWhite Blood Pjhsu2653-83-57 06:13:00* Test Item Value Reference Range Interpretation Comments White Blood Count (test code = 6690-2) 7.56 4.8-10.8 [facility] LancasterRed Blood Fplzq8248-76-40 06:13:00* Test Item Value Reference Range Interpretation Comments Red Blood Count (test code = 789-8) 2.90 3.6-5.1 L [facility] LancasterHemoglobin2020-04-10 06:13:00* Test Item Value Reference Range Interpretation Comments Hemoglobin (test code = 59531-5) 8.7 12.0-16.0 L [facility] LancasterHematocrit2020-04-10 06:13:00* Test Item Value Reference Range Interpretation Comments Hematocrit (test code = 4544-3) 28.1 34.2-44.1 L [facility] LancasterMean Corpuscular Gxapyx9455-38-88 06:13:00* Test Item Value Reference Range Interpretation Comments Mean Corpuscular Volume (test code = 787-2) 96.9 81-99 [facility] LancasterMean Corpuscular Ujkgddpvah4142-37-75 06:13:00* Test Item Value Reference Range Interpretation Comments Mean Corpuscular Hemoglobin (test code = 785-6) 30.0 28-32 [facility] LancasterMean Corpuscular Hemoglobin Concent 2019-07-16 06:13:00* Test Item Value Reference Range Interpretation Comments Mean Corpuscular Hemoglobin Concent (test code = 786-4) 31.0 31-35 [facility] LancasterRed Cell Distribution Jhaup9823-57-10 06:13:00* Test Item Value Reference Range Interpretation Comments Red Cell Distribution Width (test code = 13662-3) 16.8 11.7 -14.4 H [facility] LancasterPlatelet Qsvpa3528-49-21 06:13:00* Test Item Value Reference Range Interpretation Comments Platelet Count (test code = 777-3) 195 140-360 [facility] LancasterNeutrophils (%) (Auto)2019-07-16 06:13:00 * Test Item Value Reference Range Interpretation Comments Neutrophils (%) (Auto) (test code = 91809-3) 77.7 38.7-80.0 [facility] LancasterLymphocytes (%) (Auto)2019-07-16 06:13:00 * Test Item Value Reference Range Interpretation Comments Lymphocytes (%) (Auto) (test code = 736-9) 11.2 18.0-39.1 L [facility] LancasterMonocytes (%) (Auto)2019-07-16 06:13:00* Test Item Value Reference Range Interpretation Comments Monocytes (%) (Auto) (test code = 5905-5) 9.7 4.4-11.3 [facility] LancasterEosinophils (%) (Auto)2019-07-16 06:13:00 * Test Item Value Reference Range Interpretation Comments Eosinophils (%) (Auto) (test code = 713-8) 0.1 0.0-6.0 [facility] LancasterBasophils (%) (Auto)2019-07-16 06:13:00* Test Item Value Reference Range Interpretation Comments Basophils (%) (Auto) (test code = 706-2) 0.0 0.0-1.0 [facility] LancasterIM GRANULOCYTES %2019-07-16 06:13:00* Test Item Value Reference Range Interpretation Comments IM GRANULOCYTES % (test code = IM GRANULOCYTES %) 1.3 0.0- 1.0 H [facility] LancasterNeutrophils # (Auto)2019-07-16 06:13:00* Test Item Value Reference Range Interpretation Comments Neutrophils # (Auto) (test code = 751-8) 5.9 2.1-6.9 [facility] LancasterLymphocytes # (Auto)2019-07-16 06:13:00* Test Item Value Reference Range Interpretation Comments Lymphocytes # (Auto) (test code = 58121-5) 0.9 1.0-3.2 L [facility] LancasterMonocytes # (Auto)2019-07-16 06:13:00* Test Item Value Reference Range Interpretation Comments Monocytes # (Auto) (test code = 742-7) 0.7 0.2-0.8 [facility] LancasterEosinophils # (Auto)2019-07-16 06:13:00* Test Item Value Reference Range Interpretation Comments Eosinophils # (Auto) (test code = 711-2) 0.0 0.0-0.4 [facility] LancasterBasophils # (Auto)2019-07-16 06:13:00* Test Item Value Reference Range Interpretation Comments Basophils # (Auto) (test code = 704-7) 0.0 0.0-0.1 [facility] LancasterAbsolute Immature Granulocyte (auto 2019-07-16 06:13:00* Test Item Value Reference Range Interpretation Comments Absolute Immature Granulocyte (auto (lorena t code = Absolute Immature Granulocyte (auto) 0.10 0-0.1 [facility] LancasterTroponin [id number] 14:13:00* Test Item Value Reference Range Interpretation Comments Troponin I (test code = 73135-2) 0.021 0-0.300 [facility] LancasterHemoglobin A1c Dnpnhrc5426-48-24 07:21:00 * Test Item Value Reference Range Interpretation Comments Hemoglobin A1c Percent (test code = Hemoglobin A1c Percent) 7.2 4.0-7.0 H [facility] LancasterThyroid Stimulating Hormone (TSH) 2019-07-13 07:21:00* Test Item Value Reference Range Interpretation Comments Thyroid Stimulating Hormone (TSH) (test code = 76529-2) 2.423 0.350-4.940 [facility] LancasterTriglycerides Yhikn2798-86-68 06:43:00* Test Item Value Reference Range Interpretation Comments Triglycerides Level (test code = 2571-8) 52 0-149 [facility] LancasterCholesterol Okvqi6935-92-45 06:43:00* Test Item Value Reference Range Interpretation Comments Cholesterol Level (test code = 2093-3) 197 0-199 Less than 200 mg/dL Low Uylv828 - 239 mg/dL Borderline Zrff457 m g/dl and greater High Risk [facility] LancasterLDL Gocybcivldx9321-51-65 06:43:00* Test Item Value Reference Range Interpretation Comments LDL Cholesterol (test code = 2089-1) 113 60-130 [facility] LancasterHDL Pvymxrrevfk9124-89-93 06:43:00* Test Item Value Reference Range Interpretation Comments HDL Cholesterol (test code = 2085-9) 74 40-60 H [facility] LancasterCholesterol/HDL Pprrl5281-91-29 06:43:00 * Test Item Value Reference Range Interpretation Comments Cholesterol/HDL Ratio (test code = 9830-1) 2.7 3.0-3.6 L [facility] or plasma thyrotropin measurement by detection limit <= 0.005 miu/l (units/volume)2019-07-13 05:45:00* Test Item Value Reference Range Interpretation Comments Thyroid Stimulating Hormone (TSH) (test code = 01367-8) 2.423 0.350-4.940 [facility] LancasterCHEST 2 QONYF3465-93-69 05:43:00 [facility] [address] [address] Patient Name: EL MEDINA MR #: [id number] : 1940 Age/Sex: 78/F Req #: [id number] Adm Physician: TAL GUIDRY MD Ordered by: MINH GRIJALVA MD Report #: [id number] Location: [facility] Room/Bed: [facility] Procedure: [id number] DX/C HEST 2 VIEWS Exam Date: 07/12/19 [...] MINH GRIJALVA MD CHEST SINGLE (PORTABLE)2019-07-13 05:42:00 [address] [place] [address] Patient Name: EL MEDINA MR #: [id number] : 1940 Age/Sex: 78/F Req #: [id number] Adm Physician: TAL GUIDRY MD Ordered by: TAL GUIDRY MD Report #: [id number] Location: MED/SURG2 Room/Bed: [facility] Procedure: [id number] DX /CHEST SINGLE (PORTABLE) Exam Date: 07/13/19 [...] 07/13/19544 COPY TO: TAL GUIDRY MD Urine FBK4957-07-35 20:15:00* Test Item Value Reference Range Interpretation Comments Urine WBC (test code = 5821-4) NONE 0-5 [facility] LancasterUrine JKA4720-50-13 20:15:00* Test Item Value Reference Range Interpretation Comments Urine RBC (test code = 87154-2) NONE 0-5 [facility] LancasterUrine Adherkaw7157-78-40 20:15:00* Test Item Value Reference Range Interpretation Comments Urine Bacteria (test code = 39216-7) NONE NONE [facility] LancasterUrine Epithelial Bnlnc0855-16-33 20:15:00 * Test Item Value Reference Range Interpretation Comments Urine Epithelial Cells (test code = 66564-0) FEW NONE [facility] LancasterUrine Coarse Granular Afwlw0497-74-44 20:15:00* Test Item Value Reference Range Interpretation Comments Urine Coarse Granular Casts (test code = 76791-7) 1-5 >0 H [facility] LancasterUrine Djmio6091-64-57 20:06:00* Test Item Value Reference Range Interpretation Comments Urine Color (test code = 5778-6) YELLOW YELLOW [facility] LancasterUrine Zwakvyp5648-92-80 20:06:00* Test Item Value Reference Range Interpretation Comments Urine Clarity (test code = 46019-0) SL CLOUDY CLEAR [facility] LancasterUrine Specific Dsxiqtg4545-69-22 20:06:00 * Test Item Value Reference Range Interpretation Comments Urine Specific [place] (test code = 5811-5) 1.025 1.010-1.02 5 [facility] LancasterUrine bQ7168-57-68 20:06:00* Test Item Value Reference Range Interpretation Comments Urine pH (test code = 85551-3) 5.5 5-7 [facility] LancasterUrine Leukocyte Cwshwynr4715-77-73 20:06:00* Test Item Value Reference Range Interpretation Comments Urine Leukocyte Esterase (test code = 5799-2) NEGATIVE NEGATIVE [facility] LancasterUrine Mzarenu2697-98-27 20:06:00* Test Item Value Reference Range Interpretation Comments Urine Nitrite (test code = 74211-0) NEGATIVE NEGATIVE [facility] LancasterUrine Mhhrsgl8011-75-00 20:06:00* Test Item Value Reference Range Interpretation Comments Urine Protein (test code = 5804-0) NEGATIVE NEGATIVE [facility] LancasterUrine Glucose (UA)2019-07-12 20:06:00* Test Item Value Reference Range Interpretation Comments Urine Glucose (UA) (test code = 2349-9) NEGATIVE NEGATIVE [facility] LancasterUrine Ziqoiag0338-40-65 20:06:00* Test Item Value Reference Range Interpretation Comments Urine Ketones (test code = 26817-8) NEGATIVE NEGATIVE [facility] LancasterUrine Tkejmahiyhfk8647-42-90 20:06:00* Test Item Value Reference Range Interpretation Comments Urine Urobilinogen (test code = 46903-9) 0.2 0.2-1 [facility] LancasterUrine Qdgydqozt6337-38-77 20:06:00* Test Item Value Reference Range Interpretation Comments Urine Bilirubin (test code = 1978-6) NEGATIVE NEGATIVE [facility] LancasterUrine Ionds6131-16-90 20:06:00* Test Item Value Reference Range Interpretation Comments Urine Blood (test code = 86922-4) NEGATIVE NEGATIVE [facility] LancasterUrine color fokjpkixcjfdf1961-65-88 19:45:00* Test Item Value Reference Range Interpretation Comments Urine Color (test code = 5778-6) YELLOW YELLOW [facility] LancasterUrine opxkisq8641-11-47 19:45:00* Test Item Value Reference Range Interpretation Comments Urine Clarity (test code = 48555-3) SL CLOUDY CLEAR [facility] Hospitalpecific gravity of Urine by Test strip 2019-07-12 19:45:00* Test Item Value Reference Range Interpretation Comments Urine Specific [place] (test code = 5811-5) 1.025 1.010-1.02 5 [facility] LancasterUrine pH measurement by automated test hdwzt8901-83-02 19:45:00* Test Item Value Reference Range Interpretation Comments Urine pH (test code = 58460-7) 5.5 5-7 [facility] LancasterUrine leukocyte esterase detection by fuotdoxm9322-55-19 19:45:00* Test Item Value Reference Range Interpretation Comments Urine Leukocyte Esterase (test code = 5799-2) NEGATIVE NEGATIVE [facility] LancasterUrine nitrite izgycuxuc5172-82-21 19:45:00* Test Item Value Reference Range Interpretation Comments Urine Nitrite (test code = 19885-5) NEGATIVE NEGATIVE [facility] LancasterUrine protein measurement by test strip (mass/volume)2019-07-12 19:45:00* Test Item Value Reference Range Interpretation Comments Urine Protein (test code = 5804-0) NEGATIVE NEGATIVE [facility] LancasterUrine glucose lizjcaves3455-81-24 19:45:00* Test Item Value Reference Range Interpretation Comments Urine Glucose (UA) (test code = 2349-9) NEGATIVE NEGATIVE [facility] LancasterUrine ketones detection by automated test jgnxo3730-59-16 19:45:00* Test Item Value Reference Range Interpretation Comments Urine Ketones (test code = 80751-0) NEGATIVE NEGATIVE [facility] LancasterUrine urobilinogen measurement by test strip (mass/volume)2019-07-12 19:45:00* Test Item Value Reference Range Interpretation Comments Urine Urobilinogen (test code = 42532-5) 0.2 0.2-1 [facility] LancasterUrine total bilirubin measurement (mass/volume)2019-07-12 19:45:00* Test Item Value Reference Range Interpretation Comments Urine Bilirubin (test code = 1978-6) NEGATIVE NEGATIVE [facility] LancasterUrine erythrocytes fioxlcdbe5519-79-17 19:45:00* Test Item Value Reference Range Interpretation Comments Urine Blood (test code = 35532-6) NEGATIVE NEGATIVE [facility] LancasterAutomated urine sediment leukocyte count by microscopy (number/high power field)2019-07-12 19:45:00* Test Item Value Reference Range Interpretation Comments Urine WBC (test code = 5821-4) NONE 0-5 [facility] LancasterErythrocytes detection in urine sediment by light mqpnrzvyht9884-06-77 19:45:00* Test Item Value Reference Range Interpretation Comments Urine RBC (test code = 95261-5) NONE 0-5 [facility] LancasterBacteria detection in urine sediment by light oalikjqsma1722-31-67 19:45:00* Test Item Value Reference Range Interpretation Comments Urine Bacteria (test code = 71485-2) NONE NONE [facility] LancasterEpithelial cells detection in urine sediment by light qbjrfxqgpw5670-32-28 19:45:00* Test Item Value Reference Range Interpretation Comments Urine Epithelial Cells (test code = 29436-7) FEW NONE [facility] LancasterCoarse granular casts detection in urine sediment by light vdqfijeysa7171-83-58 19:45:00* Test Item Value Reference Range Interpretation Comments Urine Coarse Granular Casts (test code = 25220-3) 1-5 >0 [facility] LancasterB-Type Natriuretic Gsrqrop4500-35-38 17:40:00* Test Item Value Reference Range Interpretation Comments B-Type Natriuretic Peptide (test code = 55765-8) 1110.7 0-100 H [facility] LancasterTotal Dduxcenhq6902-28-25 17:33:00* Test Item Value Reference Range Interpretation Comments Total Bilirubin (test code = 1975-2) 0.3 0.2-1.2 [facility] LancasterAspartate Amino Transf (AST/SGOT) 2019-07-12 17:33:00* Test Item Value Reference Range Interpretation Comments Aspartate Amino Transf (AST/SGOT) (test code = Aspartate Amino Transf (AST/SGOT)) 10 5-34 [facility] LancasterAlanine Aminotransferase (ALT/SGPT) 2019-07-12 17:33:00* Test Item Value Reference Range Interpretation Comments Alanine Aminotransferase (ALT/SGPT) (test code = 1742-6) 13 0-55 [facility] LancasterTotal Sqmkyrn6166-67-42 17:33:00* Test Item Value Reference Range Interpretation Comments Total Protein (test code = 2885-2) 5.7 6.5-8.1 L [facility] LancasterAlbumin2020-04-06 17:33:00* Test Item Value Reference Range Interpretation Comments Albumin (test code = 1751-7) 3.2 3.5-5.0 L [facility] LancasterGlobulin2020-04-06 17:33:00* Test Item Value Reference Range Interpretation Comments Globulin (test code = 84323-3) 2.5 2.3-3.5 [facility] LancasterAlbumin/Globulin Mmhzz0179-19-80 17:33:00 * Test Item Value Reference Range Interpretation Comments Albumin/Globulin Ratio (test code = 1759-0) 1.3 0.8-2.0 [facility] LancasterAlkaline Fhckfznuywk2669-75-70 17:33:00* Test Item Value Reference Range Interpretation Comments Alkaline Phosphatase (test code = 6768-6) 68 40-150 [facility]- NM LUNG V/Q VENT/WRKN9363-60-27 12:26:00 FAX: Kary Harris MD [phone] [place]: St: REG Name: EL MALAVE [facility] : [birth year] Age/S: 78/F [address] [facility] Unit #: [id number] Loc: [place] [address] Phys: Kary Yang MD Acct: [id number] Dis Date: Status: REG CLI PHONE #: [phone] Exam Date: 05/17/2019 1110 FAX #: [phone] Reason: R06.02 EXAMS: CPT CODE: [id number] NM LUNG V/Q VENT/PERF 32200 HISTORY: Shortness of breath. COMPARISON: Chest x-ray from same day. Location: [facility]. VQ scan: 9.3 mCi of xenon-133 gas and 4.3 mCi of technetium 99m MAA. Ventilation examination: Good wash in and good washout. No retent ion. Perfusion exam: No segmental or subsegmental defects. IMPRESSION: FINDINGS suggest low probability for pulm onary embolism. Electronically Signed by Luiz Lewis on 2019 at 1226 Reported and signed by: Bennett Lewis M.D. CC: Kary Yang MD Technologist: Glenda Daniels RT(N) Trnscrd Date/Time/By: 05/17/2019 (5464) : By: [email or web address] Orig Print D/T: S: (7559) PAGE 1 Signed Rep ort - XR CHEST 2 [id number] 10:53:00 FAX: Kary Harris MD [phone] [place]: O St: REG Name: EL MALAVE [facility] : [birth year] Age/S: 78/F [address] [facility] Unit #: [id number] [place]: [place] [address] Phys: Kary Yang MD Acct: [id number] Dis Date: Status: REG CLI PHONE #: [phone] Exam Date: 05/17/2019 1002 FAX #: [phone] Reason: R06.02 EXAMS: CPT CODE: [id number] XR CHEST 2 V 46760 HISTORY: R06.02. COM PARISON: September 16, 2018. Location: [facility]. AP and latera l view of the chest: No acute infiltrates, effusion or congestion. Cardiac silhouette is mildly enlarged. IMPRESSION: No acute infiltrates, effusion or congestion. Electronic ally Signed by Luiz Lewis on 05/17/2019 at 1053 R eported and signed by: Bennett Lewis M.D. CC: Richa Yang MD Technologist: RT Nikki (R) Trnscrd Date/Time/By: 05/17/2019 (8934) : By : [email or web address] Orig Print D/T: S: 05/17/2019 (2982) PAGE 1 Signed Report BASIC METABOLIC [id number] 11:03:00* Test Item Value Reference Range Interpretation Comments SODIUM (test code = NA) 144 mmol/L 136-145 N POTASSIUM (test code = K) 4.0 mmol/L 3.5-5.1 N CHLORIDE (test code = CL) 116.0 mmol/L 98-107 H CARBON DIOXIDE (test code = CO2) 22.0 mmol/L 21-32 N ANION GAP (test code = GAP) 10.0 10-20 N GLUCOSE (test code = GLU) 167 mg/dL 74-106 H BLOOD UREA NITROGEN (test code = BUN) 33 mg/dL 7-18 H GLOMERULAR FILTRATION RATE (test code = GFR) 33 mL/min >=60 Estimated GFR by using Modified MDRD formula.Chronic kidney disease is defined as either kidney damageor GFR <60 mL/min/1.73 m2 for >3 months. CREATININE (test code = CREAT) 1.50 mg/dL 0.55-1.02 H Note change in reference range due to change in reagent. BUN/CREATININE RATIO (test code = BUN/CREA) 21.7 10-20 H CALCIUM (test code = CA) 8.0 mg/dL 8.5-10.1 L BASIC METABOLIC [id number] 11:01:00* Test Item Value Reference Range Interpretation Comments SODIUM (test code = NA) 144 mmol/L 136-145 N POTASSIUM (test code = K) 4.0 mmol/L 3.5-5.1 N CHLORIDE (test code = CL) 116.0 mmol/L 98-107 H CARBON DIOXIDE (test code = CO2) mmol/L 21-32 ANION GAP (test code = GAP) 10-20 GLUCOSE (test code = GLU) mg/dL 74-106 BLOOD UREA NITROGEN (test code = BUN) mg/dL 7-18 GLOMERULAR FILTRATION RATE (test code = GFR) mL/min >=60 CREATININE (test code = CREAT) mg/dL 0.55-1.02 BUN/CREATININE RATIO (test code = BUN/CREA) 10-20 CALCIUM (test code = CA) mg/dL 8.5-10.1 CBC W/AUTO [id number] 10:20:00* Test Item Value Reference Range Interpretation Comments WHITE BLOOD CELL (test code = WBC) 8.3 K/mm3 4.5-12.5 N RED BLOOD CELL (test code = RBC) 2.63 mill/mm3 3.7-5.2 L HEMOGLOBIN (test code = HGB) 7.7 gram/dL 11.5-15.5 L HEMATOCRIT (test code = HCT) 25.0 % 36.0-46.0 L MEAN CELL VOLUME (test code = MCV) 95.1 fL 80-98 N MEAN CELL HGB (test code = MCH) 29.3 picogram 27.0-33.0 N MEAN CELL HGB CONCETRATION (test code = MCHC) 30.8 gram/dL 33.0-36. 0 L RED CELL DISTRIBUTION WIDTH (test code = RDW) 17.0 % 11.6-16. 2 H RED CELL DISTRIBUTION WIDTH SD (test code = RDW-SD) 58.8 fL 37 .0-51.0 H PLATELET COUNT (test code = PLT) 222 K/mm3 150-450 N MEAN PLATELET VOLUME (test code = MPV) 10.0 fL 6.7-11.0 N NEUTROPHIL % (test code = NT%) 77.8 % 39.0-69.0 H IMMATURE GRANULOCYTE % (test code = IG%) 0.5 % 0.0-5.0 N LYMPHOCYTE % (test code = LY%) 10.8 % 25.0-55.0 L MONOCYTE % (test code = MO%) 8.8 % 0.0-10.0 N EOSINOPHIL % (test code = EO%) 1.9 % 0.0-5.0 N BASOPHIL % (test code = BA%) 0.2 % 0.0-1.0 N NUCLEATED RBC % (test code = NRBC%) 0.0 % 0-0 N NEUTROPHIL # (test code = NT#) 6.46 K/mm3 1.8-7.7 N IMMATURE GRANULOCYTE # (test code = IG#) 0.04 x10 3/uL 0-0.03 H LYMPHOCYTE # (test code = LY#) 0.90 K/mm3 1.0-5.0 L MONOCYTE # (test code = MO#) 0.73 K/mm3 0-0.8 N EOSINOPHIL # (test code = EO#) 0.16 K/mm3 0.0-0.5 N BASOPHIL # (test code = BA#) 0.02 K/mm3 0.0-0.2 N NUCLEATED RBC # (test code = NRBC#) 0.00 K/mm3 0.0-0.1 N MANUAL DIFF REQUIRED (test code = MDIFF) NO [id number] 03:08:00* Test Item Value Reference Range Interpretation Comments TROPONIN-I (test code = TROPI) 0.069 ng/mL 0-0.045 HH COMMENTS TO LOGISTICS SOLUTION MANAGER: COLLECT 3 HOURS AFTER PREVIOUS [id number]-[id number] 00:49:00* Test Item Value Reference Range Interpretation Comments TROPONIN-I (test code = TROPI) 0.067 ng/mL 0-0.045 HH COMMENTS TO LOGISTICS SOLUTION MANAGER: COLLECT 3 HOURS AFTER PREVIOUS [id number]-[id number] 16:53:00* Test Item Value Reference Range Interpretation Comments TROPONIN-I (test code = TROPI) 0.071 ng/mL 0-0.045 HH Results called to by [facility] 03/15/19 1653Critical results verified and read back by Nurse? Y BASIC METABOLIC [id number] 14:13:00* Test Item Value Reference Range Interpretation Comments SODIUM (test code = NA) 142 mmol/L 136-145 N POTASSIUM (test code = K) 4.2 mmol/L 3.5-5.1 N CHLORIDE (test code = CL) 113.0 mmol/L 98-107 H CARBON DIOXIDE (test code = CO2) 21.0 mmol/L 21-32 N ANION GAP (test code = GAP) 12.2 10-20 N GLUCOSE (test code = GLU) 169 mg/dL 74-106 H BLOOD UREA NITROGEN (test code = BUN) 37 mg/dL 7-18 H GLOMERULAR FILTRATION RATE (test code = GFR) 31 mL/min >=60 Estimated GFR by using Modified MDRD formula.Chronic kidney disease is defined as either kidney damageor GFR <60 mL/min/1.73 m2 for >3 months. CREATININE (test code = CREAT) 1.60 mg/dL 0.55-1.02 H Note change in reference range due to change in reagent. BUN/CREATININE RATIO (test code = BUN/CREA) 23.0 10-20 H CALCIUM (test code = CA) 8.0 mg/dL 8.5-10.1 L BASIC METABOLIC [id number] 14:09:00* Test Item Value Reference Range Interpretation Comments SODIUM (test code = NA) 142 mmol/L 136-145 N POTASSIUM (test code = K) 4.2 mmol/L 3.5-5.1 N CHLORIDE (test code = CL) 113.0 mmol/L 98-107 H CARBON DIOXIDE (test code = CO2) mmol/L 21-32 ANION GAP (test code = GAP) 10-20 GLUCOSE (test code = GLU) mg/dL 74-106 BLOOD UREA NITROGEN (test code = BUN) mg/dL 7-18 GLOMERULAR FILTRATION RATE (test code = GFR) mL/min >=60 CREATININE (test code = CREAT) mg/dL 0.55-1.02 BUN/CREATININE RATIO (test code = BUN/CREA) 10-20 CALCIUM (test code = CA) mg/dL 8.5-10.1 - XR CHEST 2 [id number] 13:59:00 FAX: Bc Valverde NP [phone] [place]: St: REG Name: EL MALAVE [facility] : [birth year] Age/S: 78/F [address] Unit #: [id number] Loc: [place] [address] Phys: Bc Valverde NP Acct: [id number] Dis Date: Status: REG ER PHONE #: [phone] Exam Date: 03/15/2019 1328 FAX #: [phone] Reason: SEND BY PCP TO R/O PNEUMONIA EXAMS: CPT CODE: [id number] XR CHEST 2 V [id number] REASON FOR EXAM: SEND BY P CP TO R/O PNEUMONIA Exam Order Date: 03/15/2019 12:55 PM Ordering Luiz: Bc Valverde NP PROCEDURE: - XR CHEST 2 V COMPARISON: None FINDINGS: The lungs are [place] ar. There is no pleural effusion or pneumothorax. Pulmonary vascularity i s within normal limits. Cardiomediastinal silhouette is enlarged. Atherosclerotic plaques are scattered throughout the thoracic aorta. Degenerative changes are present in the spine and bilateral acrom ioclavicular joints. The visualized upper abdomen is within normal limits. IMPRESSION: Cardiac megaly. The lungs are clear. Location: [facility] Electronically Sig carson by Baron Calderón MD on 03/15/2019 at 8003 Reported and signed by: Baron Calderón MD CC: Bc Valverde NP Technologist: Herlinda Gordon RT(R); MONROE HUFF RT(R) Trnscrd Date/Time/By: 03/15/2019 (9383) : By: [email or web address] [facility] nt D/T: S: 03/15/2019 (0334) PAGE 1 Signed Report CBC W/AUTO [id number] 13:32:00* Test Item Value Reference Range Interpretation Comments WHITE BLOOD CELL (test code = WBC) 8.5 K/mm3 4.5-12.5 N RED BLOOD CELL (test code = RBC) 2.72 mill/mm3 3.7-5.2 L HEMOGLOBIN (test code = HGB) 8.1 gram/dL 11.5-15.5 L HEMATOCRIT (test code = HCT) 25.4 % 36.0-46.0 L MEAN CELL VOLUME (test code = MCV) 93.4 fL 80-98 N MEAN CELL HGB (test code = MCH) 29.8 picogram 27.0-33.0 N MEAN CELL HGB CONCETRATION (test code = MCHC) 31.9 gram/dL 33.0-36. 0 L RED CELL DISTRIBUTION WIDTH (test code = RDW) 17.2 % 11.6-16. 2 H RED CELL DISTRIBUTION WIDTH SD (test code = RDW-SD) 57.5 fL 37 .0-51.0 H PLATELET COUNT (test code = PLT) 230 K/mm3 150-450 N MEAN PLATELET VOLUME (test code = MPV) 10.6 fL 6.7-11.0 N NEUTROPHIL % (test code = NT%) 77.4 % 39.0-69.0 H IMMATURE GRANULOCYTE % (test code = IG%) 0.4 % 0.0-5.0 N LYMPHOCYTE % (test code = LY%) 12.3 % 25.0-55.0 L MONOCYTE % (test code = MO%) 8.3 % 0.0-10.0 N EOSINOPHIL % (test code = EO%) 1.4 % 0.0-5.0 N BASOPHIL % (test code = BA%) 0.2 % 0.0-1.0 N NUCLEATED RBC % (test code = NRBC%) 0.0 % 0-0 N NEUTROPHIL # (test code = NT#) 6.57 K/mm3 1.8-7.7 N IMMATURE GRANULOCYTE # (test code = IG#) 0.03 x10 3/uL 0-0.03 N LYMPHOCYTE # (test code = LY#) 1.04 K/mm3 1.0-5.0 N MONOCYTE # (test code = MO#) 0.70 K/mm3 0-0.8 N EOSINOPHIL # (test code = EO#) 0.12 K/mm3 0.0-0.5 N BASOPHIL # (test code = BA#) 0.02 K/mm3 0.0-0.2 N NUCLEATED RBC # (test code = NRBC#) 0.00 K/mm3 0.0-0.1 N UR MICROALBUMIN/CREAT [id number] 16:09:00* Test Item Value Reference Range Interpretation Comments UR CREATININE RANDOM-NON REPRT (test code = CREATUT) 45.6 mg/dL N ot Estab. UR MICROALBUMIN QUANT (test code = MICALB) 963.4 ug/mL Not Estab. Results confirmed ondilution. UR MICROALB/CREAT RATIO (test code = MICALB:CRE) 2112.7 0.0-3 0.0 H INFCE Result Units: mg/g creat Normal: 0.0 - 30.0 Albuminuria: 31.0 - 300.0 Clinical albuminuria: >300.0Performed At: [facility] [address] [id number] Kyle L MD Ph:[phone] [id number] 12:14:00* Test Item Value Reference Range Interpretation Comments GLUBED (test code = GLUBED) 191 mg/dL 74-106 H Performed by certified pneumatic system conveyor operator at [facility] [id number] 10:23:00* Test Item Value Reference Range Interpretation Comments GLUBED (test code = GLUBED) 170 mg/dL 74-106 H Performed by certified pneumatic system conveyor operator at [facility] [id number] 08:34:00* Test Item Value Reference Range Interpretation Comments GLUBED (test code = GLUBED) 49 mg/dL 74-106 LL Per[facility] by certified pneumatic system [facility] COMPREHENSIVE METABOLIC [id number] 05:49:00* Test Item Value Reference Range Interpretation Comments SODIUM (test code = NA) 143 mmol/L 136-145 N POTASSIUM (test code = K) 4.6 mmol/L 3.5-5.1 N CHLORIDE (test code = CL) 112.0 mmol/L 98-107 H CARBON DIOXIDE (test code = CO2) 25.0 mmol/L 21-32 N ANION GAP (test code = GAP) 10.6 10-20 N GLUCOSE (test code = GLU) 53 mg/dL 74-106 L BLOOD UREA NITROGEN (test code = BUN) 70 mg/dL 7-18 H GLOMERULAR FILTRATION RATE (test code = GFR) 36 mL/min >=60 Estimated GFR by using Modified MDRD formula.Chronic kidney disease is defined as either kidney damageor GFR <60 mL/min/1.73 m2 for >3 months. CREATININE (test code = CREAT) 1.40 mg/dL 0.55-1.02 H Note change in reference range due to change in reagent. BUN/CREATININE RATIO (test code = BUN/CREA) 50.0 10-20 H TOTAL PROTEIN (test code = PROT) 5.5 gram/dL 6.4-8.2 L ALBUMIN (test code = ALB) 2.6 g/dL 3.4-5.0 L GLOBULIN (test code = GLOB) 2.9 gram/dL 2.7-4.2 N ALBUMIN/GLOBULIN RATIO (test code = A/G) 0.9 0.75-1.50 N CALCIUM (test code = CA) 8.3 mg/dL 8.5-10.1 L BILIRUBIN TOTAL (test code = BILT) 0.10 mg/dL 0.0-1.0 N SGOT/AST (test code = AST) 40 IUnit/L 15-37 H SGPT/ALT (test code = ALT) 58 IUnit/L 12-78 N ALKALINE PHOSPHATASE TOTAL (test code = ALKP) 63 IUnit/L 45-117 N Note change in reference range due to change in reagent. COMPREHENSIVE METABOLIC [id number] 05:36:00* Test Item Value Reference Range Interpretation Comments SODIUM (test code = NA) 143 mmol/L 136-145 N POTASSIUM (test code = K) 4.6 mmol/L 3.5-5.1 N CHLORIDE (test code = CL) 112.0 mmol/L 98-107 H CARBON DIOXIDE (test code = CO2) mmol/L 21-32 ANION GAP (test code = GAP) 10-20 GLUCOSE (test code = GLU) mg/dL 74-106 BLOOD UREA NITROGEN (test code = BUN) mg/dL 7-18 GLOMERULAR FILTRATION RATE (test code = GFR) mL/min >=60 CREATININE (test code = CREAT) mg/dL 0.55-1.02 BUN/CREATININE RATIO (test code = BUN/CREA) 10-20 TOTAL PROTEIN (test code = PROT) gram/dL 6.4-8.2 ALBUMIN (test code = ALB) g/dL 3.4-5.0 GLOBULIN (test code = GLOB) gram/dL 2.7-4.2 ALBUMIN/GLOBULIN RATIO (test code = A/G) 0.75-1.50 CALCIUM (test code = CA) mg/dL 8.5-10.1 BILIRUBIN TOTAL (test code = BILT) mg/dL 0.0-1.0 SGOT/AST (test code = AST) IUnit/L 15-37 SGPT/ALT (test code = ALT) IUnit/L 12-78 ALKALINE PHOSPHATASE TOTAL (test code = ALKP) IUnit/L 45-117 CBC W/AUTO [id number] 05:11:00* Test Item Value Reference Range Interpretation Comments WHITE BLOOD CELL (test code = WBC) 7.1 K/mm3 4.5-12.5 N RED BLOOD CELL (test code = RBC) 2.53 mill/mm3 3.7-5.2 L HEMOGLOBIN (test code = HGB) 7.4 gram/dL 11.5-15.5 L HEMATOCRIT (test code = HCT) 22.7 % 36.0-46.0 L MEAN CELL VOLUME (test code = MCV) 89.7 fL 80-98 N MEAN CELL HGB (test code = MCH) 29.2 picogram 27.0-33.0 N MEAN CELL HGB CONCETRATION (test code = MCHC) 32.6 gram/dL 33.0-36. 0 L RED CELL DISTRIBUTION WIDTH (test code = RDW) 15.8 % 11.6-16. 2 N RED CELL DISTRIBUTION WIDTH SD (test code = RDW-SD) 51.4 fL 37 .0-51.0 H PLATELET COUNT (test code = PLT) 239 K/mm3 150-450 N MEAN PLATELET VOLUME (test code = MPV) 11.0 fL 6.7-11.0 N NEUTROPHIL % (test code = NT%) 67.7 % 39.0-69.0 N IMMATURE GRANULOCYTE % (test code = IG%) 1.1 % 0.0-5.0 N LYMPHOCYTE % (test code = LY%) 19.3 % 25.0-55.0 L MONOCYTE % (test code = MO%) 8.9 % 0.0-10.0 N EOSINOPHIL % (test code = EO%) 3.0 % 0.0-5.0 N BASOPHIL % (test code = BA%) 0.0 % 0.0-1.0 N NUCLEATED RBC % (test code = NRBC%) 0.0 % 0-0 N NEUTROPHIL # (test code = NT#) 4.82 K/mm3 1.8-7.7 N IMMATURE GRANULOCYTE # (test code = IG#) 0.08 x10 3/uL 0-0.03 H LYMPHOCYTE # (test code = LY#) 1.37 K/mm3 1.0-5.0 N MONOCYTE # (test code = MO#) 0.63 K/mm3 0-0.8 N EOSINOPHIL # (test code = EO#) 0.21 K/mm3 0.0-0.5 N BASOPHIL # (test code = BA#) 0.00 K/mm3 0.0-0.2 N NUCLEATED RBC # (test code = NRBC#) 0.00 K/mm3 0.0-0.1 N MANUAL DIFF REQUIRED (test code = MDIFF) NO UR SMEAR EOSINOPHIL [id number] 23:10:00* Test Item Value Reference Range Interpretation Comments UR SMEAR EOSINOPHIL COUNT (test code = EOSCTU) NONE SEEN per HPF NO NE SEEN UR NA,[id number] 23:10:00* Test Item Value Reference Range Interpretation Comments UR NA,RANDOM (test code = TERRI) 49 mmol/L 20-110 N UR CHLORIDE [id number] 23:10:00* Test Item Value Reference Range Interpretation Comments UR CHLORIDE RANDOM (test code = CLU) 42 mEq/L UR PROTEIN/CREATININE [id number] 23:10:00* Test Item Value Reference Range Interpretation Comments UR PROTEIN RANDOM (test code = PROTU) 143.4 mg/dL 0.0-11.9 H Protein levels may be falsely elevated in patients withelevated level of aminoglycoside antibiotics in CSF and inhighly concentrated urine specimens. If false elevation issuspected, contact lab for alternated testing technique. UR CREATININE RANDOM (test code = CREATU) 51.0 mg/dL 30-125 N PROTEIN/CREATININE RATIO (test code = P/CRATIO) 2.81 RATIO 0.0-0. 20 H UR SMEAR EOSINOPHIL [id number] 21:36:00* Test Item Value Reference Range Interpretation Comments UR SMEAR EOSINOPHIL COUNT (test code = EOSCTU) per HPF NONE SE EN UR NA,[id number] 21:36:00* Test Item Value Reference Range Interpretation Comments UR NA,RANDOM (test code = TERRI) 49 mmol/L 20-110 N UR CHLORIDE [id number] 21:36:00* Test Item Value Reference Range Interpretation Comments UR CHLORIDE RANDOM (test code = CLU) 42 mEq/L UR PROTEIN/CREATININE [id number] 21:36:00* Test Item Value Reference Range Interpretation Comments UR PROTEIN RANDOM (test code = PROTU) 143.4 mg/dL 0.0-11.9 H Protein levels may be falsely elevated in patients withelevated level of aminoglycoside antibiotics in CSF and inhighly concentrated urine specimens. If false elevation issuspected, contact lab for alternated testing technique. UR CREATININE RANDOM (test code = CREATU) 51.0 mg/dL 30-125 N PROTEIN/CREATININE RATIO (test code = P/CRATIO) 2.81 RATIO 0.0-0. 20 H UR SMEAR EOSINOPHIL [id number] 21:21:00* Test Item Value Reference Range Interpretation Comments UR SMEAR EOSINOPHIL COUNT (test code = EOSCTU) per HPF NONE SE EN UR NA,[id number] 21:21:00* Test Item Value Reference Range Interpretation Comments UR NA,RANDOM (test code = TERRI) 49 mmol/L 20-110 N UR CHLORIDE [id number] 21:21:00* Test Item Value Reference Range Interpretation Comments UR CHLORIDE RANDOM (test code = CLU) 42 mEq/L UR PROTEIN/CREATININE [id number] 21:21:00* Test Item Value Reference Range Interpretation Comments UR PROTEIN RANDOM (test code = PROTU) mg/dL 0.0-11.9 UR CREATININE RANDOM (test code = CREATU) mg/dL 30-125 PROTEIN/CREATININE RATIO (test code = P/CRATIO) RATIO 0.0-0. 20 [id number] 20:18:00* Test Item Value Reference Range Interpretation Comments GLUBED (test code = GLUBED) 220 mg/dL 74-106 H Performed by certified pneumatic system conveyor operator at [facility] [id number] 16:14:00* Test Item Value Reference Range Interpretation Comments GLUBED (test code = GLUBED) 279 mg/dL 74-106 H Performed by certified pneumatic system conveyor operator at [facility] COMPREHENSIVE METABOLIC [id number] 14:11:00* Test Item Value Reference Range Interpretation Comments SODIUM (test code = NA) 139 mmol/L 136-145 N POTASSIUM (test code = K) 4.8 mmol/L 3.5-5.1 N CHLORIDE (test code = CL) 108.0 mmol/L 98-107 H CARBON DIOXIDE (test code = CO2) 21.0 mmol/L 21-32 N ANION GAP (test code = GAP) 14.8 10-20 N GLUCOSE (test code = GLU) 206 mg/dL 74-106 H BLOOD UREA NITROGEN (test code = BUN) 78 mg/dL 7-18 H GLOMERULAR FILTRATION RATE (test code = GFR) 27 mL/min >=60 Estimated GFR by using Modified MDRD formula.Chronic kidney disease is defined as either kidney damageor GFR <60 mL/min/1.73 m2 for >3 months. CREATININE (test code = CREAT) 1.80 mg/dL 0.55-1.02 H Note change in reference range due to change in reagent. BUN/CREATININE RATIO (test code = BUN/CREA) 43.3 10-20 H TOTAL PROTEIN (test code = PROT) 5.6 gram/dL 6.4-8.2 L ALBUMIN (test code = ALB) 2.9 g/dL 3.4-5.0 L GLOBULIN (test code = GLOB) 2.7 gram/dL 2.7-4.2 N ALBUMIN/GLOBULIN RATIO (test code = A/G) 1.1 0.75-1.50 N CALCIUM (test code = CA) 8.5 mg/dL 8.5-10.1 N BILIRUBIN TOTAL (test code = BILT) 0.20 mg/dL 0.0-1.0 N SGOT/AST (test code = AST) 34 IUnit/L 15-37 N SGPT/ALT (test code = ALT) 53 IUnit/L 12-78 N ALKALINE PHOSPHATASE TOTAL (test code = ALKP) 67 IUnit/L 45-117 N Note change in reference range due to change in reagent. COMPREHENSIVE METABOLIC [id number] 14:01:00* Test Item Value Reference Range Interpretation Comments SODIUM (test code = NA) 139 mmol/L 136-145 N POTASSIUM (test code = K) 4.8 mmol/L 3.5-5.1 N CHLORIDE (test code = CL) 108.0 mmol/L 98-107 H CARBON DIOXIDE (test code = CO2) mmol/L 21-32 ANION GAP (test code = GAP) 10-20 GLUCOSE (test code = GLU) mg/dL 74-106 BLOOD UREA NITROGEN (test code = BUN) mg/dL 7-18 GLOMERULAR FILTRATION RATE (test code = GFR) mL/min >=60 CREATININE (test code = CREAT) mg/dL 0.55-1.02 BUN/CREATININE RATIO (test code = BUN/CREA) 10-20 TOTAL PROTEIN (test code = PROT) gram/dL 6.4-8.2 ALBUMIN (test code = ALB) g/dL 3.4-5.0 GLOBULIN (test code = GLOB) gram/dL 2.7-4.2 ALBUMIN/GLOBULIN RATIO (test code = A/G) 0.75-1.50 CALCIUM (test code = CA) mg/dL 8.5-10.1 BILIRUBIN TOTAL (test code = BILT) mg/dL 0.0-1.0 SGOT/AST (test code = AST) IUnit/L 15-37 SGPT/ALT (test code = ALT) IUnit/L 12-78 ALKALINE PHOSPHATASE TOTAL (test code = ALKP) IUnit/L 45-117 CBC W/AUTO [id number] 13:24:00* Test Item Value Reference Range Interpretation Comments WHITE BLOOD CELL (test code = WBC) 11.5 K/mm3 4.5-12.5 N RED BLOOD CELL (test code = RBC) 2.90 mill/mm3 3.7-5.2 L HEMOGLOBIN (test code = HGB) 8.4 gram/dL 11.5-15.5 L HEMATOCRIT (test code = HCT) 26.1 % 36.0-46.0 L MEAN CELL VOLUME (test code = MCV) 90.0 fL 80-98 N MEAN CELL HGB (test code = MCH) 29.0 picogram 27.0-33.0 N MEAN CELL HGB CONCETRATION (test code = MCHC) 32.2 gram/dL 33.0-36. 0 L RED CELL DISTRIBUTION WIDTH (test code = RDW) 15.8 % 11.6-16. 2 N RED CELL DISTRIBUTION WIDTH SD (test code = RDW-SD) 51.5 fL 37 .0-51.0 H PLATELET COUNT (test code = PLT) 262 K/mm3 150-450 N MEAN PLATELET VOLUME (test code = MPV) 10.8 fL 6.7-11.0 N NEUTROPHIL % (test code = NT%) 87.3 % 39.0-69.0 H IMMATURE GRANULOCYTE % (test code = IG%) 0.9 % 0.0-5.0 N LYMPHOCYTE % (test code = LY%) 6.9 % 25.0-55.0 L MONOCYTE % (test code = MO%) 3.6 % 0.0-10.0 N EOSINOPHIL % (test code = EO%) 1.2 % 0.0-5.0 N BASOPHIL % (test code = BA%) 0.1 % 0.0-1.0 N NUCLEATED RBC % (test code = NRBC%) 0.0 % 0-0 N NEUTROPHIL # (test code = NT#) 10.06 K/mm3 1.8-7.7 H IMMATURE GRANULOCYTE # (test code = IG#) 0.10 x10 3/uL 0-0.03 H LYMPHOCYTE # (test code = LY#) 0.79 K/mm3 1.0-5.0 L MONOCYTE # (test code = MO#) 0.42 K/mm3 0-0.8 N EOSINOPHIL # (test code = EO#) 0.14 K/mm3 0.0-0.5 N BASOPHIL # (test code = BA#) 0.01 K/mm3 0.0-0.2 N NUCLEATED RBC # (test code = NRBC#) 0.00 K/mm3 0.0-0.1 N MANUAL DIFF REQUIRED (test code = MDIFF) NO [id number] 11:53:00* Test Item Value Reference Range Interpretation Comments GLUBED (test code = GLUBED) 197 mg/dL 74-106 H Performed by certified pneumatic system conveyor operator at [facility] [id number] 08:17:00* Test Item Value Reference Range Interpretation Comments GLUBED (test code = GLUBED) 76 mg/dL 74-106 N Performed by certified pneumatic system conveyor operator at [facility] [id number] 21:27:00* Test Item Value Reference Range Interpretation Comments GLUBED (test code = GLUBED) 218 mg/dL 74-106 H Performed by certified pneumatic system conveyor operator at [facility] [id number] 16:46:00* Test Item Value Reference Range Interpretation Comments GLUBED (test code = GLUBED) 182 mg/dL 74-106 H Performed by certified pneumatic system [facility] - US RETRO [id number] 12:32:00 Name: EL MEDINA [facility] : 1940 Age/S: 78 / F [address] Unit #: [id number] Loc: [place] [address] Phys: Tal Guidry MD Acct: [id number] Dis Date: Status: ADM IN PHONE #: [phone] Exam Date: 09/27/2018 1150 FAX #: [phone] Reason: NILES EXAMS: CPT CODE: [id number] US RETRO LTD [id number] REASON FOR EXAM: NILES EXAM ORDER DATE: 09/27/2018 10:37 AM Attending Luiz: Tal Guidry MD PROCEDURE: - US RETRO [...] Patrick; Tal Guidry MD Technologist: FRANKIE LORENZO RT(R),RDCO Trnscb Date/Time: 09/27/2018 (1232) [email or web address] Orig Print D/T: S: 09/27/2018 (7481) Probe: PAGE 1 Signed Report [id number] 12:10:00* Test Item Value Reference Range Interpretation Comments GLUBED (test code = GLUBED) 225 mg/dL 74-106 H [facility] certified pneumatic system [facility] [id number] 12:10:00* Test Item Value Reference Range Interpretation Comments GLUBED (test code = GLUBED) 112 mg/dL 74-106 H Performed by certified pneumatic system conveyor [facility] COMPREHENSIVE METABOLIC [id number] 07:10:00* Test Item Value Reference Range Interpretation Comments SODIUM (test code = NA) 138 mmol/L 136-145 N POTASSIUM (test code = K) 4.6 mmol/L 3.5-5.1 N CHLORIDE (test code = CL) 108.0 mmol/L 98-107 H CARBON DIOXIDE (test code = CO2) 22.0 mmol/L 21-32 N ANION GAP (test code = GAP) 12.6 10-20 N GLUCOSE (test code = GLU) 130 mg/dL 74-106 H BLOOD UREA NITROGEN (test code = BUN) 111 mg/dL 7-18 H GLOMERULAR FILTRATION RATE (test code = GFR) 22 mL/min >=60 Estimated GFR by using Modified MDRD formula.Chronic kidney disease is defined as either kidney damageor GFR <60 mL/min/1.73 m2 for >3 months. CREATININE (test code = CREAT) 2.20 mg/dL 0.55-1.02 H Note change in reference range due to change in reagent. BUN/CREATININE RATIO (test code = BUN/CREA) 50.5 10-20 H TOTAL PROTEIN (test code = PROT) 5.6 gram/dL 6.4-8.2 L ALBUMIN (test code = ALB) 2.7 g/dL 3.4-5.0 L GLOBULIN (test code = GLOB) 2.9 gram/dL 2.7-4.2 N ALBUMIN/GLOBULIN RATIO (test code = A/G) 0.9 0.75-1.50 N CALCIUM (test code = CA) 8.1 mg/dL 8.5-10.1 L BILIRUBIN TOTAL (test code = BILT) 0.30 mg/dL 0.0-1.0 N SGOT/AST (test code = AST) 25 IUnit/L 15-37 N SGPT/ALT (test code = ALT) 37 IUnit/L 12-78 N ALKALINE PHOSPHATASE TOTAL (test code = ALKP) 63 IUnit/L 45-117 N Note change in reference range due to change in reagent. COMPREHENSIVE METABOLIC [id number] 06:52:00* Test Item Value Reference Range Interpretation Comments SODIUM (test code = NA) 138 mmol/L 136-145 N POTASSIUM (test code = K) 4.6 mmol/L 3.5-5.1 N CHLORIDE (test code = CL) 108.0 mmol/L 98-107 H CARBON DIOXIDE (test code = CO2) mmol/L 21-32 ANION GAP (test code = GAP) 10-20 GLUCOSE (test code = GLU) mg/dL 74-106 BLOOD UREA NITROGEN (test code = BUN) mg/dL 7-18 GLOMERULAR FILTRATION RATE (test code = GFR) mL/min >=60 CREATININE (test code = CREAT) mg/dL 0.55-1.02 BUN/CREATININE RATIO (test code = BUN/CREA) 10-20 TOTAL PROTEIN (test code = PROT) gram/dL 6.4-8.2 ALBUMIN (test code = ALB) g/dL 3.4-5.0 GLOBULIN (test code = GLOB) gram/dL 2.7-4.2 ALBUMIN/GLOBULIN RATIO (test code = A/G) 0.75-1.50 CALCIUM (test code = CA) mg/dL 8.5-10.1 BILIRUBIN TOTAL (test code = BILT) mg/dL 0.0-1.0 SGOT/AST (test code = AST) IUnit/L 15-37 SGPT/ALT (test code = ALT) IUnit/L 12-78 ALKALINE PHOSPHATASE TOTAL (test code = ALKP) IUnit/L 45-117 CBC W/AUTO [id number] 06:39:00* Test Item Value Reference Range Interpretation Comments WHITE BLOOD CELL (test code = WBC) 8.1 K/mm3 4.5-12.5 N RED BLOOD CELL (test code = RBC) 2.75 mill/mm3 3.7-5.2 L HEMOGLOBIN (test code = HGB) 8.1 gram/dL 11.5-15.5 L HEMATOCRIT (test code = HCT) 24.5 % 36.0-46.0 L MEAN CELL VOLUME (test code = MCV) 89.1 fL 80-98 N MEAN CELL HGB (test code = MCH) 29.5 picogram 27.0-33.0 N MEAN CELL HGB CONCETRATION (test code = MCHC) 33.1 gram/dL 33.0-36. 0 N RED CELL DISTRIBUTION WIDTH (test code = RDW) 15.6 % 11.6-16. 2 N RED CELL DISTRIBUTION WIDTH SD (test code = RDW-SD) 49.5 fL 37 .0-51.0 N PLATELET COUNT (test code = PLT) 257 K/mm3 150-450 N MEAN PLATELET VOLUME (test code = MPV) 11.7 fL 6.7-11.0 H NEUTROPHIL % (test code = NT%) 69.3 % 39.0-69.0 H IMMATURE GRANULOCYTE % (test code = IG%) 1.2 % 0.0-5.0 N LYMPHOCYTE % (test code = LY%) 20.3 % 25.0-55.0 L MONOCYTE % (test code = MO%) 6.8 % 0.0-10.0 N EOSINOPHIL % (test code = EO%) 2.3 % 0.0-5.0 N BASOPHIL % (test code = BA%) 0.1 % 0.0-1.0 N NUCLEATED RBC % (test code = NRBC%) 0.0 % 0-0 N NEUTROPHIL # (test code = NT#) 5.64 K/mm3 1.8-7.7 N IMMATURE GRANULOCYTE # (test code = IG#) 0.10 x10 3/uL 0-0.03 H LYMPHOCYTE # (test code = LY#) 1.65 K/mm3 1.0-5.0 N MONOCYTE # (test code = MO#) 0.55 K/mm3 0-0.8 N EOSINOPHIL # (test code = EO#) 0.19 K/mm3 0.0-0.5 N BASOPHIL # (test code = BA#) 0.01 K/mm3 0.0-0.2 N NUCLEATED RBC # (test code = NRBC#) 0.00 K/mm3 0.0-0.1 N MANUAL DIFF REQUIRED (test code = MDIFF) NO [id number] 20:56:00* Test Item Value Reference Range Interpretation Comments GLUBED (test code = GLUBED) 232 mg/dL 74-106 H Performed by certified pneumatic system conveyor operator at [facility] [id number] 18:45:00* Test Item Value Reference Range Interpretation Comments GLUBED (test code = GLUBED) 172 mg/dL 74-106 H [facility] [id number] 12:19:00* Test Item Value Reference Range Interpretation Comments GLUBED (test code = GLUBED) 232 mg/dL 74-106 H [facility] pneumatic [facility] COMPREHENSIVE METABOLIC [id number] 11:57:00* Test Item Value Reference Range Interpretation Comments SODIUM (test code = NA) 139 mmol/L 136-145 N POTASSIUM (test code = K) 4.3 mmol/L 3.5-5.1 N CHLORIDE (test code = CL) 106.0 mmol/L 98-107 N CARBON DIOXIDE (test code = CO2) 22.0 mmol/L 21-32 N ANION GAP (test code = GAP) 15.3 10-20 N GLUCOSE (test code = GLU) 224 mg/dL 74-106 H BLOOD UREA NITROGEN (test code = BUN) 106 mg/dL 7-18 H GLOMERULAR FILTRATION RATE (test code = GFR) 24 mL/min >=60 Estimated GFR by using Modified MDRD formula.Chronic kidney disease is defined as either kidney damageor GFR <60 mL/min/1.73 m2 for >3 months. CREATININE (test code = CREAT) 2.00 mg/dL 0.55-1.02 H Note change in reference range due to change in reagent. BUN/CREATININE RATIO (test code = BUN/CREA) 53.0 10-20 H TOTAL PROTEIN (test code = PROT) 5.3 gram/dL 6.4-8.2 L ALBUMIN (test code = ALB) 2.7 g/dL 3.4-5.0 L GLOBULIN (test code = GLOB) 2.6 gram/dL 2.7-4.2 L ALBUMIN/GLOBULIN RATIO (test code = A/G) 1.0 0.75-1.50 N CALCIUM (test code = CA) 8.0 mg/dL 8.5-10.1 L BILIRUBIN TOTAL (test code = BILT) 0.20 mg/dL 0.0-1.0 N SGOT/AST (test code = AST) 16 IUnit/L 15-37 N SGPT/ALT (test code = ALT) 25 IUnit/L 12-78 N ALKALINE PHOSPHATASE TOTAL (test code = ALKP) 62 IUnit/L 45-117 N Note change in reference range due to change in reagent. COMPREHENSIVE METABOLIC [id number] 11:18:00* Test Item Value Reference Range Interpretation Comments SODIUM (test code = NA) 139 mmol/L 136-145 N POTASSIUM (test code = K) 4.3 mmol/L 3.5-5.1 N CHLORIDE (test code = CL) 106.0 mmol/L 98-107 N CARBON DIOXIDE (test code = CO2) mmol/L 21-32 ANION GAP (test code = GAP) 10-20 GLUCOSE (test code = GLU) mg/dL 74-106 BLOOD UREA NITROGEN (test code = BUN) mg/dL 7-18 GLOMERULAR FILTRATION RATE (test code = GFR) mL/min >=60 CREATININE (test code = CREAT) mg/dL 0.55-1.02 BUN/CREATININE RATIO (test code = BUN/CREA) 10-20 TOTAL PROTEIN (test code = PROT) gram/dL 6.4-8.2 ALBUMIN (test code = ALB) g/dL 3.4-5.0 GLOBULIN (test code = GLOB) gram/dL 2.7-4.2 ALBUMIN/GLOBULIN RATIO (test code = A/G) 0.75-1.50 CALCIUM (test code = CA) mg/dL 8.5-10.1 BILIRUBIN TOTAL (test code = BILT) mg/dL 0.0-1.0 SGOT/AST (test code = AST) IUnit/L 15-37 SGPT/ALT (test code = ALT) IUnit/L 12-78 ALKALINE PHOSPHATASE TOTAL (test code = ALKP) IUnit/L 45-117 [id number] 08:36:00* Test Item Value Reference Range Interpretation Comments GLUBED (test code = GLUBED) 125 mg/dL 74-106 H Performed by certified pneumatic system conveyor operator at [facility] [id number] 21:09:00* Test Item Value Reference Range Interpretation Comments GLUBED (test code = GLUBED) 172 mg/dL 74-106 H Performed by certified pneumatic system conveyor operator at [facility] [id number] 17:01:00* Test Item Value Reference Range Interpretation Comments GLUBED (test code = GLUBED) 253 mg/dL 74-106 H Performed by certified pneumatic system conveyor [facility] [id number] 11:59:00* Test Item Value Reference Range Interpretation Comments GLUBED (test code = GLUBED) 217 mg/dL 74-106 H Performed by certified pneumatic system conveyor operator [facility] [id number] 08:26:00* Test Item Value Reference Range Interpretation Comments GLUBED (test code = GLUBED) 150 mg/dL 74-106 H Performed by certified pneumatic system conveyor operator [facility] [id number] 20:21:00* Test Item Value Reference Range Interpretation Comments GLUBED (test code = GLUBED) 347 mg/dL 74-106 H Performed by certified pneumatic system conveyor operator at [facility] [id number] 20:17:00* Test Item Value Reference Range Interpretation Comments GLUBED (test code = GLUBED) 360 mg/dL 74-106 H Performed by certified pneumatic system conveyor operator at [facility] [id number] 17:28:00* Test Item Value Reference Range Interpretation Comments GLUBED (test code = GLUBED) 239 mg/dL 74-106 H Performed by certified pneumatic system conveyor operator [facility] [id number] 13:18:00* Test Item Value Reference Range Interpretation Comments GLUBED (test code = GLUBED) 382 mg/dL 74-106 H Performed by certified pneumatic system conveyor operator [facility] [id number] 09:18:00* Test Item Value Reference Range Interpretation Comments GLUBED (test code = GLUBED) 207 mg/dL 74-106 H Performed by certified pneumatic system conveyor [facility] B-TYPE NATRIURETIC [id number] 05:58:00* Test Item Value Reference Range Interpretation Comments B-TYPE NATRIURETIC PEPTIDE (test code = BNP) 50.60 pgram/mL 0-100 N BASIC METABOLIC [id number] 05:57:00* Test Item Value Reference Range Interpretation Comments SODIUM (test code = NA) 139 mmol/L 136-145 N POTASSIUM (test code = K) 4.5 mmol/L 3.5-5.1 N CHLORIDE (test code = CL) 106.0 mmol/L 98-107 N CARBON DIOXIDE (test code = CO2) 23.0 mmol/L 21-32 N ANION GAP (test code = GAP) 14.5 10-20 N GLUCOSE (test code = GLU) 123 mg/dL 74-106 H BLOOD UREA NITROGEN (test code = BUN) 128 mg/dL 7-18 H GLOMERULAR FILTRATION RATE (test code = GFR) 23 mL/min >=60 Estimated GFR by using Modified MDRD formula.Chronic kidney disease is defined as either kidney damageor GFR <60 mL/min/1.73 m2 for >3 months. CREATININE (test code = CREAT) 2.10 mg/dL 0.55-1.02 H Note change in reference range due to change in reagent. BUN/CREATININE RATIO (test code = BUN/CREA) 61.0 10-20 H CALCIUM (test code = CA) 8.4 mg/dL 8.5-10.1 L BASIC METABOLIC [id number] 05:46:00* Test Item Value Reference Range Interpretation Comments SODIUM (test code = NA) 139 mmol/L 136-145 N POTASSIUM (test code = K) 4.5 mmol/L 3.5-5.1 N CHLORIDE (test code = CL) 106.0 mmol/L 98-107 N CARBON DIOXIDE (test code = CO2) mmol/L 21-32 ANION GAP (test code = GAP) 10-20 GLUCOSE (test code = GLU) mg/dL 74-106 BLOOD UREA NITROGEN (test code = BUN) mg/dL 7-18 GLOMERULAR FILTRATION RATE (test code = GFR) mL/min >=60 CREATININE (test code = CREAT) mg/dL 0.55-1.02 BUN/CREATININE RATIO (test code = BUN/CREA) 10-20 CALCIUM (test code = CA) mg/dL 8.5-10.1 [id number] 20:34:00* Test Item Value Reference Range Interpretation Comments GLUBED (test code = GLUBED) 358 mg/dL 74-106 H Performed by certified pneumatic system conveyor operator [facility] [id number] 16:20:00* Test Item Value Reference Range Interpretation Comments GLUBED (test code = GLUBED) 358 mg/dL 74-106 H Performed by certified pneumatic system conveyor operator [facility] [id number] 11:53:00* Test Item Value Reference Range Interpretation Comments GLUBED (test code = GLUBED) 186 mg/dL 74-106 H Performed by certified pneumatic system conveyor operator at [facility] [id number] 08:21:00* Test Item Value Reference Range Interpretation Comments GLUBED (test code = GLUBED) 153 mg/dL 74-106 H Performed by certified pneumatic system conveyor operator at [facility] BASIC METABOLIC [id number] 06:42:00* Test Item Value Reference Range Interpretation Comments SODIUM (test code = NA) 135 mmol/L 136-145 L POTASSIUM (test code = K) 4.2 mmol/L 3.5-5.1 N CHLORIDE (test code = CL) 100.0 mmol/L 98-107 N CARBON DIOXIDE (test code = CO2) 25.0 mmol/L 21-32 N ANION GAP (test code = GAP) 14.2 10-20 N GLUCOSE (test code = GLU) 150 mg/dL 74-106 H BLOOD UREA NITROGEN (test code = BUN) 141 mg/dL 7-18 H GLOMERULAR FILTRATION RATE (test code = GFR) 24 mL/min >=60 Estimated GFR by using Modified MDRD formula.Chronic kidney disease is defined as either kidney damageor GFR <60 mL/min/1.73 m2 for >3 months. CREATININE (test code = CREAT) 2.00 mg/dL 0.55-1.02 H Note change in reference range due to change in reagent. BUN/CREATININE RATIO (test code = BUN/CREA) 70.5 10-20 H CALCIUM (test code = CA) 8.9 mg/dL 8.5-10.1 N BASIC METABOLIC [id number] 06:34:00* Test Item Value Reference Range Interpretation Comments SODIUM (test code = NA) 135 mmol/L 136-145 L POTASSIUM (test code = K) 4.2 mmol/L 3.5-5.1 N CHLORIDE (test code = CL) 100.0 mmol/L 98-107 N CARBON DIOXIDE (test code = CO2) mmol/L 21-32 ANION GAP (test code = GAP) 10-20 GLUCOSE (test code = GLU) mg/dL 74-106 BLOOD UREA NITROGEN (test code = BUN) mg/dL 7-18 GLOMERULAR FILTRATION RATE (test code = GFR) mL/min >=60 CREATININE (test code = CREAT) mg/dL 0.55-1.02 BUN/CREATININE RATIO (test code = BUN/CREA) 10-20 CALCIUM (test code = CA) mg/dL 8.5-10.1 [id number] 21:34:00* Test Item Value Reference Range Interpretation Comments GLUBED (test code = GLUBED) 318 mg/dL 74-106 H Performed by certified pneumatic system conveyor operator at [facility] [id number] 19:50:00* Test Item Value Reference Range Interpretation Comments GLUBED (test code = GLUBED) 285 mg/dL 74-106 H Performed by certified pneumatic system conveyor operator at [facility] [id number] 19:50:00* Test Item Value Reference Range Interpretation Comments GLUBED (test code = GLUBED) 336 mg/dL 74-106 H Performed by certified pneumatic system conveyor operator at [facility] [id number] 16:33:00* Test Item Value Reference Range Interpretation Comments GLUBED (test code = GLUBED) 270 mg/dL 74-106 H Performed by certified pneumatic system conveyor operator at [facility] B-TYPE NATRIURETIC [id number] 09:42:00* Test Item Value Reference Range Interpretation Comments B-TYPE NATRIURETIC PEPTIDE (test code = BNP) 62.91 pgram/mL 0-100 N HARD STICK CS 0650 CHANEL PALOMO ([id number]) IS AWARE V.LAB. 0728BAPSYCHIATRIC METABOLIC [id number] 09:13:00* Test Item Value Reference Range Interpretation Comments SODIUM (test code = NA) 132 mmol/L 136-145 L POTASSIUM (test code = K) 4.5 mmol/L 3.5-5.1 N CHLORIDE (test code = CL) 96.0 mmol/L 98-107 L CARBON DIOXIDE (test code = CO2) 26.0 mmol/L 21-32 N ANION GAP (test code = GAP) 14.5 10-20 N GLUCOSE (test code = GLU) 326 mg/dL 74-106 H BLOOD UREA NITROGEN (test code = BUN) 136 mg/dL 7-18 H GLOMERULAR FILTRATION RATE (test code = GFR) 19 mL/min >=60 Estimated GFR by using Modified MDRD formula.Chronic kidney disease is defined as either kidney damageor GFR <60 mL/min/1.73 m2 for >3 months. CREATININE (test code = CREAT) 2.50 mg/dL 0.55-1.02 H Note change in reference range due to change in reagent. BUN/CREATININE RATIO (test code = BUN/CREA) 54.4 10-20 H CALCIUM (test code = CA) 9.0 mg/dL 8.5-10.1 N HARD STICK CS 0650 CHANEL PALOMO ([id number]) IS AWARE V.LAB.CS 0728BAPSYCHIATRIC METABOLIC [id number] 09:10:00* Test Item Value Reference Range Interpretation Comments SODIUM (test code = NA) 132 mmol/L 136-145 L POTASSIUM (test code = K) 4.5 mmol/L 3.5-5.1 N CHLORIDE (test code = CL) 96.0 mmol/L 98-107 L CARBON DIOXIDE (test code = CO2) mmol/L 21-32 ANION GAP (test code = GAP) 10-20 GLUCOSE (test code = GLU) mg/dL 74-106 BLOOD UREA NITROGEN (test code = BUN) mg/dL 7-18 GLOMERULAR FILTRATION RATE (test code = GFR) mL/min >=60 CREATININE (test code = CREAT) mg/dL 0.55-1.02 BUN/CREATININE RATIO (test code = BUN/CREA) 10-20 CALCIUM (test code = CA) mg/dL 8.5-10.1 HARD STICK CS 0650 CHANEL PALOMO ([id number]) IS AWARE V.LAB.[facility] 0728HEMOGLOBIN 2018-09-22 08:44:00* Test Item Value Reference Range Interpretation Comments HEMOGLOBIN (test code = HGB) 10.4 gram/dL 11.5-15.5 L HARD STICK CS 0650 CHANEL PALOMO ([id number]) IS AWARE V.LAB.[facility] 0729PLATELET [id number] 08:44:00* Test Item Value Reference Range Interpretation Comments PLATELET COUNT (test code = PLT) 358 K/mm3 150-450 N HARD STICK CS 0650 CHANEL PALOMO ([id number]) IS AWARE V.LAB.[facility] 0729GLUBED 2018-09-22 07:20:00* Test Item Value Reference Range Interpretation Comments GLUBED (test code = GLUBED) 338 mg/dL 74-106 H Performed by certified pneumatic system conveyor [facility] [id number] 20:33:00* Test Item Value Reference Range Interpretation Comments GLUBED (test code = GLUBED) 371 mg/dL 74-106 H Performed by certified pneumatic system conveyor operator [facility] - CT MAXIFAC W/O [id number] 19:07:00 Name: EL MEDINA [facility] : 1940 Age/S: 78 / F [address] Unit #: [id number] Loc: [place] [address] Phys: Tremayne Pagan MD Acct: [id number] Dis Date: Status: ADM IN PHONE #: [phone] Exam Date: 09/21/2018 1830 FAX #: [phone] Reason: frontal sinus pain/ headachy EXAMS: CPT CODE: [id number] [place] MAXIFAC [place] [address] REASON FOR EXAM: frontal sinus pain/ headachy [...] RT(R) CTDI: DLP: Trnscb Date/Time: 09/21/2018 (1906) t.NAEEMR.VTL Orig P rint D/T: S: 09/21/2018 (1909) PAGE 1 Signed Report [id number] 15:21:00* Test Item Value Reference Range Interpretation Comments GLUBED (test code = GLUBED) 296 mg/dL 74-106 H Performed by certified pneumatic system conveyor operator at [facility] [id number] 12:02:00* Test Item Value Reference Range Interpretation Comments GLUBED (test code = GLUBED) 196 mg/dL 74-106 H Performed by certified pneumatic system conveyor operator at [facility] [id number] 07:40:00* Test Item Value Reference Range Interpretation Comments GLUBED (test code = GLUBED) 273 mg/dL 74-106 H Performed by certified pneumatic system conveyor operator at [facility] RESPIRATORY VIRUS PANEL [id number] 23:06:00* Test Item Value Reference Range Interpretation Comments RSV A PCR (test code = RSV A) Negative Negative RSV B PCR (test code = RSV B) Negative Negative INFLUENZA A PCR (test code = FLUAPCR) Negative Negative INFLUENZA B PCR (test code = FLUBPCR) Negative Negative PARAINFLUENZA TYPE 1 PCR (test code = PIF1) Negative Negative PARAINFLUENZA TYPE 2 PCR (test code = PIF2) Negative Negative PARAINFLUENZA TYPE 3 PCR (test code = PIF3) Negative Negative RHINOVIRUS PCR (test code = RHINO) Negative Negative METAPNEUMOVIRUS PCR (test code = METAPNEU) Negative Negative ADENOVIRUS PCR (test code = ADENOPCR) Negative Negative Performed At: [facility] [id number] Gallegos MD Ph:[phone] [id number] 20:43:00* Test Item Value Reference Range Interpretation Comments GLUBED (test code = GLUBED) 341 mg/dL 74-106 H Performed by certified pneumatic system conveyor operator at [facility] [id number] 16:21:00* Test Item Value Reference Range Interpretation Comments GLUBED (test code = GLUBED) 301 mg/dL 74-106 H Performed by certified pneumatic system conveyor operator [facility] IMMUNOGLOBULIN [id number] 16:07:00* Test Item Value Reference Range Interpretation Comments IMMUNOGLOBULIN E (test code = IGE) 95 IU/mL 6-495 Performed At: [facility] [id number] Gallegos MD Ph:[phone] [id number] 12:49:00* Test Item Value Reference Range Interpretation Comments GLUBED (test code = GLUBED) 338 mg/dL 74-106 H Performed by certified pneumatic system conveyor operator [facility] [id number] 08:51:00* Test Item Value Reference Range Interpretation Comments GLUBED (test code = GLUBED) 152 mg/dL 74-106 H Performed by certified pneumatic system conveyor operator at [facility] [id number] 20:54:00* Test Item Value Reference Range Interpretation Comments GLUBED (test code = GLUBED) 378 mg/dL 74-106 H Performed by certified pneumatic system conveyor operator at [facility] [id number] 20:54:00* Test Item Value Reference Range Interpretation Comments GLUBED (test code = GLUBED) 206 mg/dL 74-106 H Performed by certified pneumatic system conveyor operator at [facility] [id number] 11:47:00* Test Item Value Reference Range Interpretation Comments GLUBED (test code = GLUBED) 400 mg/dL 74-106 H Performed by certified pneumatic system conveyor operator at [facility] [id number] 08:30:00* Test Item Value Reference Range Interpretation Comments GLUBED (test code = GLUBED) 340 mg/dL 74-106 H Performed by certified pneumatic system conveyor operator at [facility] [id number] 20:48:00* Test Item Value Reference Range Interpretation Comments GLUBED (test code = GLUBED) 272 mg/dL 74-106 H Performed by certified pneumatic system conveyor operator at [facility] [id number] 15:49:00* Test Item Value Reference Range Interpretation Comments GLUBED (test code = GLUBED) 288 mg/dL 74-106 H Performed by certified pneumatic system conveyor operator at [facility] [id number] 12:08:00* Test Item Value Reference Range Interpretation Comments GLUBED (test code = GLUBED) 479 mg/dL 74-106 H Performed by certified pneumatic system conveyor operator at [facility] [id number] 08:40:00* Test Item Value Reference Range Interpretation Comments GLUBED (test code = GLUBED) 319 mg/dL 74-106 H Performed by certified pneumatic system conveyor operator at [facility] [id number] 21:15:00* Test Item Value Reference Range Interpretation Comments GLUBED (test code = GLUBED) 381 mg/dL 74-106 H Performed by certified pneumatic system conveyor operator [facility] [id number] 16:13:00* Test Item Value Reference Range Interpretation Comments GLUBED (test code = GLUBED) 181 mg/dL 74-106 H Performed by certified pneumatic system conveyor operator at [facility] [id number] 12:05:00* Test Item Value Reference Range Interpretation Comments GLUBED (test code = GLUBED) 272 mg/dL 74-106 H Performed by certified pneumatic system conveyor operator at [facility] [id number] 08:10:00* Test Item Value Reference Range Interpretation Comments GLUBED (test code = GLUBED) 274 mg/dL 74-106 H Performed by certified pneumatic system conveyor operator at [facility] [id number] 21:16:00* Test Item Value Reference Range Interpretation Comments GLUBED (test code = GLUBED) 325 mg/dL 74-106 H Performed by certified pneumatic system conveyor operator [facility] - XR C-SPINE 2-3 [id number] 17:41:00 FAX: Bala Palm [phone] [place]: St: ADM FAX: Solo Davidson [phone] Name: EL MEDINA [facility] : 1940 Age/S: 78/F [address] [facility] Unit #: [id number] Loc: [address] [address] Phys: Bala Jaramillo MD Acct: [id number] Dis Date: Status: ADM IN PHONE #: [phone] Exam Date: 09/16/2018 1725 FAX #: [phone] Reason: BACK PAIN EXAMS: CPT CODE: [id number] XR C-SPINE 2-3 VIEWS 33030 REASON FOR EXAM: BACK PAIN EXAM ORDER [...] IMPRESSION: Minimal degenerative changes at C4-C6 at 174 1 Reported and signed by: Kyle Elizabeth M.D. CC: Bala Jaramillo MD; Solo Patrick Technologist: Vlad SANCHEZ [facility] Date/Time/By: 09/05 (7131) : By: GarethL Orig Print D/T: S: 09/16/2018 (8589) PAGE 1 Signed Report - XR T-SPINE 3 [id number] 17:39:00 FAX: Bala Palm [phone] [place]: St: ADM FAX: Solo Davidson [phone] Name: EL MEDINA [facility] : 1940 Age/S: 78/F [address] [facility] Unit #: [id number] Loc: V.[address] [place] [address] Phys: Bala Jaramillo MD Acct: [id number] Dis Date: Status: ADM IN PHONE #: [phone] Exam Date: 09/16/2018 1725 FAX #: [phone] Reason: BACK PAIN EXAMS: CPT CODE: [id number] XR T-SPINE 3 VIEWS 56133 REASON FOR EXAM: BACK PAIN EXAM ORDER [...] IMPRESSI ON: No acute osseous abnormality at 1732 Reported and signed by: Kyle Elizabeth M.D. CC: Bala Jaramillo MD; Solo Patrick Technologist: NICHOL SANCHEZ [facility] Date/Time/By: 09/16/2018 (4988) : By: GarethL Orig Print D/T: S: 09/16/2018 (1782) PAGE 1 Signed Report - XR L-SPINE 2/3 [id number] 17:38:00 FAX: Bala Palm [phone] [place]: St: [facility] FAX: Solo Davidson [phone] Name: EL MEDINA [facility] : 1940 Age/S: 78/F [address] [facility] Unit #: [id number] Loc: V.[address] [place] [address] Phys: Bala Jaramillo MD Acct: [id number] Dis Date: Status: ADM IN PHONE #: [phone] Exam Date: 09/16/2018 1725 FAX #: [phone] Reason: BACK PAIN EXAMS: CPT CODE: [id number] XR L-SPINE 2/3 VIEWS 97061 REASON FOR EXAM: BACK PAIN EXAM ORDER [...] L4-5. No evidence of compression fracture at 173 Reported and signed by: Kyle Elizabeth M.D. CC: Bala Villanueva MD; Solo Patrick Technologist: NICHOL LITTLEJOHN Trnscrd Date/Time/By: 09/16/2018 (49 10) : By: GarethL Orig Print D/T: S: 09/16/2018 (2227) PAGE 1 Signed Report - XR CHEST 2 [id number] 17:36:00 FAX: Bala Plam [phone] [place]: St: [facility] FAX: Solo Davidson [phone] Name: EL MEDINA [facility] : 1940 Age/S: 78/F [address] [facility] Unit #: [id number] Loc: V.[address] [place] [address] Phys: Bala Jaramillo MD Acct: [id number] Dis Date: Status: ADM IN PHONE #: [phone] Exam Date: 09/16/2018 1725 FAX #: [phone] Reason: BACK PAIN EXAMS: CPT CODE: [id number] XR CHEST 2 V 39574 REASON FOR EXAM: BACK PAIN Exam Order Date : 09/16/2018 12:00 AM Ordering Luiz: Bala Jaramillo MD PROCEDURE: - XR CHEST 2 V COMPARISON: 09/15/2018 FINDINGS: PA and lateral views of the chest show patchy opacity at t he left base. The heart size is minimally enlarged. Pulmonary vasculatures are unremarkable. The osseous structures are grossly intact. IMPRESSION: Patchy atelectasis at the left base with a small left pl eural effusion a t 1736 Reported and signed by: Kyle Elizabeth M.D. CC: Bala Jaramillo MD; Solo Patrick Technologis t: NICHOL SANCHEZ Trnscrd Date/Time/By: 09/16/2018 (1739) : By: GarethL Orig Print D/T: S: 09/16/2018 (7181) PAGE 1 Signed Report - CT CHEST W/O [id number] 17:13:00 Name: EL MEDINA [facility] : 1940 Age/S: 78 / F [address] [facility] Unit #: [id number] Loc: [place] [address] Phys: Bala Hahn MD Acct: [id number] Di s Date: Status: ADM IN PHONE #: [phone] Exam Date: 09/16/2018 1652 FAX #: Reason: soa pna EXAMS: CPT CODE: [id number] CT CHEST W/O CONTRAST 53418 REASON FOR EXAM: soa pna EXAM ORDER DATE: 09/16/2018 4:21 PM Ordering Luiz: Murphy Jaramillo MD PROCEDURE: - CT CHEST W/O CONTRAST FINDINGS: CT images of the chest were obtained without IV contrast. Reconstructed sagittal and coronal images of the chest were provided for i nterpretation. Dose modulation, iterative reconstruction, and/or weight b ased adjustment of the MA/KV was utilized to reduce the radiation dose to as low as reasonably achievable. The heart size is minimally enla rged. Minimal thickening of the pericardial lining The thoracic aor ta is aorta is unremarkable. No evidence of mediastinal or hilar adenopat hy. The lungs are clear. No evidence of pleural effusion. IMPRESSION: 1. Probable 2.5 cm right breast mass in the outer quadran ts. Recommend additional correlation with ultrasound and mammogram. 2. Minimal cardiomegaly and atelectasis of the left base. Probable noncalcified granuloma in the anterior basal segment of the left lower lobe. at 1713 * * Reported and signed by: Kyle Elizabeth M.D. CC: Bala Avery MD; Solo Patrick Technologist:Silvina Veloz RT(R); Klaudia Soto CTDI: DLP: Trnscb Date/Time: 09/16/2018 (1713) marco antonio GERMAN Orig Print D/T: S: 09/16/2018 (4725) PAGE 1 Signed Report GLUBED 2018-09-16 15:34:00* Test Item Value Reference Range Interpretation Comments GLUBED (test code = GLUBED) 209 mg/dL 74-106 H Performed by certified pneumatic system conveyor operator at [facility] [id number] 11:22:00* Test Item Value Reference Range Interpretation Comments GLUBED (test code = GLUBED) 323 mg/dL 74-106 H Performed by certified pneumatic system conveyor operator at [facility] B-TYPE NATRIURETIC [id number] 09:01:00* Test Item Value Reference Range Interpretation Comments B-TYPE NATRIURETIC PEPTIDE (test code = BNP) 310.40 pgram/mL 0-100 H BASIC METABOLIC [id number] 08:39:00* Test Item Value Reference Range Interpretation Comments SODIUM (test code = NA) 138 mmol/L 136-145 N POTASSIUM (test code = K) 3.2 mmol/L 3.5-5.1 L CHLORIDE (test code = CL) 98.0 mmol/L 98-107 N CARBON DIOXIDE (test code = CO2) 27.0 mmol/L 21-32 N ANION GAP (test code = GAP) 16.2 10-20 N GLUCOSE (test code = GLU) 361 mg/dL 74-106 H BLOOD UREA NITROGEN (test code = BUN) 68 mg/dL 7-18 H GLOMERULAR FILTRATION RATE (test code = GFR) 27 mL/min >=60 Estimated GFR by using Modified MDRD formula.Chronic kidney disease is defined as either kidney damageor GFR <60 mL/min/1.73 m2 for >3 months. CREATININE (test code = CREAT) 1.80 mg/dL 0.55-1.02 H Note change in reference range due to change in reagent. BUN/CREATININE RATIO (test code = BUN/CREA) 37.8 10-20 H CALCIUM (test code = CA) 8.7 mg/dL 8.5-10.1 N BASIC METABOLIC [id number] 08:31:00* Test Item Value Reference Range Interpretation Comments SODIUM (test code = NA) 138 mmol/L 136-145 N POTASSIUM (test code = K) 3.2 mmol/L 3.5-5.1 L CHLORIDE (test code = CL) 98.0 mmol/L 98-107 N CARBON DIOXIDE (test code = CO2) mmol/L 21-32 ANION GAP (test code = GAP) 10-20 GLUCOSE (test code = GLU) mg/dL 74-106 BLOOD UREA NITROGEN (test code = BUN) mg/dL 7-18 GLOMERULAR FILTRATION RATE (test code = GFR) mL/min >=60 CREATININE (test code = CREAT) mg/dL 0.55-1.02 BUN/CREATININE RATIO (test code = BUN/CREA) 10-20 CALCIUM (test code = CA) mg/dL 8.5-10.1 [id number] 07:46:00* Test Item Value Reference Range Interpretation Comments GLUBED (test code = GLUBED) 357 mg/dL 74-106 H Performed by certified pneumatic system conveyor operator at [facility] - XR CHEST 2 [id number] 21:59:00 FAX: Solo Davidson [phone] [place]: B St: [facility] FAX: Tremayne Glass MD [phone] Name: EL MEDINA [facility] : 1940 Age/S: 78/F [address] Unit #: [id number] Loc: [place] [place] [address] Phys: Tremayne Pagan MD Acct: [id number] Dis Date: Status: ADM IN PHONE #: [phone] Exam Date: 09/15/20182149 FAX #: [phone] Reason: chf EXAMS: CPT CODE: [id number] XR CHEST 2 V 77013 REASON FOR EXAM: chf Exam Order Date: 09/15/2018 12:00 AM Ordering Umer.D.: Tremayne Pagan MD PROCEDURE: - XR CHEST [...] signed by: Kyle Elizabeth M.D. CC: Solo Espinal; Tremayne Pagan MD Technologist: RT Sonia(R Trnscrd Date/Time/By: 09/15/2018 (2158) : By: BlakeVTL Orig Print D/T: S: 09/15/2018 (3984) PAGE 1 Signed Report [id number] 21:21:00* Test Item Value Reference Range Interpretation Comments GLUBED (test code = GLUBED) 300 mg/dL 74-106 H [facility] [id number] 15:38:00* Test Item Value Reference Range Interpretation Comments GLUBED (test code = GLUBED) 240 mg/dL 74-106 H Performed by certified pneumatic system conveyor operator at [facility] [id number] 12:01:00* Test Item Value Reference Range Interpretation Comments GLUBED (test code = GLUBED) 185 mg/dL 74-106 H Performed by certified pneumatic system conveyor operator at [facility] [id number] 07:53:00* Test Item Value Reference Range Interpretation Comments GLUBED (test code = GLUBED) 149 mg/dL 74-106 H Performed by certified pneumatic system conveyor operator at [facility] [id number] 21:48:00* Test Item Value Reference Range Interpretation Comments GLUBED (test code = GLUBED) 170 mg/dL 74-106 H Performed by certified pneumatic system conveyor operator at [facility] [id number] 16:00:00* Test Item Value Reference Range Interpretation Comments GLUBED (test code = GLUBED) 181 mg/dL 74-106 H Performed by certified pneumatic system conveyor operator at [facility] [id number] 12:37:00* Test Item Value Reference Range Interpretation Comments GLUBED (test code = GLUBED) 155 mg/dL 74-106 H Performed by certified pneumatic system conveyor operator at [facility] [id number] 08:16:00* Test Item Value Reference Range Interpretation Comments GLUBED (test code = GLUBED) 116 mg/dL 74-106 H Performed by certified pneumatic system conveyor operator at [facility] [id number] 00:19:00* Test Item Value Reference Range Interpretation Comments GLUBED (test code = GLUBED) 145 mg/dL 74-106 H Per[facility] certified pneumatic [facility] B-TYPE NATRIURETIC [id number] 22:37:00* Test Item Value Reference Range Interpretation Comments B-TYPE NATRIURETIC PEPTIDE (test code = BNP) 1294.07 pgram/mL 0-100 H BASIC METABOLIC [id number] 20:55:00* Test Item Value Reference Range Interpretation Comments SODIUM (test code = NA) 139 mmol/L 136-145 N POTASSIUM (test code = K) 4.1 mmol/L 3.5-5.1 N CHLORIDE (test code = CL) 108.0 mmol/L 98-107 H CARBON DIOXIDE (test code = CO2) 22.0 mmol/L 21-32 N ANION GAP (test code = GAP) 13.1 10-20 N GLUCOSE (test code = GLU) 136 mg/dL 74-106 H BLOOD UREA NITROGEN (test code = BUN) 44 mg/dL 7-18 H GLOMERULAR FILTRATION RATE (test code = GFR) 38 mL/min >=60 Estimated GFR by using Modified MDRD formula.Chronic kidney disease is defined as either kidney damageor GFR <60 mL/min/1.73 m2 for >3 months. CREATININE (test code = CREAT) 1.33 mg/dL 0.55-1.02 H Note change in reference range due to change in reagent. BUN/CREATININE RATIO (test code = BUN/CREA) 33.1 10-20 H CALCIUM (test code = CA) 8.1 mg/dL 8.5-10.1 L [id number] 20:55:00* Test Item Value Reference Range Interpretation Comments TROPONIN-I (test code = TROPI) 0.099 ng/mL 0-0.045 HH 09/13/182054 CBC W/O [id number] 19:41:00* Test Item Value Reference Range Interpretation Comments WHITE BLOOD CELL (test code = WBC) 9.3 K/mm3 4.5-12.5 N RED BLOOD CELL (test code = RBC) 3.04 mill/mm3 3.7-5.2 L HEMOGLOBIN (test code = HGB) 8.8 gram/dL 11.5-15.5 L HEMATOCRIT (test code = HCT) 27.6 % 36.0-46.0 L MEAN CELL VOLUME (test code = MCV) 90.8 fL 80-98 N MEAN CELL HGB (test code = MCH) 28.9 picogram 27.0-33.0 N MEAN CELL HGB CONCETRATION (test code = MCHC) 31.9 gram/dL 33.0-36. 0 L RED CELL DISTRIBUTION WIDTH (test code = RDW) 14.8 % 11.6-16. 2 N PLATELET COUNT (test code = PLT) 303 K/mm3 150-450 N MEAN PLATELET VOLUME (test code = MPV) 10.8 fL 6.7-11.0 N - XR CHEST 1 [id number] 18:55:00 FAX: Donovan Godwin DO [place]: B St: REG Name: [facility] : 09/11/18 40 Age/S: 78/F [address] Unit #: [id number] Loc: [place] [address] Phys: Donovan Godwin DO Acct: [id number] Dis Date: Status: REG ER PHONE #: [phone] Exam Date: 09/13/2018 3491 FAX #: [phone] Reason: Shortness of Breath EXAMS: CPT CODE: [id number] XR CHEST 1 V 86086 REASON FOR EXAM: Shortness of Breath Exam Order Date: 09/13/2018 3:17 PM Willie ivy M.D.: Donovan Godwin DO PROCEDURE: - XR CHEST [...] by: Pamela Fish M.D. CC: Donovan Godwin Technologist: Miladys Murray Trnscrd Date/Time/By: 09/13/2018 (1854) : By: Mk [id number] Orig Print D/T: S: 09/13/2018 (1857) PAG E 1 Signed Report GLUBED 2018-09-11 16:31:00* Test Item Value Reference Range Interpretation Comments GLUBED (test code = GLUBED) 130 mg/dL 74-106 H Performed by certified pneumatic system conveyor operator at [facility] BLOOD UREA [id number] 11:58:00* Test Item Value Reference Range Interpretation Comments BLOOD UREA NITROGEN (test code = BUN) 30 mg/dL 7-18 H [id number] 11:58:00* Test Item Value Reference Range Interpretation Comments CREATININE (test code = CREAT) 1.40 mg/dL 0.55-1.02 H Note change in reference range due to change in reagent. [id number] 11:02:00* Test Item Value Reference Range Interpretation Comments GLUBED (test code = GLUBED) 196 mg/dL 74-106 H Performed by certified pneumatic system conveyor operator at [facility] [id number] 21:17:00* Test Item Value Reference Range Interpretation Comments GLUBED (test code = GLUBED) 186 mg/dL 74-106 H Performed by certified pneumatic system conveyor operator at [facility] [id number] 16:15:00* Test Item Value Reference Range Interpretation Comments GLUBED (test code = GLUBED) 111 mg/dL 74-106 H Performed by certified pneumatic system conveyor operator at [facility] [id number] 11:54:00* Test Item Value Reference Range Interpretation Comments GLUBED (test code = GLUBED) 156 mg/dL 74-106 H Performed by certified pneumatic system conveyor operator at [facility] [id number] 07:37:00* Test Item Value Reference Range Interpretation Comments GLUBED (test code = GLUBED) 126 mg/dL 74-106 H Performed by certified pneumatic system conveyor operator at [facility] [id number] 04:03:00* Test Item Value Reference Range Interpretation Comments GLUBED (test code = GLUBED) 172 mg/dL 74-106 H Performed by certified pneumatic system conveyor operator at [facility] [id number] 18:44:00* Test Item Value Reference Range Interpretation Comments TROPONIN-I (test code = TROPI) 0.528 ng/mL 0-0.045 HH COMMENTS TO LOGISTICS SOLUTION MANAGER: COLLECT 3 HOURS AFTER PREVIOUS [id number] 16:31:00* Test Item Value Reference Range Interpretation Comments TROPONIN-I (test code = TROPI) 0.557 ng/mL 0-0.045 HH COMMENTS TO LOGISTICS SOLUTION MANAGER: COLLECT 3 HOURS AFTER PREVIOUS [id number] 16:18:00* Test Item Value Reference Range Interpretation Comments GLUBED (test code = GLUBED) 162 mg/dL 74-106 H Performed by certified pneumatic system conveyor operator at [facility] B-TYPE NATRIURETIC [id number] 09:22:00* Test Item Value Reference Range Interpretation Comments B-TYPE NATRIURETIC PEPTIDE (test code = BNP) 550 pg/mL 0-100 H BASIC METABOLIC [id number] 09:16:00* Test Item Value Reference Range Interpretation Comments SODIUM (test code = NA) 140 mmol/L 136-145 N POTASSIUM (test code = K) 3.5 mmol/L 3.5-5.1 N CHLORIDE (test code = CL) 111.0 mmol/L 98-107 H CARBON DIOXIDE (test code = CO2) 21.0 mmol/L 21-32 N ANION GAP (test code = GAP) 11.5 10-20 N GLUCOSE (test code = GLU) 168 mg/dL 74-106 H BLOOD UREA NITROGEN (test code = BUN) 24 mg/dL 7-18 H GLOMERULAR FILTRATION RATE (test code = GFR) 36 mL/min >=60 Estimated GFR by using Modified MDRD formula.Chronic kidney disease is defined as either kidney damageor GFR <60 mL/min/1.73 m2 for >3 months. CREATININE (test code = CREAT) 1.40 mg/dL 0.55-1.02 H Note change in reference range due to change in reagent. BUN/CREATININE RATIO (test code = BUN/CREA) 17.1 10-20 N CALCIUM (test code = CA) 8.1 mg/dL 8.5-10.1 L HEPATIC FUNCTION [id number] 09:16:00* Test Item Value Reference Range Interpretation Comments TOTAL PROTEIN (test code = PROT) 6.7 gram/dL 6.4-8.2 N ALBUMIN (test code = ALB) 3.0 g/dL 3.4-5.0 L GLOBULIN (test code = GLOB) 3.7 gram/dL 2.7-4.2 N ALBUMIN/GLOBULIN RATIO (test code = A/G) 0.8 0.75-1.50 N BILIRUBIN TOTAL (test code = BILT) 0.20 mg/dL 0.0-1.0 N BILIRUBIN DIRECT (test code = BILD) 0.11 mg/dL 0.0-0.20 N SGOT/AST (test code = AST) 15 IUnit/L 15-37 N SGPT/ALT (test code = ALT) 32 IUnit/L 12-78 N ALKALINE PHOSPHATASE TOTAL (test code = ALKP) 89 IUnit/L 45-117 N Note change in reference range due to change in reagent. [id number] 09:16:00* Test Item Value Reference Range Interpretation Comments TROPONIN-I (test code = TROPI) 0.578 ng/mL 0-0.045 Results called to [id number] by NAHED 09/09/18 0916Critical results verified and read back by Nurse? Y PROCALCITONIN (PCT)2018-09-09 09:12:00* Test Item Value Reference Range Interpretation Comments PROCALCITONIN (PCT) (test code = PROCAL) [...] taking into account the patients history. LACTIC [id number] 09:04:00* Test Item Value Reference Range Interpretation Comments LACTIC ACID (test code = LACT) 1.1 mmol/L 0.4-1.9 N CBC W/AUTO [id number] 08:55:00* Test Item Value Reference Range Interpretation Comments WHITE BLOOD CELL (test code = WBC) 6.3 K/mm3 4.5-12.5 N RED BLOOD CELL (test code = RBC) 3.17 mill/mm3 3.7-5.2 L HEMOGLOBIN (test code = HGB) 9.3 gram/dL 11.5-15.5 L HEMATOCRIT (test code = HCT) 28.6 % 36.0-46.0 L MEAN CELL VOLUME (test code = MCV) 90.2 fL 80-98 N MEAN CELL HGB (test code = MCH) 29.3 picogram 27.0-33.0 N MEAN CELL HGB CONCETRATION (test code = MCHC) 32.5 gram/dL 33.0-36. 0 L RED CELL DISTRIBUTION WIDTH (test code = RDW) 15.1 % 11.6-16. 2 N RED CELL DISTRIBUTION WIDTH SD (test code = RDW-SD) 49.7 fL 37 .0-51.0 N PLATELET COUNT (test code = PLT) 241 K/mm3 150-450 N MEAN PLATELET VOLUME (test code = MPV) 10.6 fL 6.7-11.0 N NEUTROPHIL % (test code = NT%) 75.4 % 39.0-69.0 H IMMATURE GRANULOCYTE % (test code = IG%) 0.6 % 0.0-5.0 N LYMPHOCYTE % (test code = LY%) 13.4 % 25.0-55.0 L MONOCYTE % (test code = MO%) 7.4 % 0.0-10.0 N EOSINOPHIL % (test code = EO%) 3.0 % 0.0-5.0 N BASOPHIL % (test code = BA%) 0.2 % 0.0-1.0 N NUCLEATED RBC % (test code = NRBC%) 0.0 % 0-0 N NEUTROPHIL # (test code = NT#) 4.77 K/mm3 1.8-7.7 N IMMATURE GRANULOCYTE # (test code = IG#) 0.04 x10 3/uL 0-0.03 H LYMPHOCYTE # (test code = LY#) 0.85 K/mm3 1.0-5.0 L MONOCYTE # (test code = MO#) 0.47 K/mm3 0-0.8 N EOSINOPHIL # (test code = EO#) 0.19 K/mm3 0.0-0.5 N BASOPHIL # (test code = BA#) 0.01 K/mm3 0.0-0.2 N NUCLEATED RBC # (test code = NRBC#) 0.00 K/mm3 0.0-0.1 N BASIC METABOLIC [id number] 08:55:00* Test Item Value Reference Range Interpretation Comments SODIUM (test code = NA) 140 mmol/L 136-145 N POTASSIUM (test code = K) 3.5 mmol/L 3.5-5.1 N CHLORIDE (test code = CL) 111.0 mmol/L 98-107 H CARBON DIOXIDE (test code = CO2) mmol/L 21-32 ANION GAP (test code = GAP) 10-20 GLUCOSE (test code = GLU) mg/dL 74-106 BLOOD UREA NITROGEN (test code = BUN) mg/dL 7-18 GLOMERULAR FILTRATION RATE (test code = GFR) mL/min >=60 CREATININE (test code = CREAT) mg/dL 0.55-1.02 BUN/CREATININE RATIO (test code = BUN/CREA) 10-20 CALCIUM (test code = CA) mg/dL 8.5-10.1 HEPATIC FUNCTION [id number] 08:55:00* Test Item Value Reference Range Interpretation Comments TOTAL PROTEIN (test code = PROT) gram/dL 6.4-8.2 ALBUMIN (test code = ALB) g/dL 3.4-5.0 GLOBULIN (test code = GLOB) gram/dL 2.7-4.2 ALBUMIN/GLOBULIN RATIO (test code = A/G) 0.75-1.50 BILIRUBIN TOTAL (test code = BILT) mg/dL 0.0-1.0 BILIRUBIN DIRECT (test code = BILD) mg/dL 0.0-0.20 SGOT/AST (test code = AST) IUnit/L 15-37 SGPT/ALT (test code = ALT) IUnit/L 12-78 ALKALINE PHOSPHATASE TOTAL (test code = ALKP) IUnit/L 45-117 [id number] 08:55:00* Test Item Value Reference Range Interpretation Comments TROPONIN-I (test code = TROPI) ng/mL 0-0.045 - XR CHEST 1 [id number] 08:30:00 FAX: Scott Gomez [place]: [address] St: REG Name: [facility] : 09/11/18 39 Age/S: 77/F [address] Unit #: [id number] Loc: [place] [address] Phys: Scott Gomez Acct: [id number] Dis Date: Status: REG ER PHONE #: [phone] Exam Date: 09/09/2018 08 FAX #: [phone] Reason: CODE SEPSIS EXAMS: CPT CODE: [id number] XR CHEST 1 V 84008 HISTORY: Sepsis. COM PARISON: August 06, 2017. [...] (33) PAGE 1 Signed Report POC LACTIC [id number] 08:26:00* Test Item Value Reference Range Interpretation Comments POC LACTIC ACID (test code = POCLAC) 0.88 MMOL/L 0.4-2.2 N
[2020-01-15 22:25] LABS: INR 0.85; PARTIAL THROMBOPLASTIN TIME 25.1 seconds (23.8-35.5)
[2020-01-15] MEDS ORDERED: SODIUM BICARBONATE 8.4% SYRING 50 ML in SODIUM CHLORIDE 0.45% 1,000 ML IV ONE (22:45)
[2020-01-15] MEDS ORDERED: DEXTROSE 50% SYRINGE 50 ML IV PRN (22:45)
[2020-01-15] MEDS ORDERED: SODIUM CHLORIDE FLUSH 10 ML SYR INJ PRN (22:45)
[2020-01-15] MEDS: ALBUTEROL/IPRATROPIUM 3 ML NEB NEB SCH (23:00)
--- OUTSIDE RECORDS SUMMARY | 2020-01-15 23:34 | XMS REPORT | Continuity of Care Document ---
Author Author [facility] t Organization [facility] Address [address] [place] [address] Phone Unavailable Care Team Providers Care Wood Shop Teacher Name Role Phone NO, PCP PCP Unavailable [...] of chronic obstructive pulmonary disease Problem Active [facility] Chest pain Problem Active [facility] Bronchitis Problem Active [facility] Allergies, Adverse Reactions, Alerts Allergy Name Allergy Type Status Severity Reaction(s) Onset Date Inacti ve Date Treating Clinician Comments Source No Known Allergies DA Active U 2019-03-15 00:00:00 [facility] No Known Allergies DA Active U 2018-09-13 00:00:00 [facility] No Known Allergies DA Active U 2017-08-01 00:00:00 [facility] Social History Social Habit Start Date Stop Date Quantity Comments Source Sex Assigned At 1940 00:00:00 1940 00:00:00 Female [facility] Medications Ordered Medication Name Filled Medication Name Start Date Stop Da te Current Medication? Ordering Clinician Indication Dosage Frequency Signature (SIG) Comments Components Source Albuteral Inhaler Albuteral Inhaler Yes 1 Four Times Daily as needed for Prn [facility] Allopurinol Allopurinol Yes 100 Daily [facility] Fluticasone Fluticasone Yes 50 Twice A Day [facility] Furosemide (Lasix) 40 Mg TABLET Furosemide (Lasix) 40 Mg TABLET Yes 40 Daily [facility] Glipizide Glipizide Yes 5 Twice A Day [facility] Hydralazine Hcl Hydralazine Hcl Yes 100 Every 8 Hours [facility] Nifedipine (Nifedipine Er) 30 Mg TAB.ER.24 Nifedipine (Nifedipine Er) 30 Mg TAB.ER.24 Yes 30 Every 12 Hours [facility] Pravastatin Sodium Pravastatin Sodium Yes 20 Da boyd [facility] Prednisone Prednisone Yes 20 Daily [facility] Prazosin Hcl Prazosin Hcl 2019-08-14 00:00:00 No 1 Twice A Day [facility] Azelastine Hcl Azelastine Hcl 2019-08-13 00:00:00 No 1 Twice A Day [facility] Doxycycline Hyclate Doxycycline Hyclate 2019-08-13 00:00:00 No 100 Twice A Day [facility] Hydralazine Hcl Hydralazine Hcl 2019-08-13 00:00:00 No 25 Every 8 Hours [facility] Ondansetron Hcl (Zofran*) 4 Mg TABLET Ondansetron Hcl (Zofran*) 4 Mg TABLET 2019-08-13 00:00:00 No 4 Three Times A Day as needed for Prn [facility] Prednisone Prednisone 2019-08-13 00:00:00 No [facility] Cefdinir Cefdinir 2019-07-17 00:00:00 No 300 Twice A Day [facility] Hydralazine Hcl Hydralazine Hcl 2019-07-17 00:00:00 No 25 Twice A Day [facility] Lisinopril Lisinopril 2019-07-17 00:00:00 No 20 Twi ce A Day [facility] Vital Signs Vital Name Observation Time Observation Value Comments Source Body Temperature 2019-08-17 12:00:00 97.6 [degF] [facility] Weight 2019-08-17 05:12:00 159.13 [lb_av] [facility] BMI (Body Mass Index) 2019-08-17 05:12:00 29.1 kg/m2 [facility] Procedures Procedure Date / Time Performed Performing Clinician Cedric vlad CT of abdomen and pelvis without contrast 2019-08-15 00:00:00 [facility] X-ray of chest, two views 2019-07-12 00:00:00 MINH GRIJALVA [facility] Plan of Care Planned Activity Planned Date Details Comments Source Instructions Bronchitis (Acute) - Adult [facility] Instructions Chest Pain - Noncardiac [facility] Instructions COPD [facility] Encounters Start Date/Time End Date/Time Encounter Type Ad[facility] ID Source 2019-08-16 12:39:00 2019-08-13 16:19:00 Admitted Inpatient [address] [facility] [id number] [facility] 2019-07-14 14:17:00 2019-07-17 17:03:00 Discharged Inpatient [address] [facility] [id number] [facility] Results Test Description Test Time Test Comments Results Result Comments Source CT CHEST WO 2020-01-15 21:44:00 [facility] [address] [place] [address] Patient Name: EL MEDINA MR #: [id number] : 1940 Age/Sex: 79/F Req #: [id number] Adm Physician: Ordered by: CLA BOONE MD Report #: [id number] Location: ER Room/Bed: Procedure: [id number] CT/CT CHEST WO Exam Date: Exam Time: [...] Test Item Bedside Glucose (test code = 96911-0) 195 70-120 Meter ID: [id number] Medical Centererum or plasma sodium measurement (moles/volume)2019-08-16 11:25:00* Test Item Value Reference Range Interpretation Comments Sodium Level (test code = 2951-2) 139 136-145 [facility]ere[facility] or plasma potassium measurement (moles/volume)2019-08-16 11:25:00* Test Item Value Reference Range Interpretation Comments Potassium Level (test code = 2823-3) 3.9 3.5-5.1 [facility]ere[facility] or plasma chloride measurement (moles/volume)2019-08-16 11:25:00* Test Item Value Reference Range Interpretation Comments Chloride Level (test code = 2075-0) 107 98-107 [facility]ererum or plasma carbon dioxide, total measurement (moles/volume)2019-08-16 11:25:00* Test Item Value Reference Range Interpretation Comments Carbon Dioxide Level (test code = 2028-9) 21 22-29 [facility]ererum or plasma anion zym1913-32-52 11:25:00* Test Item Value Reference Range Interpretation Comments Anion Gap (test code = 44051-1) 14.9 8-16 [facility]ere[facility] or plasma urea nitrogen measurement (mass/volume)2019-08-16 11:25:00* Test Item Value Reference Range Interpretation Comments Blood Urea Nitrogen (test code = 3094-0) 57 7-26 [facility]ererum or plasma creatinine measurement (mass/volume)2019-08-16 11:25:00* Test Item Value Reference Range Interpretation Comments Creatinine (test code = 2160-0) 1.41 0.57-1.11 [facility]ererum or plasma urea nitrogen/creatinine mass yceyl1006-64-95 11:25:00* Test Item Value Reference Range Interpretation Comments BUN/Creatinine Ratio (test code = 3097-3) 40 6-25 [facility]lineEstimated glomerular filtration rate (GFR) ukhzlqgwjmdjq8248-74-37 11:25:00* Test Item Value Reference Range Interpretation Comments Estimat Glomerular Filtration Rate (test code = 424116666) 36 >60 Ranges were taken from the National Kidney Disease Education Program and the [facility] Kidney Foundation literature.Reference ranges:60 or greater: Jajpnb37-42 ( for 3 consecutive months): Chronic kidney disease 15 or less: Kidney failureCHRISTUS Spohn Hospital [facility] – ShorelineGlucose uyculaggpzg2961-66-37 11:25:00* Test Item Value Reference Range Interpretation Comments Glucose Level (test code = IXR4504) 194 74-118 [facility]ererum or plasma calcium measurement (mass/volume)2019-08-16 11:25:00* Test Item Value Reference Range Interpretation Comments Calcium Level (test code = 79538-2) 8.2 8.4-10.2 [facility]lineCT ABDOMEN/PELVIS CA6721-58-85 10:45:00 [facility] [address] [address] Patient Name: EL MEDINA MR #: [id number] : 1940 Age/Sex: 78/F Req #: [id number] Adm Physician: JEFF SANCHEZ MD Ordered by: LINDA DOWNEY Report #: [id number] Location: [facility]/[address]/Bed: 2841 Procedure: [id number] CT/CT ABDOM EN/PELVIS WO Exam Date: 08/15/19 [...] Count (test code = 6690-2) 10.07 4.8-10.8 [facility]lineBlood erythrocytes automated count (number/volume)2019-08-15 05:50:00* Test Item Value Reference Range Interpretation Comments Red Blood Count (test code = 789-8) 2.98 3.6-5.1 [facility]lineBlood hemoglobin measurement (moles/volume)2019-08-15 05:50:00* Test Item Value Reference Range Interpretation Comments Hemoglobin (test code = 00595-7) 8.9 12.0-16.0 [facility] ShorelineAutomated blood hematocrit (volume fraction)2019-08-15 05:50:00* Test Item Value Reference Range Interpretation Comments Hematocrit (test code = 4544-3) 28.2 34.2-44.1 [facility]lineAutomated erythrocyte mean corpuscular yozsgm0634-95-62 05:50:00* Test Item Value Reference Range Interpretation Comments Mean Corpuscular Volume (test code = 787-2) 94.6 81-99 [facility]lineAutomated erythrocyte mean corpuscular hemoglobin (mass per erythrocyte)2019-08-15 05:50:00* Test Item Value Reference Range Interpretation Comments Mean Corpuscular Hemoglobin (test code = 785-6) 29.9 28-32 [facility]lineAutomated erythrocyte mean corpuscular hemoglobin concentration measurement (mass/volume)2019-08-15 05:50:00* Test Item Value Reference Range Interpretation Comments Mean Corpuscular Hemoglobin Concent (test code = 786-4) 31.6 31-35 [facility] ShorelineRDW SvqVa-Txv1685-12-10 05:50:00* Test Item Value Reference Range Interpretation Comments Red Cell Distribution Width (test code = 53559-3) 16.3 11.7 -14.4 [facility]lineAutomated blood platelet count (count/volume)2019-08-15 05:50:00* Test Item Value Reference Range Interpretation Comments Platelet Count (test code = 777-3) 344 140-360 [facility]lineAutomated blood segmented neutrophil count as percentage of total ukdvqxilab1333-74-07 05:50:00* Test Item Value Reference Range Interpretation Comments Neutrophils (%) (Auto) (test code = 08537-6) 69.0 38.7-80.0 [facility] ShorelineAutomated blood lymphocyte count as percentage ot total yxkhyvsems4868-99-63 05:50:00* Test Item Value Reference Range Interpretation Comments Lymphocytes (%) (Auto) (test code = 736-9) 19.0 18.0-39.1 [facility]lineAutomated blood monocyte count as percentage of total trhmptqjgb8662-19-46 05:50:00* Test Item Value Reference Range Interpretation Comments Monocytes (%) (Auto) (test code = 5905-5) 9.3 4.4-11.3 [facility]lineAutomated blood eosinophil count as percentage of total ylggwtynyi1929-83-89 05:50:00* Test Item Value Reference Range Interpretation Comments Eosinophils (%) (Auto) (test code = 713-8) 0.9 0.0-6.0 [facility]lineAutomated blood basophil count as percentage of total zwivhlgwlp0582-78-27 05:50:00* Test Item Value Reference Range Interpretation Comments Basophils (%) (Auto) (test code = 706-2) 0.4 0.0-1.0 [facility] ShorelineFluoroscopic procedure less than one hour ybnbrsii9764-88-45 05:50:00* Test Item Value Reference Range Interpretation Comments IM GRANULOCYTES % (test code = IM GRANULOCYTES %) 1.4 0.0- 1.0 [facility] ShorelineAutomated blood neutrophil count 2019-08-15 05:50:00* Test Item Value Reference Range Interpretation Comments Neutrophils # (Auto) (test code = 751-8) 7.0 2.1-6.9 [facility]lineBlwestbrook medical center lymphocytes count (number/volume) 2019-08-15 05:50:00* Test Item Value Reference Range Interpretation Comments Lymphocytes # (Auto) (test code = 32936-3) 1.9 1.0-3.2 [facility]lineBlwestbrook medical center monocytes automated count (number/volume)2019-08-15 05:50:00* Test Item Value Reference Range Interpretation Comments Monocytes # (Auto) (test code = 742-7) 0.9 0.2-0.8 [facility]lineAutomated blood eosinophil count 2019-08-15 05:50:00* Test Item Value Reference Range Interpretation Comments Eosinophils # (Auto) (test code = 711-2) 0.1 0.0-0.4 [facility]lineAutomated blood basophil count (count/volume)2019-08-15 05:50:00* Test Item Value Reference Range Interpretation Comments Basophils # (Auto) (test code = 704-7) 0.0 0.0-0.1 [facility] ShorelineFluoroscopic procedure less than one hour qyuvhgcj4338-74-69 05:50:00* Test Item Value Reference Range Interpretation Comments Absolute Immature Granulocyte (auto (lorena t code = Absolute Immature Granulocyte (auto) 0.14 0-0.1 [facility]ererum or plasma total bilirubin measurement (mass/volume)2019-08-15 05:50:00* Test Item Value Reference Range Interpretation Comments Total Bilirubin (test code = 1975-2) 0.2 0.2-1.2 [facility] ShorelineFluoroscopic procedure less than one hour xcymrofd1513-31-96 05:50:00* Test Item Value Reference Range Interpretation Comments Aspartate Amino Transf (AST/SGOT) (test code = Aspartate Amino Transf (AST/SGOT)) 11 5-34 [facility] Centererum or plasma alanine aminotransferase measurement (enzymatic activity/volume)2019-08-15 05:50:00* Test Item Value Reference Range Interpretation Comments Alanine Aminotransferase (ALT/SGPT) (test code = 1742-6) 12 0-55 [facility] Centererum or plasma protein measurement (mass/volume)2019-08-15 05:50:00* Test Item Value Reference Range Interpretation Comments Total Protein (test code = 2885-2) 5.8 6.5-8.1 [facility]ererum or plasma albumin measurement (mass/volume)2019-08-15 05:50:00* Test Item Value Reference Range Interpretation Comments Albumin (test code = 1751-7) 2.9 3.5-5.0 [facility]linePlasma globulin measurement (mass/volume) 2019-08-15 05:50:00* Test Item Value Reference Range Interpretation Comments Globulin (test code = 76278-4) 2.9 2.3-3.5 [facility] Centererum or plasma albumin/globulin mass kbpux9873-90-48 05:50:00* Test Item Value Reference Range Interpretation Comments Albumin/Globulin Ratio (test code = 1759-0) 1.0 0.8-2.0 [facility]ererum or plasma alkaline phosphatase measurement (enzymatic activity/volume)2019-08-15 05:50:00* Test Item Value Reference Range Interpretation Comments Alkaline Phosphatase (test code = 6768-6) 69 40-150 [facility]lineFluoroscopic procedure less than one hour oyaiuzkw2325-98-91 05:09:00* Test Item Value Reference Range Interpretation Comments Hemoglobin A1c Percent (test code = Hemoglobin A1c Percent) 7.7 4.0-7.0 [facility]ererum or plasma triglyceride measurement (mass/volume)2019-08-14 05:09:00* Test Item Value Reference Range Interpretation Comments Triglycerides Level (test code = 2571-8) 89 0-149 [facility]ererum or plasma cholesterol measurement (mass/volume)2019-08-14 05:09:00* Test Item Value Reference Range Interpretation Comments Cholesterol Level (test code = 2093-3) 221 0-199 Less than 200 mg/dL Low Cejg079 - 239 mg/dL Borderline Jnst541 m g/dl and greater High Risk [facility]ererum or plasma cholesterol in LDL measurement (mass/volume) 2019-08-14 05:09:00* Test Item Value Reference Range Interpretation Comments LDL Cholesterol (test code = 2089-1) 134 60-130 [facility]ererum or plasma cholesterol in HDL measurement (mass/volume)2019-08-14 05:09:00* Test Item Value Reference Range Interpretation Comments HDL Cholesterol (test code = 2085-9) 69 40-60 [facility] Centererum or plasma total cholesterol/cholesterol in HDL mass uuzul1961-71-44 05:09:00* Test Item Value Reference Range Interpretation Comments Cholesterol/HDL Ratio (test code = 9830-1) 3.2 3.0-3.6 [facility]ererum or plasma creatine kinase measurement (enzymatic activity/volume)2019-08-14 05:09:00* Test Item Value Reference Range Interpretation Comments Creatine Kinase (test code = 2157-6) 34 29-168 [facility] Centererum or plasma creatine kinase MB measurement (mass/volume)2019-08-14 05:09:00* Test Item Value Reference Range Interpretation Comments Creatine Kinase MB (test code = 36846-3) 1.30 0-5.0 [facility]lineTroponin I measurement by highly sensitive enzyme uecedrzvzkn3212-09-04 05:09:00* Test Item Value Reference Range Interpretation Comments Troponin I (test code = 47061-8) 0.231 0-0.300 [facility] ShorelineCHEST SINGLE (PORTABLE)2019-08-13 15:55:00 [facility] [address] [address] Patient Name: EL MEDINA MR #: [id number] : 1940 Age/Sex: 78/F Req #: [id number] Adm Physician: Ordered by: VANIA QUIROZ MD Report #: [id number] Location: ER Room/Bed: Procedure: [id number] DX/CHEST SINGL E (PORTABLE) Exam Date: 08/13/19 Exam Time: 151 REPORT STATUS: Signed X-ray chest A P [...] Signed By: SAMEER HUFF MD on 08/13/19 697 Transcribed By: LEX on 11/24 252 COPY TO: VANIA QUIROZ MD Prothrombin time (PT) in platelet poor plasma by coagulation rkoin6407-88-41 11:31:00* Test Item Value Reference Range Interpretation Comments Prothrombin Time (test code = 5902-2) 12.1 11.9-14.5 [facility] ShorelineINR in Platelet poor plasma by Coagulation rxuxg4165-46-14 11:31:00* Test Item Value Reference Range Interpretation Comments Prothromb Time International Ratio (test code = 6301-6) 0.85 Oral Anticoagulant Therapy INR Values:1. Low Intensity Therapy 1.5 - 2.02 . Moderate Intensity Therapy 2.0 - 3.03. High Intensity Therapy(1) 2.5 - 3. 54. High Intensity Therapy(2) 3.0 - 4.05. Panic Value INR > 5.0 [facility] ShorelineActivated partial thromboplastin time (aPTT) in platelet poor plasma by coagulation onhrb3333-08-34 11:31:00* Test Item Value Reference Range Interpretation Comments Activated Partial Thromboplast Time (test code = 99422-5) 20.7 23.8-35.5 [facility]ererum or plasma magnesium measurement (mass/volume)2019-08-13 11:31:00* Test Item Value Reference Range Interpretation Comments Magnesium Level (test code = 69035-1) 1.9 1.3-2.1 [facility] ShorelineBNP Lrv-mRpd0935-01-08 11:31:00* Test Item Value Reference Range Interpretation Comments B-Type Natriuretic Peptide (test code = 32117-0) 561.7 0-100 [facility] ShorelineFluoroscopic procedure less than one hour nkvjequh3164-48-58 11:31:00* Test Item Value Reference Range Interpretation [...] under 564(g) of the ACT.Testing performed by [facility] [place], [place] [address]HJDCHRISTUS [facility]ohn [facility] – ShorelineBlood gqtwbbm3856-60-74 11:31:00* Test Item Value Reference Range Interpretation Comments Blood Culture (test code = 68699875) NO GROWTH AFTER 72 HOURS [facility] ShorelineBedside Ipxkcgk4748-63-20 15:20:00* Test Item Value Reference Range Interpretation Comments Bedside Glucose (test code = 63472-8) 258 70-120 H Meter ID: [id number] Medical Centerodium Level 2019-07-17 06:46:00* Test Item Value Reference Range Interpretation Comments Sodium Level (test code = 2951-2) 143 136-145 [facility] ShorelinePotassium Ymklp8237-89-55 06:46:00* Test Item Value Reference Range Interpretation Comments Potassium Level (test code = 2823-3) 4.3 3.5-5.1 [facility] ShorelineChloride Erwzq3659-29-25 06:46:00* Test Item Value Reference Range Interpretation Comments Chloride Level (test code = 2075-0) 116 98-107 H [facility] ShorelineCarbon Dioxide Uofey9035-11-36 06:46:00* Test Item Value Reference Range Interpretation Comments Carbon Dioxide Level (test code = 2028-9) 21 22-29 L [facility] ShorelineAnion Cwl1621-00-43 06:46:00* Test Item Value Reference Range Interpretation Comments Anion Gap (test code = 28487-3) 10.3 8-16 [facility] ShorelineBlood Urea Zasorzhh3749-51-80 06:46:00* Test Item Value Reference Range Interpretation Comments Blood Urea Nitrogen (test code = 3094-0) 96 7-26 H [facility] ShorelineCreatinine2020-04-11 06:46:00* Test Item Value Reference Range Interpretation Comments Creatinine (test code = 2160-0) 1.84 0.57-1.11 H [facility] ShorelineBUN/Creatinine Zkagx3859-75-56 06:46:00* Test Item Value Reference Range Interpretation Comments BUN/Creatinine Ratio (test code = 3097-3) 52 6-25 H [facility] ShorelineEstimat Glomerular Filtration Rate 2019-07-17 06:46:00* Test Item Value Reference Range Interpretation Comments Estimat Glomerular Filtration Rate (test code = 734076042) 26 >60 L Ranges were taken from the National Kidney Disease Education Program and the [facility] Kidney Foundation literature.Reference ranges:60 or greater: Xlrjdk52-39 ( for 3 consecutive months): Chronic kidney disease 15 or less: Kidney failureCHRISTUS Spohn Hospital Corp[facility] Christi – ShorelineGlucose Ahwex2797-91-77 06:46:00* Test Item Value Reference Range Interpretation Comments Glucose Level (test code = MVV4461) 185 74-118 H [facility] ShorelineCalcium Geits0190-04-34 06:46:00* Test Item Value Reference Range Interpretation Comments Calcium Level (test code = 13741-0) 7.8 8.4-10.2 L [facility] ShorelineWhite Blood Nrbls7646-84-80 06:13:00* Test Item Value Reference Range Interpretation Comments White Blood Count (test code = 6690-2) 7.56 4.8-10.8 [facility]lineRed Blood Ftfgu3084-20-19 06:13:00* Test Item Value Reference Range Interpretation Comments Red Blood Count (test code = 789-8) 2.90 3.6-5.1 L [facility] ShorelineHemoglobin2020-04-10 06:13:00* Test Item Value Reference Range Interpretation Comments Hemoglobin (test code = 01324-5) 8.7 12.0-16.0 L [facility] ShorelineHematocrit2020-04-10 06:13:00* Test Item Value Reference Range Interpretation Comments Hematocrit (test code = 4544-3) 28.1 34.2-44.1 L [facility] ShorelineMean Corpuscular Whxhzf5689-47-79 06:13:00* Test Item Value Reference Range Interpretation Comments Mean Corpuscular Volume (test code = 787-2) 96.9 81-99 [facility] ShorelineMean Corpuscular Ytlsnqosdr3407-56-78 06:13:00* Test Item Value Reference Range Interpretation Comments Mean Corpuscular Hemoglobin (test code = 785-6) 30.0 28-32 [facility] ShorelineMean Corpuscular Hemoglobin Concent 2019-07-16 06:13:00* Test Item Value Reference Range Interpretation Comments Mean Corpuscular Hemoglobin Concent (test code = 786-4) 31.0 31-35 [facility]lineRed Cell Distribution Gmfhc6277-10-91 06:13:00* Test Item Value Reference Range Interpretation Comments Red Cell Distribution Width (test code = 63673-5) 16.8 11.7 -14.4 H [facility] ShorelinePlatelet Kazhq7378-83-10 06:13:00* Test Item Value Reference Range Interpretation Comments Platelet Count (test code = 777-3) 195 140-360 [facility] ShorelineNeutrophils (%) (Auto)2019-07-16 06:13:00 * Test Item Value Reference Range Interpretation Comments Neutrophils (%) (Auto) (test code = 12851-5) 77.7 38.7-80.0 [facility] ShorelineLymphocytes (%) (Auto)2019-07-16 06:13:00 * Test Item Value Reference Range Interpretation Comments Lymphocytes (%) (Auto) (test code = 736-9) 11.2 18.0-39.1 L [facility] ShorelineMonocytes (%) (Auto)2019-07-16 06:13:00* Test Item Value Reference Range Interpretation Comments Monocytes (%) (Auto) (test code = 5905-5) 9.7 4.4-11.3 [facility]osin[facility] (%) (Auto)2019-07-16 06:13:00 * Test Item Value Reference Range Interpretation Comments Eosinophils (%) (Auto) (test code = 713-8) 0.1 0.0-6.0 [facility]ophils (%) (Auto)2019-07-16 06:13:00* Test Item Value Reference Range Interpretation Comments Basophils (%) (Auto) (test code = 706-2) 0.0 0.0-1.0 [facility]lineIM GRANULOCYTES %2019-07-16 06:13:00* Test Item Value Reference Range Interpretation Comments IM GRANULOCYTES % (test code = IM GRANULOCYTES %) 1.3 0.0- 1.0 H [facility]lineNeutrophils # (Auto)2019-07-16 06:13:00* Test Item Value Reference Range Interpretation Comments Neutrophils # (Auto) (test code = 751-8) 5.9 2.1-6.9 [facility]lineLymphocytes # (Auto)2019-07-16 06:13:00* Test Item Value Reference Range Interpretation Comments Lymphocytes # (Auto) (test code = 83802-2) 0.9 1.0-3.2 L [facility]lineMonocytes # (Auto)2019-07-16 06:13:00* Test Item Value Reference Range Interpretation Comments Monocytes # (Auto) (test code = 742-7) 0.7 0.2-0.8 [facility]lineEosinophils # (Auto)2019-07-16 06:13:00* Test Item Value Reference Range Interpretation Comments Eosinophils # (Auto) (test code = 711-2) 0.0 0.0-0.4 [facility]ophils # (Auto)2019-07-16 06:13:00* Test Item Value Reference Range Interpretation Comments Basophils # (Auto) (test code = 704-7) 0.0 0.0-0.1 [facility]lineAbsolute Immature Granulocyte (auto 2019-07-16 06:13:00* Test Item Value Reference Range Interpretation Comments Absolute Immature Granulocyte (auto (lorena t code = Absolute Immature Granulocyte (auto) 0.10 0-0.1 [facility]lineTroponin [id number] 14:13:00* Test Item Value Reference Range Interpretation Comments Troponin I (test code = 94277-7) 0.021 0-0.300 [facility]lineHemoglobin A1c Peszrlu3250-35-93 07:21:00 * Test Item Value Reference Range Interpretation Comments Hemoglobin A1c Percent (test code = Hemoglobin A1c Percent) 7.2 4.0-7.0 H [facility]lineThyroid Stimulating Hormone (TSH) 2019-07-13 07:21:00* Test Item Value Reference Range Interpretation Comments Thyroid Stimulating Hormone (TSH) (test code = 85019-5) 2.423 0.350-4.940 [facility]lineTriglycerides Dthui1718-59-31 06:43:00* Test Item Value Reference Range Interpretation Comments Triglycerides Level (test code = 2571-8) 52 0-149 [facility]lineCholesterol Gvpog6340-18-35 06:43:00* Test Item Value Reference Range Interpretation Comments Cholesterol Level (test code = 2093-3) 197 0-199 Less than 200 mg/dL Low Ifdn805 - 239 mg/dL Borderline Dimp943 m g/dl and greater High Risk [facility]lineLDL Pohfbxwmvss7475-85-76 06:43:00* Test Item Value Reference Range Interpretation Comments LDL Cholesterol (test code = 2089-1) 113 60-130 [facility]lineHDL Ticcjdjnqms8549-17-31 06:43:00* Test Item Value Reference Range Interpretation Comments HDL Cholesterol (test code = 2085-9) 74 40-60 H [facility]lineCholesterol/HDL Bgtst1551-30-56 06:43:00 * Test Item Value Reference Range Interpretation Comments Cholesterol/HDL Ratio (test code = 9830-1) 2.7 3.0-3.6 L [facility] Centererum or plasma thyrotropin measurement by detection limit <= 0.005 miu/l (units/volume)2019-07-13 05:45:00* Test Item Value Reference Range Interpretation Comments Thyroid Stimulating Hormone (TSH) (test code = 96257-0) 2.423 0.350-4.940 [facility] NCAKC1941-21-73 05:43:00 [facility] [address] [address] Patient Name: EL MEDINA MR #: [id number] : 1940 Age/Sex: 78/F Req #: [id number] Adm Physician: TAL GUIDRY MD Ordered by: MINH GRIJALVA MD Report #: [id number] Location: MED/SURG2 Room/Bed: [facility] Procedure: [id number] DX/C HEST 2 VIEWS Exam Date: 07/12/19 [...] AM Dictated By: LUIS ALFREDO FREEMAN MD COPY TO: MINH GRIJALVA MD CHEST SINGLE (PORTABLE)2019-07-13 05:42:00 [address] [address] Patient Name: EL MEDINA MR #: [id number] : 1940 Age/Sex: 78/F Req #: [id number] Adm Physician: ATL GUIDRY MD Ordered by: TAL GUIDRY MD Report #: [id number] Location: MED/SURG2 Room/Bed: [facility] Procedure: [id number] DX /CHEST SINGLE (PORTABLE) Exam Date: 07/13/19 [...] AM Dictated By: LUIS ALFREDO FREEMAN MD Transcribed By: LEX on 07/13/1946 COPY TO: TAL GUIDRY MD Urine [id number] 20:15:00* Test Item Value Reference Range Interpretation Comments Urine WBC (test code = 5821-4) NONE 0-5 [facility]lineUrine [id number] 20:15:00* Test Item Value Reference Range Interpretation Comments Urine RBC (test code = 46374-9) NONE 0-5 [facility]lineUrine Oosagfrg0173-04-68 20:15:00* Test Item Value Reference Range Interpretation Comments Urine Bacteria (test code = 30199-1) NONE NONE [facility]lineUrine Epithelial Bnqzw5186-44-02 20:15:00 * Test Item Value Reference Range Interpretation Comments Urine Epithelial Cells (test code = 29629-7) FEW NONE [facility]lineUrine Coarse Granular Cjquj3313-36-55 20:15:00* Test Item Value Reference Range Interpretation Comments Urine Coarse Granular Casts (test code = 70032-7) 1-5 >0 H [facility]lineUrine Qnifm9801-73-77 20:06:00* Test Item Value Reference Range Interpretation Comments Urine Color (test code = 5778-6) YELLOW YELLOW [facility]lineUrine Tcgtzes3698-06-04 20:06:00* Test Item Value Reference Range Interpretation Comments Urine Clarity (test code = 69071-9) SL CLOUDY CLEAR [facility]lineUrine Specific Wdbwlwg6763-47-05 20:06:00 * Test Item Value Reference Range Interpretation Comments Urine Specific [place] (test code = 5811-5) 1.025 1.010-1.02 5 [facility]lineUrine pV3381-83-00 20:06:00* Test Item Value Reference Range Interpretation Comments Urine pH (test code = 53088-2) 5.5 5-7 [facility]lineUrine Leukocyte Mdqzrcxk7946-95-16 20:06:00* Test Item Value Reference Range Interpretation Comments Urine Leukocyte Esterase (test code = 5799-2) NEGATIVE NEGATIVE [facility]lineUrine Fqkwogh7170-39-37 20:06:00* Test Item Value Reference Range Interpretation Comments Urine Nitrite (test code = 03495-8) NEGATIVE NEGATIVE [facility]lineUrine Rfwmccs8307-81-57 20:06:00* Test Item Value Reference Range Interpretation Comments Urine Protein (test code = 5804-0) NEGATIVE NEGATIVE [facility]lineUrine Glucose (UA)2019-07-12 20:06:00* Test Item Value Reference Range Interpretation Comments Urine Glucose (UA) (test code = 2349-9) NEGATIVE NEGATIVE [facility]lineUrine Efqtnag5345-05-89 20:06:00* Test Item Value Reference Range Interpretation Comments Urine Ketones (test code = 76008-8) NEGATIVE NEGATIVE [facility]lineUrine Llcfjieyafzs1200-67-82 20:06:00* Test Item Value Reference Range Interpretation Comments Urine Urobilinogen (test code = 48254-5) 0.2 0.2-1 [facility]lineUrine Rllucigys2012-20-47 20:06:00* Test Item Value Reference Range Interpretation Comments Urine Bilirubin (test code = 1978-6) NEGATIVE NEGATIVE [facility]lineU[facility] Rjbsd6411-71-60 20:06:00* Test Item Value Reference Range Interpretation Comments Urine Blood (test code = 05390-7) NEGATIVE NEGATIVE [facility]lineUrine color tyhlvnqtfszzv8148-01-17 19:45:00* Test Item Value Reference Range Interpretation Comments Urine Color (test code = 5778-6) YELLOW YELLOW [facility]lineUrine gltkrns2966-05-78 19:45:00* Test Item Value Reference Range Interpretation Comments Urine Clarity (test code = 30341-2) SL CLOUDY CLEAR [facility] Centerpecific gravity of Urine by Test strip 2019-07-12 19:45:00* Test Item Value Reference Range Interpretation Comments Urine Specific [place] (test code = 5811-5) 1.025 1.010-1.02 5 [facility]lineUrine pH measurement by automated test effyh3973-58-99 19:45:00* Test Item Value Reference Range Interpretation Comments Urine pH (test code = 06280-0) 5.5 5-7 [facility]lineUrine leukocyte esterase detection by hmzposiy3584-75-17 19:45:00* Test Item Value Reference Range Interpretation Comments Urine Leukocyte Esterase (test code = 5799-2) NEGATIVE NEGATIVE [facility]lineUrine nitrite btpebdvws6757-66-85 19:45:00* Test Item Value Reference Range Interpretation Comments Urine Nitrite (test code = 35522-8) NEGATIVE NEGATIVE [facility]lineUrine protein measurement by test strip (mass/volume)2019-07-12 19:45:00* Test Item Value Reference Range Interpretation Comments Urine Protein (test code = 5804-0) NEGATIVE NEGATIVE [facility]lineUrine glucose tabemlcbq0141-31-86 19:45:00* Test Item Value Reference Range Interpretation Comments Urine Glucose (UA) (test code = 2349-9) NEGATIVE NEGATIVE [facility]lineUrine ketones detection by automated test ujlzr7899-14-80 19:45:00* Test Item Value Reference Range Interpretation Comments Urine Ketones (test code = 01473-5) NEGATIVE NEGATIVE [facility]lineUrine urobilinogen measurement by test strip (mass/volume)2019-07-12 19:45:00* Test Item Value Reference Range Interpretation Comments Urine Urobilinogen (test code = 60110-3) 0.2 0.2-1 [facility]lineUrine total bilirubin measurement (mass/volume)2019-07-12 19:45:00* Test Item Value Reference Range Interpretation Comments Urine Bilirubin (test code = 1978-6) NEGATIVE NEGATIVE [facility]lineUrine erythrocytes ujyjxlqox5950-09-92 19:45:00* Test Item Value Reference Range Interpretation Comments Urine Blood (test code = 26458-0) NEGATIVE NEGATIVE [facility] ShorelineAutomated urine sediment leukocyte count by microscopy (number/high power field)2019-07-12 19:45:00* Test Item Value Reference Range Interpretation Comments Urine WBC (test code = 5821-4) NONE 0-5 [facility]lineErythrocytes detection in urine sediment by light auiqcebqvq6333-09-16 19:45:00* Test Item Value Reference Range Interpretation Comments Urine RBC (test code = 31083-1) NONE 0-5 [facility]lineBacteria detection in urine sediment by light fuatnwusoe2722-49-40 19:45:00* Test Item Value Reference Range Interpretation Comments Urine Bacteria (test code = 14078-0) NONE NONE [facility]lineEpithelial cells detection in urine sediment by light rjdmzpoizu2668-33-39 19:45:00* Test Item Value Reference Range Interpretation Comments Urine Epithelial Cells (test code = 37669-2) FEW NONE [facility] ShorelineCoarse granular casts detection in urine sediment by light vwjdhyyrwc3385-60-22 19:45:00* Test Item Value Reference Range Interpretation Comments Urine Coarse Granular Casts (test code = 84559-1) 1-5 >0 [facility] ShorelineB-Type Natriuretic Bbooabk5291-89-44 17:40:00* Test Item Value Reference Range Interpretation Comments B-Type Natriuretic Peptide (test code = 15780-3) 1110.7 0-100 H [facility] ShorelineTotal Szjroeuaq7830-89-54 17:33:00* Test Item Value Reference Range Interpretation Comments Total Bilirubin (test code = 1975-2) 0.3 0.2-1.2 [facility] ShorelineAspartate Amino Transf (AST/SGOT) 2019-07-12 17:33:00* Test Item Value Reference Range Interpretation Comments Aspartate Amino Transf (AST/SGOT) (test code = Aspartate Amino Transf (AST/SGOT)) 10 5-34 [facility]lineAlanine Aminotransferase (ALT/SGPT) 2019-07-12 17:33:00* Test Item Value Reference Range Interpretation Comments Alanine Aminotransferase (ALT/SGPT) (test code = 1742-6) 13 0-55 [facility] ShorelineTotal Yfgnrgk5180-11-64 17:33:00* Test Item Value Reference Range Interpretation Comments Total Protein (test code = 2885-2) 5.7 6.5-8.1 L [facility] ShorelineAlbumin2020-04-06 17:33:00* Test Item Value Reference Range Interpretation Comments Albumin (test code = 1751-7) 3.2 3.5-5.0 L [facility] ShorelineGlobulin2020-04-06 17:33:00* Test Item Value Reference Range Interpretation Comments Globulin (test code = 24964-1) 2.5 2.3-3.5 [facility] ShorelineAlbumin/Globulin Xlgoe4318-70-77 17:33:00 * Test Item Value Reference Range Interpretation Comments Albumin/Globulin Ratio (test code = 1759-0) 1.3 0.8-2.0 [facility] ShorelineAlkaline Vuzerqbnnxp2986-49-95 17:33:00* Test Item Value Reference Range Interpretation Comments Alkaline Phosphatase (test code = 6768-6) 68 40-150 [facility]- [place] LUNG V/Q VENT/RDBO6926-21-79 12:26:00 FAX: Kary Harris MD [phone] [place]: St: REG Name: EL MALAVE [facility] : [birth year] Age/S: 78/F [address] [facility] Unit #: [id number] Loc: [place] [address] Phys: Kary Yang MD Acct: [id number] Dis Date: Status: REG CLI PHONE #: [phone] Exam Date: 05/17/2019 1110 FAX #: [phone] Reason: R06.02 EXAMS: CPT CODE: [id number] NM LUNG V/Q VENT/PERF 16883 HISTORY: Shortness of breath. COMPARISON: Chest x-ray [...] Technologist: Glenda Daniels RT(N) Trnscrd Date/Time/By: 05/17/2019 (2579) : By: [email or web address] Orig Print D/T: S: (2857) PAGE 1 Signed Rep ort - XR CHEST 2 [id number] 10:53:00 FAX: Kary Harris MD [phone] [place]: O St: REG Name: EL MALAVE [facility] : [birth year] Age/S: 78/F [address] [facility] Unit #: [id number] Loc: [place] [address] Phys: Kary Yang MD Acct: [id number] Dis Date: Status: REG CLI PHONE #: [phone] Exam Date: 05/17/2019 1002 FAX #: [phone] Reason: R06.02 EXAMS: CPT CODE: [id number] XR CHEST 2 V 56966 HISTORY: R06.02. COM PARISON: September 16, 2018. Location: [facility]. AP and latera l view of the chest: No acute infiltrates, effusion or congestion. Cardiac silhouette is mildly enlarged. IMPRESSION: No acute infiltrates, effusion or congestion. Electronic ally Signed by Luiz Lewis on 05/17/2019 at 1053 R eported and signed by: Bennett Lewis M.D. CC: Richa Yang MD Technologist: Yany Toledo RT (R) Trnscrd Date/Time/By: 05/17/2019 (9124) : By : [email or web address] Orig Print D/T: S: 05/17/2019 (7874) PAGE 1 Signed Report BASIC METABOLIC [id number] 11:03:00* Test Item Value Reference Range Interpretation [...] CA) 8.0 mg/dL 8.5-10.1 L BASIC METABOLIC MTSRO9340-07-26 11:01:00* Test Item Value Reference Range Interpretation [...] code = CA) mg/dL 8.5-10.1 CBC W/AUTO [id number] 10:20:00* Test Item Value Reference Range Interpretation [...] DIFF REQUIRED (test code = MDIFF) NO [id number]-[id number] 03:08:00* Test Item Value Reference Range Interpretation Comments TROPONIN-I (test code = TROPI) 0.069 ng/mL 0-0.045 HH COMMENTS TO MASSAGE OPERATOR: COLLECT 3 HOURS AFTER PREVIOUS ADDLDEVOUXYDRH-[id number] 00:49:00* Test Item Value Reference Range Interpretation Comments TROPONIN-I (test code = TROPI) 0.067 ng/mL 0-0.045 HH COMMENTS TO MASSAGE OPERATOR: COLLECT 3 HOURS AFTER PREVIOUS [id number]-[id number] 16:53:00* Test Item Value Reference Range Interpretation Comments TROPONIN-I (test code = TROPI) 0.071 ng/mL 0-0.045 HH Results called to by [facility] 03/15/19 1653Critical results verified and read back by Nurse? Y BASIC METABOLIC RNVKM0398-05-22 14:13:00* Test Item Value Reference Range Interpretation [...] CA) 8.0 mg/dL 8.5-10.1 L BASIC METABOLIC [id number] 14:09:00* Test Item Value Reference Range Interpretation [...] CA) mg/dL 8.5-10.1 - XR CHEST 2 [id number] 13:59:00 FAX: Bc Valverde NP [phone] [place]: St: REG Name: EL MALAVE [facility] : [birth year] Age/S: 78/F [address] [facility] Unit #: [id number] Loc: [place] [address] Phys: Bc Valverde NP Acct: [id number] Dis Date: Status: REG ER PHONE #: [phone] Exam Date: 03/15/2019 1328 FAX #: [phone] Reason: SEND BY PCP TO R/O PNEUMONIA EXAMS: CPT CODE: [id number] XR CHEST 2 V 24956 REASON FOR EXAM: SEND BY P CP [...] Cardiac megaly. The lungs are clear. Location: [facility] Electronically Sig carson by Baron Calderón MD on 03/15/2019 at 1359 Reported and signed by: Baron Calderón MD CC: Bc Valverde NP Technologist: Herlinda Gordon RT(R); MONROE HUFF RT(R) Trnscrd Date/Time/By: 03/15/2019 (2349) : By: [email or web address] Orig Yaneth nt D/T: S: 03/15/2019 (7319) PAGE 1 Signed Report CBC W/AUTO [id number] 13:32:00* Test Item Value Reference Range Interpretation [...] NRBC#) 0.00 K/mm3 0.0-0.1 N UR MICROALBUMIN/CREAT [id number] 16:09:00* Test Item Value Reference Range Interpretation [...] - 300.0 Clinical albuminuria: >300.0Performed At: [facility] [address] [id number] Kyle L MD Ph:[phone] [id number] 12:14:00* Test Item Value Reference Range Interpretation Comments GLUBED (test code = GLUBED) 191 mg/dL 74-106 H Performed by certified drill setup operator at [facility] AIOGXO4143-83-81 10:23:00* Test Item Value Reference Range Interpretation Comments GLUBED (test code = GLUBED) 170 mg/dL 74-106 H Performed by certified drill setup operator at [facility] [id number] 08:34:00* Test Item Value Reference Range Interpretation Comments GLUBED (test code = GLUBED) 49 mg/dL 74-106 LL Per[facility] by certified drill setup operator [facility]~ COMPREHENSIVE METABOLIC [id number] 05:49:00* Test Item Value Reference Range Interpretation [...] due to change in reagent. COMPREHENSIVE METABOLIC [id number] 05:36:00* Test Item Value Reference Range Interpretation [...] code = ALKP) IUnit/L 45-117 CBC W/AUTO [id number] 05:11:00* Test Item Value Reference Range Interpretation [...] code = MDIFF) NO UR SMEAR EOSINOPHIL [id number] 23:10:00* Test Item Value Reference Range Interpretation Comments UR SMEAR EOSINOPHIL COUNT (test code = EOSCTU) NONE SEEN per HPF NO NE SEEN UR NA,[id number] 23:10:00* Test Item Value Reference Range Interpretation Comments UR NA,RANDOM (test code = TERRI) 49 mmol/L 20-110 N UR CHLORIDE [id number] 23:10:00* Test Item Value Reference Range Interpretation Comments UR CHLORIDE RANDOM (test code = CLU) 42 mEq/L UR PROTEIN/CREATININE [id number] 23:10:00* Test Item Value Reference Range Interpretation [...] RATIO 0.0-0. 20 H UR SMEAR EOSINOPHIL [id number] 21:36:00* Test Item Value Reference Range Interpretation Comments UR SMEAR EOSINOPHIL COUNT (test code = EOSCTU) per HPF NONE SE EN UR NA,[id number] 21:36:00* Test Item Value Reference Range Interpretation Comments UR NA,RANDOM (test code = TERRI) 49 mmol/L 20-110 N UR CHLORIDE [id number] 21:36:00* Test Item Value Reference Range Interpretation Comments UR CHLORIDE RANDOM (test code = CLU) 42 mEq/L UR PROTEIN/CREATININE [id number] 21:36:00* Test Item Value Reference Range Interpretation [...] RATIO 0.0-0. 20 H UR SMEAR EOSINOPHIL [id number] 21:21:00* Test Item Value Reference Range Interpretation Comments UR SMEAR EOSINOPHIL COUNT (test code = EOSCTU) per HPF NONE SE EN UR NA,[id number] 21:21:00* Test Item Value Reference Range Interpretation Comments UR NA,RANDOM (test code = TERRI) 49 mmol/L 20-110 N UR CHLORIDE [id number] 21:21:00* Test Item Value Reference Range Interpretation Comments UR CHLORIDE RANDOM (test code = CLU) 42 mEq/L UR PROTEIN/CREATININE [id number] 21:21:00* Test Item Value Reference Range Interpretation Comments UR PROTEIN RANDOM (test code = PROTU) mg/dL 0.0-11.9 UR CREATININE RANDOM (test code = CREATU) mg/dL 30-125 PROTEIN/CREATININE RATIO (test code = P/CRATIO) RATIO 0.0-0. 20 [id number] 20:18:00* Test Item Value Reference Range Interpretation Comments GLUBED (test code = GLUBED) 220 mg/dL 74-106 H Performed by certified drill setup operator at [facility] IOFEWE6652-09-02 16:14:00* Test Item Value Reference Range Interpretation Comments GLUBED (test code = GLUBED) 279 mg/dL 74-106 H Performed by certified drill setup operator at [facility] COMPREHENSIVE METABOLIC [id number] 14:11:00* Test Item Value Reference Range Interpretation [...] due to change in reagent. COMPREHENSIVE METABOLIC [id number] 14:01:00* Test Item Value Reference Range Interpretation [...] code = ALKP) IUnit/L 45-117 CBC W/AUTO [id number] 13:24:00* Test Item Value Reference Range Interpretation [...] DIFF REQUIRED (test code = MDIFF) NO [id number] 11:53:00* Test Item Value Reference Range Interpretation Comments GLUBED (test code = GLUBED) 197 mg/dL 74-106 H Performed by certified drill setup operator at [facility] [id number] 08:17:00* Test Item Value Reference Range Interpretation Comments GLUBED (test code = GLUBED) 76 mg/dL 74-106 N Performed by certified drill setup operator at [facility] [id number] 21:27:00* Test Item Value Reference Range Interpretation Comments GLUBED (test code = GLUBED) 218 mg/dL 74-106 H Performed by certified drill setup operator at [facility] [id number] 16:46:00* Test Item Value Reference Range Interpretation Comments GLUBED (test code = GLUBED) 182 mg/dL 74-106 H Performed by certified drill setup operator [facility]~ - US RETRO [id number] 12:32:00 Name: MEDINAEL Lr [facility] : 1940 Age/S: 78 / F [address] Unit #: [id number] Loc: [place] [address] Phys: Tal Guidry MD Acct: [id number] Dis Date: Status: ADM IN PHONE #: [phone] Exam Date: 09/27/2018 1150 FAX #: [phone] Reason: NILES EXAMS: CPT CODE: [id number] [place] [employer] [address] REASON FOR EXAM: NILES EXAM ORDER DATE: [...] Patrick; Tal Guidry MD Technologist: FRANKIE LORENZO RT(R),[facility] Trnctb Date/Time: 09/27/2018 (1232) t.SDR.VTL Orig Print D/T: S: 09/27/2018 (5225) Probe: PAGE 1 Signed Report [id number] 12:10:00* Test Item Value Reference Range Interpretation Comments GLUBED (test code = GLUBED) 225 mg/dL 74-106 H [facility] certified drill [facility]~ [id number] 12:10:00* Test Item Value Reference Range Interpretation Comments GLUBED (test code = GLUBED) 112 mg/dL 74-106 H Performed by certified drill setup [facility]~ COMPREHENSIVE METABOLIC [id number] 07:10:00* Test Item Value Reference Range Interpretation [...] due to change in reagent. COMPREHENSIVE METABOLIC [id number] 06:52:00* Test Item Value Reference Range Interpretation [...] code = ALKP) IUnit/L 45-117 CBC W/AUTO [id number] 06:39:00* Test Item Value Reference Range Interpretation [...] DIFF REQUIRED (test code = MDIFF) NO [id number] 20:56:00* Test Item Value Reference Range Interpretation Comments GLUBED (test code = GLUBED) 232 mg/dL 74-106 H Performed by certified drill setup operator at [facility] [id number] 18:45:00* Test Item Value Reference Range Interpretation Comments GLUBED (test code = GLUBED) 172 mg/dL 74-106 H [facility] [id number] 12:19:00* Test Item Value Reference Range Interpretation Comments GLUBED (test code = GLUBED) 232 mg/dL 74-106 H [facility] certified [facility] COMPREHENSIVE METABOLIC [id number] 11:57:00* Test Item Value Reference Range Interpretation [...] due to change in reagent. COMPREHENSIVE METABOLIC [id number] 11:18:00* Test Item Value Reference Range Interpretation [...] TOTAL (test code = ALKP) IUnit/L 45-117 [id number] 08:36:00* Test Item Value Reference Range Interpretation Comments GLUBED (test code = GLUBED) 125 mg/dL 74-106 H [facility] [id number] 21:09:00* Test Item Value Reference Range Interpretation Comments GLUBED (test code = GLUBED) 172 mg/dL 74-106 H Performed by certified drill setup operator at [facility] [id number] 17:01:00* Test Item Value Reference Range Interpretation Comments GLUBED (test code = GLUBED) 253 mg/dL 74-106 H [facility] certified [facility] [id number] 11:59:00* Test Item Value Reference Range Interpretation Comments GLUBED (test code = GLUBED) 217 mg/dL 74-106 H Per[facility] certified drill setup [facility] [id number] 08:26:00* Test Item Value Reference Range Interpretation Comments GLUBED (test code = GLUBED) 150 mg/dL 74-106 H Per[facility] certified drill setup [facility] [id number] 20:21:00* Test Item Value Reference Range Interpretation Comments GLUBED (test code = GLUBED) 347 mg/dL 74-106 H Performed by certified drill setup operator at [facility] [id number] 20:17:00* Test Item Value Reference Range Interpretation Comments GLUBED (test code = GLUBED) 360 mg/dL 74-106 H Performed by certified drill setup operator at [facility] [id number] 17:28:00* Test Item Value Reference Range Interpretation Comments GLUBED (test code = GLUBED) 239 mg/dL 74-106 H [facility] certified drill [facility] [id number] 13:18:00* Test Item Value Reference Range Interpretation Comments GLUBED (test code = GLUBED) 382 mg/dL 74-106 H Per[facility] certified drill setup [facility] [id number] 09:18:00* Test Item Value Reference Range Interpretation Comments GLUBED (test code = GLUBED) 207 mg/dL 74-106 H Per[facility] by certified drill setup [facility] B-TYPE NATRIURETIC [id number] 05:58:00* Test Item Value Reference Range Interpretation Comments B-TYPE NATRIURETIC PEPTIDE (test code = BNP) 50.60 pgram/mL 0-100 N BASIC METABOLIC [id number] 05:57:00* Test Item Value Reference Range Interpretation [...] CA) 8.4 mg/dL 8.5-10.1 L BASIC METABOLIC [id number] 05:46:00* Test Item Value Reference Range Interpretation [...] CALCIUM (test code = CA) mg/dL 8.5-10.1 [id number] 20:34:00* Test Item Value Reference Range Interpretation Comments GLUBED (test code = GLUBED) 358 mg/dL 74-106 H [facility] certified drill [facility] [id number] 16:20:00* Test Item Value Reference Range Interpretation Comments GLUBED (test code = GLUBED) 358 mg/dL 74-106 H Per[facility] certified drill setup [facility] [id number] 11:53:00* Test Item Value Reference Range Interpretation Comments GLUBED (test code = GLUBED) 186 mg/dL 74-106 H Performed by certified drill setup operator at [facility] [id number] 08:21:00* Test Item Value Reference Range Interpretation Comments GLUBED (test code = GLUBED) 153 mg/dL 74-106 H Performed by certified drill setup operator at [facility] BASIC METABOLIC [id number] 06:42:00* Test Item Value Reference Range Interpretation [...] CA) 8.9 mg/dL 8.5-10.1 N BASIC METABOLIC [id number] 06:34:00* Test Item Value Reference Range Interpretation [...] CALCIUM (test code = CA) mg/dL 8.5-10.1 [id number] 21:34:00* Test Item Value Reference Range Interpretation Comments GLUBED (test code = GLUBED) 318 mg/dL 74-106 H Performed by certified drill setup operator at [facility] [id number] 19:50:00* Test Item Value Reference Range Interpretation Comments GLUBED (test code = GLUBED) 285 mg/dL 74-106 H Performed by certified drill setup operator at [facility] [id number] 19:50:00* Test Item Value Reference Range Interpretation Comments GLUBED (test code = GLUBED) 336 mg/dL 74-106 H Performed by certified drill setup operator at [facility] [id number] 16:33:00* Test Item Value Reference Range Interpretation Comments GLUBED (test code = GLUBED) 270 mg/dL 74-106 H Performed by certified drill setup operator at [facility] B-TYPE NATRIURETIC [id number] 09:42:00* Test Item Value Reference Range Interpretation Comments B-TYPE NATRIURETIC PEPTIDE (test code = BNP) 62.91 pgram/mL 0-100 N HARD STICK CS 0650 CHANEL PALOMO ([id number]) IS AWARE V[facility]LAB. [facility] [id number] 09:13:00* Test Item Value Reference Range Interpretation [...] N HARD STICK CS 0650 CHANEL PALOMO ([id number]) IS AWARE V.LAB.CS 0728BASI METABOLIC [id number] 09:10:00* Test Item Value Reference Range Interpretation [...] 8.5-10.1 HARD STICK CS 0650 CHANEL PALOMO ([id number]) IS AWARE V.LAB. 0728HEMOGLOBIN 2018-09-22 08:44:00* Test Item Value Reference Range Interpretation Comments HEMOGLOBIN (test code = HGB) 10.4 gram/dL 11.5-15.5 L HARD STICK CS 0650 CHANEL PALOMO ([id number]) IS AWARE V.LAB. 0729PLATELET [id number] 08:44:00* Test Item Value Reference Range Interpretation Comments PLATELET COUNT (test code = PLT) 358 K/mm3 150-450 N HARD STICK CS 0650 CHANEL PALOMO ([id number]) IS AWARE V.LAB. 0729GLUBED 2018-09-22 07:20:00* Test Item Value Reference Range Interpretation Comments GLUBED (test code = GLUBED) 338 mg/dL 74-106 H [facility] certified [facility] [id number] 20:33:00* Test Item Value Reference Range Interpretation Comments GLUBED (test code = GLUBED) 371 mg/dL 74-106 H Per[facility] certified drill setup [facility] - CT MAXIFAC W/O [id number] 19:07:00 Name: EL MEDINA [facility] : 1940 Age/S: 78 / F [address] Unit #: [id number] Loc: [place] [address] Phys: Tremayne Pagan MD Acct: [id number] Dis Date: Status: ADM IN PHONE #: [phone] Exam Date: 09/21/2018 1830 FAX #: [phone] Reason: frontal sinus pain/ headachy EXAMS: CPT CODE: [id number] [place] [address] REASON FOR EXAM: frontal sinus pain/ headachy EXAM ORDER DATE: 09/21/2018 3:50 PM Ordering MLaura: Tremayne Pagan MD PROCEDURE: - CT MAXIFAC [...] carson by: Kyle Elizabeth M.D. CC: Solo Patrick Dean A MD Technologist:Silvina Veloz RT(R) CTDI: DLP: Trnscb Date/Time: 09/21/2018 (1906) [email or web address] Orig P rint D/T: S: 09/21/2018 (1909) PAGE 1 Signed Report [id number] 15:21:00* Test Item Value Reference Range Interpretation Comments GLUBED (test code = GLUBED) 296 mg/dL 74-106 H Performed by certified drill setup operator at [facility] [id number] 12:02:00* Test Item Value Reference Range Interpretation Comments GLUBED (test code = GLUBED) 196 mg/dL 74-106 H Performed by certified drill setup operator at [facility] [id number] 07:40:00* Test Item Value Reference Range Interpretation Comments GLUBED (test code = GLUBED) 273 mg/dL 74-106 H Performed by certified drill setup operator at [facility] RESPIRATORY VIRUS PANEL [id number] 23:06:00* Test Item Value Reference Range Interpretation [...] code = ADENOPCR) Negative Negative Performed At: [address] [id number] Gallegos MD Ph:[phone] [id number] 20:43:00* Test Item Value Reference Range Interpretation Comments GLUBED (test code = GLUBED) 341 mg/dL 74-106 H Performed by certified drill setup operator at [facility] [id number] 16:21:00* Test Item Value Reference Range Interpretation Comments GLUBED (test code = GLUBED) 301 mg/dL 74-106 H Performed by certified drill setup operator [facility] IMMUNOGLOBULIN [id number] 16:07:00* Test Item Value Reference Range Interpretation Comments IMMUNOGLOBULIN E (test code = IGE) 95 IU/mL 6-495 Performed At: [facility] [id number] Gallegos MD Ph:[phone] [id number] 12:49:00* Test Item Value Reference Range Interpretation Comments GLUBED (test code = GLUBED) 338 mg/dL 74-106 H Performed by certified drill setup operator [facility] [id number] 08:51:00* Test Item Value Reference Range Interpretation Comments GLUBED (test code = GLUBED) 152 mg/dL 74-106 H Performed by certified drill setup operator at [facility] [id number] 20:54:00* Test Item Value Reference Range Interpretation Comments GLUBED (test code = GLUBED) 378 mg/dL 74-106 H Performed by certified drill setup operator at [facility] [id number] 20:54:00* Test Item Value Reference Range Interpretation Comments GLUBED (test code = GLUBED) 206 mg/dL 74-106 H Performed by certified drill setup operator at [facility] [id number] 11:47:00* Test Item Value Reference Range Interpretation Comments GLUBED (test code = GLUBED) 400 mg/dL 74-106 H Performed by certified drill setup operator at [facility] [id number] 08:30:00* Test Item Value Reference Range Interpretation Comments GLUBED (test code = GLUBED) 340 mg/dL 74-106 H Performed by certified drill setup operator at [facility] [id number] 20:48:00* Test Item Value Reference Range Interpretation Comments GLUBED (test code = GLUBED) 272 mg/dL 74-106 H Performed by certified drill setup operator at [facility] [id number] 15:49:00* Test Item Value Reference Range Interpretation Comments GLUBED (test code = GLUBED) 288 mg/dL 74-106 H Performed by certified drill setup operator at [facility] [id number] 12:08:00* Test Item Value Reference Range Interpretation Comments GLUBED (test code = GLUBED) 479 mg/dL 74-106 H Performed by certified drill setup operator at [facility] [id number] 08:40:00* Test Item Value Reference Range Interpretation Comments GLUBED (test code = GLUBED) 319 mg/dL 74-106 H Performed by certified drill setup operator at [facility] [id number] 21:15:00* Test Item Value Reference Range Interpretation Comments GLUBED (test code = GLUBED) 381 mg/dL 74-106 H [facility] certified drill setup [facility] [id number] 16:13:00* Test Item Value Reference Range Interpretation Comments GLUBED (test code = GLUBED) 181 mg/dL 74-106 H Performed by certified drill setup operator at [facility] [id number] 12:05:00* Test Item Value Reference Range Interpretation Comments GLUBED (test code = GLUBED) 272 mg/dL 74-106 H Performed by certified drill setup operator at [facility] [id number] 08:10:00* Test Item Value Reference Range Interpretation Comments GLUBED (test code = GLUBED) 274 mg/dL 74-106 H Performed by certified drill setup operator at [facility] [id number] 21:16:00* Test Item Value Reference Range Interpretation Comments GLUBED (test code = GLUBED) 325 mg/dL 74-106 H Per[facility] by certified drill setup [facility] - XR C-SPINE 2-3 [id number] 17:41:00 FAX: Bala Palm [phone] [place]: St: ADM FAX: Mike PatrickSolo N [phone] Name: EL MEDINA [facility] : 1940 Age/S: 78/F [address] [facility] Unit #: [id number] Loc: V.4032 [place] [address] Phys: Bala Jaramillo MD Acct: [id number] Dis Date: Status: ADM IN PHONE #: [phone] Exam Date: 09/16/2018 1725 FAX #: [phone] Reason: BACK PAIN EXAMS: CPT CODE: [id number] XR C-SPINE 2-3 VIEWS 80655 REASON FOR EXAM: BACK PAIN EXAM ORDER [...] Jaramillo MD; Solo Patrick Technologist: Vlad SANCHEZ Trnscrd Date/Time/By: 09/05 (8895) : By: Nigel Orig Print D/T: S: 09/16/2018 (1607) PAGE 1 Signed Report - XR T-SPINE 3 [id number] 17:39:00 FAX: Bala Palm [phone] [place]: St: [facility] FAX: Solo Davidson [phone] Name: EL MEDINA [facility] : 1940 Age/S: 78/F [address] [facility] Unit #: [id number] Loc: V.4032 [place] [address] Phys: Bala Jaramillo MD Acct: [id number] Dis Date: Status: ADM IN PHONE #: [phone] Exam Date: 09/16/2018 1725 FAX #: [phone] Reason: BACK PAIN EXAMS: CPT CODE: [id number] XR T-SPINE 3 VIEWS 90236 REASON FOR EXAM: BACK PAIN EXAM ORDER [...] IMPRESSI ON: No acute osseous abnormality at 1739 Reported and signed by: Kyle Elizabeth M.D. CC: Bala Jaramillo MD; Solo Patrick Technologist: NICHOL Liriano crd Date/Time/By: 09/16/2018 (1735) : By: GarethL Orig Print D/T: S: 09/16/2018 (9766) PAGE 1 Signed Report - XR L-SPINE 2/3 [id number] 17:38:00 FAX: Bala Palm [phone] [place]: St: ADM FAX: Solo Davidson [phone] Name: EL MEDINA [facility] : 1940 Age/S: 78/F [address] [facility] Unit #: [id number] Loc: V.4032 [place] [address] Phys: Bala Jaramillo MD Acct: [id number] Dis Date: Status: ADM IN PHONE #: [phone] Exam Date: 09/16/2018 1725 FAX #: [phone] Reason: BACK PAIN EXAMS: CPT CODE: [id number] XR L-SPINE 2/3 VIEWS 76155 REASON FOR EXAM: BACK PAIN EXAM ORDER [...] L4-5. No evidence of compression fracture at 5349 Reported and signed by: Kyle Elizabeth M.D. CC: Bala Villanueva MD; Solo Patrick Technologist: NICHOL LITTLEJOHN Trnscrd Date/Time/By: 09/16/2018 (72 38) : By: Nigel Orig Print D/T: S: 09/16/2018 (9634) PAGE 1 Signed Report - XR CHEST 2 [id number] 17:36:00 FAX: Bala Palm [phone] [place]: St: ADM FAX: Solo Davidson [phone] Name: EL MEDINA [facility] : 1940 Age/S: 78/F [address] [facility] Unit #: [id number] Loc: V.[address] [place] [address] Phys: Bala Jaramillo MD Acct: [id number] Dis Date: Status: ADM IN PHONE #: [phone] Exam Date: 09/16/2018 1725 FAX #: [phone] Reason: BACK PAIN EXAMS: CPT CODE: [id number] XR CHEST 2 V 57460 REASON FOR EXAM: BACK PAIN Exam Order [...] Technologis t: NICHOL SANCHEZ Trnscrd Date/Time/By: 09/16/2018 (1732) : By: Nigel Orig Print D/T: S: 09/16/2018 (7996) PAGE 1 Signed Report - CT CHEST W/O [id number] 17:13:00 Name: EL MEDINA [facility] : 1940 Age/S: 78 / F [address] [facility] Unit #: [id number] Loc: Elizabeth [place] [address] Phys: Bala Hahn MD Acct: [id number] Di s Date: Status: ADM IN PHONE #: [phone] Exam Date: 09/16/2018 1652 FAX #: [phone] Reason: soa pna EXAMS: CPT CODE: [id number] CT CHEST W/O CONTRAST 79302 REASON FOR EXAM: soa pna EXAM ORDER [...] Klaudia Soto CTDI: DLP: Trnscb Date/Time: 09/16/2018 (0599) t MONSERRAT Orig Print D/T: S: 09/16/2018 (2199) PAGE 1 Signed Report GLUBED 2018-09-16 15:34:00* Test Item Value Reference Range Interpretation Comments GLUBED (test code = GLUBED) 209 mg/dL 74-106 H Performed by certified drill setup operator at [facility] [id number] 11:22:00* Test Item Value Reference Range Interpretation Comments GLUBED (test code = GLUBED) 323 mg/dL 74-106 H Performed by certified drill setup operator at [facility] B-TYPE NATRIURETIC [id number] 09:01:00* Test Item Value Reference Range Interpretation Comments B-TYPE NATRIURETIC PEPTIDE (test code = BNP) 310.40 pgram/mL 0-100 H BASIC METABOLIC [id number] 08:39:00* Test Item Value Reference Range Interpretation [...] CA) 8.7 mg/dL 8.5-10.1 N BASIC METABOLIC [id number] 08:31:00* Test Item Value Reference Range Interpretation [...] CALCIUM (test code = CA) mg/dL 8.5-10.1 [id number] 07:46:00* Test Item Value Reference Range Interpretation Comments GLUBED (test code = GLUBED) 357 mg/dL 74-106 H Performed by certified drill setup operator at [facility] - XR CHEST 2 [id number] 21:59:00 FAX: Solo Davidson [phone] [place]: St: ADM FAX: Tremayne Glass MD [phone] Name: EL MEDINA [facility] : 1940 Age/S: 78/F [address] Unit #: [id number] Loc: V.4032 [place] [address] Phys: Tremayne Pagan MD Acct: [id number] Dis Date: Status: ADM IN PHONE #: [phone] Exam Date: 09/15/20182149 FAX #: [phone] Reason: chf EXAMS: CPT CODE: [id number] XR CHEST 2 V 90520 REASON FOR EXAM: chf Exam Order Date: 09/15/2018 12:00 AM Ordering Luiz: Tremayne Pagan MD PROCEDURE: - XR CHEST 2 V COMPARISON: 09/13/2018 FINDINGS: PA and lateral views of the chest show clear lungs without evidence of consolidation. No evidence of effusion. The heart size is minimally enlarged. Pulmonary vasculatures are unremarkable. The osseous structures are grossly intact. IMPRESSION: Interval resolution of the congestive heart failure and pulmonary edema. Persistent minimal cardiomegaly at 215 Reported and signed by: Kyle Elizabeth M.D. CC: Solo Espinal; Tremayne Pagan MD Technologist: SUE Scott Trnscrd Date/Time/By: 09/15/2018 (2158) : By: BlakeVTL Orig Print D/T: S: 09/15/2018 (7) PAGE 1 Signed Report [id number] 21:21:00* Test Item Value Reference Range Interpretation Comments GLUBED (test code = GLUBED) 300 mg/dL 74-106 H [facility] [id number] 15:38:00* Test Item Value Reference Range Interpretation Comments GLUBED (test code = GLUBED) 240 mg/dL 74-106 H Performed by certified drill setup operator at [facility] [id number] 12:01:00* Test Item Value Reference Range Interpretation Comments GLUBED (test code = GLUBED) 185 mg/dL 74-106 H Performed by certified drill setup operator at [facility] [id number] 07:53:00* Test Item Value Reference Range Interpretation Comments GLUBED (test code = GLUBED) 149 mg/dL 74-106 H Performed by certified drill setup operator at [facility] [id number] 21:48:00* Test Item Value Reference Range Interpretation Comments GLUBED (test code = GLUBED) 170 mg/dL 74-106 H Performed by certified drill setup operator at [facility] [id number] 16:00:00* Test Item Value Reference Range Interpretation Comments GLUBED (test code = GLUBED) 181 mg/dL 74-106 H Performed by certified drill setup operator at [facility] [id number] 12:37:00* Test Item Value Reference Range Interpretation Comments GLUBED (test code = GLUBED) 155 mg/dL 74-106 H Performed by certified drill setup operator at [facility] [id number] 08:16:00* Test Item Value Reference Range Interpretation Comments GLUBED (test code = GLUBED) 116 mg/dL 74-106 H Performed by certified drill setup operator at [facility] [id number] 00:19:00* Test Item Value Reference Range Interpretation Comments GLUBED (test code = GLUBED) 145 mg/dL 74-106 H Per[facility] certified drill setup [facility] B-TYPE NATRIURETIC [id number] 22:37:00* Test Item Value Reference Range Interpretation Comments B-TYPE NATRIURETIC PEPTIDE (test code = BNP) 1294.07 pgram/mL 0-100 H BASIC METABOLIC [id number] 20:55:00* Test Item Value Reference Range Interpretation [...] code = CA) 8.1 mg/dL 8.5-10.1 L [id number] 20:55:00* Test Item Value Reference Range Interpretation Comments TROPONIN-I (test code = TROPI) 0.099 ng/mL 0-0.045 09/13/182054 CBC W/O [id number] 19:41:00* Test Item Value Reference Range Interpretation [...] fL 6.7-11.0 N - XR CHEST 1 [id number] 18:55:00 FAX: Donovan Godwin DO [place]: B St: REG Name: EL MALAVE [facility] : [birth year] Age/S: 78/F [address] [facility] Unit #: [id number] Loc: DAM[place] [address] Phys: Donovan Godwin DO Acct: [id number] Dis Date: Status: REG ER PHONE #: [phone] Exam Date: 09/13/2018 7283 FAX #: [phone] Reason: Shortness of Breath EXAMS: CPT CODE: [id number] XR CHEST 1 V 12256 REASON FOR EXAM: Shortness of Breath Exam [...] hemidiaphragm and left costophrenic a ngle. at 185 Reported and signed by: Pamela Fish M.D. CC: Donovan Godwni Technologist: Miladys Murray Trnscrd Date/Time/By: 09/13/2018 (1854) : By: Mk EchevarriaPB10 Orig Print D/T: S: 09/13/2018 (1857) PAG E 1 Signed Report GLUBED 2018-09-11 16:31:00* Test Item Value Reference Range Interpretation Comments GLUBED (test code = GLUBED) 130 mg/dL 74-106 H Performed by certified drill setup operator at [facility] BLOOD UREA [id number] 11:58:00* Test Item Value Reference Range Interpretation Comments BLOOD UREA NITROGEN (test code = BUN) 30 mg/dL 7-18 H [id number] 11:58:00* Test Item Value Reference Range Interpretation Comments CREATININE (test code = CREAT) 1.40 mg/dL 0.55-1.02 H Note change in reference range due to change in reagent. [id number] 11:02:00* Test Item Value Reference Range Interpretation Comments GLUBED (test code = GLUBED) 196 mg/dL 74-106 H Performed by certified drill setup operator at [facility] [id number] 21:17:00* Test Item Value Reference Range Interpretation Comments GLUBED (test code = GLUBED) 186 mg/dL 74-106 H Performed by certified drill setup operator at [facility] [id number] 16:15:00* Test Item Value Reference Range Interpretation Comments GLUBED (test code = GLUBED) 111 mg/dL 74-106 H Performed by certified drill setup operator at [facility] [id number] 11:54:00* Test Item Value Reference Range Interpretation Comments GLUBED (test code = GLUBED) 156 mg/dL 74-106 H Performed by certified drill setup operator at [facility] [id number] 07:37:00* Test Item Value Reference Range Interpretation Comments GLUBED (test code = GLUBED) 126 mg/dL 74-106 H Performed by certified drill setup operator at [facility] [id number] 04:03:00* Test Item Value Reference Range Interpretation Comments GLUBED (test code = GLUBED) 172 mg/dL 74-106 H Performed by certified drill setup operator at [facility] [id number] 18:44:00* Test Item Value Reference Range Interpretation Comments TROPONIN-I (test code = TROPI) 0.528 ng/mL 0-0.045 COMMENTS TO MASSAGE OPERATOR: COLLECT 3 HOURS AFTER PREVIOUS [id number] 16:31:00* Test Item Value Reference Range Interpretation Comments TROPONIN-I (test code = TROPI) 0.557 ng/mL 0-0.045 HH COMMENTS TO MASSAGE OPERATOR: COLLECT 3 HOURS AFTER PREVIOUS [id number] 16:18:00* Test Item Value Reference Range Interpretation Comments GLUBED (test code = GLUBED) 162 mg/dL 74-106 H Performed by certified drill setup operator at [facility] B-TYPE NATRIURETIC [id number] 09:22:00* Test Item Value Reference Range Interpretation Comments B-TYPE NATRIURETIC PEPTIDE (test code = BNP) 550 pg/mL 0-100 H BASIC METABOLIC [id number] 09:16:00* Test Item Value Reference Range Interpretation [...] CA) 8.1 mg/dL 8.5-10.1 L HEPATIC FUNCTION [id number] 09:16:00* Test Item Value Reference Range Interpretation [...] reference range due to change in reagent. [id number] 09:16:00* Test Item Value Reference Range Interpretation Comments TROPONIN-I (test code = TROPI) 0.578 ng/mL 0-0.045 HH Results called to [id number] by NAHED 09/09/18 0916Critical results verified and [...] taking into account the patients history. LACTIC [id number] 09:04:00* Test Item Value Reference Range Interpretation Comments LACTIC ACID (test code = LACT) 1.1 mmol/L 0.4-1.9 N CBC W/AUTO [id number] 08:55:00* Test Item Value Reference Range Interpretation [...] NRBC#) 0.00 K/mm3 0.0-0.1 N BASIC METABOLIC [id number] 08:55:00* Test Item Value Reference Range Interpretation [...] code = CA) mg/dL 8.5-10.1 HEPATIC FUNCTION [id number] 08:55:00* Test Item Value Reference Range Interpretation [...] TOTAL (test code = ALKP) IUnit/L 45-117 [id number] 08:55:00* Test Item Value Reference Range Interpretation Comments TROPONIN-I (test code = TROPI) ng/mL 0-0.045 - XR CHEST 1 [id number] 08:30:00 FAX: Scott Gomez [place]: B St: REG Name: EL MALAVE [facility] : 09/11/18 40 Age/S: 77/F [address] [facility] Unit #: [id number] Loc: [place] [address] Phys: Scott Gomez Acct: [id number] Dis Date: Status: REG ER PHONE #: [phone] Exam Date: 09/09/2018 0805 FAX #: [phone] Reason: CODE SEPSIS EXAMS: CPT CODE: [id number] XR CHEST 1 V 65868 HISTORY: Sepsis. COM PARISON: August 06, 2017. Interstitial edema or infiltrate. No effusio n. Dependent changes. Cardiomegaly. IMPRESSION: Interstitial infiltrates and/or edema. Dependent changes. El ectronically Signed by Luiz Lewis on 09/09/2018 at 0830 Reported and signed by: Luiz Frias C: Scott Gomez MD Technologist: ALEJO REED RT(R) Trnscrd Date/Time/By: 09/09/2018 (0830) : By: [email or web address] Orig Print D/T: S: 09/09/2018 (5435) PAGE 1 Signed Report POC LACTIC [id number] 08:26:00* Test Item Value Reference Range Interpretation Comments POC LACTIC ACID (test code = POCLAC) 0.88 MMOL/L 0.4-2.2 N
[2020-01-15] MEDS: METHYLPREDNISOLONE SOD SUCC 40 MG/ML VIAL 1ML IV SCH (23:49)
[2020-01-16] VITALS (10 sets, daily range): BP systolic 147–177; BP diastolic 40–69
--- NOTE | 2020-01-16 01:30 | NUR ---
Patient received via stretcher from ER. AAO x 3. Patient had no complaints of pain. Respirations even and non-labored. Admission history obtained from chart and patient. Initial physical assessment performed. Patient oriented to room, call light and plan of care. Safety measures in place. Patient instructed to call for assistance when needed. Call light within reach.
[2020-01-16] MEDS ORDERED: FERROUS SULFAT325 MG PO (02:11)
[2020-01-16] MEDS ORDERED: METOLAZONE5 MG PO (02:11)
[2020-01-16] MEDS ORDERED: CRESTOR10 MG PO (02:11)
[2020-01-16] MEDS ORDERED: MONTELUKAST SOD10 MG PO (02:11)
[2020-01-16] MEDS: METHYLPREDNISOLONE SOD SUCC 40 MG/ML VIAL 1ML IV SCH ×3 (05:31→17:11)
[2020-01-16] MEDS: ALBUTEROL/IPRATROPIUM 3 ML NEB NEB SCH ×3 (06:45→14:20)
[2020-01-16 07:18] LABS: BASOPHILS % 0.4 % (0.0-1.0); EOSINOPHILS # (AUTO) 0.2 (0.0-0.4); EOSINOPHILS % 2.2 % (0.0-6.0); HEMATOCRIT 24.6 % (34.2-44.1); LYMPHOCYTES # (AUTO) 1.9 (1.0-3.2); LYMPHOCYTES % 22.7 % (18.0-39.1); MEAN CORPUSCULAR HEMOGLOBIN 31.5 pg (28-32); MEAN CORPUSCULAR HGB CONC 32.5 g/dL (31-35); MEAN CORPUSCULAR VOLUME 96.9 fL (81-99); MONOCYTES # (AUTO) 0.5 (0.2-0.8); MONOCYTES % 6.1 % (4.4-11.3); NEUTROPHILS # (AUTO) 5.8 (2.1-6.9); PLATELET COUNT 297 x10e3/uL (140-360); RED BLOOD COUNT 2.54 x10e6/uL (3.6-5.1); RED CELL DISTRIBUTION WIDTH 15.3 % (11.7-14.4)
[2020-01-16 07:37] LABS: ANION GAP 17.5 mmol/L (8-16); CALCIUM 8.3 mg/dL (8.4-10.2); CREATININE, SERUM 2.46 mg/dL (0.57-1.11); POTASSIUM 3.5 mmol/L (3.5-5.1)
[2020-01-16 08:09] LABS: CREATINE KINASE MB 0.5 ng/mL (0-5.0)
[2020-01-16] MEDS: INSULIN REGULAR, HUMAN 100 UNIT/1 ML 3ML VIAL SQ SCH ×4 (08:50→21:00)
[2020-01-16] MEDS ORDERED: INSULIN GLARGINE 100 UNITS/ML VIAL SQ SCH ×2 (11:15→22:15)
[2020-01-16] MEDS: BENZONATATE 100 MG CAP PO SCH ×2 (11:27→21:59)
[2020-01-16 11:33] LABS: CHOL/HDL RATIO 4.7 (3.0-3.6)
--- NOTE | 2020-01-16 11:47 | NUR ---
H&P cc: sob/cp HPI: 78yoF, PCP , developed SOB and cough for 1 week Went to PCP, no antibiotics. Pt also complaining of left chest discomfort. No leg edema. 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 affect a&ox3; labs/meds revd A/P: 78yoF AECOPD- O2; nebs; doxycycline; steroids. 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
[2020-01-16] MEDS: DOXYCYCLINE 100MG/NS 100ML 100 ML IV SCH (12:44)
[2020-01-16] MEDS: HYDRALAZINE HCL 100 MG TABLET PO SCH ×2 (12:45→21:59)
[2020-01-16] MEDS ORDERED: GUAIFENESIN/DEXTROMETHORPHAN LIQD 5 ML UDC NG PRN (13:30)
[2020-01-16] MEDS ORDERED: SODIUM BICARBONATE 8.4% SYRING 50 ML in SODIUM CHLORIDE 0.45% 1,000 ML IV SCH (14:00)
[2020-01-16] MEDS ORDERED: GUAIFENESIN 600MG/DEXTROMETHORPHAN 30MG TABSR PO SCH (14:00)
[2020-01-16 14:52] LABS: CREATINE KINASE MB 0.6 ng/mL (0-5.0)
[2020-01-16] MEDS: ALLOPURINOL 100 MG TAB PO SCH (17:11)
--- NOTE | 2020-01-16 19:35 | NUR ---
Patient received sitting up in bed. AAO x 4. Patient had no complaints of pain. Bed locked and in lowest position. Bed rails up x 2. No respiratory distress noted. Call light within reach.
[2020-01-16] MEDS: LEVALBUTEROL HCL SOLN NEBU 0.63 MG/3 ML NEB INH SCH ×2 (20:12→23:30)
[2020-01-16] MEDS: SIMVASTATIN 40 MG TAB PO SCH (20:24)
--- NOTE | 2020-01-16 22:01 | NUR ---
Patient's blood sugar levels at 481. Dr. Locke notified. New order received for Lantus 10 units now and BID.
--- NOTE | 2020-01-16 23:15 | NUR ---
Patient complained of non-radiating chest pain. EKG performed.
[2020-01-17] VITALS (8 sets, daily range): BP systolic 127–169; BP diastolic 45–66
[2020-01-17] MEDS: DOXYCYCLINE 100MG/NS 100ML 100 ML IV SCH ×2 (00:56→13:00)
[2020-01-17] MEDS: METHYLPREDNISOLONE SOD SUCC 40 MG/ML VIAL 1ML IV SCH ×4 (00:56→17:08)
[2020-01-17] MEDS: LEVALBUTEROL HCL SOLN NEBU 0.63 MG/3 ML NEB INH SCH ×6 (03:20→22:50)
--- NOTE | 2020-01-17 05:30 | NUR ---
IV on right arm infiltrated. Old IV removed with tip intact. New IV inserted on left FA 22G. Patient tolerated well.
[2020-01-17] MEDS: HYDRALAZINE HCL 100 MG TABLET PO SCH ×3 (06:00→22:00)
[2020-01-17] MEDS: BENZONATATE 100 MG CAP PO SCH ×3 (06:00→22:23)
--- NOTE | 2020-01-17 07:00 | NUR ---
RCD PT AT BED PT IS ALERT AND ORIENTED PT RESTING ON BED IV PATENT BED LOW AND LOCKED CALL LIGHT IN REACH
[2020-01-17] MEDS: INSULIN REGULAR, HUMAN 100 UNIT/1 ML 3ML VIAL SQ SCH ×4 (07:30→21:00)
--- NOTE | 2020-01-17 08:50 | NUR ---
IM- progress note O/N see below ROS: no f/c/s/N/V/D/SILVERIO/dizziness/skin rash/focal limb weakness v/s revd PE tired appearing anicteric ns1s2; LEFT CHEST WALL TENDER reduced BS soft nt nd no e/t skin dry n. affect a&ox3; labs/meds revd A/P: 78yoF AECOPD- O2; nebs; doxycycline; steroids. 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 consult nephrology to see pt. Resp status stable; does Not have PNA. Donell Locke MD, PHD.
[2020-01-17] MEDS: NIFEDIPINE CR 30 MG TAB PO SCH (09:00)
[2020-01-17] MEDS: GABAPENTIN 100 MG CAP PO SCH ×3 (09:00→22:25)
[2020-01-17] MEDS: ALLOPURINOL 100 MG TAB PO SCH ×2 (09:00→17:00)
[2020-01-17] MEDS: MONTELUKAST SODIUM 10 MG TAB PO SCH (09:00)
[2020-01-17] MEDS ORDERED: METOLAZONE 5 MG TAB PO SCH (09:00)
[2020-01-17] MEDS ORDERED: CYCLOBENZAPRINE HCL 10 MG TAB PO PRN (09:00)
[2020-01-17] MEDS: FERROUS SULFATE 325 MG TAB PO SCH (09:00)
[2020-01-17] MEDS ORDERED: INSULIN GLARGINE 100 UNITS/ML VIAL SQ SCH ×2 (09:00→13:00)
--- NOTE | 2020-01-17 10:09 | Diagnostic Imaging Report ---
Chest, 1 view, 01/17/2020. History: Shortness of breath. Comparison: 01/15/2020. Findings: The cardiac silhouette is mildly enlarged but the pulmonary vasculature is within normal limits. There is no focal consolidation or pleural effusion. There are no acute osseous or soft tissue abnormalities. Impression: Mild cardiomegaly without acute pulmonary abnormality. Signed by: Braden Leija on 01/17/2020 10:06 AM
--- NOTE | 2020-01-17 10:44 | Consultation ---
DATE OF CONSULTATION: Renal Consultation Thank you Dr. Locke for the consultation. HISTORY OF PRESENT ILLNESS: Ms. Dorman is a pleasant 79-year-old female with a past medical history significant for prior history of chronic kidney disease stage 4. She is followed in the outpatient setting by her camera storage clerk, Dr. Marco Antonio Menjivar, who does not come to this hospital. The patient came in to the hospital with what appears to be chest pain, cough, chest congestion, and possibly COPD exacerbation. On blood work was found to have a creatinine of 3.06 on admission, has improved to about 2.46 yesterday. Potassium is normal 3.5. Renal consultation has been asked for the management of her acute kidney injury on chronic kidney disease stage 4. The patient also has a prior history of diabetes mellitus, history of hypertension and history of possible congestive heart failure, COPD. Currently, patient is complaining of some chest congestion, some chest pain. No other specific symptoms. The patient had a CT of her chest done, which showed some moderate cardiomegaly. No pleural effusions. CT was done without contrast. No other specific symptoms at this time. Renal consultation has been asked for management of her acute kidney injury on chronic kidney disease stage 4. Her creatinine is already improved at this time. PAST MEDICAL HISTORY: As outlined above. ALLERGIES: NO KNOWN DRUG ALLERGIES. SOCIAL HISTORY: No tobacco, no alcohol use. FAMILY HISTORY: Noncontributory. REVIEW OF SYSTEMS: See HPI. Otherwise, all systems negative. MEDICATIONS: That the patient is on are as follows: 1. Allopurinol. 2. Iron sulfate. 3. Furosemide. 4. Glipizide. 5. Hydralazine. 6. Metolazone. 7. Nifedipine XL. 8. Prednisone. 9. Rosuvastatin. REVIEW OF SYSTEMS: See HPI. Otherwise, all systems negative. PHYSICAL EXAMINATION: VITAL SIGNS: As follows, blood pressure is 160s over 60s, 93 pulse, the patient is afebrile, 18 respirations. HEENT: No cervical lymphadenopathy. NECK: Supple without masses. No obvious JVD. Moist appearing mucosa. SKIN: Moist with good skin turgor. CHEST WALL: Good expansion. No chest wall tenderness. LUNGS: Clear to auscultation bilaterally. CARDIOVASCULAR: S1, S2. No obvious gallop, rub, or murmur. ABDOMEN: Soft. Positive bowel sounds. Nontender. No organomegaly. EXTREMITIES: No evidence of lower extremity edema. No clubbing. No cyanosis. NEUROLOGIC: Awake, alert, oriented x3, grossly otherwise nonfocal exam. LABORATORY DATA: Yesterday's sodium 132, potassium 3.5, CO2 20, BUN 71, and creatinine 2.46. IMPRESSION AND PLAN: Acute kidney injury on chronic kidney disease, stage IV. Suspect there is a component of prerenal state which is resolved now. The patient's creatinine appears to be at or close to her baseline. The patient still is complaining of some degree of shortness of breath, may benefit from diuresis with Lasix once a day. We will place her on 40 mg IV daily and await response in clinical improvement. We will keep her off IV fluids and we will make further recommendations. The patient is getting metolazone 5 mg daily as well. We will decrease the metolazone dose to 2.5 mg daily. Repeat labs in morning including basic metabolic panel, Mag, phos, CBC, and we will make further recommendations, avoid potential nephrotoxic agents at this time. Avoid any AFSHAN inhibitors, ARB and also identify anti-inflammatory drugs and IV dye. There was no evidence of UTI on urinalysis. We will also get a renal ultrasound to evaluate for any possibility of hydronephrosis. 1. Hypertension, blood pressure is currently controlled, more or less on current medications. We will continue to monitor closely on current medicines. 2. Possible congestive heart failure exacerbation. We will continue with metolazone, decrease it to 2.5 mg daily and placed on IV Lasix 40 mg daily, with me also require schedule potassium since the potassium is on the low side of normal. 3. Chronic obstructive pulmonary disease exacerbation. Plan would be as per primary MD's recommendations. Thank you once again for the consultation. We will follow the patient closely along with you and make further recommendations. Kip Cui MD /MODL /[id number] cc: Donell Locke MD
[2020-01-17] MEDS: POTASSIUM CHLORIDE 20 MEQ TAB CR PO SCH ×2 (10:57→16:59)
[2020-01-17] MEDS: FUROSEMIDE INJ 10 MG/ML 4 ML VIAL IV SCH (10:57)
--- NOTE | 2020-01-17 11:17 | Diagnostic Imaging Report ---
Renal ultrasound, 01/17/2020. History: Kidney disease. Discussion: Transverse and longitudinal images of the kidneys were obtained demonstrating normal renal sizes and echogenicities. An oval anechoic structure is present in the lower pole of the right kidney measuring 2.1 x 1.7 x 1.8 cm. There is no evidence of hydronephrosis, mass, or renal calculus. The right kidney measures 9.1 cm and the left kidney measures 10.0 cm in length. Renal cortex measures 1.3 and 0.9 cm respectively. The urinary bladder is empty and not visualized. There is no evidence of free fluid. IMPRESSION: Simple benign right renal cyst. Otherwise unremarkable renal ultrasound. Signed by: Braden Leija on 01/17/2020 11:13 AM
--- NOTE | 2020-01-17 11:30 | NUR ---
PAGED DR SANCHEZ AND NOTIFIED THE BLOOD SUGAR LEVEL GOT NEW ORDERS
--- NOTE | 2020-01-17 11:39 | Diagnostic Imaging Report ---
Chest, 1 view, 01/15/2020. History: Shortness of breath. Comparison: 07/13/2019. Findings: The cardiac silhouette is mildly prominent, but the pulmonary vasculature is within normal limits. Linear opacities are present lung bases. There is no focal consolidation or pleural effusion. There are no acute osseous or soft tissue abnormalities. Impression: Bibasilar linear atelectasis. Signed by: Braden Leija on 01/17/2020 11:36 AM
[2020-01-17] MEDS ORDERED: INSULIN GLARGINE 100 UNITS/ML VIAL SQ ONE (13:30)
--- NOTE | 2020-01-17 18:47 | NUR ---
PT RESTING ON BED BED SIDE REPORT GIVEN TO ONCOMING NURSE
[2020-01-17] MEDS: INSULIN GLARGINE 100 UNITS/ML VIAL SQ SCH (21:00)
[2020-01-17] MEDS: SIMVASTATIN 40 MG TAB PO SCH (22:25)
[2020-01-17] MEDS: DOXYCYCLINE HYCLATE TABLET 100 MG TAB PO SCH (22:25)
[2020-01-18] VITALS (8 sets, daily range): BP systolic 128–154; BP diastolic 40–58
[2020-01-18] MEDS: METHYLPREDNISOLONE SOD SUCC 40 MG/ML VIAL 1ML IV SCH ×4 (00:23→21:41)
[2020-01-18] MEDS: LEVALBUTEROL HCL SOLN NEBU 0.63 MG/3 ML NEB INH SCH ×7 (03:00→23:17)
[2020-01-18] MEDS: HYDRALAZINE HCL 100 MG TABLET PO SCH ×3 (06:30→21:44)
[2020-01-18] MEDS: BENZONATATE 100 MG CAP PO SCH ×3 (06:30→21:44)
[2020-01-18 06:41] LABS: CREATININE, SERUM 2.09 mg/dL (0.57-1.11)
[2020-01-18 06:42] LABS: CALCIUM 8.4 mg/dL (8.4-10.2); MAGNESIUM 1.9 MG/DL (1.3-2.1); PHOSPHORUS 3.2 MG/DL (2.3-4.7)
--- NOTE | 2020-01-18 07:00 | NUR ---
Patient resting comfortably. No acute distress noted. Walking rounds done. Shift report given to oncoming nurse.
[2020-01-18 07:12] LABS: ALBUMIN 3.4 g/dL (3.5-5.0); ALBUMIN/GLOBULIN RATIO 1.2 (0.8-2.0)
[2020-01-18 09:01] LABS: BASOPHILS % 0.1 % (0.0-1.0); HEMATOCRIT 26.2 % (34.2-44.1); HEMOGLOBIN 8.6 g/dL (12.0-16.0); LYMPHOCYTES # (AUTO) 0.8 (1.0-3.2); LYMPHOCYTES % 5.5 % (18.0-39.1); MEAN CORPUSCULAR HEMOGLOBIN 31.9 pg (28-32); MEAN CORPUSCULAR HGB CONC 32.8 g/dL (31-35); MONOCYTES # (AUTO) 0.5 (0.2-0.8); MONOCYTES % 3.6 % (4.4-11.3); NEUTROPHILS # (AUTO) 13.6 (2.1-6.9); NEUTROPHILS % 89.7 % (38.7-80.0); PLATELET COUNT 301 x10e3/uL (140-360); RED CELL DISTRIBUTION WIDTH 15.4 % (11.7-14.4)
[2020-01-18] MEDS: FUROSEMIDE INJ 10 MG/ML 4 ML VIAL IV SCH (09:45)
[2020-01-18] MEDS: GABAPENTIN 100 MG CAP PO SCH ×3 (09:48→21:41)
[2020-01-18] MEDS: NIFEDIPINE CR 30 MG TAB PO SCH (09:48)
[2020-01-18] MEDS: FERROUS SULFATE 325 MG TAB PO SCH (09:48)
[2020-01-18] MEDS: DOXYCYCLINE HYCLATE TABLET 100 MG TAB PO SCH ×2 (09:48→21:41)
[2020-01-18] MEDS: MONTELUKAST SODIUM 10 MG TAB PO SCH (09:48)
[2020-01-18] MEDS: ALLOPURINOL 100 MG TAB PO SCH ×2 (09:49→15:46)
[2020-01-18] MEDS: METOLAZONE 5 MG TAB PO SCH (09:49)
[2020-01-18] MEDS: INSULIN REGULAR, HUMAN 100 UNIT/1 ML 3ML VIAL SQ SCH ×4 (10:53→21:36)
[2020-01-18] MEDS: INSULIN GLARGINE 100 UNITS/ML VIAL SQ SCH ×2 (10:53→21:32)
--- NOTE | 2020-01-18 11:54 | Progress Note ---
DATE: 01/18/2020 Renal Progress Note SUBJECTIVE: Followed for acute kidney injury on chronic kidney disease, stage 4. Kidney function continues to improve. Creatinine is down to 2.1, BUN is down to 78. The patient did respond well to Lasix yesterday. Cough is better and shortness of breath is improved also. Additionally, COPD exacerbation is improving also. OBJECTIVE: VITAL SIGNS: Vital signs noted. Blood pressure is 145/50, afebrile, 17 respirations, 98 pulse. LUNGS: Mostly clear to auscultation bilaterally. CARDIOVASCULAR: S1, S2. No rub. ABDOMEN: Soft. Positive bowel sounds. EXTREMITIES: No edema. LABORATORY DATA: Potassium is 4, BUN is 78, creatinine is 2.1. BNP was elevated at 354. IMPRESSION AND PLAN: 1. Acute kidney injury on chronic kidney disease, stage 4. Continue on Lasix 40 mg daily. The patient is responding well. Overall, breathing is improved. 2. Hypertension. Blood pressure is controlled. 3. Likely fluid overload. We will continue with IV Lasix daily and decrease potassium to once a day. 4. Chronic obstructive pulmonary disease exacerbation. Plan per primary MD. 5. Kip Cui MD TH/MODL /[id number]
--- NOTE | 2020-01-18 13:04 | NUR ---
IM- progress note O/N see below ROS: no f/c/s/N/V/D/SILVERIO/dizziness/skin rash/focal limb weakness v/s revd PE tired appearing anicteric ns1s2; LEFT CHEST WALL TENDER reduced BS soft nt nd no e/t skin dry n. affect a&ox3; labs/meds revd A/P: 78yoF AECOPD- O2; nebs; doxycycline; steroids. 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 consult nephrology to see pt. Resp status stable; does Not have PNA. 10-13 renal fn improving; new leukocytosis- related to steroids; BP ok; renal U/S only cyst; SNF eval; reduce steroids; Donell Locke MD, PHD.
--- NOTE | 2020-01-18 13:51 | NUR ---
CALLED AND SPOKE WITH DAUGHTER ABOUT SNF, SHE STATES NO HER MOTHER WAS WALKING AND DRIVING PRIOR TO COMING TO THE HOSPITAL, SHE STATES SHE PREFERS HER TO GO HOME WITH [facility] AGAIN. WAS ON THEIR SERVICE PRIOR WILL NEED ORDER TO REINSTATE AND EVALUATED FOR SKILLED WITH PT.
--- NOTE | 2020-01-18 19:00 | NUR ---
Received patient from day nurse, patient is oriented, introduced self to patient. safety and fall precaution maintained as per hospital protocol: bed in lowest position and locked, needed items beside bed and call hogan placed close to patient and patient instructed to use it to call nurse for any assistance needed, patient verbalized understanding. patient is currently stable, will continue to monitor.
[2020-01-18] MEDS: SIMVASTATIN 40 MG TAB PO SCH (21:41)
[2020-01-19] VITALS: BP 142/45
[2020-01-19] MEDS: LEVALBUTEROL HCL SOLN NEBU 0.63 MG/3 ML NEB INH SCH ×4 (03:20→15:10)
[2020-01-19 04:00] VITALS: BP 127/50
--- NOTE | 2020-01-19 05:14 | NUR ---
D/C summary Principal dx: AECOPD- O2; nebs; doxycycline; steroids. antitussives; Diastolic CHF- monitor fluid status Musculoskeletal chest pain- monitor; Secondary Dx: CKD4 due to DM2- hba1c/lipids; monitor renal fn; start insulin; hold sulfonylurea Hypertensive heart ds- cont home meds Cardiomegaly- control BP Overweight- caloric restriction needed BMI 29- as above Gout- allopurinol Prop: scd; ppi; heparin dispo: 01-16 left chest wall tenderness., Musculoskeletal CP- unable to receive meloxicam due to renal dysfunction, use gabapentin and flexeril. consult nephrology to see pt. Resp status stable; does Not have PNA. 01-17 renal fn improving; new leukocytosis- related to steroids; BP ok; renal U/S only cyst; SNF eval; reduce steroids; 01-18 daughter prefers Home PT. check labs; d/c home stable f/u pcp 2 days and nephrology 1 week d/c>35mins Donell Locke MD, PHD.
[2020-01-19] MEDS ORDERED: CYCLOBENZAPRINE10 MG PO (05:18)
[2020-01-19] MEDS ORDERED: TESSALON PERLE100 MG PO (05:18)
[2020-01-19] MEDS ORDERED: PREDNISONE20 MG PO (05:18)
[2020-01-19] MEDS ORDERED: Insulin Glargine SQ (05:18)
[2020-01-19] MEDS ORDERED: DOXYCYCLINE HY100 MG PO (05:18)
[2020-01-19 05:28] LABS: ANION GAP 17.5 mmol/L (8-16); CALCIUM 8.1 mg/dL (8.4-10.2); CREATININE, SERUM 2.29 mg/dL (0.57-1.11); MAGNESIUM 1.7 MG/DL (1.3-2.1); POTASSIUM 3.5 mmol/L (3.5-5.1)
[2020-01-19] MEDS: METHYLPREDNISOLONE SOD SUCC 40 MG/ML VIAL 1ML IV SCH (06:00)
[2020-01-19] MEDS: HYDRALAZINE HCL 100 MG TABLET PO SCH ×2 (06:41→13:42)
[2020-01-19] MEDS: BENZONATATE 100 MG CAP PO SCH ×2 (06:41→13:44)
[2020-01-19 06:51] LABS: BASOPHILS % 0.1 % (0.0-1.0); HEMATOCRIT 26.6 % (34.2-44.1); HEMOGLOBIN 8.5 g/dL (12.0-16.0); LYMPHOCYTES # (AUTO) 1.3 (1.0-3.2); LYMPHOCYTES % 9.9 % (18.0-39.1); MEAN CORPUSCULAR HEMOGLOBIN 30.8 pg (28-32); MEAN CORPUSCULAR VOLUME 96.4 fL (81-99); MONOCYTES % 7.6 % (4.4-11.3); NEUTROPHILS # (AUTO) 10.9 (2.1-6.9); NEUTROPHILS % 80.8 % (38.7-80.0); PLATELET COUNT 331 x10e3/uL (140-360); RED BLOOD COUNT 2.76 x10e6/uL (3.6-5.1); RED CELL DISTRIBUTION WIDTH 15.8 % (11.7-14.4)
--- NOTE | 2020-01-19 07:00 | NUR ---
RECEIVED BEDSIDE SHIFT REPORT FROM OFF GOING NIGHT NURSE. RESPIRATIONS EVEN AND NONLABORED. PATIENT IN STABLE CONDITION, NO S/S OF DISTRESS NOTED. PATIENT ABLE TO VOICE NEEDS. TELEMETRY APPLIED. IV SITE ASYMPTOMATIC AND PATENT, TRANSPARENT DRESSING C/D/I. BED IN LOWEST POSITION AND LOCKED, SIDE RAILS X2, NONSKID SOCKS APPLIED. CALL LIGHT WITHIN REACH.
--- NOTE | 2020-01-19 07:00 | NUR ---
patient endorsed to next shift for continuity of care.
[2020-01-19] MEDS: INSULIN REGULAR, HUMAN 100 UNIT/1 ML 3ML VIAL SQ SCH ×3 (07:30→16:30)
[2020-01-19 07:55] VITALS: BP 141/49
[2020-01-19 08:00] VITALS: BP 141/49
--- NOTE | 2020-01-19 08:53 | Progress Note ---
DATE: 01/19/2020 Renal Progress Note SUBJECTIVE: Followed for acute kidney injury on chronic kidney disease, stage 4. The patient's kidney function remaining more or less stable at her baseline. The patient has had a rise in her BUN to 103, creatinine is 2.3. No nausea. No vomiting. Shortness of breath has improved significantly with Lasix, diuresis. OBJECTIVE: VITAL SIGNS: Have been noted. Blood pressure is stable at 127/50, 79 pulse, respirations 20, afebrile. LUNGS: Mostly clear to auscultation bilaterally. CARDIOVASCULAR: S1, S2. No rub. ABDOMEN: Soft. Positive bowel sounds. EXTREMITIES: No edema. LABORATORY DATA: Have been reviewed. BUN is 103, creatinine is 2.3. Potassium is 3.5, sodium is 141. IMPRESSION AND PLAN: 1. Acute kidney injury on chronic kidney disease, stage 4. The patient is not getting azotemic. We will discontinue the IV Lasix and we will continue oral metolazone and potassium for now. Can switch over to oral Lasix if required once the azotemia is improved. I would also recommend to decrease the Solu-Medrol dose to q.12 hours and wean off the IV Solu-Medrol since COPD exacerbation has improved and this will also help improve the azotemia. 2. Hypertension. Blood pressure is controlled. 3. Fluid overload, largely resolved. We will discontinue IV Lasix. Continue oral metolazone and potassium chloride. 4. Kip Cui MD /MODL /[id number]
[2020-01-19] MEDS: FERROUS SULFATE 325 MG TAB PO SCH (08:59)
[2020-01-19] MEDS ORDERED: POTASSIUM CHLORIDE 20 MEQ TAB CR PO SCH (09:00)
[2020-01-19] MEDS ORDERED: METHYLPREDNISOLONE SOD SUCC 40 MG/ML VIAL 1ML IV SCH (09:00)
[2020-01-19] MEDS: METOLAZONE 5 MG TAB PO SCH (09:00)
[2020-01-19] MEDS: INSULIN GLARGINE 100 UNITS/ML VIAL SQ SCH (09:00)
[2020-01-19] MEDS: NIFEDIPINE CR 30 MG TAB PO SCH (09:00)
[2020-01-19] MEDS: DOXYCYCLINE HYCLATE TABLET 100 MG TAB PO SCH (09:00)
[2020-01-19] MEDS: ALLOPURINOL 100 MG TAB PO SCH ×2 (09:00→16:55)
[2020-01-19] MEDS: GABAPENTIN 100 MG CAP PO SCH ×2 (09:00→15:00)
--- NOTE | 2020-01-19 09:03 | NUR ---
ORDER RECEIVED FOR HOME PT. CALL TO THE PT. PT STATES SHE HAS A NURSE NAMED OLIVIA, BUT DOES NOT KNOW WHAT AGENCY SHE IS WITH. PT ASKED THAT CM CALL HER DAUGHTER, EL. AGREED. CALL TO EL POPE @ [phone]. STATES A NURSE CALLS HER MOM DAILY TO CHECK ON HER, BUT SHE DOESN'T KNOW THE NAME OF THE AGENCY. INFORMED EL CM WILL CALL [facility] TO VERIFY IF PT IS ON SERVICE W [facility]. IMM LETTER EXPLAINED TO PT'S DTR. VERBALIZED UNDERSTANDING. IMM LETTER SIGNED. COPY TO PT AND COPY TO CHART. CALL TO [facility] @ THE [facility] OFFICE. PT IS NOT CURRENTLY ON SERVICE W [facility], BUT HAS BEEN IN THE PAST. STATES THEY DO NOT HAVE A OLIVIA EMPLOYED THERE. CALL BACK TO MS. POPE. SHE WILL CALL BACK W THE NAME AND NUMBER OF THE AGENCY AFTER SHE PICKS HER MOTHER UP.
[2020-01-19] MEDS: MONTELUKAST SODIUM 10 MG TAB PO SCH (09:07)
[2020-01-19 12:00] VITALS: BP 149/46
--- NOTE | 2020-01-19 13:10 | NUR ---
ORDER RECEIVED FOR HOME ROLLING WALKER. RW DISPENSED TO NURSE. PT WILL FIT FOR PT.
[2020-01-19 16:00] VITALS: BP 153/53
--- NOTE | 2020-01-19 18:30 | NUR ---
CALLED DAUGHTER TWICE ABOUT THE PATIENT DISCHARGING. THE DAUGHTER STATED THAT THE NEPHEW WAS PICKING THE PATIENT UP. STILL AWAITING FAMILY TO CITY SURVEYOR THE PATIENT.
--- NOTE | 2020-01-19 18:37 | NUR ---
RECALLED THE DAUGHTER FOR THE THIRD TIME ABOUT THE PATIENT DISCHARGING. THE DAUGHTER STATED THAT THE "NEPHEW WAS PICKING THE PATIENT UP AND THAT HE WAS ON HIS WAY". STILL AWAITING FAMILY TO MANAGER FRENCH THE PATIENT.
--- NOTE | 2020-01-19 19:03 | NUR ---
PATIENT DISCHARGED HOME.-DAUGHTER TO CALL ACCOUNT MANAGER WITH THE INFORMATION ON THE HOME HEALTH COMPANY USED BY THE PATIENT BEFORE ADMISSION. PATIENT OFF THE UNIT @ 1850 VIA WHEELCHAIR ACCOMPANIED BY PCT AND RN TO THE LOBBY. PATIENT IN STABLE CONDITION, NO S/S OF DISTRESS NOTED. NO PAIN VOICED. IV ACCESS REMOVED WITH TIP INTACT. ALL PERSONAL ITEMS TAKEN WITH THE PATIENT. DISCHARGE TEACHING AND INSTRUCTION GIVEN TO THE PATIENT AND FAMILY MEMBER. PATIENT AND FAMILY MEMBER VERBALIZED UNDERSTANDING. DISCHARGE PAPERWORK AND PRESCRIPTION GIVEN TO THE PATIENT ALONG WITH THE ACCOUNT MANAGER'S NUMBER.
== END 2020-01-19 18:50 | disposition home or self-care (01) | DRG 190 ==
LOC: ER 20:27 → ERHOLD 23:30 → MED/SURG2 01-16 00:56
PROVIDERS: ADMIT Internal Medicine; ATTEND Internal Medicine
DX: J44.1 Chronic obstructive pulmonary disease with (acute) exacerbation (principal); I50.33 Acute on chronic diastolic (congestive) heart failure; I13.0 Hypertensive heart and chronic kidney disease with heart failure and stage 1 through stage 4 chronic kidney disease, or unspecified chronic kidney disease; N18.4 Chronic kidney disease, stage 4 (severe); N17.9 Acute kidney failure, unspecified; E11.22 Type 2 diabetes mellitus with diabetic chronic kidney disease; E78.5 Hyperlipidemia, unspecified; Z77.22 Contact with and (suspected) exposure to environmental tobacco smoke (acute) (chronic); E66.3 Overweight; Z68.29 Body mass index [BMI] 29.0-29.9, adult; M10.9 Gout, unspecified; Z11.59 Encounter for screening for other viral diseases; Z79.4 Long term (current) use of insulin
CPT/HCPCS: 36415; 71045; 71250; 76770; 80048; 80053; 80061; 81001; 82550; 82553; 82948; 83036; 83735; 83880; 84100; 84484; 85025; 85610; 85730; 93005; 93041; 93306; 94640; 96372; 97139; 99284; J1815; J1940; J2920

== ENCOUNTER 2020-01-27 13:37 | Emergency (ER) | payer MEDICARE ==
[~2020-01-27] VITALS: Ht 157.5 cm; Wt 72.1 kg
[~2020-01-27 13:37] MED LIST changes: +CRESTOR10 MG PO; +CYCLOBENZAPRINE10 MG PO; +FERROUS SULFAT325 MG PO; +Insulin Glargine SQ; +METOLAZONE5 MG PO; +MONTELUKAST SOD10 MG PO; +TESSALON PERLE100 MG PO
[2020-01-27] MEDS ORDERED: IBUPROFEN 600 MG TAB PO STA (14:18)
[2020-01-27] MEDS ORDERED: HYDROCODONE/APAP 5MG-325MG TAB PO ONE (14:30)
[2020-01-27] MEDS ORDERED: LIDOCAINE 4% PATCH TP SCH (15:00)
[2020-01-27] MEDS ORDERED: DIAZEPAM 5 MG TAB PO ONE (17:15)
[2020-01-27] MEDS ORDERED: ULTRAM50 MG PO (17:45)
== END 2020-01-27 19:39 | disposition home or self-care (01) ==
LOC: ER 14:56
DX: M25.511 Pain in right shoulder (principal); M54.2 Cervicalgia; I10 Essential (primary) hypertension; E11.9 Type 2 diabetes mellitus without complications; E78.5 Hyperlipidemia, unspecified; J44.9 Chronic obstructive pulmonary disease, unspecified; M10.9 Gout, unspecified
CPT/HCPCS: 72125; 99283

== ENCOUNTER 2020-02-21 14:58 | Observation (INO) | payer MEDICARE ==
[~2020-02-21] VITALS: Ht 154.9 cm; Wt 71.0 kg
[~2020-02-21 14:58] MED LIST changes: +ULTRAM50 MG PO
[2020-02-21] MEDS ORDERED: ONDANSETRON HCL INJ 2MG/ML 2ML 2 MG/ML VIAL IV NR (15:19)
[2020-02-21] MEDS ORDERED: SODIUM CHLORIDE 0.9% 1000ML 1,000 ML IV STA (15:19)
[2020-02-21] MEDS ORDERED: HYDROCODONE/APAP 5MG-325MG TAB PO NR (15:30)
[2020-02-21 16:21] LABS: BASOPHILS % 0.3 % (0.0-1.0); EOSINOPHILS % 0.4 % (0.0-6.0); HEMATOCRIT 25.8 % (34.2-44.1); HEMOGLOBIN 8.9 g/dL (12.0-16.0); LYMPHOCYTES % 9.9 % (18.0-39.1); MEAN CORPUSCULAR HEMOGLOBIN 30.8 pg (28-32); MEAN CORPUSCULAR HGB CONC 34.5 g/dL (31-35); MEAN CORPUSCULAR VOLUME 89.3 fL (81-99); MONOCYTES # (AUTO) 0.9 (0.2-0.8); NEUTROPHILS # (AUTO) 8.3 (2.1-6.9); NEUTROPHILS % 79.8 % (38.7-80.0); PLATELET COUNT 380 x10e3/uL (140-360); RED BLOOD COUNT 2.89 x10e6/uL (3.6-5.1); RED CELL DISTRIBUTION WIDTH 13.5 % (11.7-14.4)
[2020-02-21 16:25] LABS: INR 2.59
[2020-02-21 16:26] LABS: PARTIAL THROMBOPLASTIN TIME 75.8 seconds (23.8-35.5)
[2020-02-21 16:42] LABS: ALBUMIN 3.5 g/dL (3.5-5.0); ALBUMIN/GLOBULIN RATIO 0.9 (0.8-2.0); ANION GAP 21.4 mmol/L (8-16); CALCIUM 8.8 mg/dL (8.4-10.2); CREATININE, SERUM 2.91 mg/dL (0.57-1.11)
[2020-02-21 16:44] LABS: CREATINE KINASE MB 0.9 ng/mL (0-5.0)
[2020-02-21 16:45] LABS: POTASSIUM 2.4 mmol/L (3.5-5.1)
--- NOTE | 2020-02-21 16:45 | Diagnostic Imaging Report ---
TECHNIQUE: Frontal view of the chest. INDICATION: ^HTN COMPARISON: 01/17/2020 DISCUSSION: Limited evaluation due to portable technique. Lines and hardware: Stable. Heart and mediastinum: Cardiomegaly is noted. Central vascular congestion is noted. Lungs and pleura: Prominent interstitial markings are noted. Question small bilateral pleural effusions. Negative for pneumothorax. Soft tissues and bones: No acute abnormality. IMPRESSION: Cardiomegaly and central vascular congestion are noted concerning for fluid overload. Question trace effusions. Signed by: Jaime Galvez MD on 02/21/2020 4:42 PM
--- NOTE | 2020-02-21 16:47 | Diagnostic Imaging Report ---
Right knee, 3 views INDICATION: ^RIGHT KNEE PAIN Comparison: None available. Discussion: Multiple views of the right knee are negative for grossly displaced fracture or dislocation. Chondrocalcinosis is noted within the femoral tibial compartments. Small suprapatellar joint effusion is noted. Moderate tricompartmental joint space narrowing is noted with small osteophytes. Old MCL injury is noted. Arterial vascular calcifications are noted. IMPRESSION: Negative for grossly displaced fracture or dislocation of the right knee. Small suprapatellar joint effusion is noted, nonspecific. Moderate tricompartmental degenerative changes are noted. Old MCL injury is noted. Chondrocalcinosis is noted. Signed by: Jaime Galvez MD on 02/21/2020 4:43 PM
--- NOTE | 2020-02-21 18:07 | Emergency Department Note ---
History of Present Illnes History of Present Illness Chief Complaint: General Medicine Complaints History of Present Illness This is a 79 year old female PATIENT IN FROM HOME WITH COMPLAINTS OF RIGHT KNEE PAIN SINCE FRIDAY; STATES WENT TO HER PCP TODAY AND WAS SENT TO THE ER FOR EVALUATION. PATIENT RATES PAIN 10/10, RESP EVEN AND NONLABORED, APPEARS IN NO DISTRESS. PATIENT ALSO WITH COMPLAINTS THAT HER BLOOD SUGAR IS HIGH, GLUCOSE 568 IN TRIAGE. Historian: Patient, Family Member Arrival Mode: Car Transport Engineer Required: No Onset (how long ago): day(s) (3) Location: right knee Quality: pain Radiation: Reports non-radiation Severity: moderate Onset quality: gradual Timing of current episode: constant Progression: unchanged Chronicity: new Context: Denies recent illness, Denies trauma/injury Relieving factors: none Exacerbating factors: movement Associated symptoms: Reports denies other symptoms; Denies fever/chills Past Medical/Family History Physician Review I have reviewed the patient's past medical and family history. Any updates have been documented here. Past Medical History Recent Fever: No Clinical Suspicion of Infectio: No New/Unexplained Change in Ment: No Past Medical History: Hypertension, Diabetes, COPD, Hyperlipedemia Other Medical History: RENAL INSUFF. GOUT NON-COMPLIANCE WITH DIET AND MEDS Past Surgical History: Hysterectomy Social History Smoking Cessation: Never Smoker Counseling Performed: No Alcohol Use: None Any Illegal Drug Use: No TB Exposure/Symptoms: No Physically hurt or threatened: No Family History Family history of heart diseas: Yes Other Last Tetanus: UNKNOWN Any Pre-Existing Lines (PICC,: No Review of Systems Review of Systems Constitutional: Reports no symptoms EENTM: Reports no symptoms Cardiovascular: Reports no symptoms Respiratory: Reports no symptoms Gastrointestinal: Reports no symptoms Genitourinary: Reports no symptoms Musculoskeletal: Reports as per HPI, Reports joint pain Integumentary: Reports no symptoms Neurological: Reports no symptoms Psychological: Reports no symptoms Endocrine: Reports no symptoms Hematological/Lymphatic: Reports no symptoms Physical Exam Related Data Allergies: Coded Allergies: No Known Allergies (Unverified , 02/21/20) Triage Vital Signs Vital Signs Date Time Temp Pulse Resp B/P (MAP) Pulse Ox O2 Delivery O2 Flow Rate FiO2 02/21/20 15:11 99.1 88 20 160/54 99 Room Air Vital signs reviewed: Yes Physical Exam CONSTITUTIONAL Constitutional: Present well-developed, Present well-nourished, Present obese HENT HENT: Present normocephalic, Present atraumatic, Present oropharynx clear/moist, Present nose normal HENT L/R: Present left ext ear normal, Present right ext ear normal EYES Eyes: Reports PERRL, Reports conjunctivae normal NECK Neck: Present ROM normal PULMONARY Pulmonary: Present effort normal, Present breath sounds normal CARDIOVASCULAR Cardiovascular: Present regular rhythm, Present heart sounds normal, Present capillary refill normal, Present normal rate GASTROINTESTINAL Abdominal: Present soft, Present nontender, Present bowel sounds normal GENITOURINARY Genitourinary: Present exam deferred SKIN Skin: Present warm, Present dry MUSCULOSKELETAL Musculoskeletal: Present other (small joint effusion, mod ttp, decr ROM due to pain, no erythema, no increased warmth) NEUROLOGICAL Neurological: Present alert, Present oriented x 3, Present no gross motor or sensory deficits PSYCHOLOGICAL Psychological: Present mood/affect normal, Present judgement normal Results Laboratory Result Diagram: 02/21/20 1606 02/21/20 1606 Laboratory Laboratory Tests Test 02/21/20 16:06 White Blood Count 10.33 x10e3/uL (4.8-10.8) Red Blood Count 2.89 x10e6/uL (3.6-5.1) Hemoglobin 8.9 g/dL (12.0-16.0) Hematocrit 25.8 % (34.2-44.1) Mean Corpuscular Volume 89.3 fL (81-99) Mean Corpuscular Hemoglobin 30.8 pg (28-32) Mean Corpuscular Hemoglobin Concent 34.5 g/dL (31-35) Red Cell Distribution Width 13.5 % (11.7-14.4) Platelet Count 380 x10e3/uL (140-360) Neutrophils (%) (Auto) 79.8 % (38.7-80.0) Lymphocytes (%) (Auto) 9.9 % (18.0-39.1) Monocytes (%) (Auto) 9.0 % (4.4-11.3) Eosinophils (%) (Auto) 0.4 % (0.0-6.0) Basophils (%) (Auto) 0.3 % (0.0-1.0) Neutrophils # (Auto) 8.3 (2.1-6.9) Lymphocytes # (Auto) 1.0 (1.0-3.2) Monocytes # (Auto) 0.9 (0.2-0.8) Eosinophils # (Auto) 0.0 (0.0-0.4) Basophils # (Auto) 0.0 (0.0-0.1) Absolute Immature Granulocyte (auto 0.06 x10e3/uL (0-0.1) Prothrombin Time 29.0 seconds (11.9-14.5) Prothromb Time International Ratio 2.59 Activated Partial Thromboplast Time 75.8 seconds (23.8-35.5) Sodium Level 127 mmol/L (136-145) Potassium Level 2.4 mmol/L (3.5-5.1) Chloride Level 85 mmol/L (98-107) Carbon Dioxide Level 23 mmol/L (22-29) Anion Gap 21.4 mmol/L (8-16) Blood Urea Nitrogen 138 mg/dL (7-26) Creatinine 2.91 mg/dL (0.57-1.11) Estimat Glomerular Filtration Rate 16 ML/MIN (60-) BUN/Creatinine Ratio 47 (6-25) Glucose Level 599 mg/dL (74-118) Calcium Level 8.8 mg/dL (8.4-10.2) Total Bilirubin 0.3 mg/dL (0.2-1.2) Aspartate Amino Transf (AST/SGOT) 13 IU/L (5-34) Alanine Aminotransferase (ALT/SGPT) 14 IU/L (0-55) Alkaline Phosphatase 115 IU/L (40-150) Creatine Kinase 34 IU/L (29-168) Creatine Kinase MB 0.90 ng/mL (0-5.0) Troponin I 0.054 ng/mL (0-0.300) B-Type Natriuretic Peptide 46.3 pg/mL (0-100) Total Protein 7.3 g/dL (6.5-8.1) Albumin 3.5 g/dL (3.5-5.0) Globulin 3.8 g/dL (2.3-3.5) Albumin/Globulin Ratio 0.9 (0.8-2.0) Lab results reviewed: Yes Imaging Imaging results reviewed: Yes Impressions Right knee, 3 views INDICATION: ^RIGHT KNEE PAIN Comparison: None available. Discussion: Multiple views of the right knee are negative for grossly displaced fracture or dislocation. Chondrocalcinosis is noted within the femoral tibial compartments. Small suprapatellar joint effusion is noted. Moderate tricompartmental joint space narrowing is noted with small osteophytes. Old MCL injury is noted. Arterial vascular calcifications are noted. IMPRESSION: Negative for grossly displaced fracture or dislocation of the right knee. Small suprapatellar joint effusion is noted, nonspecific. Moderate tricompartmental degenerative changes are noted. Old MCL injury is noted. Chondrocalcinosis is noted. Signed by: Jaime Galvez MD on 02/21/2020 4:43 PM TECHNIQUE: Frontal view of the chest. INDICATION: ^HTN COMPARISON: 01/17/2020 DISCUSSION: Limited evaluation due to portable technique. Lines and hardware: Stable. Heart and mediastinum: Cardiomegaly is noted. Central vascular congestion is noted. Lungs and pleura: Prominent interstitial markings are noted. Question small bilateral pleural effusions. Negative for pneumothorax. Soft tissues and bones: No acute abnormality. IMPRESSION: Cardiomegaly and central vascular congestion are noted concerning for fluid overload. Question trace effusions. Signed by: Jaime Galvez MD on 02/21/2020 4:42 PM Procedures 12 Lead ECG Interpretation ECG Interpretation : ECG: ECG 1 Transport Engineer: Interpreted by ED physician Date: Feb 21, 2020 Time: 19:14 Rhythm: A-V block (NSR W/ 1ST DEGREE AVB) Ectopy: atrial premature contractions Rate: normal BPM: 71 QRS axis: normal Conduction: intraventricular conduction delay ST segments normal: Yes T wave inversion: I, aVL Other findings: LVH, early repolarization Clinical Impression: abnormal ECG Assessment & Plan Medical Decision Making MDM 79 yo non-compliant diabetic c/o non-traumatic right knee pain x3 days, seen at PCP office and sent to ER due to FSBG of ~600. Will get CBC, CHEM, ECG, CARD IACS, CXR, R KNEE XRAY - R/O DKA, RENAL INSUFF, ELECTROLYE ABNL, STEMI, NSTEMI, KNEE FRACTURE, OSTEOARTHRITIC CHANGES Reassessment Reassessment HYPERGLYCEMIA AND HYPOKALEMIA - INSULIN AND IVF'S FOR HYPERGLYCEMIA WHICH WILL DROP K FURTHER - ADMIT FOR CONTROL OF GLU AND K REPLACEMENT. D/W DR SANCHEZ ([facility]) Assessment & Plan Final Impression: (1) Uncontrolled diabetes mellitus with hyperglycemia (2) Non-compliance (3) Hypokalemia (4) Acute on chronic renal insufficiency Depart Disposition: ADMITTED Last Vital Signs Date Time Temp Pulse Resp B/P (MAP) Pulse Ox O2 Delivery O2 Flow Rate FiO2 02/21/20 15:11 99.1 88 20 160/54 99 Room Air Home Meds Active Scripts Tramadol Hcl (ULTRAM) 50 Mg Tablet, 50 MG PO Q6HR PRN for Mild Pain (1-3) or Fever>100.8, #12 TAB Prov:FRANCISCO CROWLEY DO 01/27/20 [Insulin Glargine] 100 UNITS/ML VIAL No Conflict Check, 18 UNITS SQ Q12HR Prov:JEFF SANCHEZ MD 01/19/20 Prednisone (PREDNISONE) 20 Mg Tab, 20 MG PO Q12H, #14 Prov:JEFF SANCHEZ MD 01/19/20 Cyclobenzaprine Hcl (CYCLOBENZAPRINE HCL) 10 Mg Tablet, 5 MG PO BID PRN for MUSCLE SPASMS for 10 Days Prov:JEFF SANCHEZ MD 01/19/20 Benzonatate (TESSALON PERLE) 100 Mg Capsule, 100 MG PO Q8H for 10 Days Prov:JEFF SANCHEZ MD 01/19/20 Reported Medications Potassium Chloride (POTASSIUM CHLORIDE) 40 Meq/15 Ml Liquid, 20 MEQ PO DAILY 02/22/20 Budesonide/Formoterol Fumarate (SYMBICORT 80-4.5 MCG INHALER) 10.2 Gm Hfa.aer.ad, 0 INH DAILY, EACH 2 PUFFS 02/22/20 Montelukast Sodium (MONTELUKAST SODIUM) 10 Mg Tablet, 10 MG PO DAILY, #30 TAB 01/16/20 Metolazone (METOLAZONE) 5 Mg Tablet, 5 MG PO DAILY, #30 TAB 01/16/20 Ferrous Sulfate (FERROUS SULFATE) 325 Mg Tablet, 325 MG PO DAILY 01/16/20 Rosuvastatin Calcium (CRESTOR) 10 Mg Tab, 20 MG PO HS THERAPEUTICALLY SUBSTITUTED WITH SIMVASTATIN 40MG 01/16/20 Allopurinol (ALLOPURINOL) 100 Mg Tablet, 100 MG PO BID, #30 TAB 08/13/19 Hydralazine Hcl (HYDRALAZINE HCL) 100 Mg Tablet, 100 MG PO Q8H 08/13/19 Prednisone (PREDNISONE) 20 Mg Tab, 20 MG PO DAILY, TAB 07/17/19 [Albuteral Inhaler] No Conflict Check, 1 INH INH QID PRN for PRN 07/12/19 Nifedipine (NIFEDIPINE ER) 30 Mg Tab.er.24, 30 MG PO DAILY 07/12/19 [Fluticasone] No Conflict Check, 50 MCG NA BID 07/12/19 Discontinued Reported Medications Furosemide (LASIX) 40 Mg Tablet, 20 MG PO DAILY, #30 TAB 07/12/19 Discontinued Scripts Doxycycline Hyclate (DOXYCYCLINE HYCLATE) 100 Mg Capsule, 100 MG PO Q12HR for 5 Days Prov:JEFF SANCHEZ MD 01/19/20 Medications in the ED Sodium Chloride 1,000 ml @ 0 mls/hr Q0M STAT IV ; Start 02/21/20 at 15:19; St op 02/21/20 at 15:25; Status DC Acetaminophen/ Hydrocodone Bitart 1 ea ONCE PO ; Start 02/21/20 at 15:30; Stop 02/21/20 at 16:59; Status DC Ondansetron HCl 4 mg NOW IV ; Start 02/21/20 at 15:19; Stop 02/21/20 at 16:59; Status DC VANIA QUIROZ MD Feb 21, 2020 18:07
[2020-02-21] MEDS ORDERED: INSULIN REGULAR, HUMAN 100 UNIT/1 ML 3ML VIAL IV NR (18:15)
[2020-02-21] MEDS ORDERED: POTASSIUM CHLORIDE 20 MEQ TAB CR PO NR (18:15)
[2020-02-21] MEDS ORDERED: ONDANSETRON HCL INJ 2MG/ML 2ML 2 MG/ML VIAL IV PRN (19:15)
[2020-02-21] MEDS ORDERED: DEXTROSE 50% SYRINGE 50 ML IV PRN (19:15)
[2020-02-21] MEDS ORDERED: SODIUM CHLORIDE 0.9% 1000ML 1,000 ML ONE (19:42)
[2020-02-21] MEDS: POTASSIUM CHLORIDE 10MEQ/100ML 100 ML IV SCH ×3 (20:10→22:31)
[2020-02-21 20:30] VITALS: BP 147/54
[2020-02-21 20:43] LABS: CLARITY,URINE CLEAR (CLEAR); COLOR,URINE YELLOW (YELLOW); LEUKOCYTE ESTERASE ,URINE NEGATIVE (NEGATIVE); NITRITE,URINE NEGATIVE (NEGATIVE); PROTEIN,URINE DIPSTICK 2+ (NEGATIVE)
[2020-02-21 20:44] LABS: BILIRUBIN,URINE NEGATIVE (NEGATIVE); KETONES,URINE NEGATIVE (NEGATIVE); URINE UROBILINOGEN 0.2 mg/dL (0.2 - 1)
[2020-02-21 20:49] LABS: BACTERIA,URINE RARE /HPF; RBC,URINE 0-5 /HPF (0-5); WBC,URINE (MAN) 0-5 /HPF (0-5)
[2020-02-21 20:50] LABS: EPITHELIAL CELLS,URINE RARE /LPF
[2020-02-21] MEDS: INSULIN LISPRO 100 UNIT/1 ML 3ML VIAL SQ SCH (21:23)
[2020-02-21 21:53] VITALS: BP 147/54
[2020-02-21] MEDS ORDERED: SODIUM CHLORIDE 0.9% 250ML 250 ML ONE (22:17)
[2020-02-21] MEDS: HYDROCODONE/APAP 5MG-325MG TAB PO PRN (22:21)
[2020-02-21 22:31] VITALS: BP 147/54
[2020-02-21] MEDS ORDERED: ZOLPIDEM TARTRATE 5 MG TAB PO PRN (23:30)
[2020-02-21] MEDS ORDERED: TRAMADOL HCL 50 MG TAB PO PRN (23:30)
[2020-02-22] VITALS (9 sets, daily range): BP systolic 112–187; BP diastolic 41–74
[2020-02-22] MEDS ORDERED: POTASSIUM40 MEQ/15 PO (00:02)
[2020-02-22] MEDS ORDERED: SYMBICORT 80-10.2 GM INH (00:02)
[2020-02-22] MEDS: POTASSIUM CHLORIDE 10MEQ/100ML 100 ML IV SCH ×3 (01:44→02:54)
[2020-02-22] MEDS ORDERED: POTASSIUM CHLORIDE 20 MEQ TAB CR PO ONE ×2 (03:00→08:00)
[2020-02-22 04:41] LABS: BASOPHILS % 0.2 % (0.0-1.0); EOSINOPHILS # (AUTO) 0.1 (0.0-0.4); EOSINOPHILS % 1.5 % (0.0-6.0); HEMATOCRIT 23.2 % (34.2-44.1); HEMOGLOBIN 7.8 g/dL (12.0-16.0); LYMPHOCYTES # (AUTO) 1.7 (1.0-3.2); LYMPHOCYTES % 19.2 % (18.0-39.1); MEAN CORPUSCULAR HEMOGLOBIN 30.6 pg (28-32); MEAN CORPUSCULAR HGB CONC 33.6 g/dL (31-35); MONOCYTES # (AUTO) 0.9 (0.2-0.8); MONOCYTES % 10.8 % (4.4-11.3); NEUTROPHILS # (AUTO) 5.9 (2.1-6.9); NEUTROPHILS % 67.8 % (38.7-80.0); PLATELET COUNT 326 x10e3/uL (140-360); RED BLOOD COUNT 2.55 x10e6/uL (3.6-5.1); RED CELL DISTRIBUTION WIDTH 13.3 % (11.7-14.4)
[2020-02-22 05:13] LABS: ALBUMIN 2.9 g/dL (3.5-5.0); ALBUMIN/GLOBULIN RATIO 0.9 (0.8-2.0); CALCIUM 8.3 mg/dL (8.4-10.2); CREATININE, SERUM 2.19 mg/dL (0.57-1.11)
--- NOTE | 2020-02-22 06:40 | NUR ---
H&P cc: sob/cp HPI: 78yoF, PCP , developed knee pain, found to have elevated glucose and dehydration, started on fluids and insulin. 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
[2020-02-22] MEDS ORDERED: CYCLOBENZAPRINE HCL 10 MG TAB PO PRN (06:45)
[2020-02-22] MEDS ORDERED: TRAMADOL HCL 50 MG TAB PO PRN (06:45)
--- NOTE | 2020-02-22 07:00 | NUR ---
Received patient resting in bed. No s/s of distress. Bed low, wheels locked, side rails x2. Call light in reach will continue to monitor patient.
[2020-02-22] MEDS: INSULIN LISPRO 100 UNIT/1 ML 3ML VIAL SQ SCH ×4 (07:30→21:11)
[2020-02-22] MEDS: SODIUM CHLORIDE 0.9% 1000ML 1,000 ML IV SCH (08:03)
[2020-02-22] MEDS: NIFEDIPINE CR 30 MG TAB PO SCH (08:59)
[2020-02-22] MEDS: FERROUS SULFATE 325 MG TAB PO SCH (08:59)
[2020-02-22] MEDS: LIDOCAINE 4% PATCH TP SCH (09:00)
[2020-02-22] MEDS: ALLOPURINOL 100 MG TAB PO SCH ×2 (09:00→16:54)
[2020-02-22] MEDS: MONTELUKAST SODIUM 10 MG TAB PO SCH (09:00)
[2020-02-22] MEDS: INSULIN GLARGINE 100 UNITS/ML VIAL SQ SCH ×2 (09:16→21:11)
[2020-02-22 12:43] LABS: ANION GAP 15.2 mmol/L (8-16); CALCIUM 9.1 mg/dL (8.4-10.2); CREATININE, SERUM 2.1 mg/dL (0.57-1.11); POTASSIUM 3.2 mmol/L (3.5-5.1)
[2020-02-22 13:01] LABS: CREATINE KINASE MB 1.2 ng/mL (0-5.0)
[2020-02-22] MEDS: HYDRALAZINE HCL 100 MG TABLET PO SCH ×2 (14:55→21:33)
[2020-02-22] MEDS: SENNOSIDES 8.6 MG TAB PO SCH (16:54)
[2020-02-22] MEDS: DOCUSATE SODIUM 100 MG CAP PO SCH (16:54)
[2020-02-22 18:15] LABS: ANION GAP 17.4 mmol/L (8-16); CALCIUM 8.9 mg/dL (8.4-10.2); CREATININE, SERUM 2.18 mg/dL (0.57-1.11); POTASSIUM 3.4 mmol/L (3.5-5.1)
[2020-02-22] MEDS ORDERED: SIMVASTATIN 20 MG TAB PO SCH (21:00)
[2020-02-22] MEDS ORDERED: PNEUMOCOCCAL VACCINE POLYVALENT 23 MCG/0.5 ML VIAL IM SCH (22:55)
[2020-02-22] MEDS: HYDROCODONE/APAP 5MG-325MG TAB PO PRN (23:38)
[2020-02-23] VITALS: BP 136/68
[2020-02-23 00:08] LABS: ANION GAP 14.1 mmol/L (8-16); CALCIUM 8.6 mg/dL (8.4-10.2); CREATININE, SERUM 2.19 mg/dL (0.57-1.11); POTASSIUM 3.1 mmol/L (3.5-5.1)
[2020-02-23] MEDS: SODIUM CHLORIDE 0.9% 1000ML 1,000 ML IV SCH ×3 (00:25→16:59)
[2020-02-23 04:00] VITALS: BP 134/42
[2020-02-23] MEDS: HYDRALAZINE HCL 100 MG TABLET PO SCH ×2 (05:33→14:58)
[2020-02-23 06:59] LABS: ANION GAP 16.1 mmol/L (8-16); CALCIUM 8.6 mg/dL (8.4-10.2); CREATININE, SERUM 2.06 mg/dL (0.57-1.11); POTASSIUM 3.1 mmol/L (3.5-5.1)
--- NOTE | 2020-02-23 07:00 | NUR ---
Received patient resting in bed. No s/s of distress. Bed low, wheels locked, side rails x2. Call light in reach will continue to monitor patient.
--- NOTE | 2020-02-23 07:26 | NUR ---
Notified Dr. Locke regarding potassium level 3.1. No new orders at this time
[2020-02-23] MEDS: INSULIN GLARGINE 100 UNITS/ML VIAL SQ SCH (07:30)
[2020-02-23] MEDS: INSULIN LISPRO 100 UNIT/1 ML 3ML VIAL SQ SCH ×3 (07:30→16:30)
[2020-02-23 08:01] VITALS: BP 127/40
[2020-02-23] MEDS: NIFEDIPINE CR 30 MG TAB PO SCH (08:08)
--- NOTE | 2020-02-23 08:15 | NUR ---
Patient complaint of pain to IV site. IV site infiltrated. IV removed catheter tip intact and pressure dressing applied.
--- NOTE | 2020-02-23 08:22 | NUR ---
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
[2020-02-23] MEDS: FERROUS SULFATE 325 MG TAB PO SCH (08:24)
[2020-02-23] MEDS: MONTELUKAST SODIUM 10 MG TAB PO SCH (08:24)
[2020-02-23] MEDS: LIDOCAINE 4% PATCH TP SCH (08:24)
[2020-02-23] MEDS: DOCUSATE SODIUM 100 MG CAP PO SCH ×2 (08:24→16:06)
[2020-02-23] MEDS: SENNOSIDES 8.6 MG TAB PO SCH ×2 (08:24→16:06)
[2020-02-23] MEDS: ALLOPURINOL 100 MG TAB PO SCH ×2 (08:24→16:06)
[2020-02-23 08:56] VITALS: BP 127/40
[2020-02-23] MEDS ORDERED: ONDANSETRON HCL 4 MG ORAL DISINTEGRATING TAB PO PRN (10:00)
--- NOTE | 2020-02-23 11:36 | NUR ---
Patient had a large bowel movement.
[2020-02-23 11:54] VITALS: BP 155/50
--- NOTE | 2020-02-23 12:22 | NUR ---
Called [facility] and spoke with Tika. Verified that pt currently on service with them. Pt receiving SN and PT.
--- NOTE | 2020-02-23 14:16 | NUR ---
Pt signed choice letter for [facility]. Copy given to pt. IMM letter discussed with pt. [place] copy given to pt. Signed IMM and choice letters placed in chart.
[2020-02-23 15:51] VITALS: BP 163/48
--- NOTE | 2020-02-23 18:02 | NUR ---
Removed patients IV. Catheter tip intact and pressure dressing applied.
--- NOTE | 2020-02-23 18:52 | NUR ---
Patient discharged from facility in stable condition. Gathered all personal belongings. No s/s of distress.
--- NOTE | 2020-02-24 07:53 | NUR ---
FAXED HOME HEALTH ORDER AND CLINICALS TO [facility]
== END 2020-02-23 18:48 | disposition home or self-care (01) ==
LOC: ER 15:36 → INTOOBSV 19:28 → ERHOLD 19:28 → MED/SURG 21:46
PROVIDERS: ADMIT Internal Medicine; ATTEND Internal Medicine
DX: E11.65 Type 2 diabetes mellitus with hyperglycemia (principal); I13.0 Hypertensive heart and chronic kidney disease with heart failure and stage 1 through stage 4 chronic kidney disease, or unspecified chronic kidney disease; I50.33 Acute on chronic diastolic (congestive) heart failure; N18.4 Chronic kidney disease, stage 4 (severe); E11.22 Type 2 diabetes mellitus with diabetic chronic kidney disease; M10.9 Gout, unspecified; M17.11 Unilateral primary osteoarthritis, right knee; J44.9 Chronic obstructive pulmonary disease, unspecified; E86.0 Dehydration; Z91.19 Patient's noncompliance with other medical treatment and regimen; N17.9 Acute kidney failure, unspecified; Z20.828 Contact with and (suspected) exposure to other viral communicable diseases
CPT/HCPCS: 36415 ×3; 71045; 73562; 80048 ×2; 80053 ×2; 81001; 82550 ×2; 82553 ×2; 82948; 83735; 83880; 84484 ×2; 84550; 85025 ×2; 85610; 85730; 93005; 97139; 97161; 99284; G0378 ×3; J1815; J1817; J3480 ×2; J7030 ×3; J7050; U0002

== ENCOUNTER 2020-04-10 16:56 | Observation (INO) | payer MEDICARE ==
[~2020-04-10] VITALS: Ht 154.9 cm; Wt 73.0 kg
[~2020-04-10 16:56] MED LIST changes: +POTASSIUM40 MEQ/15 PO; +SYMBICORT 80-10.2 GM INH
[2020-04-10] MEDS ORDERED: ASPIRIN 81 MG CHEW TAB PO ONE (17:15)
[2020-04-10 18:01] LABS: BASOPHILS % 0.3 % (0.0-1.0); EOSINOPHILS # (AUTO) 0.1 (0.0-0.4); EOSINOPHILS % 1.6 % (0.0-6.0); HEMATOCRIT 25.2 % (34.2-44.1); HEMOGLOBIN 8.2 g/dL (12.0-16.0); LYMPHOCYTES # (AUTO) 1.8 (1.0-3.2); LYMPHOCYTES % 20.1 % (18.0-39.1); MEAN CORPUSCULAR HEMOGLOBIN 29.4 pg (28-32); MEAN CORPUSCULAR HGB CONC 32.5 g/dL (31-35); MEAN CORPUSCULAR VOLUME 90.3 fL (81-99); MONOCYTES # (AUTO) 0.7 (0.2-0.8); MONOCYTES % 8.1 % (4.4-11.3); NEUTROPHILS # (AUTO) 6.2 (2.1-6.9); NEUTROPHILS % 69.6 % (38.7-80.0); PLATELET COUNT 319 x10e3/uL (140-360); RED BLOOD COUNT 2.79 x10e6/uL (3.6-5.1); RED CELL DISTRIBUTION WIDTH 15.6 % (11.7-14.4)
[2020-04-10 18:22] LABS: ALBUMIN 3.3 g/dL (3.5-5.0); ANION GAP 17.9 mmol/L (8-16); CALCIUM 8.4 mg/dL (8.4-10.2); CREATININE, SERUM 2.22 mg/dL (0.57-1.11)
[2020-04-10 18:24] LABS: POTASSIUM 2.9 mmol/L (3.5-5.1)
[2020-04-10 18:28] LABS: CREATINE KINASE MB 0.8 ng/mL (0-5.0)
[2020-04-10] MEDS ORDERED: POTASSIUM CHLORIDE 20MEQ/100ML 100 ML IV ONE (18:30)
[2020-04-10] MEDS ORDERED: POTASSIUM CHLORIDE 20 MEQ TAB CR PO STA (20:00)
[2020-04-10] MEDS ORDERED: ASPIRIN 81 MG ENTERIC COATED PO ONE (20:36)
[2020-04-11 01:57] LABS: CREATINE KINASE MB 0.7 ng/mL (0-5.0)
[2020-04-11 06:07] LABS: BASOPHILS % 0.3 % (0.0-1.0); EOSINOPHILS # (AUTO) 0.2 (0.0-0.4); EOSINOPHILS % 2.2 % (0.0-6.0); HEMATOCRIT 26.4 % (34.2-44.1); HEMOGLOBIN 8.5 g/dL (12.0-16.0); LYMPHOCYTES # (AUTO) 1.3 (1.0-3.2); LYMPHOCYTES % 15.5 % (18.0-39.1); MEAN CORPUSCULAR HEMOGLOBIN 30.1 pg (28-32); MEAN CORPUSCULAR HGB CONC 32.2 g/dL (31-35); MEAN CORPUSCULAR VOLUME 93.6 fL (81-99); MONOCYTES # (AUTO) 0.9 (0.2-0.8); NEUTROPHILS # (AUTO) 6.2 (2.1-6.9); NEUTROPHILS % 71.7 % (38.7-80.0); PLATELET COUNT 324 x10e3/uL (140-360); RED BLOOD COUNT 2.82 x10e6/uL (3.6-5.1); RED CELL DISTRIBUTION WIDTH 15.8 % (11.7-14.4)
[2020-04-11 06:47] LABS: ALBUMIN 3.1 g/dL (3.5-5.0); ALBUMIN/GLOBULIN RATIO 1.1 (0.8-2.0); ANION GAP 12.7 mmol/L (8-16); CREATININE, SERUM 2.05 mg/dL (0.57-1.11); POTASSIUM 3.7 mmol/L (3.5-5.1)
[2020-04-11 07:14] LABS: CREATINE KINASE MB 0.8 ng/mL (0-5.0)
[2020-04-11 08:12] VITALS: BP 154/120
[2020-04-11 09:15] VITALS: BP 154/120
[2020-04-11] MEDS: FUROSEMIDE INJ 10 MG/ML 2 ML VIAL IV SCH (11:02)
[2020-04-11 11:54] VITALS: BP 149/55
[2020-04-11 16:05] VITALS: BP 172/42
[2020-04-11] MEDS ORDERED: TRAMADOL HCL 50 MG TAB PO PRN (16:30)
[2020-04-11] MEDS ORDERED: ACETAMINOPHEN 325 MG TAB PO PRN (16:30)
[2020-04-11] MEDS ORDERED: ALBUTEROL/IPRATROPIUM 3 ML NEB NEB PRN (16:30)
[2020-04-11] MEDS ORDERED: DOCUSATE SODIUM 100 MG CAP PO PRN (16:30)
[2020-04-11] MEDS ORDERED: CYCLOBENZAPRINE HCL 10 MG TAB PO PRN (16:30)
[2020-04-11] MEDS ORDERED: ONDANSETRON HCL INJ 2MG/ML 2ML 2 MG/ML VIAL IV PRN (16:30)
[2020-04-11 16:45] LABS: CHOL/HDL RATIO 2.8 (3.0-3.6)
[2020-04-11] MEDS: ALLOPURINOL 100 MG TAB PO SCH (18:10)
[2020-04-11 20:00] VITALS: BP 189/39
[2020-04-11] MEDS ORDERED: SIMVASTATIN 40 MG TAB PO SCH (21:00)
[2020-04-11] MEDS ORDERED: INSULIN GLARGINE 18 UNIT SQ SCH (21:00)
[2020-04-11] MEDS ORDERED: SIMVASTATIN 20 MG TAB PO SCH (21:00)
[2020-04-11] MEDS: INSULIN GLARGINE 100 UNITS/ML VIAL SQ SCH (21:41)
[2020-04-11] MEDS: BENZONATATE 100 MG CAP PO SCH ×2 (21:47→23:41)
[2020-04-11] MEDS: HYDRALAZINE HCL 100 MG TABLET PO SCH (23:41)
[2020-04-11] MEDS: GUAIFENESIN/DEXTROMETHORPHAN LIQD 5 ML UDC NG SCH (23:41)
[2020-04-11 23:55] VITALS: BP 189/39
[2020-04-12] VITALS: BP 150/45
[2020-04-12] MEDS: ZOLPIDEM TARTRATE 5 MG TAB PO PRN ×2 (02:50→04:40)
[2020-04-12 04:00] VITALS: BP 133/52
[2020-04-12] MEDS: BENZONATATE 100 MG CAP PO SCH ×2 (05:12→08:50)
[2020-04-12] MEDS: GUAIFENESIN/DEXTROMETHORPHAN LIQD 5 ML UDC NG SCH (05:12)
[2020-04-12] MEDS: HYDRALAZINE HCL 100 MG TABLET PO SCH (05:12)
[2020-04-12 06:56] LABS: BASOPHILS % 0.3 % (0.0-1.0); EOSINOPHILS # (AUTO) 0.2 (0.0-0.4); EOSINOPHILS % 2.5 % (0.0-6.0); HEMATOCRIT 25.6 % (34.2-44.1); HEMOGLOBIN 8.1 g/dL (12.0-16.0); LYMPHOCYTES # (AUTO) 1.6 (1.0-3.2); LYMPHOCYTES % 17.1 % (18.0-39.1); MEAN CORPUSCULAR HEMOGLOBIN 29.2 pg (28-32); MEAN CORPUSCULAR HGB CONC 31.6 g/dL (31-35); MEAN CORPUSCULAR VOLUME 92.4 fL (81-99); MONOCYTES # (AUTO) 0.7 (0.2-0.8); NEUTROPHILS # (AUTO) 6.9 (2.1-6.9); NEUTROPHILS % 72.7 % (38.7-80.0); PLATELET COUNT 308 x10e3/uL (140-360); RED BLOOD COUNT 2.77 x10e6/uL (3.6-5.1); RED CELL DISTRIBUTION WIDTH 15.8 % (11.7-14.4)
[2020-04-12 07:36] LABS: ANION GAP 15.9 mmol/L (8-16); CALCIUM 8.2 mg/dL (8.4-10.2); CREATININE, SERUM 2.1 mg/dL (0.57-1.11); MAGNESIUM 1.9 MG/DL (1.3-2.1); PHOSPHORUS 4.5 MG/DL (2.3-4.7); POTASSIUM 3.9 mmol/L (3.5-5.1)
[2020-04-12 07:58] VITALS: BP 133/52
[2020-04-12] MEDS ORDERED: TESSALON PERLE100 MG PO (08:50)
[2020-04-12] MEDS ORDERED: Guaifenesin/Dextromethorphan NG (08:50)
[2020-04-12] MEDS: INSULIN GLARGINE 100 UNITS/ML VIAL SQ SCH (08:50)
[2020-04-12] MEDS: ALLOPURINOL 100 MG TAB PO SCH (08:50)
[2020-04-12] MEDS: FUROSEMIDE INJ 10 MG/ML 2 ML VIAL IV SCH (08:50)
[2020-04-12] MEDS ORDERED: LORATADINE10 MG PO (08:50)
[2020-04-12] MEDS ORDERED: PREDNISONE 20 MG TAB PO SCH (09:00)
[2020-04-12] MEDS ORDERED: FERROUS SULFATE 325 MG TAB PO SCH (09:00)
[2020-04-12] MEDS ORDERED: LORATADINE 10 MG TAB PO SCH (09:00)
[2020-04-12] MEDS ORDERED: MONTELUKAST SODIUM 10 MG TAB PO SCH (09:00)
[2020-04-12] MEDS ORDERED: NIFEDIPINE CR 30 MG TAB PO SCH (09:00)
[2020-04-12] MEDS ORDERED: ONDANSETRON HCL 4 MG ORAL DISINTEGRATING TAB PO PRN (09:15)
[2020-04-12 09:49] VITALS: BP 143/52
== END 2020-04-12 12:10 | disposition home or self-care (01) ==
LOC: ER 17:14 → ERHOLD 19:17 → MED/SURG3 04-11 08:20
PROVIDERS: ADMIT Internal Medicine; ATTEND Internal Medicine
DX: J44.0 Chronic obstructive pulmonary disease with (acute) lower respiratory infection (principal); J20.9 Acute bronchitis, unspecified; I13.0 Hypertensive heart and chronic kidney disease with heart failure and stage 1 through stage 4 chronic kidney disease, or unspecified chronic kidney disease; I50.33 Acute on chronic diastolic (congestive) heart failure; N18.4 Chronic kidney disease, stage 4 (severe); E11.22 Type 2 diabetes mellitus with diabetic chronic kidney disease; Z79.899 Other long term (current) drug therapy; M10.9 Gout, unspecified; Z20.822 Contact with and (suspected) exposure to COVID-19
CPT/HCPCS: 36415 ×2; 71045; 80048; 80053 ×2; 80061; 82550 ×2; 82553 ×2; 82948 ×2; 83036; 83735; 83880; 84100; 84484 ×2; 85025 ×3; 93005; 93306; 94660 ×2; 99284; G0378 ×3; J1815; J1940 ×2; J3480; J7512; U0002

== ENCOUNTER 2020-04-25 18:47 | Inpatient (IN) | payer MEDICARE ==
[~2020-04-25] VITALS: Ht 154.9 cm; Wt 73.0 kg
[~2020-04-25 18:47] MED LIST changes: +Guaifenesin/Dextromethorphan NG; +LORATADINE10 MG PO
[2020-04-25 19:48] LABS: BASOPHILS % 0.2 % (0.0-1.0); EOSINOPHILS # (AUTO) 0.2 (0.0-0.4); EOSINOPHILS % 2.3 % (0.0-6.0); HEMOGLOBIN 7.3 g/dL (12.0-16.0); LYMPHOCYTES % 9.6 % (18.0-39.1); MEAN CORPUSCULAR HGB CONC 31.7 g/dL (31-35); MEAN CORPUSCULAR VOLUME 91.3 fL (81-99); MONOCYTES # (AUTO) 0.8 (0.2-0.8); MONOCYTES % 7.9 % (4.4-11.3); NEUTROPHILS # (AUTO) 8.4 (2.1-6.9); NEUTROPHILS % 79.6 % (38.7-80.0); PLATELET COUNT 300 x10e3/uL (140-360); RED BLOOD COUNT 2.52 x10e6/uL (3.6-5.1); RED CELL DISTRIBUTION WIDTH 16.7 % (11.7-14.4)
[2020-04-25 19:58] LABS: INR 0.9; PARTIAL THROMBOPLASTIN TIME 31.8 seconds (23.8-35.5); PROTHROMBIN TIME 12.7 seconds (11.9-14.5)
[2020-04-25 20:07] LABS: ALBUMIN/GLOBULIN RATIO 0.8 (0.8-2.0); ANION GAP 18.6 mmol/L (8-16); CALCIUM 8.4 mg/dL (8.4-10.2); CREATININE, SERUM 2.28 mg/dL (0.57-1.11); POTASSIUM 4.6 mmol/L (3.5-5.1)
[2020-04-25 20:14] LABS: CREATINE KINASE MB 1.2 ng/mL (0-5.0)
[2020-04-25] MEDS ORDERED: TRAMADOL HCL 50 MG TAB PO ONE (20:45)
[2020-04-25] MEDS ORDERED: SODIUM CHLORIDE FLUSH 10 ML SYR INJ PRN (21:00)
[2020-04-25] MEDS: FUROSEMIDE INJ 10 MG/ML 4 ML VIAL IV SCH (21:21)
[2020-04-26] MEDS ORDERED: HYDROCODONE/APAP 5MG-325MG TAB PO ONE (04:15)
[2020-04-26 13:06] LABS: CREATINE KINASE MB 1.2 ng/mL (0-5.0)
[2020-04-26 13:42] VITALS: BP 165/61
[2020-04-26] MEDS: FUROSEMIDE INJ 10 MG/ML 4 ML VIAL IV SCH (16:50)
[2020-04-26] MEDS ORDERED: ACETAMINOPHEN 325 MG TAB PO PRN (17:00)
[2020-04-26] MEDS ORDERED: ONDANSETRON HCL INJ 2MG/ML 2ML 2 MG/ML VIAL IV PRN (17:45)
[2020-04-26] MEDS ORDERED: CYCLOBENZAPRINE HCL 10 MG TAB PO PRN (17:45)
[2020-04-26] MEDS ORDERED: TRAMADOL HCL 50 MG TAB PO PRN (17:45)
[2020-04-26] MEDS ORDERED: DOCUSATE SODIUM 100 MG CAP PO PRN (17:45)
[2020-04-26] MEDS: TRAMADOL HCL 50 MG TAB PO PRN (17:50)
[2020-04-26] MEDS ORDERED: DEXTROSE 50% SYRINGE 50 ML IV PRN (19:15)
[2020-04-26 20:00] VITALS: BP 174/45
[2020-04-26] MEDS: PSEUDOEPHEDRINE HCL 30 MG TAB PO SCH (21:00)
[2020-04-26] MEDS ORDERED: ZOLPIDEM TARTRATE 5 MG TAB PO PRN (21:00)
[2020-04-26] MEDS: ALPRAZOLAM 0.25 MG TAB PO SCH (21:00)
[2020-04-26] MEDS: DOXYCYCLINE 100MG/NS 100ML 100 ML IV SCH (21:00)
[2020-04-26] MEDS: SIMVASTATIN 20 MG TAB PO SCH (21:00)
[2020-04-26] MEDS: INSULIN REGULAR, HUMAN 100 UNIT/1 ML 3ML VIAL SQ SCH (21:00)
[2020-04-26] MEDS: BENZONATATE 100 MG CAP PO SCH (21:00)
[2020-04-26] MEDS ORDERED: SODIUM CHLORIDE 0.9% 500ML 500 ML ONE (21:59)
[2020-04-26] MEDS ORDERED: BENZONATATE 100 MG CAP PO SCH (22:00)
[2020-04-26] MEDS: HYDRALAZINE HCL 100 MG TABLET PO SCH (22:00)
[2020-04-27] VITALS (8 sets, daily range): BP systolic 120–182; BP diastolic 42–66
[2020-04-27] MEDS: TRAMADOL HCL 50 MG TAB PO PRN ×2 (04:20→23:18)
[2020-04-27] MEDS: HYDRALAZINE HCL 100 MG TABLET PO SCH ×2 (06:00→15:00)
[2020-04-27] MEDS ORDERED: ALBUTEROL/IPRATROPIUM 3 ML NEB NEB PRN (07:30)
[2020-04-27] MEDS: NIFEDIPINE CR 30 MG TAB PO SCH ×2 (08:28→21:33)
[2020-04-27] MEDS: FUROSEMIDE INJ 10 MG/ML 4 ML VIAL IV SCH ×2 (08:28→16:22)
[2020-04-27] MEDS: BENZONATATE 100 MG CAP PO SCH ×3 (08:29→21:34)
[2020-04-27] MEDS: PSEUDOEPHEDRINE HCL 30 MG TAB PO SCH ×2 (08:29→21:34)
[2020-04-27] MEDS: ALLOPURINOL 100 MG TAB PO SCH ×2 (08:29→16:22)
[2020-04-27] MEDS: FERROUS SULFATE 325 MG TAB PO SCH (08:29)
[2020-04-27] MEDS: ALPRAZOLAM 0.25 MG TAB PO SCH ×2 (08:29→21:34)
[2020-04-27] MEDS: MONTELUKAST SODIUM 10 MG TAB PO SCH (08:29)
[2020-04-27] MEDS: LORATADINE 10 MG TAB PO SCH (08:29)
[2020-04-27] MEDS: INSULIN REGULAR, HUMAN 100 UNIT/1 ML 3ML VIAL SQ SCH ×4 (08:30→21:43)
[2020-04-27] MEDS ORDERED: NIFEDIPINE CR 30 MG TAB PO SCH (09:00)
[2020-04-27 09:44] LABS: BASOPHILS % 0.2 % (0.0-1.0); EOSINOPHILS # (AUTO) 0.3 (0.0-0.4); EOSINOPHILS % 3.2 % (0.0-6.0); HEMATOCRIT 23.2 % (34.2-44.1); HEMOGLOBIN 7.4 g/dL (12.0-16.0); LYMPHOCYTES # (AUTO) 0.9 (1.0-3.2); LYMPHOCYTES % 10.8 % (18.0-39.1); MEAN CORPUSCULAR HEMOGLOBIN 29.2 pg (28-32); MEAN CORPUSCULAR HGB CONC 31.9 g/dL (31-35); MEAN CORPUSCULAR VOLUME 91.7 fL (81-99); MONOCYTES # (AUTO) 0.7 (0.2-0.8); MONOCYTES % 8.7 % (4.4-11.3); NEUTROPHILS # (AUTO) 6.4 (2.1-6.9); NEUTROPHILS % 76.7 % (38.7-80.0); PLATELET COUNT 292 x10e3/uL (140-360); RED BLOOD COUNT 2.53 x10e6/uL (3.6-5.1); RED CELL DISTRIBUTION WIDTH 16.3 % (11.7-14.4)
[2020-04-27 10:06] LABS: ANION GAP 17.6 mmol/L (8-16); CALCIUM 8.1 mg/dL (8.4-10.2); CREATININE, SERUM 2.12 mg/dL (0.57-1.11); MAGNESIUM 1.6 MG/DL (1.3-2.1); PHOSPHORUS 4.5 MG/DL (2.3-4.7); POTASSIUM 3.6 mmol/L (3.5-5.1)
[2020-04-27] MEDS: DOXYCYCLINE 100MG/NS 100ML 100 ML IV SCH ×2 (14:00→21:33)
[2020-04-27] MEDS: SIMVASTATIN 20 MG TAB PO SCH (21:34)
[2020-04-28] VITALS (8 sets, daily range): BP systolic 122–148; BP diastolic 38–46
[2020-04-28] MEDS: HYDRALAZINE HCL 100 MG TABLET PO SCH ×4 (01:44→21:38)
[2020-04-28] MEDS: TRAMADOL HCL 50 MG TAB PO PRN ×3 (06:26→21:37)
[2020-04-28] MEDS: INSULIN REGULAR, HUMAN 100 UNIT/1 ML 3ML VIAL SQ SCH ×4 (07:30→21:39)
[2020-04-28 09:29] LABS: BASOPHILS % 0.2 % (0.0-1.0); EOSINOPHILS # (AUTO) 0.2 (0.0-0.4); EOSINOPHILS % 2.4 % (0.0-6.0); HEMOGLOBIN 7.5 g/dL (12.0-16.0); LYMPHOCYTES # (AUTO) 0.8 (1.0-3.2); LYMPHOCYTES % 8.6 % (18.0-39.1); MEAN CORPUSCULAR HEMOGLOBIN 29.5 pg (28-32); MEAN CORPUSCULAR HGB CONC 32.8 g/dL (31-35); MEAN CORPUSCULAR VOLUME 90.2 fL (81-99); MONOCYTES % 10.5 % (4.4-11.3); NEUTROPHILS # (AUTO) 7.4 (2.1-6.9); NEUTROPHILS % 77.9 % (38.7-80.0); PLATELET COUNT 293 x10e3/uL (140-360); RED BLOOD COUNT 2.54 x10e6/uL (3.6-5.1); RED CELL DISTRIBUTION WIDTH 16.3 % (11.7-14.4)
[2020-04-28 09:31] LABS: HEMATOCRIT 22.9 % (34.2-44.1)
[2020-04-28 09:51] LABS: ANION GAP 18.3 mmol/L (8-16); CALCIUM 8.1 mg/dL (8.4-10.2); CREATININE, SERUM 2.36 mg/dL (0.57-1.11); MAGNESIUM 1.6 MG/DL (1.3-2.1); PHOSPHORUS 5.1 MG/DL (2.3-4.7); POTASSIUM 4.3 mmol/L (3.5-5.1)
[2020-04-28] MEDS: MONTELUKAST SODIUM 10 MG TAB PO SCH (09:59)
[2020-04-28] MEDS: LORATADINE 10 MG TAB PO SCH (09:59)
[2020-04-28] MEDS: PSEUDOEPHEDRINE HCL 30 MG TAB PO SCH ×2 (09:59→20:39)
[2020-04-28] MEDS: ALPRAZOLAM 0.25 MG TAB PO SCH ×2 (09:59→20:39)
[2020-04-28] MEDS: NIFEDIPINE CR 30 MG TAB PO SCH ×2 (09:59→19:30)
[2020-04-28] MEDS: ALLOPURINOL 100 MG TAB PO SCH ×2 (09:59→17:36)
[2020-04-28] MEDS: FUROSEMIDE INJ 10 MG/ML 4 ML VIAL IV SCH ×2 (09:59→17:36)
[2020-04-28] MEDS: BENZONATATE 100 MG CAP PO SCH ×3 (09:59→20:39)
[2020-04-28] MEDS: FERROUS SULFATE 325 MG TAB PO SCH (09:59)
[2020-04-28] MEDS: DOXYCYCLINE 100MG/NS 100ML 100 ML IV SCH (11:07)
[2020-04-28] MEDS: CEFTRIAXONE SOD 1 GM/NS 50 ML 50 ML IV SCH (11:45)
[2020-04-28 12:56] LABS: CLARITY,URINE CLEAR (CLEAR); COLOR,URINE YELLOW (YELLOW); EPITHELIAL CELLS,URINE RARE /LPF; KETONES,URINE NEGATIVE (NEGATIVE); LEUKOCYTE ESTERASE ,URINE NEGATIVE (NEGATIVE); MUCUS,URINE FEW (RARE); NITRITE,URINE NEGATIVE (NEGATIVE); PROTEIN,URINE DIPSTICK >=300 (NEGATIVE); RBC,URINE 0-5 /HPF (0-5); URINE UROBILINOGEN 0.2 mg/dL (0.2 - 1); WBC,URINE (MAN) 0-5 /HPF (0-5)
[2020-04-28] MEDS: SIMVASTATIN 20 MG TAB PO SCH (20:39)
[2020-04-28] MEDS: DOXYCYCLINE HYCLATE TABLET 100 MG TAB PO SCH (20:39)
[2020-04-29] VITALS (8 sets, daily range): BP systolic 123–138; BP diastolic 40–47
[2020-04-29] MEDS: HYDRALAZINE HCL 100 MG TABLET PO SCH ×3 (06:00→22:00)
[2020-04-29] MEDS: TRAMADOL HCL 50 MG TAB PO SCH ×3 (06:30→22:16)
[2020-04-29] MEDS: CYCLOBENZAPRINE HCL 10 MG TAB PO SCH ×3 (06:30→22:00)
[2020-04-29] MEDS: DOXYCYCLINE HYCLATE TABLET 100 MG TAB PO SCH ×2 (08:40→22:15)
[2020-04-29] MEDS: ALPRAZOLAM 0.25 MG TAB PO SCH ×2 (08:42→22:14)
[2020-04-29] MEDS: BENZONATATE 100 MG CAP PO SCH ×3 (08:42→22:15)
[2020-04-29] MEDS: ALLOPURINOL 100 MG TAB PO SCH ×2 (08:43→16:46)
[2020-04-29] MEDS: FERROUS SULFATE 325 MG TAB PO SCH (08:43)
[2020-04-29] MEDS: NIFEDIPINE CR 30 MG TAB PO SCH ×2 (08:44→19:30)
[2020-04-29] MEDS: PSEUDOEPHEDRINE HCL 30 MG TAB PO SCH ×2 (08:45→22:15)
[2020-04-29] MEDS: MONTELUKAST SODIUM 10 MG TAB PO SCH (08:45)
[2020-04-29] MEDS: DULOXETINE HCL 30 MG DELAYED RELEASE PO SCH (08:45)
[2020-04-29] MEDS: LORATADINE 10 MG TAB PO SCH (08:46)
[2020-04-29] MEDS: FUROSEMIDE INJ 10 MG/ML 4 ML VIAL IV SCH ×2 (08:46→16:40)
[2020-04-29] MEDS: METHYLPREDNISOLONE SOD SUCC 40 MG/ML VIAL 1ML IV SCH ×2 (08:49→21:30)
[2020-04-29] MEDS: CEFTRIAXONE SOD 1 GM/NS 50 ML 50 ML IV SCH (08:49)
[2020-04-29] MEDS: INSULIN REGULAR, HUMAN 100 UNIT/1 ML 3ML VIAL SQ SCH ×4 (10:59→22:12)
[2020-04-29] MEDS: GABAPENTIN 100 MG CAP PO SCH ×2 (14:21→22:00)
[2020-04-29] MEDS: PIPER-TAZ 3.375 GM 50 ML IV SCH ×2 (15:21→23:00)
[2020-04-29] MEDS: SIMVASTATIN 20 MG TAB PO SCH (22:15)
[2020-04-30] VITALS (7 sets, daily range): BP systolic 127–152; BP diastolic 37–49
[2020-04-30] MEDS: TRAMADOL HCL 50 MG TAB PO SCH ×2 (00:27→08:27)
[2020-04-30] MEDS: HYDRALAZINE HCL 100 MG TABLET PO SCH ×3 (06:00→22:00)
[2020-04-30] MEDS: GABAPENTIN 100 MG CAP PO SCH ×3 (06:29→22:00)
[2020-04-30] MEDS: CYCLOBENZAPRINE HCL 10 MG TAB PO SCH ×3 (06:29→22:00)
[2020-04-30] MEDS: PIPER-TAZ 3.375 GM 50 ML IV SCH ×3 (06:30→22:00)
[2020-04-30] MEDS: NIFEDIPINE CR 30 MG TAB PO SCH ×2 (07:30→20:30)
[2020-04-30 07:46] LABS: BASOPHILS % 0.1 % (0.0-1.0); LYMPHOCYTES # (AUTO) 0.4 (1.0-3.2); LYMPHOCYTES % 5.4 % (18.0-39.1); MEAN CORPUSCULAR HGB CONC 31.6 g/dL (31-35); MEAN CORPUSCULAR VOLUME 91.8 fL (81-99); MONOCYTES # (AUTO) 0.2 (0.2-0.8); MONOCYTES % 1.9 % (4.4-11.3); NEUTROPHILS # (AUTO) 7.2 (2.1-6.9); NEUTROPHILS % 92.2 % (38.7-80.0); PLATELET COUNT 359 x10e3/uL (140-360); RED BLOOD COUNT 2.31 x10e6/uL (3.6-5.1); RED CELL DISTRIBUTION WIDTH 16.3 % (11.7-14.4)
[2020-04-30 07:53] LABS: HEMATOCRIT 21.2 % (34.2-44.1); HEMOGLOBIN 6.7 g/dL (12.0-16.0)
[2020-04-30] MEDS: INSULIN REGULAR, HUMAN 100 UNIT/1 ML 3ML VIAL SQ SCH ×4 (08:00→21:00)
[2020-04-30 08:01] LABS: CALCIUM 8.2 mg/dL (8.4-10.2); CREATININE, SERUM 4.43 mg/dL (0.57-1.11)
[2020-04-30 08:17] LABS: MAGNESIUM 1.8 MG/DL (1.3-2.1); PHOSPHORUS 7.4 MG/DL (2.3-4.7)
[2020-04-30] MEDS: FUROSEMIDE INJ 10 MG/ML 4 ML VIAL IV SCH (08:23)
[2020-04-30] MEDS: METHYLPREDNISOLONE SOD SUCC 40 MG/ML VIAL 1ML IV SCH ×2 (08:24→22:00)
[2020-04-30] MEDS: CEFTRIAXONE SOD 1 GM/NS 50 ML 50 ML IV SCH (08:24)
[2020-04-30] MEDS: LORATADINE 10 MG TAB PO SCH (08:25)
[2020-04-30] MEDS: DULOXETINE HCL 30 MG DELAYED RELEASE PO SCH (08:25)
[2020-04-30] MEDS: FERROUS SULFATE 325 MG TAB PO SCH (08:26)
[2020-04-30] MEDS: PSEUDOEPHEDRINE HCL 30 MG TAB PO SCH ×2 (08:26→21:00)
[2020-04-30] MEDS: MONTELUKAST SODIUM 10 MG TAB PO SCH (08:26)
[2020-04-30] MEDS: BENZONATATE 100 MG CAP PO SCH ×3 (08:27→22:00)
[2020-04-30] MEDS: ALLOPURINOL 100 MG TAB PO SCH ×2 (08:28→17:11)
[2020-04-30] MEDS: DOXYCYCLINE HYCLATE TABLET 100 MG TAB PO SCH ×2 (08:28→21:00)
[2020-04-30] MEDS: ALPRAZOLAM 0.25 MG TAB PO SCH ×2 (08:29→21:00)
[2020-04-30 09:54] LABS: HEMATOCRIT 21.9 % (34.2-44.1)
[2020-04-30] MEDS ORDERED: SODIUM CHLORIDE 0.9% 250ML 250 ML IV ONE (12:45)
[2020-04-30] MEDS: INSULIN GLARGINE 100 UNITS/ML VIAL SQ SCH (13:02)
[2020-04-30] MEDS ORDERED: SODIUM CHLORIDE 0.9% 250ML 250 ML ONE (18:48)
[2020-04-30] MEDS: SIMVASTATIN 20 MG TAB PO SCH (21:00)
[2020-05-01] VITALS (8 sets, daily range): BP systolic 124–162; BP diastolic 47–64
[2020-05-01] MEDS: ALPRAZOLAM 0.25 MG TAB PO SCH ×2 (01:45→20:54)
[2020-05-01] MEDS ORDERED: SODIUM CHLORIDE 0.9% 250ML 250 ML ONE (01:50)
[2020-05-01] MEDS: HYDRALAZINE HCL 100 MG TABLET PO SCH ×3 (06:00→21:11)
[2020-05-01] MEDS: PIPER-TAZ 3.375 GM 50 ML IV SCH (06:50)
[2020-05-01 07:08] LABS: BASOPHILS % 0.1 % (0.0-1.0); HEMATOCRIT 28.5 % (34.2-44.1); HEMOGLOBIN 9.4 g/dL (12.0-16.0); LYMPHOCYTES # (AUTO) 0.4 (1.0-3.2); LYMPHOCYTES % 3.5 % (18.0-39.1); MEAN CORPUSCULAR HEMOGLOBIN 29.2 pg (28-32); MEAN CORPUSCULAR VOLUME 88.5 fL (81-99); MONOCYTES # (AUTO) 0.4 (0.2-0.8); MONOCYTES % 3.5 % (4.4-11.3); NEUTROPHILS # (AUTO) 9.8 (2.1-6.9); NEUTROPHILS % 92.4 % (38.7-80.0); PLATELET COUNT 348 x10e3/uL (140-360); RED BLOOD COUNT 3.22 x10e6/uL (3.6-5.1); RED CELL DISTRIBUTION WIDTH 15.4 % (11.7-14.4)
[2020-05-01 07:31] LABS: ANION GAP 23.6 mmol/L (8-16); CALCIUM 7.8 mg/dL (8.4-10.2); CREATININE, SERUM 5.28 mg/dL (0.57-1.11); POTASSIUM 5.6 mmol/L (3.5-5.1)
[2020-05-01] MEDS: GABAPENTIN 100 MG CAP PO SCH ×3 (07:44→21:12)
[2020-05-01] MEDS: CYCLOBENZAPRINE HCL 10 MG TAB PO SCH ×3 (07:44→21:11)
[2020-05-01] MEDS: INSULIN REGULAR, HUMAN 100 UNIT/1 ML 3ML VIAL SQ SCH ×4 (08:00→21:00)
[2020-05-01] MEDS ORDERED: SODIUM BICARBONATE 8.4% INJ 50 ML SYR IV ONE (08:36)
[2020-05-01] MEDS ORDERED: SOD POLYSTYRENE SULFONATE SUSP 15 GM/60 ML BTL PO ONE (08:45)
[2020-05-01] MEDS: INSULIN GLARGINE 100 UNITS/ML VIAL SQ SCH (09:00)
[2020-05-01] MEDS: METHYLPREDNISOLONE SOD SUCC 40 MG/ML VIAL 1ML IV SCH ×2 (09:25→20:54)
[2020-05-01] MEDS: LORATADINE 10 MG TAB PO SCH (09:26)
[2020-05-01] MEDS: FERROUS SULFATE 325 MG TAB PO SCH (09:26)
[2020-05-01] MEDS: AMLODIPINE BESYLATE 5 MG TAB PO SCH (09:26)
[2020-05-01] MEDS: DULOXETINE HCL 30 MG DELAYED RELEASE PO SCH (09:26)
[2020-05-01] MEDS: TRAMADOL HCL 50 MG TAB PO SCH ×2 (09:27→21:00)
[2020-05-01] MEDS: BENZONATATE 100 MG CAP PO SCH ×3 (09:27→20:54)
[2020-05-01] MEDS: DOXYCYCLINE HYCLATE TABLET 100 MG TAB PO SCH ×2 (09:27→20:54)
[2020-05-01] MEDS: MONTELUKAST SODIUM 10 MG TAB PO SCH (09:27)
[2020-05-01] MEDS: ALLOPURINOL 100 MG TAB PO SCH ×2 (09:27→16:53)
[2020-05-01] MEDS: PSEUDOEPHEDRINE HCL 30 MG TAB PO SCH ×2 (09:27→20:53)
[2020-05-01] MEDS ORDERED: HEPARIN SOD (PORCINE) 1000 UNIT/ML SDV ONE (11:01)
[2020-05-01] MEDS ORDERED: LIDOCAINE HCL 1% LOCAL INJ 20 ML VIAL ONE (11:50)
[2020-05-01] MEDS ORDERED: SODIUM CHLORIDE 0.9% 1000ML 2,000 ML ONE (11:55)
[2020-05-01] MEDS ORDERED: MANNITOL 25% 12.5GM/50 ML VIAL IV PRN (12:45)
[2020-05-01] MEDS ORDERED: SODIUM CHLORIDE 0.9% 1000ML 2,000 ML IV PRN (12:45)
[2020-05-01] MEDS ORDERED: HEPARIN SOD (PORCINE) 1000 UNIT/ML SDV IV PRN (12:45)
[2020-05-01] MEDS: ALBUTEROL/IPRATROPIUM 3 ML NEB NEB SCH ×2 (13:00→19:00)
[2020-05-01 19:14] LABS: CREATININE,URINE RANDOM 68.36 mg/dL (47-110)
[2020-05-01 20:04] LABS: EOSINOPHIL SMEAR,URINE NONE SEEN (NONE SEEN)
[2020-05-01] MEDS: BUDESONIDE/FORMOTEROL 160/4.5MCG INHALER INH SCH (20:25)
[2020-05-01] MEDS: SIMVASTATIN 20 MG TAB PO SCH (20:53)
[2020-05-02] VITALS (8 sets, daily range): BP systolic 134–179; BP diastolic 58–69
[2020-05-02] MEDS: ALBUTEROL/IPRATROPIUM 3 ML NEB NEB SCH ×4 (04:31→19:45)
[2020-05-02] MEDS: HYDRALAZINE HCL 100 MG TABLET PO SCH ×3 (05:27→21:30)
[2020-05-02] MEDS: GABAPENTIN 100 MG CAP PO SCH ×3 (05:27→21:30)
[2020-05-02] MEDS: CYCLOBENZAPRINE HCL 10 MG TAB PO SCH ×3 (05:27→21:30)
[2020-05-02 05:59] LABS: BASOPHILS % 0.1 % (0.0-1.0); HEMATOCRIT 28.8 % (34.2-44.1); HEMOGLOBIN 9.5 g/dL (12.0-16.0); LYMPHOCYTES # (AUTO) 0.4 (1.0-3.2); MEAN CORPUSCULAR HEMOGLOBIN 29.7 pg (28-32); MONOCYTES # (AUTO) 0.7 (0.2-0.8); MONOCYTES % 5.1 % (4.4-11.3); NEUTROPHILS # (AUTO) 12.5 (2.1-6.9); NEUTROPHILS % 90.9 % (38.7-80.0); PLATELET COUNT 346 x10e3/uL (140-360); RED CELL DISTRIBUTION WIDTH 15.1 % (11.7-14.4)
[2020-05-02 06:27] LABS: ALBUMIN 2.7 g/dL (3.5-5.0); ALBUMIN/GLOBULIN RATIO 0.8 (0.8-2.0); ANION GAP 20.3 mmol/L (8-16); CALCIUM 7.9 mg/dL (8.4-10.2); CREATININE, SERUM 3.87 mg/dL (0.57-1.11); MAGNESIUM 1.9 MG/DL (1.3-2.1); PHOSPHORUS 7.7 MG/DL (2.3-4.7); POTASSIUM 4.3 mmol/L (3.5-5.1)
[2020-05-02] MEDS: BUDESONIDE/FORMOTEROL 160/4.5MCG INHALER INH SCH ×2 (07:56→20:00)
[2020-05-02] MEDS: INSULIN REGULAR, HUMAN 100 UNIT/1 ML 3ML VIAL SQ SCH ×4 (08:00→20:38)
[2020-05-02] MEDS: ALPRAZOLAM 0.25 MG TAB PO SCH ×2 (09:00→20:34)
[2020-05-02] MEDS: AMLODIPINE BESYLATE 5 MG TAB PO SCH (09:00)
[2020-05-02] MEDS: CARVEDILOL 12.5 MG TAB PO SCH ×2 (09:00→17:03)
[2020-05-02] MEDS: TRAMADOL HCL 50 MG TAB PO SCH ×2 (09:00→20:34)
[2020-05-02] MEDS: MONTELUKAST SODIUM 10 MG TAB PO SCH (09:33)
[2020-05-02] MEDS: METHYLPREDNISOLONE SOD SUCC 40 MG/ML VIAL 1ML IV SCH ×2 (09:33→20:34)
[2020-05-02] MEDS: FERROUS SULFATE 325 MG TAB PO SCH (09:33)
[2020-05-02] MEDS: BENZONATATE 100 MG CAP PO SCH ×3 (09:33→20:34)
[2020-05-02] MEDS: ALLOPURINOL 100 MG TAB PO SCH ×2 (09:33→17:03)
[2020-05-02] MEDS: DOXYCYCLINE HYCLATE TABLET 100 MG TAB PO SCH ×2 (09:33→20:34)
[2020-05-02] MEDS: LORATADINE 10 MG TAB PO SCH (09:33)
[2020-05-02] MEDS: DULOXETINE HCL 30 MG DELAYED RELEASE PO SCH (09:33)
[2020-05-02] MEDS: INSULIN GLARGINE 100 UNITS/ML VIAL SQ SCH (11:05)
[2020-05-02] MEDS: SEVELAMER CARBONATE 800 MG TAB PO SCH ×2 (12:55→17:03)
[2020-05-02] MEDS: SIMVASTATIN 20 MG TAB PO SCH (20:34)
[2020-05-03] VITALS (9 sets, daily range): BP systolic 134–200; BP diastolic 48–78
[2020-05-03] MEDS: ALBUTEROL/IPRATROPIUM 3 ML NEB NEB SCH ×4 (00:45→19:35)
[2020-05-03] MEDS: CYCLOBENZAPRINE HCL 10 MG TAB PO SCH ×3 (05:23→21:50)
[2020-05-03] MEDS: HYDRALAZINE HCL 100 MG TABLET PO SCH ×3 (05:23→21:50)
[2020-05-03] MEDS: GABAPENTIN 100 MG CAP PO SCH ×3 (05:23→21:50)
[2020-05-03 06:26] LABS: BASOPHILS % 0.1 % (0.0-1.0); HEMATOCRIT 30.9 % (34.2-44.1); HEMOGLOBIN 10.1 g/dL (12.0-16.0); LYMPHOCYTES # (AUTO) 0.4 (1.0-3.2); LYMPHOCYTES % 3.5 % (18.0-39.1); MEAN CORPUSCULAR HEMOGLOBIN 29.6 pg (28-32); MEAN CORPUSCULAR HGB CONC 32.7 g/dL (31-35); MEAN CORPUSCULAR VOLUME 90.6 fL (81-99); MONOCYTES # (AUTO) 0.5 (0.2-0.8); MONOCYTES % 4.2 % (4.4-11.3); NEUTROPHILS # (AUTO) 11.5 (2.1-6.9); NEUTROPHILS % 91.2 % (38.7-80.0); PLATELET COUNT 354 x10e3/uL (140-360); RED BLOOD COUNT 3.41 x10e6/uL (3.6-5.1); RED CELL DISTRIBUTION WIDTH 15.1 % (11.7-14.4)
[2020-05-03] MEDS: BUDESONIDE/FORMOTEROL 160/4.5MCG INHALER INH SCH ×2 (07:00→19:35)
[2020-05-03 07:03] LABS: ANION GAP 16.5 mmol/L (8-16); CALCIUM 7.8 mg/dL (8.4-10.2); CREATININE, SERUM 2.8 mg/dL (0.57-1.11); POTASSIUM 4.5 mmol/L (3.5-5.1)
[2020-05-03] MEDS: SEVELAMER CARBONATE 800 MG TAB PO SCH ×3 (08:19→19:04)
[2020-05-03] MEDS: ALPRAZOLAM 0.25 MG TAB PO SCH (08:21)
[2020-05-03] MEDS: CARVEDILOL 12.5 MG TAB PO SCH ×2 (08:23→19:04)
[2020-05-03] MEDS: TRAMADOL HCL 50 MG TAB PO SCH ×2 (08:23→21:50)
[2020-05-03] MEDS: INSULIN GLARGINE 100 UNITS/ML VIAL SQ SCH (08:33)
[2020-05-03] MEDS: INSULIN REGULAR, HUMAN 100 UNIT/1 ML 3ML VIAL SQ SCH ×4 (08:34→21:00)
[2020-05-03] MEDS: BENZONATATE 100 MG CAP PO SCH ×3 (09:00→21:00)
[2020-05-03] MEDS: AMLODIPINE BESYLATE 5 MG TAB PO SCH (09:00)
[2020-05-03] MEDS: METHYLPREDNISOLONE SOD SUCC 40 MG/ML VIAL 1ML IV SCH ×2 (09:00→21:00)
[2020-05-03] MEDS: ALLOPURINOL 100 MG TAB PO SCH ×2 (09:00→19:04)
[2020-05-03 11:39] LABS: BAND NEUTROPHILS % (MANUAL) 2 %; LYMPHOCYTES % (MANUAL) 6 % (19-48); MONOCYTES % (MANUAL) 3 % (3.4-9.0); MYELOCYTES % (MANUAL) 1 % (0-0); NEUTROPHILS % (MANUAL) 88 % (40-74)
[2020-05-03 11:40] LABS: PLATELET ESTIMATE ADEQUATE; PLATELET MORPHOLOGY COMMENT NORMAL; RBC MORPHOLOGY COMMENT NORMAL; TARGET CELLS FEW
[2020-05-03] MEDS: LORATADINE 10 MG TAB PO SCH (12:45)
[2020-05-03] MEDS: MONTELUKAST SODIUM 10 MG TAB PO SCH (12:45)
[2020-05-03] MEDS: FERROUS SULFATE 325 MG TAB PO SCH (12:45)
[2020-05-03] MEDS: DOXYCYCLINE HYCLATE TABLET 100 MG TAB PO SCH ×2 (12:45→21:51)
[2020-05-03] MEDS: DULOXETINE HCL 30 MG DELAYED RELEASE PO SCH (12:45)
[2020-05-03] MEDS: SIMVASTATIN 20 MG TAB PO SCH (21:51)
[2020-05-04] VITALS (9 sets, daily range): BP systolic 133–183; BP diastolic 41–70
[2020-05-04] MEDS: ALBUTEROL/IPRATROPIUM 3 ML NEB NEB SCH ×5 (00:35→19:40)
[2020-05-04 05:53] LABS: BASOPHILS % 0.1 % (0.0-1.0); EOSINOPHILS % 0.1 % (0.0-6.0); HEMATOCRIT 35.3 % (34.2-44.1); HEMOGLOBIN 11.2 g/dL (12.0-16.0); LYMPHOCYTES # (AUTO) 0.6 (1.0-3.2); LYMPHOCYTES % 4.8 % (18.0-39.1); MEAN CORPUSCULAR HEMOGLOBIN 29.9 pg (28-32); MEAN CORPUSCULAR HGB CONC 31.7 g/dL (31-35); MEAN CORPUSCULAR VOLUME 94.1 fL (81-99); MONOCYTES # (AUTO) 0.3 (0.2-0.8); MONOCYTES % 2.2 % (4.4-11.3); NEUTROPHILS # (AUTO) 11.1 (2.1-6.9); NEUTROPHILS % 91.9 % (38.7-80.0); PLATELET COUNT 366 x10e3/uL (140-360); RED BLOOD COUNT 3.75 x10e6/uL (3.6-5.1); RED CELL DISTRIBUTION WIDTH 15.2 % (11.7-14.4)
[2020-05-04 06:24] LABS: ANION GAP 14.9 mmol/L (8-16); CALCIUM 7.8 mg/dL (8.4-10.2); CREATININE, SERUM 2.47 mg/dL (0.57-1.11); MAGNESIUM 1.8 MG/DL (1.3-2.1); PHOSPHORUS 4.7 MG/DL (2.3-4.7); POTASSIUM 4.9 mmol/L (3.5-5.1)
[2020-05-04] MEDS: HYDRALAZINE HCL 100 MG TABLET PO SCH ×3 (06:47→21:59)
[2020-05-04] MEDS: CYCLOBENZAPRINE HCL 10 MG TAB PO SCH ×3 (06:47→21:59)
[2020-05-04] MEDS: GABAPENTIN 100 MG CAP PO SCH ×3 (06:48→21:59)
[2020-05-04] MEDS: BUDESONIDE/FORMOTEROL 160/4.5MCG INHALER INH SCH ×2 (07:45→19:40)
[2020-05-04] MEDS: INSULIN REGULAR, HUMAN 100 UNIT/1 ML 3ML VIAL SQ SCH ×5 (08:30→21:00)
[2020-05-04] MEDS: INSULIN GLARGINE 100 UNITS/ML VIAL SQ SCH ×2 (08:30→10:25)
[2020-05-04] MEDS: SEVELAMER CARBONATE 800 MG TAB PO SCH ×3 (08:39→17:24)
[2020-05-04] MEDS: LORATADINE 10 MG TAB PO SCH (08:40)
[2020-05-04] MEDS: METHYLPREDNISOLONE SOD SUCC 40 MG/ML VIAL 1ML IV SCH (08:40)
[2020-05-04] MEDS: CARVEDILOL 12.5 MG TAB PO SCH (08:43)
[2020-05-04] MEDS: AMLODIPINE BESYLATE 5 MG TAB PO SCH (08:46)
[2020-05-04] MEDS: DULOXETINE HCL 30 MG DELAYED RELEASE PO SCH (08:47)
[2020-05-04] MEDS: BENZONATATE 100 MG CAP PO SCH ×3 (08:47→21:26)
[2020-05-04] MEDS: FERROUS SULFATE 325 MG TAB PO SCH (08:47)
[2020-05-04] MEDS: MONTELUKAST SODIUM 10 MG TAB PO SCH (08:48)
[2020-05-04] MEDS: ALLOPURINOL 100 MG TAB PO SCH ×2 (08:48→17:24)
[2020-05-04] MEDS: TRAMADOL HCL 50 MG TAB PO SCH ×2 (08:48→21:27)
[2020-05-04] MEDS: DOXYCYCLINE HYCLATE TABLET 100 MG TAB PO SCH ×2 (08:48→21:27)
[2020-05-04 08:51] LABS: ANISOCYTOSIS SLIGHT; LYMPHOCYTES % (MANUAL) 9 % (19-48); MONOCYTES % (MANUAL) 1 % (3.4-9.0); NEUTROPHILS % (MANUAL) 89 % (40-74); PLATELET ESTIMATE SLIGHTLY INCREASED
[2020-05-04 08:52] LABS: PLATELET MORPHOLOGY COMMENT RARE EDTA CLUMPING; RBC MORPHOLOGY COMMENT NORMAL
[2020-05-04] MEDS ORDERED: CARVEDILOL 12.5 MG TAB PO SCH (17:00)
[2020-05-04] MEDS: CARVEDILOL 3.125 MG TAB PO SCH (17:24)
[2020-05-04] MEDS: SIMVASTATIN 20 MG TAB PO SCH (21:27)
[2020-05-05] VITALS (8 sets, daily range): BP systolic 140–175; BP diastolic 47–73
[2020-05-05] MEDS: ALBUTEROL/IPRATROPIUM 3 ML NEB NEB SCH ×5 (00:35→19:40)
[2020-05-05 06:11] LABS: BASOPHILS % 0.2 % (0.0-1.0); EOSINOPHILS # (AUTO) 0.1 (0.0-0.4); EOSINOPHILS % 0.5 % (0.0-6.0); HEMATOCRIT 32.2 % (34.2-44.1); HEMOGLOBIN 10.4 g/dL (12.0-16.0); LYMPHOCYTES # (AUTO) 1.2 (1.0-3.2); LYMPHOCYTES % 9.3 % (18.0-39.1); MEAN CORPUSCULAR HEMOGLOBIN 29.6 pg (28-32); MEAN CORPUSCULAR HGB CONC 32.3 g/dL (31-35); MEAN CORPUSCULAR VOLUME 91.7 fL (81-99); MONOCYTES # (AUTO) 0.9 (0.2-0.8); MONOCYTES % 6.9 % (4.4-11.3); NEUTROPHILS # (AUTO) 10.9 (2.1-6.9); NEUTROPHILS % 82.3 % (38.7-80.0); PLATELET COUNT 370 x10e3/uL (140-360); RED BLOOD COUNT 3.51 x10e6/uL (3.6-5.1); RED CELL DISTRIBUTION WIDTH 15.4 % (11.7-14.4)
[2020-05-05] MEDS: HYDRALAZINE HCL 100 MG TABLET PO SCH ×3 (06:29→21:56)
[2020-05-05] MEDS: GABAPENTIN 100 MG CAP PO SCH ×3 (06:29→22:00)
[2020-05-05] MEDS: CYCLOBENZAPRINE HCL 10 MG TAB PO SCH ×3 (06:29→21:55)
[2020-05-05] MEDS: BUDESONIDE/FORMOTEROL 160/4.5MCG INHALER INH SCH ×2 (07:30→19:40)
[2020-05-05 07:53] LABS: ALBUMIN 2.5 g/dL (3.5-5.0); ALBUMIN/GLOBULIN RATIO 0.8 (0.8-2.0); ANION GAP 16.9 mmol/L (8-16); CALCIUM 7.6 mg/dL (8.4-10.2); MAGNESIUM 1.8 MG/DL (1.3-2.1); PHOSPHORUS 5.9 MG/DL (2.3-4.7); POTASSIUM 4.9 mmol/L (3.5-5.1)
[2020-05-05 07:59] LABS: CREATININE, SERUM 3.74 mg/dL (0.57-1.11)
[2020-05-05] MEDS: CARVEDILOL 3.125 MG TAB PO SCH ×2 (09:00→16:50)
[2020-05-05] MEDS ORDERED: AMLODIPINE BESYLATE 5 MG TAB PO SCH (09:00)
[2020-05-05] MEDS: INSULIN REGULAR, HUMAN 100 UNIT/1 ML 3ML VIAL SQ SCH ×4 (09:00→21:00)
[2020-05-05] MEDS: SEVELAMER CARBONATE 800 MG TAB PO SCH ×3 (09:17→16:53)
[2020-05-05] MEDS: LORATADINE 10 MG TAB PO SCH (09:18)
[2020-05-05] MEDS: METHYLPREDNISOLONE SOD SUCC 40 MG/ML VIAL 1ML IV SCH (09:18)
[2020-05-05] MEDS: BENZONATATE 100 MG CAP PO SCH ×3 (09:19→21:54)
[2020-05-05] MEDS: TRAMADOL HCL 50 MG TAB PO SCH ×3 (09:20→22:34)
[2020-05-05] MEDS: DOXYCYCLINE HYCLATE TABLET 100 MG TAB PO SCH (09:20)
[2020-05-05] MEDS: ALLOPURINOL 100 MG TAB PO SCH ×2 (09:20→16:53)
[2020-05-05] MEDS: FERROUS SULFATE 325 MG TAB PO SCH (09:21)
[2020-05-05] MEDS: MONTELUKAST SODIUM 10 MG TAB PO SCH (09:21)
[2020-05-05] MEDS: DULOXETINE HCL 30 MG DELAYED RELEASE PO SCH (09:35)
[2020-05-05] MEDS: INSULIN GLARGINE 100 UNITS/ML VIAL SQ SCH (09:37)
[2020-05-05] MEDS ORDERED: ALBUMIN 25% 12.5GM 0.25 GM/ML BTL IV PRN (11:30)
[2020-05-05] MEDS ORDERED: SODIUM CHLORIDE 0.9% 250ML 500 ML IV PRN (11:30)
[2020-05-05] MEDS: AMLODIPINE BESYLATE 10 MG TAB PO SCH (14:00)
[2020-05-05] MEDS: SIMVASTATIN 20 MG TAB PO SCH (21:54)
[2020-05-06] VITALS (8 sets, daily range): BP systolic 130–150; BP diastolic 44–96
[2020-05-06] MEDS: ALBUTEROL/IPRATROPIUM 3 ML NEB NEB SCH ×4 (00:48→19:20)
[2020-05-06] MEDS: HYDRALAZINE HCL 100 MG TABLET PO SCH ×3 (05:27→22:00)
[2020-05-06] MEDS: GABAPENTIN 100 MG CAP PO SCH ×3 (05:27→22:20)
[2020-05-06] MEDS: CYCLOBENZAPRINE HCL 10 MG TAB PO SCH ×3 (05:27→21:57)
[2020-05-06 06:37] LABS: ANION GAP 13.5 mmol/L (8-16); CALCIUM 7.9 mg/dL (8.4-10.2); CREATININE, SERUM 2.67 mg/dL (0.57-1.11); PHOSPHORUS 4.7 MG/DL (2.3-4.7); POTASSIUM 4.5 mmol/L (3.5-5.1)
[2020-05-06] MEDS: INSULIN REGULAR, HUMAN 100 UNIT/1 ML 3ML VIAL SQ SCH ×4 (07:30→21:20)
[2020-05-06] MEDS: BUDESONIDE/FORMOTEROL 160/4.5MCG INHALER INH SCH ×2 (08:05→19:20)
[2020-05-06] MEDS: METHYLPREDNISOLONE SOD SUCC 40 MG/ML VIAL 1ML IV SCH (08:21)
[2020-05-06] MEDS: SEVELAMER CARBONATE 800 MG TAB PO SCH (08:21)
[2020-05-06] MEDS: LORATADINE 10 MG TAB PO SCH (08:21)
[2020-05-06] MEDS: MONTELUKAST SODIUM 10 MG TAB PO SCH (08:22)
[2020-05-06] MEDS: FERROUS SULFATE 325 MG TAB PO SCH (08:23)
[2020-05-06] MEDS: ALLOPURINOL 100 MG TAB PO SCH ×2 (08:23→16:26)
[2020-05-06] MEDS: DULOXETINE HCL 30 MG DELAYED RELEASE PO SCH (08:23)
[2020-05-06] MEDS: CARVEDILOL 3.125 MG TAB PO SCH ×2 (08:24→16:26)
[2020-05-06] MEDS: AMLODIPINE BESYLATE 10 MG TAB PO SCH (08:24)
[2020-05-06] MEDS: INSULIN GLARGINE 100 UNITS/ML VIAL SQ SCH (08:27)
[2020-05-06] MEDS: BENZONATATE 100 MG CAP PO SCH ×3 (08:28→21:57)
[2020-05-06] MEDS: SIMVASTATIN 20 MG TAB PO SCH (21:57)
[2020-05-07] VITALS (8 sets, daily range): BP systolic 122–162; BP diastolic 40–52
[2020-05-07] MEDS: ALBUTEROL/IPRATROPIUM 3 ML NEB NEB SCH ×4 (01:25→19:25)
[2020-05-07] MEDS: HYDRALAZINE HCL 100 MG TABLET PO SCH ×3 (06:04→21:15)
[2020-05-07] MEDS: GABAPENTIN 100 MG CAP PO SCH ×3 (06:04→21:15)
[2020-05-07] MEDS: CYCLOBENZAPRINE HCL 10 MG TAB PO SCH ×3 (06:04→21:15)
[2020-05-07 06:54] LABS: ANION GAP 17.8 mmol/L (8-16); CALCIUM 7.7 mg/dL (8.4-10.2); CREATININE, SERUM 3.71 mg/dL (0.57-1.11); POTASSIUM 4.8 mmol/L (3.5-5.1)
[2020-05-07] MEDS: INSULIN REGULAR, HUMAN 100 UNIT/1 ML 3ML VIAL SQ SCH ×4 (07:30→21:26)
[2020-05-07] MEDS: LORATADINE 10 MG TAB PO SCH (09:00)
[2020-05-07] MEDS: FUROSEMIDE 40 MG TAB PO SCH (09:01)
[2020-05-07] MEDS: FERROUS SULFATE 325 MG TAB PO SCH (09:01)
[2020-05-07] MEDS: DULOXETINE HCL 30 MG DELAYED RELEASE PO SCH (09:01)
[2020-05-07] MEDS: CARVEDILOL 3.125 MG TAB PO SCH ×2 (09:01→16:22)
[2020-05-07] MEDS: ALLOPURINOL 100 MG TAB PO SCH ×2 (09:01→16:34)
[2020-05-07] MEDS: AMLODIPINE BESYLATE 10 MG TAB PO SCH (09:01)
[2020-05-07] MEDS: BENZONATATE 100 MG CAP PO SCH ×3 (09:01→21:12)
[2020-05-07] MEDS: MONTELUKAST SODIUM 10 MG TAB PO SCH (09:01)
[2020-05-07] MEDS: INSULIN GLARGINE 100 UNITS/ML VIAL SQ SCH (09:59)
[2020-05-07] MEDS: FLUCONAZOLE 100 MG/NS 50 ML 50 ML IV SCH (16:34)
[2020-05-07 17:56] LABS: BASOPHILS % 0.1 % (0.0-1.0); EOSINOPHILS # (AUTO) 0.1 (0.0-0.4); HEMATOCRIT 32.3 % (34.2-44.1); HEMOGLOBIN 10.6 g/dL (12.0-16.0); LYMPHOCYTES # (AUTO) 1.4 (1.0-3.2); LYMPHOCYTES % 10.2 % (18.0-39.1); MEAN CORPUSCULAR HEMOGLOBIN 29.5 pg (28-32); MEAN CORPUSCULAR HGB CONC 32.8 g/dL (31-35); MONOCYTES # (AUTO) 1.1 (0.2-0.8); MONOCYTES % 7.6 % (4.4-11.3); NEUTROPHILS # (AUTO) 11.2 (2.1-6.9); NEUTROPHILS % 80.4 % (38.7-80.0); PLATELET COUNT 351 x10e3/uL (140-360); RED BLOOD COUNT 3.59 x10e6/uL (3.6-5.1); RED CELL DISTRIBUTION WIDTH 14.9 % (11.7-14.4)
[2020-05-07] MEDS: BUDESONIDE/FORMOTEROL 160/4.5MCG INHALER INH SCH (19:25)
[2020-05-07] MEDS: SIMVASTATIN 20 MG TAB PO SCH (21:12)
[2020-05-08] VITALS (10 sets, daily range): BP systolic 134–162; BP diastolic 39–66
[2020-05-08] MEDS: ALBUTEROL/IPRATROPIUM 3 ML NEB NEB SCH ×4 (00:24→20:53)
[2020-05-08] MEDS: GABAPENTIN 100 MG CAP PO SCH ×3 (06:13→22:23)
[2020-05-08] MEDS: HYDRALAZINE HCL 100 MG TABLET PO SCH ×3 (06:13→22:23)
[2020-05-08] MEDS: CYCLOBENZAPRINE HCL 10 MG TAB PO SCH ×3 (06:13→22:23)
[2020-05-08 06:23] LABS: BASOPHILS % 0.1 % (0.0-1.0); EOSINOPHILS # (AUTO) 0.3 (0.0-0.4); EOSINOPHILS % 2.3 % (0.0-6.0); HEMATOCRIT 29.9 % (34.2-44.1); HEMOGLOBIN 9.9 g/dL (12.0-16.0); LYMPHOCYTES # (AUTO) 1.7 (1.0-3.2); LYMPHOCYTES % 13.2 % (18.0-39.1); MEAN CORPUSCULAR HEMOGLOBIN 29.8 pg (28-32); MEAN CORPUSCULAR HGB CONC 33.1 g/dL (31-35); MEAN CORPUSCULAR VOLUME 90.1 fL (81-99); NEUTROPHILS # (AUTO) 9.7 (2.1-6.9); NEUTROPHILS % 75.7 % (38.7-80.0); PLATELET COUNT 348 x10e3/uL (140-360); RED BLOOD COUNT 3.32 x10e6/uL (3.6-5.1); RED CELL DISTRIBUTION WIDTH 15.2 % (11.7-14.4)
[2020-05-08 06:49] LABS: ALBUMIN 2.6 g/dL (3.5-5.0); ANION GAP 15.2 mmol/L (8-16); CALCIUM 7.5 mg/dL (8.4-10.2); CREATININE, SERUM 4.07 mg/dL (0.57-1.11); MAGNESIUM 1.7 MG/DL (1.3-2.1); PHOSPHORUS 6.1 MG/DL (2.3-4.7); POTASSIUM 4.2 mmol/L (3.5-5.1)
[2020-05-08] MEDS: INSULIN REGULAR, HUMAN 100 UNIT/1 ML 3ML VIAL SQ SCH ×4 (07:30→21:00)
[2020-05-08] MEDS: BUDESONIDE/FORMOTEROL 160/4.5MCG INHALER INH SCH ×2 (07:40→20:53)
[2020-05-08] MEDS: LORATADINE 10 MG TAB PO SCH (08:25)
[2020-05-08] MEDS: CARVEDILOL 3.125 MG TAB PO SCH ×2 (08:25→17:25)
[2020-05-08] MEDS: FUROSEMIDE 40 MG TAB PO SCH (08:26)
[2020-05-08] MEDS: FERROUS SULFATE 325 MG TAB PO SCH (08:26)
[2020-05-08] MEDS: DULOXETINE HCL 30 MG DELAYED RELEASE PO SCH (08:26)
[2020-05-08] MEDS: AMLODIPINE BESYLATE 10 MG TAB PO SCH (08:27)
[2020-05-08] MEDS: MONTELUKAST SODIUM 10 MG TAB PO SCH (08:27)
[2020-05-08] MEDS: ALLOPURINOL 100 MG TAB PO SCH ×2 (08:27→17:25)
[2020-05-08] MEDS: BENZONATATE 100 MG CAP PO SCH ×3 (08:27→21:03)
[2020-05-08] MEDS: INSULIN GLARGINE 100 UNITS/ML VIAL SQ SCH (08:45)
[2020-05-08] MEDS ORDERED: SODIUM CHLORIDE 0.9% 250ML 250 ML ONE (13:51)
[2020-05-08] MEDS ORDERED: LIDOCAINE HCL 1% LOCAL INJ 20 ML VIAL ONE (13:51)
[2020-05-08] MEDS ORDERED: HEPARIN SOD (PORCINE) 1000 UNIT/ML SDV ONE (15:06)
[2020-05-08] MEDS ORDERED: CEFAZOLIN SOD 1 GM/NS 50ML 50 ML IV ONE (15:07)
[2020-05-08] MEDS ORDERED: FENTANYL CITRATE/PF 100MCG/2 ML INJ ONE (15:07)
[2020-05-08] MEDS ORDERED: MIDAZOLAM HCL 2 MG/2 ML VIAL ONE (15:07)
[2020-05-08] MEDS: FLUCONAZOLE 100 MG/NS 50 ML 50 ML IV SCH (17:24)
[2020-05-08] MEDS ORDERED: COREG3.125 MG PO (18:19)
[2020-05-08] MEDS ORDERED: CYMBALTA30 MG PO (18:19)
[2020-05-08] MEDS ORDERED: Insulin Glargine SQ (18:19)
[2020-05-08] MEDS ORDERED: FERROUS SULFAT325 MG PO (18:19)
[2020-05-08] MEDS ORDERED: NORVASC10 MG PO (18:19)
[2020-05-08] MEDS ORDERED: SIMVASTATIN20 MG PO (18:19)
[2020-05-08] MEDS: SIMVASTATIN 20 MG TAB PO SCH (21:03)
[2020-05-09 00:03] VITALS: BP 151/55
[2020-05-09] MEDS: ALBUTEROL/IPRATROPIUM 3 ML NEB NEB SCH ×2 (01:09→08:10)
[2020-05-09 05:07] VITALS: BP 140/60
[2020-05-09] MEDS: HYDRALAZINE HCL 100 MG TABLET PO SCH (06:01)
[2020-05-09] MEDS: CYCLOBENZAPRINE HCL 10 MG TAB PO SCH (06:01)
[2020-05-09] MEDS: GABAPENTIN 100 MG CAP PO SCH (06:01)
[2020-05-09 06:23] LABS: ANION GAP 15.1 mmol/L (8-16); CALCIUM 7.2 mg/dL (8.4-10.2); CREATININE, SERUM 2.5 mg/dL (0.57-1.11); POTASSIUM 4.1 mmol/L (3.5-5.1)
[2020-05-09] MEDS: BUDESONIDE/FORMOTEROL 160/4.5MCG INHALER INH SCH (07:00)
[2020-05-09 07:29] VITALS: BP 148/57
[2020-05-09] MEDS: INSULIN REGULAR, HUMAN 100 UNIT/1 ML 3ML VIAL SQ SCH (07:30)
[2020-05-09 07:45] VITALS: BP 148/57
[2020-05-09] MEDS: INSULIN GLARGINE 100 UNITS/ML VIAL SQ SCH (09:00)
[2020-05-09] MEDS: DULOXETINE HCL 30 MG DELAYED RELEASE PO SCH (09:54)
[2020-05-09] MEDS: ALLOPURINOL 100 MG TAB PO SCH (09:54)
[2020-05-09] MEDS: BENZONATATE 100 MG CAP PO SCH (09:54)
[2020-05-09] MEDS: FERROUS SULFATE 325 MG TAB PO SCH (09:54)
[2020-05-09] MEDS: CARVEDILOL 3.125 MG TAB PO SCH (09:54)
[2020-05-09] MEDS: MONTELUKAST SODIUM 10 MG TAB PO SCH (09:54)
[2020-05-09] MEDS: FUROSEMIDE 40 MG TAB PO SCH (09:54)
[2020-05-09] MEDS: LORATADINE 10 MG TAB PO SCH (09:54)
[2020-05-09] MEDS: AMLODIPINE BESYLATE 10 MG TAB PO SCH (09:55)
== END 2020-05-09 11:22 | disposition home or self-care (01) | DRG 291 ==
LOC: ER 19:19 → ERHOLD 20:48 → MED/SURG3 04-26 13:35 → OBSVTOIN 04-27 08:19
PROVIDERS: ADMIT Internal Medicine; ATTEND Internal Medicine
PROC: 30233N1 Transfusion of Nonautologous Red Blood Cells into Peripheral Vein, Percutaneous Approach (ICD-10-PCS; principal; 2020-04-30)
PROC: 02H633Z Insertion of Infusion Device into Right Atrium, Percutaneous Approach (ICD-10-PCS; 2020-05-01)
PROC: B548ZZA Ultrasonography of Superior Vena Cava, Guidance (ICD-10-PCS; 2020-05-01)
PROC: 5A1D70Z Performance of Urinary Filtration, Intermittent, Less than 6 Hours Per Day (ICD-10-PCS; 2020-05-01)
PROC: 5A1D70Z Performance of Urinary Filtration, Intermittent, Less than 6 Hours Per Day (ICD-10-PCS; 2020-05-02)
PROC: 5A1D70Z Performance of Urinary Filtration, Intermittent, Less than 6 Hours Per Day (ICD-10-PCS; 2020-05-05)
PROC: 05PYX3Z Removal of Infusion Device from Upper Vein, External Approach (ICD-10-PCS; 2020-05-08)
PROC: 02HV33Z Insertion of Infusion Device into Superior Vena Cava, Percutaneous Approach (ICD-10-PCS; 2020-05-08)
PROC: 0JH63XZ Insertion of Tunneled Vascular Access Device into Chest Subcutaneous Tissue and Fascia, Percutaneous Approach (ICD-10-PCS; 2020-05-08)
PROC: B548ZZA Ultrasonography of Superior Vena Cava, Guidance (ICD-10-PCS; 2020-05-08)
PROC: 5A1D70Z Performance of Urinary Filtration, Intermittent, Less than 6 Hours Per Day (ICD-10-PCS; 2020-05-08)
DX: I13.2 Hypertensive heart and chronic kidney disease with heart failure and with stage 5 chronic kidney disease, or end stage renal disease (principal); I50.31 Acute diastolic (congestive) heart failure; N17.0 Acute kidney failure with tubular necrosis; N18.6 End stage renal disease; J81.1 Chronic pulmonary edema; N12 Tubulo-interstitial nephritis, not specified as acute or chronic; N10 Acute pyelonephritis; E87.2 Acidosis; B48.8 Other specified mycoses; I13.0 Hypertensive heart and chronic kidney disease with heart failure and stage 1 through stage 4 chronic kidney disease, or unspecified chronic kidney disease; J44.9 Chronic obstructive pulmonary disease, unspecified; E11.22 Type 2 diabetes mellitus with diabetic chronic kidney disease; E78.5 Hyperlipidemia, unspecified; Z91.11 Patient's noncompliance with dietary regimen; Z91.14 Patient's other noncompliance with medication regimen; M10.9 Gout, unspecified; D64.9 Anemia, unspecified; E66.9 Obesity, unspecified; I25.10 Atherosclerotic heart disease of native coronary artery without angina pectoris; Z95.5 Presence of coronary angioplasty implant and graft; F41.9 Anxiety disorder, unspecified; I51.7 Cardiomegaly; D63.1 Anemia in chronic kidney disease; E87.5 Hyperkalemia; E11.21 Type 2 diabetes mellitus with diabetic nephropathy; E83.39 Other disorders of phosphorus metabolism; Z20.822 Contact with and (suspected) exposure to COVID-19
CPT/HCPCS: 36415; 36556; 36558; 71045; 71046; 72128; 72131; 74470; 76770; 76937; 77001; 80048; 80053; 81001; 81015; 82550; 82553; 82570; 82805; 82948; 83735; 83880; 84100; 84300; 84484; 85014; 85018; 85025; 85610; 85730; 86704; 86706; 86850; 86900; 86920; 87070; 87205; 87340; 93005; 94640; 94664; 97139; 99152; 99153; 99251; 99284; C1752; C1769; G0378; J0690; J0696; J1450; J1644; J1815; J1817; J1940; J2001; J2150; J2250; J2405; J2543; J2920; J3010; J7030; J7040; J7050; P9016; U0002

== ENCOUNTER 2020-08-25 15:30 | Inpatient (IN) | payer MEDICARE ==
[~2020-08-25] VITALS: Ht 154.9 cm; Wt 73.0 kg
[~2020-08-25 15:30] MED LIST changes: +COREG3.125 MG PO; +CYMBALTA30 MG PO; +NORVASC10 MG PO; +SIMVASTATIN20 MG PO
[2020-08-25] MEDS ORDERED: ALBUTEROL SULF 0.083% NEB SOLN 3 ML NEB NEB STA (17:32)
[2020-08-25 17:38] LABS: BASOPHILS % 0.3 % (0.0-1.0); EOSINOPHILS # (AUTO) 0.8 (0.0-0.4); EOSINOPHILS % 8.5 % (0.0-6.0); HEMATOCRIT 30.5 % (34.2-44.1); LYMPHOCYTES # (AUTO) 1.4 (1.0-3.2); LYMPHOCYTES % 16.3 % (18.0-39.1); MEAN CORPUSCULAR HEMOGLOBIN 31.7 pg (28-32); MEAN CORPUSCULAR HGB CONC 32.8 g/dL (31-35); MEAN CORPUSCULAR VOLUME 96.8 fL (81-99); MONOCYTES # (AUTO) 0.9 (0.2-0.8); MONOCYTES % 9.9 % (4.4-11.3); NEUTROPHILS # (AUTO) 5.7 (2.1-6.9); NEUTROPHILS % 64.5 % (38.7-80.0); PLATELET COUNT 242 x10e3/uL (140-360); RED BLOOD COUNT 3.15 x10e6/uL (3.6-5.1); RED CELL DISTRIBUTION WIDTH 15.1 % (11.7-14.4)
[2020-08-25] MEDS ORDERED: METHYLPREDNISOLONE SOD SUCC 125 MG/2ML VIAL IV ONE (17:45)
[2020-08-25] MEDS ORDERED: IPRATROPIUM BROMIDE 0.02% 2.5 ML NEB NEB ONE (17:45)
[2020-08-25] MEDS ORDERED: ALBUTEROL SULF 0.083% NEB SOLN 3 ML NEB ONE (17:45)
[2020-08-25 18:17] LABS: INR 0.86; PROTHROMBIN TIME 12.3 seconds (11.9-14.5)
[2020-08-25 18:18] LABS: PARTIAL THROMBOPLASTIN TIME 27.3 seconds (23.8-35.5)
[2020-08-25 18:25] LABS: ALANINE AMINOTRANSFERASE 21 IU/L (0-55); ALBUMIN 3.4 g/dL (3.5-5.0); ALBUMIN/GLOBULIN RATIO 1.1 (0.8-2.0); ALKALINE PHOSPHATASE 110 IU/L (40-150); ANION GAP 16.9 mmol/L (8-16); BLOOD UREA NITROGEN 57 mg/dL (7-26); BUN/CREATININE RATIO 23 (6-25); CALCIUM 8.8 mg/dL (8.4-10.2); CARBON DIOXIDE 24 mmol/L (22-29); CHLORIDE 103 mmol/L (98-107); CREATINE KINASE 36 IU/L (29-168); EST GLOMERULAR FILTRATION RATE 19 ML/MIN (60-); GLUCOSE 158 mg/dL (74-118); POTASSIUM 3.9 mmol/L (3.5-5.1); SODIUM 140 mmol/L (136-145)
[2020-08-25] MEDS ORDERED: AZITHROMYCIN 500MG/SOD CHL 0.9% 250ML BAG IV SCH (20:15)
[2020-08-25] MEDS ORDERED: SODIUM CHLORIDE FLUSH 10 ML SYR INJ PRN (20:15)
[2020-08-25] MEDS ORDERED: CEFTRIAXONE SOD 1 GM VIAL IV SCH (20:15)
[2020-08-25] MEDS ORDERED: DEXTROSE 50% SYRINGE 50 ML IV PRN (20:15)
[2020-08-25] MEDS: CEFTRIAXONE SOD 1 GM in SODIUM CHLORIDE 0.9% 50ML 50 ML IV SCH (20:57)
[2020-08-25] MEDS: FUROSEMIDE INJ 10 MG/ML 4 ML VIAL IV SCH (20:57)
[2020-08-25] MEDS: ALBUTEROL SULF 0.083% NEB SOLN 3 ML NEB NEB SCH (21:05)
[2020-08-25] MEDS: IPRATROPIUM BROMIDE 0.02% 2.5 ML NEB NEB SCH (21:05)
[2020-08-25] MEDS: AZITHROMYCIN 500MG/NS 250 ML 250 ML IV SCH (23:04)
[2020-08-26] MEDS: ALBUTEROL SULF 0.083% NEB SOLN 3 ML NEB NEB SCH ×7 (00:20→23:40)
[2020-08-26] MEDS: INSULIN REGULAR, HUMAN 100 UNIT/1 ML 3ML VIAL SQ SCH ×5 (02:14→21:05)
[2020-08-26] MEDS: METHYLPREDNISOLONE SOD SUCC 40 MG/ML VIAL 1ML IV SCH ×4 (02:16→18:42)
[2020-08-26 05:34] LABS: BASOPHILS % 0.2 % (0.0-1.0); HEMATOCRIT 30.8 % (34.2-44.1); LYMPHOCYTES # (AUTO) 0.6 (1.0-3.2); MEAN CORPUSCULAR HEMOGLOBIN 31.7 pg (28-32); MEAN CORPUSCULAR HGB CONC 32.5 g/dL (31-35); MEAN CORPUSCULAR VOLUME 97.8 fL (81-99); MONOCYTES # (AUTO) 0.1 (0.2-0.8); MONOCYTES % 0.8 % (4.4-11.3); NEUTROPHILS # (AUTO) 8.3 (2.1-6.9); NEUTROPHILS % 91.6 % (38.7-80.0); PLATELET COUNT 301 x10e3/uL (140-360); RED BLOOD COUNT 3.15 x10e6/uL (3.6-5.1)
[2020-08-26 06:03] LABS: ALBUMIN 3.3 g/dL (3.5-5.0); ALBUMIN/GLOBULIN RATIO 1.2 (0.8-2.0); ANION GAP 17.3 mmol/L (8-16); CALCIUM 8.1 mg/dL (8.4-10.2); CREATININE, SERUM 2.74 mg/dL (0.57-1.11); POTASSIUM 4.3 mmol/L (3.5-5.1)
[2020-08-26 06:04] LABS: CREATINE KINASE MB 1.1 ng/mL (0-5.0)
[2020-08-26] MEDS: IPRATROPIUM BROMIDE 0.02% 2.5 ML NEB NEB SCH ×3 (07:15→20:10)
[2020-08-26] MEDS: FUROSEMIDE INJ 10 MG/ML 4 ML VIAL IV SCH ×2 (07:30→21:04)
[2020-08-26] MEDS ORDERED: ONDANSETRON HCL INJ 2MG/ML 2ML 2 MG/ML VIAL IV PRN (09:45)
[2020-08-26] MEDS ORDERED: DOCUSATE SODIUM 100 MG CAP PO PRN (09:45)
[2020-08-26 10:02] LABS: CHOL/HDL RATIO 2.2 (3.0-3.6)
[2020-08-26 11:50] VITALS: BP 152/95
[2020-08-26 12:12] VITALS: BP 152/95
[2020-08-26] MEDS ORDERED: SODIUM CHLORIDE 0.9% 1000ML 2,000 ML ONE (14:22)
[2020-08-26] MEDS ORDERED: MANNITOL 25% 12.5GM/50 ML VIAL IV PRN (15:00)
[2020-08-26] MEDS ORDERED: HEPARIN SOD (PORCINE) 1000 UNIT/ML SDV IV PRN (15:00)
[2020-08-26] MEDS ORDERED: ALBUMIN 25% 12.5GM 0.25 GM/ML BTL IV PRN (15:00)
[2020-08-26] MEDS ORDERED: SODIUM CHLORIDE 0.9% 1000ML 2,000 ML IV PRN (15:00)
[2020-08-26] MEDS ORDERED: SODIUM CHLORIDE 0.9% 250ML 500 ML IV PRN (15:00)
[2020-08-26 15:11] LABS: CREATINE KINASE MB 1.3 ng/mL (0-5.0)
[2020-08-26 16:00] VITALS: BP 142/53
[2020-08-26] MEDS: BENZONATATE 100 MG CAP PO SCH ×2 (19:55→22:00)
[2020-08-26 20:00] VITALS: BP 146/49
[2020-08-26] MEDS: CEFTRIAXONE SOD 1 GM in SODIUM CHLORIDE 0.9% 50ML 50 ML IV SCH (21:04)
[2020-08-26] MEDS: ZOLPIDEM TARTRATE 5 MG TAB PO PRN (21:04)
[2020-08-26] MEDS: AZITHROMYCIN 500MG/NS 250 ML 250 ML IV SCH (22:07)
[2020-08-26] MEDS: ACETAMINOPHEN 325 MG TAB PO PRN (22:10)
[2020-08-27] VITALS (9 sets, daily range): BP systolic 128–164; BP diastolic 42–59
[2020-08-27] MEDS ORDERED: METHYLPREDNISOLONE SOD SUCC 40 MG/ML VIAL 1ML IV SCH
[2020-08-27] MEDS: METHYLPREDNISOLONE SOD SUCC 40 MG/ML VIAL 1ML IV SCH ×4 (00:17→17:48)
[2020-08-27] MEDS ORDERED: GUAIFENESIN/DEXTROMETHORPHAN LIQD 5 ML UDC NG SCH (01:00)
[2020-08-27] MEDS: ALBUTEROL SULF 0.083% NEB SOLN 3 ML NEB NEB SCH ×5 (04:00→19:45)
[2020-08-27] MEDS: IPRATROPIUM BROMIDE 0.02% 2.5 ML NEB NEB SCH ×4 (04:00→19:45)
[2020-08-27] MEDS: BENZONATATE 100 MG CAP PO SCH ×3 (05:49→22:33)
[2020-08-27] MEDS: GUAIFENESIN/DEXTROMETHORPHAN LIQD 5 ML UDC NG SCH ×2 (09:18→17:48)
[2020-08-27] MEDS: FUROSEMIDE INJ 10 MG/ML 4 ML VIAL IV SCH ×2 (09:18→22:28)
[2020-08-27] MEDS: INSULIN REGULAR, HUMAN 100 UNIT/1 ML 3ML VIAL SQ SCH ×4 (10:40→21:00)
[2020-08-27] MEDS: INSULIN LISPRO 100 UNIT/1 ML 3ML VIAL SQ SCH ×3 (13:04→21:00)
[2020-08-27] MEDS: INSULIN GLARGINE 100 UNITS/ML VIAL SQ SCH (13:04)
[2020-08-27] MEDS: AZITHROMYCIN 500MG/NS 250 ML 250 ML IV SCH (20:30)
[2020-08-27] MEDS: CEFTRIAXONE SOD 1 GM in SODIUM CHLORIDE 0.9% 50ML 50 ML IV SCH (21:00)
[2020-08-27] MEDS: ZOLPIDEM TARTRATE 5 MG TAB PO PRN (22:30)
[2020-08-27] MEDS ORDERED: SODIUM CHLORIDE 0.9% 250ML 250 ML ONE (23:20)
[2020-08-28] VITALS (8 sets, daily range): BP systolic 124–155; BP diastolic 55–80
[2020-08-28] MEDS: ALBUTEROL SULF 0.083% NEB SOLN 3 ML NEB NEB SCH ×7 (00:02→23:42)
[2020-08-28] MEDS: IPRATROPIUM BROMIDE 0.02% 2.5 ML NEB NEB SCH ×5 (00:02→23:42)
[2020-08-28] MEDS: METHYLPREDNISOLONE SOD SUCC 40 MG/ML VIAL 1ML IV SCH ×4 (01:32→17:00)
[2020-08-28] MEDS: GUAIFENESIN/DEXTROMETHORPHAN LIQD 5 ML UDC NG SCH ×3 (02:20→17:00)
[2020-08-28 05:09] LABS: BASOPHILS % 0.1 % (0.0-1.0); HEMATOCRIT 29.6 % (34.2-44.1); HEMOGLOBIN 9.6 g/dL (12.0-16.0); LYMPHOCYTES # (AUTO) 0.5 (1.0-3.2); LYMPHOCYTES % 4.4 % (18.0-39.1); MEAN CORPUSCULAR HEMOGLOBIN 31.5 pg (28-32); MEAN CORPUSCULAR HGB CONC 32.4 g/dL (31-35); MONOCYTES # (AUTO) 0.3 (0.2-0.8); MONOCYTES % 2.3 % (4.4-11.3); NEUTROPHILS # (AUTO) 9.9 (2.1-6.9); NEUTROPHILS % 92.5 % (38.7-80.0); PLATELET COUNT 241 x10e3/uL (140-360); RED BLOOD COUNT 3.05 x10e6/uL (3.6-5.1); RED CELL DISTRIBUTION WIDTH 15.2 % (11.7-14.4)
[2020-08-28 05:27] LABS: ALBUMIN 3.4 g/dL (3.5-5.0); ALBUMIN/GLOBULIN RATIO 1.2 (0.8-2.0); ANION GAP 19.3 mmol/L (8-16); CALCIUM 7.5 mg/dL (8.4-10.2); CREATININE, SERUM 2.65 mg/dL (0.57-1.11); MAGNESIUM 1.6 MG/DL (1.3-2.1); PHOSPHORUS 4.9 MG/DL (2.3-4.7); POTASSIUM 4.3 mmol/L (3.5-5.1)
[2020-08-28] MEDS: BENZONATATE 100 MG CAP PO SCH ×3 (05:52→21:29)
[2020-08-28] MEDS: INSULIN REGULAR, HUMAN 100 UNIT/1 ML 3ML VIAL SQ SCH ×4 (07:30→21:00)
[2020-08-28] MEDS: INSULIN LISPRO 100 UNIT/1 ML 3ML VIAL SQ SCH ×4 (07:30→21:00)
[2020-08-28] MEDS ORDERED: GUAIFENESIN/DEXTROMETHORPHAN LIQD 5 ML UDC NG PRN (07:45)
[2020-08-28] MEDS: INSULIN GLARGINE 100 UNITS/ML VIAL SQ SCH (08:05)
[2020-08-28] MEDS: FUROSEMIDE INJ 10 MG/ML 4 ML VIAL IV SCH ×2 (09:00→21:27)
[2020-08-28 09:01] LABS: ANISOCYTOSIS SLIGHT; LYMPHOCYTES % (MANUAL) 7 % (19-48); MONOCYTES % (MANUAL) 1 % (3.4-9.0); NEUTROPHILS % (MANUAL) 92 % (40-74); PLATELET ESTIMATE ADEQUATE; PLATELET MORPHOLOGY COMMENT NORMAL; POIKILOCYTOSIS SLIGHT; RBC MORPHOLOGY COMMENT NORMAL
[2020-08-28] MEDS: CEFTRIAXONE SOD 1 GM in SODIUM CHLORIDE 0.9% 50ML 50 ML IV SCH (20:48)
[2020-08-28] MEDS: AZITHROMYCIN 500MG/NS 250 ML 250 ML IV SCH (21:27)
[2020-08-28] MEDS: GUAIFENESIN/DEXTROMETHORPHAN LIQD 5 ML UDC PO PRN (21:40)
[2020-08-29] VITALS (7 sets, daily range): BP systolic 119–174; BP diastolic 46–67
[2020-08-29] MEDS: GUAIFENESIN/DEXTROMETHORPHAN LIQD 5 ML UDC NG SCH ×3 (01:14→18:25)
[2020-08-29] MEDS: METHYLPREDNISOLONE SOD SUCC 40 MG/ML VIAL 1ML IV SCH ×5 (01:14→21:27)
[2020-08-29] MEDS: BENZONATATE 100 MG CAP PO SCH ×3 (06:26→22:08)
[2020-08-29] MEDS: INSULIN LISPRO 100 UNIT/1 ML 3ML VIAL SQ SCH ×4 (07:30→21:00)
[2020-08-29] MEDS: INSULIN REGULAR, HUMAN 100 UNIT/1 ML 3ML VIAL SQ SCH ×4 (07:30→21:00)
[2020-08-29] MEDS: ALBUTEROL SULF 0.083% NEB SOLN 3 ML NEB NEB SCH ×5 (08:05→23:22)
[2020-08-29] MEDS: IPRATROPIUM BROMIDE 0.02% 2.5 ML NEB NEB SCH ×4 (08:05→23:22)
[2020-08-29] MEDS: FUROSEMIDE INJ 10 MG/ML 4 ML VIAL IV SCH ×2 (09:04→21:26)
[2020-08-29] MEDS: INSULIN GLARGINE 100 UNITS/ML VIAL SQ SCH (09:04)
[2020-08-29] MEDS: AZITHROMYCIN 500MG/NS 250 ML 250 ML IV SCH (20:09)
[2020-08-29] MEDS: CEFTRIAXONE SOD 1 GM in SODIUM CHLORIDE 0.9% 50ML 50 ML IV SCH (21:22)
[2020-08-29] MEDS: GUAIFENESIN/DEXTROMETHORPHAN LIQD 5 ML UDC PO PRN (22:29)
[2020-08-30 00:26] VITALS: BP 149/41
[2020-08-30] MEDS: ACETAMINOPHEN 325 MG TAB PO PRN (02:00)
[2020-08-30] MEDS: GUAIFENESIN/DEXTROMETHORPHAN LIQD 5 ML UDC NG SCH ×2 (03:18→09:03)
[2020-08-30 04:00] VITALS: BP 145/48
[2020-08-30] MEDS: BENZONATATE 100 MG CAP PO SCH ×2 (06:00→14:00)
[2020-08-30] MEDS: IPRATROPIUM BROMIDE 0.02% 2.5 ML NEB NEB SCH ×2 (07:36→12:00)
[2020-08-30] MEDS: ALBUTEROL SULF 0.083% NEB SOLN 3 ML NEB NEB SCH ×2 (07:36→12:15)
[2020-08-30 08:00] VITALS: BP 168/61
[2020-08-30 08:01] VITALS: BP 168/61
[2020-08-30 08:02] VITALS: BP 151/69
[2020-08-30] MEDS: FUROSEMIDE INJ 10 MG/ML 4 ML VIAL IV SCH (09:00)
[2020-08-30] MEDS: INSULIN LISPRO 100 UNIT/1 ML 3ML VIAL SQ SCH ×2 (09:00→11:30)
[2020-08-30] MEDS: INSULIN REGULAR, HUMAN 100 UNIT/1 ML 3ML VIAL SQ SCH ×2 (09:00→11:30)
[2020-08-30] MEDS: INSULIN GLARGINE 100 UNITS/ML VIAL SQ SCH (09:00)
[2020-08-30] MEDS: METHYLPREDNISOLONE SOD SUCC 40 MG/ML VIAL 1ML IV SCH (09:00)
[2020-08-30] MEDS ORDERED: HEPARIN SOD (PORCINE) 1000 UNIT/ML SDV IV PRN (09:30)
[2020-08-30] MEDS ORDERED: FUROSEMIDE40 MG PO (09:33)
[2020-08-30] MEDS ORDERED: KEFLEX125 MG/5 M PO (09:33)
[2020-08-30] MEDS ORDERED: PREDNISONE20 MG PO (09:33)
[2020-08-30] MEDS ORDERED: ZITHROMAX250 MG PO (09:33)
[2020-08-30] MEDS ORDERED: TESSALON PERLE100 MG PO (09:33)
[2020-08-30] MEDS ORDERED: GUAIFENESIN-DM 15 ML PO (09:33)
[2020-08-30 10:02] LABS: HEMATOCRIT 30.6 % (34.2-44.1); LYMPHOCYTES # (AUTO) 0.6 (1.0-3.2); LYMPHOCYTES % 8.9 % (18.0-39.1); MEAN CORPUSCULAR HEMOGLOBIN 31.3 pg (28-32); MEAN CORPUSCULAR HGB CONC 32.7 g/dL (31-35); MEAN CORPUSCULAR VOLUME 95.9 fL (81-99); MONOCYTES # (AUTO) 0.4 (0.2-0.8); MONOCYTES % 5.5 % (4.4-11.3); NEUTROPHILS # (AUTO) 5.9 (2.1-6.9); NEUTROPHILS % 84.4 % (38.7-80.0); PLATELET COUNT 214 x10e3/uL (140-360); RED BLOOD COUNT 3.19 x10e6/uL (3.6-5.1); RED CELL DISTRIBUTION WIDTH 14.8 % (11.7-14.4)
[2020-08-30 10:34] LABS: ANION GAP 16.2 mmol/L (8-16); CALCIUM 7.4 mg/dL (8.4-10.2); CREATININE, SERUM 2.6 mg/dL (0.57-1.11); MAGNESIUM 1.5 MG/DL (1.3-2.1); POTASSIUM 4.2 mmol/L (3.5-5.1)
[2020-08-30 11:41] VITALS: BP 158/65
[2020-08-30] MEDS ORDERED: ONDANSETRON HCL 4 MG ORAL DISINTEGRATING TAB PO PRN (12:00)
[2020-08-30] MEDS ORDERED: AZITHROMYCIN 250 MG TAB PO SCH (20:00)
== END 2020-08-30 15:11 | disposition home or self-care (01) | DRG 291 ==
LOC: ER 16:45 → ERHOLD 20:14 → MED/SURG3 08-26 11:27
PROVIDERS: ADMIT Internal Medicine; ATTEND Internal Medicine
PROC: 5A1D70Z Performance of Urinary Filtration, Intermittent, Less than 6 Hours Per Day (ICD-10-PCS; principal; 2020-08-27)
DX: I11.0 Hypertensive heart disease with heart failure (principal); I50.31 Acute diastolic (congestive) heart failure; J96.00 Acute respiratory failure, unspecified whether with hypoxia or hypercapnia; N18.6 End stage renal disease; J18.9 Pneumonia, unspecified organism; E11.22 Type 2 diabetes mellitus with diabetic chronic kidney disease; I13.2 Hypertensive heart and chronic kidney disease with heart failure and with stage 5 chronic kidney disease, or end stage renal disease; Z99.2 Dependence on renal dialysis; D63.1 Anemia in chronic kidney disease
CPT/HCPCS: 36415; 51700; 71045; 80048; 80053; 80061; 82550; 82553; 82948; 83036; 83735; 84100; 84484; 85025; 85610; 85730; 86704; 86706; 87040; 87340; 90962; 93005; 94640; 97139; 99285; J0456; J0696; J1644; J1815; J1817; J1940; J2920; J2930; J7030; J7050; U0002

== ENCOUNTER 2020-11-22 13:55 | Emergency (ER) | payer MEDICARE ==
[~2020-11-22] VITALS: Ht 154.9 cm; Wt 73.0 kg
[~2020-11-22 13:55] MED LIST changes: +FUROSEMIDE40 MG PO; +GUAIFENESIN-DM 15 ML PO; +KEFLEX125 MG/5 M PO; +ZITHROMAX250 MG PO
[2020-11-22 14:31] LABS: BASOPHILS % 0.4 % (0.0-1.0); EOSINOPHILS # (AUTO) 0.1 (0.0-0.4); EOSINOPHILS % 1.1 % (0.0-6.0); HEMATOCRIT 29.1 % (34.2-44.1); HEMOGLOBIN 9.4 g/dL (12.0-16.0); LYMPHOCYTES # (AUTO) 1.7 (1.0-3.2); LYMPHOCYTES % 15.5 % (18.0-39.1); MEAN CORPUSCULAR HEMOGLOBIN 31.5 pg (28-32); MEAN CORPUSCULAR HGB CONC 32.3 g/dL (31-35); MEAN CORPUSCULAR VOLUME 97.7 fL (81-99); MONOCYTES # (AUTO) 1.1 (0.2-0.8); MONOCYTES % 10.1 % (4.4-11.3); NEUTROPHILS # (AUTO) 7.7 (2.1-6.9); NEUTROPHILS % 72.1 % (38.7-80.0); PLATELET COUNT 330 x10e3/uL (140-360); RED BLOOD COUNT 2.98 x10e6/uL (3.6-5.1); RED CELL DISTRIBUTION WIDTH 15.3 % (11.7-14.4)
[2020-11-22 14:47] LABS: ALBUMIN 3.3 g/dL (3.5-5.0); ALBUMIN/GLOBULIN RATIO 1.1 (0.8-2.0); ANION GAP 18.8 mmol/L (8-16); CALCIUM 7.7 mg/dL (8.4-10.2); CREATININE, SERUM 2.6 mg/dL (0.57-1.11); POTASSIUM 3.8 mmol/L (3.5-5.1)
[2020-11-22 15:11] LABS: CLARITY,URINE HAZY (CLEAR); COLOR,URINE YELLOW (YELLOW); LEUKOCYTE ESTERASE ,URINE NEGATIVE (NEGATIVE)
[2020-11-22 15:12] LABS: KETONES,URINE NEGATIVE (NEGATIVE); NITRITE,URINE NEGATIVE (NEGATIVE); PROTEIN,URINE DIPSTICK >=300 (NEGATIVE); URINE UROBILINOGEN 0.2 mg/dL (0.2 - 1)
[2020-11-22 15:31] LABS: BACTERIA,URINE RARE /HPF; EPITHELIAL CELLS,URINE FEW /LPF; RBC,URINE 0-5 /HPF (0-5); WBC,URINE (MAN) 0-5 /HPF (0-5)
== END 2020-11-22 16:04 | disposition home or self-care (01) ==
LOC: ER 14:34
DX: R06.02 Shortness of breath (principal); J81.1 Chronic pulmonary edema; R05 Cough; R53.1 Weakness; E11.9 Type 2 diabetes mellitus without complications; Z99.2 Dependence on renal dialysis; J44.9 Chronic obstructive pulmonary disease, unspecified; I50.9 Heart failure, unspecified; E78.5 Hyperlipidemia, unspecified; Z20.822 Contact with and (suspected) exposure to COVID-19
CPT/HCPCS: 36415; 71045; 80053; 81001; 83880; 84484; 85025; 93005; 99284; U0002

== ENCOUNTER 2020-12-01 20:47 | Emergency (ER) | payer MEDICARE ==
[~2020-12-01] VITALS: Ht 154.9 cm; Wt 73.0 kg
[2020-12-01] MEDS ORDERED: TRAMADOL HCL 50 MG TAB PO ONE (22:00)
[2020-12-01] MEDS ORDERED: TRAMADOL HCL 50 MG TAB ONE (22:12)
== END 2020-12-01 23:40 | disposition home or self-care (01) ==
LOC: ER 21:42
DX: M54.6 Pain in thoracic spine (principal); M54.5 Low back pain; I51.7 Cardiomegaly; J98.11 Atelectasis
CPT/HCPCS: 72128; 72131; 99283

== ENCOUNTER 2021-02-12 13:36 | Emergency (ER) | payer MEDICARE ==
[~2021-02-12] VITALS: Ht 154.9 cm; Wt 73.0 kg
[2021-02-12] MEDS ORDERED: IOPAMIDOL 370 MG/ML 200 ML INFUS..BTL INJ ONE (14:10)
[2021-02-12] MEDS ORDERED: SODIUM CHLORIDE 0.9% 100 ML ONE (14:10)
[2021-02-12 14:33] LABS: BASOPHILS % 0.1 % (0.0-1.0); EOSINOPHILS # (AUTO) 0.1 (0.0-0.4); EOSINOPHILS % 0.4 % (0.0-6.0); HEMOGLOBIN 7.8 g/dL (12.0-16.0); LYMPHOCYTES # (AUTO) 0.6 (1.0-3.2); LYMPHOCYTES % 3.8 % (18.0-39.1); MEAN CORPUSCULAR HEMOGLOBIN 28.3 pg (28-32); MEAN CORPUSCULAR VOLUME 94.2 fL (81-99); MONOCYTES # (AUTO) 0.5 (0.2-0.8); MONOCYTES % 3.6 % (4.4-11.3); NEUTROPHILS # (AUTO) 13.3 (2.1-6.9); NEUTROPHILS % 90.7 % (38.7-80.0); PLATELET COUNT 348 x10e3/uL (140-360); RED BLOOD COUNT 2.76 x10e6/uL (3.6-5.1); RED CELL DISTRIBUTION WIDTH 18.3 % (11.7-14.4)
[2021-02-12 14:36] LABS: INR 1.05; PROTHROMBIN TIME 14.6 seconds (11.9-14.5)
[2021-02-12 14:47] LABS: ALBUMIN 2.4 g/dL (3.5-5.0); ALBUMIN/GLOBULIN RATIO 0.7 (0.8-2.0); CALCIUM 7.6 mg/dL (8.4-10.2); CREATININE, SERUM 1.91 mg/dL (0.57-1.11)
[2021-02-12] MEDS ORDERED: Morphine 2mg Syringe 2 MG/ML SYR IV ONE (15:45)
[2021-02-12] MEDS ORDERED: HEPARIN 25,000 UNIT 1,000 UNIT in DEXTROSE 5% 250ML 250 ML IV SCH ×2 (16:45→17:00)
[2021-02-12] MEDS ORDERED: HEPARIN SOD (PORCINE) 5,000 UNIT/ML VIAL IV ONE (16:45)
[2021-02-12] MEDS ORDERED: HEPARIN 25,000 UNIT DRIP IV ONE ×2 (17:10→17:11)
== END 2021-02-12 19:30 | disposition other institution (70) ==
LOC: ER 13:39
DX: I74.5 Embolism and thrombosis of iliac artery (principal); E11.22 Type 2 diabetes mellitus with diabetic chronic kidney disease; N18.6 End stage renal disease; Z99.2 Dependence on renal dialysis; E78.5 Hyperlipidemia, unspecified; J44.9 Chronic obstructive pulmonary disease, unspecified; I50.9 Heart failure, unspecified; Z20.822 Contact with and (suspected) exposure to COVID-19
CPT/HCPCS: 36415; 71045; 75635; 80053; 85025; 85610; 93005; 93971; 99284; J1644; J2270; J7050; Q9967; U0002